=== PATIENT | male | born 1945 | race Caucasian/White ===

== ENCOUNTER → 2020-02-20 10:55 | Outpatient (CLI) | payer MEDICARE, BC, SELFPAY ==
--- NOTE | 2020-02-20 11:09 | CT_ITS ---
STUDY: CT LEFT KNEE WITHOUT CONTRAST REASON FOR EXAM: Male, 74 years old. DISP FX OF LT TIBIA, FELL 12 FT, C/O LT KNEE PAIN RADIATION DOSAGE (If Supplied By Facility): CTDIvol = ( 15.35 ) mGy, DLP = ( 461.22 ) mGycm TECHNIQUE: Transaxial CT imaging of the knee was performed. Coronal and sagittal images were reformatted. Individualized dose optimization techniques were used for this CT. COMPARISON: None. FINDINGS: Nondisplaced fracture through the lateral aspect of the medial tibial plateau. There is preservation of the articular joint space of the medial knee compartment. Comminuted fracture involving the lateral tibial plateau with the minimal depression of the fracture fragment at the level of the articular surface measuring approximately 1 mm. There is preservation of the articular joint space of the lateral knee compartment. Normal proximal tibiofibular articulation. Moderate joint effusion. The quadriceps tendon is grossly normal. The patellar tendon is grossly normal. Normal Hoffa''s fat pad. Soft tissue swelling. CT/Extremity Lower without Contra IMPRESSION: Minimally depressed, fracture through the lateral tibial plateau extending into the lateral aspect of the medial tibial plateau. Moderate degree of joint effusion. Electronically Signed: Nate Nails, at 12:43 EDT , Service support ,
== END ==
PROVIDERS: PCP Family Medicine; Referring Provider Physician Assistant; Visit Provider Physician Assistant
DX: S82.112A Displaced fracture of left tibial spine, initial encounter for closed fracture (principal)
CPT/HCPCS: 73700

== ENCOUNTER → 2021-02-21 12:53 | Outpatient (CLI) | payer MEDICARE, BC, SELFPAY ==
[2021-02-20 13:24] VITALS: BMI 30.8
--- NOTE | 2021-02-21 12:56 | ECHOD_ITS ---
Reason For Study: MURMUR Procedure This was a 2D Doppler, Color Flow transthoracic echocardiogram. The study was technically difficult. Exam performed in department. Left Ventricle Normal LV size. Left ventricular systolic function is normal. The estimated ejection fraction is 60 %. No evidence for diastolic dysfunction. No regional wall motion abnormalities noted. Right Ventricle Normal RV size. Normal systolic function. Atria The left atrium is mildly enlarged. Normal right atrium. No doppler evidence for ASD. Mitral Valve There is no mitral annular calcification. Normal mitral valve. Trivial mitral valve insufficiency. Tricuspid Valve Normal tricuspid valve. Trivial tricuspid valve insufficiency. Unable to estimate RV systolic pressure/pulmonary artery pressure due to technically difficult study. Aortic Valve The aortic valve is not well visualized, however, based upon the 2D echocardiographic images obtained there appears to be diffuse thickening, calcification, and partial restriction. Mild aortic stenosis. Pulmonic Valve The pulmonic valve is not well visualized. Great Vessels Normal sized aortic root. Calcified aortic root. Pericardium/Pleural No pericardial effusion. MMode/2D Measurements & Calculations LVIDd: 4.7 cm IVSd: 1.2 cm LVOT diam: 2.3 cm LVIDs: 3.3 cm LVPWd: 1.2 cm LVOT area: 4.1 cm2 RVDd: 3.6 cm FS: 29.2 % Ao root diam: 2.9 cm LAV(MOD-bp): 76.0 ml LA A4 area: 25.9 cm2 LAV(MOD-bp) Indexed: 35.1 ml/m2 LAV(MOD-sp2): 64.1 ml LAV(MOD-sp4): 86.0 ml LA dimension(2D): 4.1 cm RA A4 area: 20.1 cm2 Time Measurements MV dec time: 0.28 sec Doppler Measurements & Calculations MV E max devin: 76.7 cm/sec Lat Peak E' Devin: 10.7 cm/sec Med Peak E' Devin: 8.5 cm/sec MV A max devin: 89.8 cm/sec E/E' lat: 7.2 E/E' med: 9.0 MV E/A: 0.85 Ao V2 max: 280.6 cm/sec LV V1 max: 119.0 cm/sec SV(LVOT): 112.9 ml Ao max P.6 mmHg LV V1 max P.7 mmHg Ao V2 mean: 207.0 cm/sec LV V1 mean P.4 mmHg Ao mean P.8 mmHg LV V1 mean: 90.0 cm/sec Ao V2 VTI: 62.0 cm LV V1 VTI: 27.4 cm ANNE MARIE(I,D): 1.8 cm2 ANNE MARIE(V,D): 1.7 cm2 PA V2 max: 106.6 cm/sec ECHO/Echo Complete Interpretation Summary The study was technically difficult. Left ventricular systolic function is normal. The estimated ejection fraction is 60 %. The left atrium is mildly enlarged. Trivial mitral valve insufficiency. Trivial tricuspid valve insufficiency. Mild aortic stenosis. Calcified aortic root. Unable to estimate RV systolic pressure/pulmonary artery pressure due to techni grace difficult study. No evidence for diastolic dysfunction. Ordering Physician: Mejia Broderick Referring Physician: Radu Guaman Performed By: Cherie Givens RDCS, RVT
== END ==
PROVIDERS: PCP Family Medicine; Referring Provider Internal Medicine Cardiovascular Disease; Visit Provider Internal Medicine Cardiovascular Disease
DX: I35.0 Nonrheumatic aortic (valve) stenosis (principal); R01.1 Cardiac murmur, unspecified; I10 Essential (primary) hypertension
CPT/HCPCS: 93306

== ENCOUNTER → 2023-09-07 | Outpatient (CLI) | payer MEDICARE, BC, OTHER, SELFPAY ==
--- NOTE | 2023-09-07 | LES_PTH ---
PATIENT: EVELIN MONTES LOC: [facility] U#:[id number] AGE/SX: 78/M ROOM: RE09/07/[address]: Dr. Castro Lund MD : 1945 BED: DIS: 09/07/2023 SPEC #: [id number] RECD: 09/08/23 08:24 STATUS: TOMASA IWONA #: [id number] LEXI: 09/07/23 00:[address]: Castro Lund DEPT: SURGICAL PATHOLOGY RECD BY: Maru Goff Tissues: Nasal cartilage, NOS Procedures: Surgery Specimen Level IV HEADER OPERATION: Intradermal excision PRE-OP DIAGNOSIS: Enlarging lesion nasal dorsum TISSUE SUBMITTED: Nasal dorsum MICROSCOPIC DIAGNOSIS Lesion of nasal dorsum, biopsy: Fragments of skin with sebacious hyperplasia. Actinic change with mild atypia. Extensive solar elastosis. Mild chronic inflammation. AM:yousif 09/09/2023 MICROSCOPIC DESCRIPTION Slides are reviewed. GROSS DESCRIPTION Received in fixative is one container labeled with the patient's name and designated nasal dorsum. The specimen consists of two irregular fragments of light zavala soft tissue that in aggregate measure 0.9 x 0.7 x 0.1 cm. The specimen is totally submitted in one cassette. / AM:yousif 09/08/2023 TC:? CPT: 37265
== END | disposition home or self-care (01) ==
PROVIDERS: Visit Provider Surgery
DX: J34.89 Other specified disorders of nose and nasal sinuses (principal)
CPT/HCPCS: 88304; 88305

== ENCOUNTER 2024-02-12 10:05 | Day surgery (SDC) | payer MEDICARE, BC, SELFPAY ==
[2024-02-12 10:29] VITALS: BP 157/92; PULSE 70; RESP 16; TEMP 36.8; O2SAT 100; BMI 29.1
--- NOTE | 2024-02-12 11:19 | PCM.HP.BLA ---
History and Physical Date of Admission: 02/12/24 The patient is examined and there are no changes from the previous H&P dated 02/03/2024. 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 Informed consent was obtained. Assessment & Plan Assessment/Plan (1) SCC (squamous cell carcinoma), face: PLAN: Plan For excision SCC left face with FS
[2024-02-12 11:45] VITALS: BP 121/65; BP 130/73; BP 139/71; BP 140/73; BP 142/71; BP 143/81; BP 144/77; BP 145/73; BP 151/71; O2SAT 92; O2SAT 93; O2SAT 94; O2SAT 95; O2SAT 96; O2SAT 97; O2SAT 99
[2024-02-12] MEDS: Lidocaine 1% /Epi 1:100 9 ML, Sodium Bicarbonate 1 MEQ OPERA.SITE (12:00)
--- NOTE | 2024-02-12 12:29 | LES_PTH ---
PATIENT: EVELIN MONTES LOC: [facility] – [place] U#:[id number] AGE/SX: 78/M ROOM: RE02/12/[address]: Dr. Sayra Vincent MD : 1945 BED: DIS: 02/12/2024 SPEC #: [id number] RECD: 02/12/24 12:40 STATUS: TOMASA REAntonella #: [id number] LEXI: 02/12/24 12:[address]: Sayra Vincent DEPT: SURGICAL PATHOLOGY RECD BY: Sergio Tomas ENTERED: 02/12/24 12:41 SP TYPE: Lesion OTHR DR: Dr. Verenice Hernandez MD Tissues: Skin of face, NOS Procedures: Frozen Section (charge) Frozen Section Add'l ([facility]) Surgery Specimen Level IV HEADER OPERATION: Excision squamous cell carcinoma left cheek with frozen section PRE-OP DIAGNOSIS: Squamous cell carcinoma left cheek TISSUE SUBMITTED: Squamous cell carcinoma left cheek FROZEN SECTION DIAGNOSIS Left cheek lesion, excisional biopsy: Invasive squamous cell carcinoma, completely excised. MICROSCOPIC DIAGNOSIS Skin lesion of left cheek, excision: Invasive well to moderately differentiated squamous cell carcinoma. Solar elastosis. See comment. AM/ 02/16/2024 COMMENT The lesion is excised in the plains examined but is present in <1.0mm from the deep 9 o'clock margin of excision. MICROSCOPIC DESCRIPTION Slides are reviewed. GROSS DESCRIPTION Received fresh for frozen section consultation/diagnosis labeled with the patient's name is a specimen designated Squamous cell carcinoma left cheek. The specimen consists of a piece of zavala-white skin ellipse oriented on the gauz piece measuring 2.2 x 2.0 x 1.0cm. This specimen is inked as follows: 12 o'clock tip -yellow, 6 o'clock tip- green, 3 o'clock margin- black, 9 o'clock margin- blue. This specimen is serially sectioned and submitted entirely for frozen section diagnosis in three cassettes. Cassette 1- 6 and 12 o'clock tip. / 02/12/2024 TC:0 CPT: 21750,[id number]
--- NOTE | 2024-02-12 12:34 | DCINST_ITS ---
Discharge Instructions Dressing / Incision Additional Dressing/Incision Instructions:: Keep your head elevated (recliner position) for the next 3-4 nights to prevent swelling and bleeding. Take the oral antibiotic (Keflex) 2 times a day until finished. Keep the Steri-Strips dry??do not remove until seen in the office. Follow Up Care Please Follow Up With: Sayra Vincent MD When: In 2 weeks Test Results: Test results from this visit will be discussed in further detail at your follow- up appointment, if applicable. Discharge Plan Admission Attending Provider: Sayra Vincent Primary Care Provider: Verenice Hernandez Discharge Orders/Prescriptions Prescriptions: New cephalexin 500 mg capsule 500 mg PO BID 5 Days Qty: 10 0RF No Action vitamin E (dl, acetate) 1,000 unit capsule 2,000 unit PO DAILY multivitamin tablet 1 tab PO DAILY vit C 150 mg-vit E 30 unit-lutein 5 tx-lniexiio-yhbfv 3 150 mg capsule 201-25-1-150 lr-bhvd-ey-mg capsule 1 cap PO DAILY triamcinolone acetonide 0.1 % cream 1 applic TOPICAL TID PRN (Reason: rash) cholecalciferol (vitamin D3) 25 mcg (1,000 unit) tablet 1,000 unit PO DAILY zinc 50 mg tablet 50 mg PO DAILY biotin 2,500 mcg capsule 2,500 mcg PO DAILY Referrals / Follow Up: Verenice Hernandez MD [Primary Care Provider] - Disposition Disposition (needs filled in before D/C Order can be placed): Home, Self Care
--- NOTE | 2024-02-12 12:37 | OP.PCM_ITS ---
Problems Associated Problem List Diagnoses (1) SCC (squamous cell carcinoma), face: Report of Operation Date of Procedure: 02/12/24 Pre-Operative Diagnosis: Biopsy-proven SCC left cheek Post-Operative Diagnosis: Same Surgery/Procedure Performed:: Excision SCC left cheek with FS (3.0 cm) and intermediate closure Surgeon: Sayra Vincent Type of Anesthesia: Local Specimen's removed: SCC left cheek Estimated Blood Loss (mL): Minimal Description of Procedure: The patient presents with a biopsy-proven SCC of the left cheek. He presents for excision with frozen section to assure clear margins. An informed consent was obtained prior to the surgery. The patient was brought to the operating room and placed on the operating room table in the supine position. The left cheek is prepped and draped in the usual sterile fashion. 1% Xylocaine with epinephrine buffered with sodium bicarb is used for local anesthetic. Following this, the site is excised and orientation maintained for submission to pathology. The specimen is passed off the operative field to be sent for frozen section evaluation by pathology. Frozen section reveals clear margins. The incisions then closed in layers using a Monocryl suture in the subcutaneous tissue and dermis. Skin edges are approximated with a running subcuticular Monocryl suture. Dermabond and Steri- Strips were placed on the site. He tolerated the procedure well was taken recovery area in an awake and stable condition. Needle and sponge counts are correct. Complications None Admit VTE Documentation VTE Mechan Device Prophylaxis: None Reason prophylaxis not ordered:: Treatment Not Indicated
[2024-02-12 12:45] VITALS: BP 138/70; BP 157/92; PULSE 61; RESP 17; TEMP 36.4; O2SAT 95
== END 2024-02-12 13:15 | disposition home or self-care (01) ==
LOC: SDC 10:08 → AC 10:10
PROVIDERS: PCP Internal Medicine; Referring Provider Plastic Surgery; Visit Provider Plastic Surgery
PROC: (CPT 11643; principal; 2024-02-12 11:00)
DX: C44.320 Squamous cell carcinoma of skin of unspecified parts of face (principal)
CPT/HCPCS: 11643; 00300; J7120; 88305; 88331; 88332

== ENCOUNTER 2024-03-25 07:00 | Day surgery (SDC) | payer MEDICARE, BC, SELFPAY ==
[2024-03-25 07:21] VITALS: BP 128/72; PULSE 63; RESP 17; TEMP 36.8; O2SAT 98; BMI 29.0
--- NOTE | 2024-03-25 07:34 | PCM.HP.BLA ---
History and Physical Date of Admission: 03/25/24 The patient is examined and there are no changes to the H&P from 03/16/24. The patient presents with SCC left cheek with close positive margins. D/t the skin cancer type, we will re-excise to prevent further recurrence. Assessment & Plan Assessment/Plan (1) SCC (squamous cell carcinoma), face: PLAN: Plan For reexcision of SCC left cheek with FS.
[2024-03-25 08:14] VITALS: BP 120/65; BP 131/62; O2SAT 97; O2SAT 99
[2024-03-25 08:20] VITALS: BP 118/68; BP 120/65; BP 121/58; O2SAT 100; O2SAT 92; O2SAT 94; O2SAT 97; O2SAT 98
--- NOTE | 2024-03-25 08:55 | LES_PTH ---
PATIENT: EVELIN MONTES [place] [facility] [place][id number] AGE/SX: 78/M ROOM: RE03/25/[address]: Dr. Sayra Vincent MD : 1945 BED: DIS: 03/25/2024 SPEC #: [id number] RECD: 03/25/24 09:19 STATUS: TOMASA IWONA #: [id number] LEXI: 03/25/24 08:[address]: Sayra Vincent DEPT: SURGICAL PATHOLOGY RECD BY: Sergio Tomas ENTERED: 03/25/24 09:20 SP TYPE: Lesion OTHR DR: Dr. Verenice Hernandez MD Tissues: A - Skin of face, NOS B - Skin of external ear, NOS Procedures: Frozen Section (charge) Surgery Specimen Level IV HEADER OPERATION: Excision lesion of left cheek with frozen section PRE-OP DIAGNOSIS: SCC, face TISSUE SUBMITTED: A- Squamous cell carcinoma left cheek, B- Lesion left post auricular area FROZEN SECTION DIAGNOSIS Lesion of left cheek, excisional biopsy: Margins are free of carcinoma. MICROSCOPIC DIAGNOSIS A. Lesion left cheek, excisional biopsy: Solar elastosis. Dermal chronic inflammation. Changes consistent with previous biopsy site. Negative for residual carcinoma. See comment. B. Left post auricular area lesion, excisional biopsy: Benign vascular proliferation (capillary hemangioma), completely excised. ERICH/ 03/28/2024 COMMENT A. Please make reference to previous specimen ([id number]), skin lesion, left cheek, excision diagnosis of invasive well to moderate differentiated squamous cell carcinoma. MICROSCOPIC DESCRIPTION Slides are reviewed. GROSS DESCRIPTION A. Received fresh for frozen section diagnosis labeled with the patient's name is a specimen designated Lesion of left cheek. The specimen consists of an ovoid piece of zavala-white skin measuring 3.5 x 0.8 x 0.3cm. The specimen is oriented on the gauze piece. The specimen is inked as follows: 12o'clock- yellow, 6o'clock- green, 3o'clock- black, 9 o'clock- blue. The specimen is serially sectioned and submitted entirely in three cassettes for frozen section diagnosis. Cassette 1 contains 6 o'clock and 12o'clock margins. B. Received in fixative is one container labeled with the patient's name and designated Lesion left post auricular area. The specimen consists of zavala-white skin ellipse measuring 1.0 x 0.5 x 0.1cm in thickness. The specimen is inked, serially sectioned and submitted entirely in one cassette. ERICH/ 03/25/2024 TC:1CPT:[id number]
[2024-03-25] MEDS: Lidocaine 1% /Epi 1:100 9 ML, Sodium Bicarbonate 1 MEQ OPERA.SITE (09:00)
--- NOTE | 2024-03-25 09:16 | DCINST_ITS ---
Discharge Instructions Dressing / Incision Additional Dressing/Incision Instructions:: Keep your head elevated (recliner position) to decrease swelling and bleeding for the next 2 to 3 nights. Keep the Steri-Strips dry. Do not remove the tape. If they fall off, you may apply Neosporin or bacitracin to the site once a day. Take the oral antibiotic (Keflex) 2 times a day until finished. Follow Up Care Please Follow Up With: Sayra Vincent MD When: In 2 weeks Test Results: Test results from this visit will be discussed in further detail at your follow- up appointment, if applicable. Discharge Plan Admission Attending Provider: Sayra Vincent Primary Care Provider: Verenice Hernandez Instructions Print Language: Citizen Of [place] Discharge Orders/Prescriptions Prescriptions: New cephalexin 500 mg capsule 500 mg PO BID 5 Days Qty: 10 0RF No Action vitamin E (dl, acetate) 1,000 unit capsule 2,000 unit PO DAILY multivitamin tablet 1 tab PO DAILY Ocuvite 065-56-7-150 pj-qbfx-hq-mg capsule 1 cap PO DAILY triamcinolone acetonide 0.1 % cream 1 applic TOPICAL TID PRN (Reason: rash) cholecalciferol (vitamin D3) 25 mcg (1,000 unit) tablet 1,000 unit PO DAILY zinc 50 mg tablet 50 mg PO DAILY amoxicillin 500 mg capsule 500 mg PO BID biotin 2,500 mcg capsule 2,500 mcg PO DAILY Referrals / Follow Up: Verenice Hernandez MD [Primary Care Provider] - Disposition Disposition (needs filled in before D/C Order can be placed): Home, Self Care
--- NOTE | 2024-03-25 09:20 | PCM.OPRPT ---
Problems Associated Problem List Diagnoses (1) Neoplasm of uncertain behavior of skin: (2) SCC (squamous cell carcinoma), face: Report of Operation Date of Procedure: 03/25/24 Pre-Operative Diagnosis: Biopsy-proven SCC left cheek; neoplasm uncertain behavior left postauricular area Post-Operative Diagnosis: Same Surgery/Procedure Performed:: Excision SCC left cheek with FS (4.5 cm); intermediate closure left cheek; excision neoplasm left postauricular area (1.5 cm) Surgeon: Sayra Vincent Type of Anesthesia: Local Specimen's removed: Left cheek SCC; neoplasm left postauricular area Estimated Blood Loss (mL): Minimal Description of Procedure: The patient presents with a biopsy-proven SCC of the left cheek. This had previously been removed with frozen section however the permanent pathology demonstrated less than 1 mm of clear margin. He therefore presents for reexcision to assure against recurrence. 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 The patient was brought to the operating room and placed on the operating room table in supine position. The left cheek and postauricular area are prepped and draped in the usual sterile fashion. 1% Xylocaine buffered with sodium bicarb is injected in both sites. Following this, the left cheek SCC site is excised including the previous scar. Hemostasis is controlled with cautery. The orientation of the specimen is demarcated before sending to pathology for frozen section. Frozen section returned as clear margins and therefore the site is closed. 5-0 Monocryl sutures were used to approximate subcutaneous tissue and dermis in a fgvzoh-yl-msjxq fashion. Skin edges are further approximated with a running subcuticular Monocryl suture. Dermabond and Steri-Strips are placed on the site. We then directed our attention to the lesion of the postauricular area. After this has been injected with 1% Xylocaine with epinephrine buffered with sodium bicarb, it is elliptically excised and passed off the operative field for pathology. Hemostasis is controlled with cautery. The incision was then closed with a running chromic suture. Dermabond and Steri-Strips were placed on the site. He tolerated the procedure well was taken to the recovery area in an awake and stable condition. Needle and sponge counts are correct. Complications None Admit VTE Documentation VTE Mechan Device Prophylaxis: None Reason prophylaxis not ordered:: Treatment Not Indicated
[2024-03-25 09:53] VITALS: BP 127/68; BP 128/72; PULSE 63; RESP 18; TEMP 36.6; O2SAT 95
== END 2024-03-25 09:53 | disposition home or self-care (01) ==
LOC: SDC 07:01 → AC 07:02
PROVIDERS: PCP Internal Medicine; Referring Provider Plastic Surgery; Visit Provider Plastic Surgery
PROC: (CPT 11646; principal; 2024-03-25 07:50)
DX: C44.329 Squamous cell carcinoma of skin of other parts of face (principal); L57.8 Other skin changes due to chronic exposure to nonionizing radiation
CPT/HCPCS: 11646; 00300; 88305; 88331

== ENCOUNTER 2025-01-16 13:02 | Inpatient (IN) | payer MEDICARE, BC, OTHER, SELFPAY ==
[2025-01-16] VITALS (7 sets, daily range): BP systolic 114–174; BP diastolic 61–93; PULSE 54–83; RESP 12–20; TEMP 36.1–36.4; O2SAT 96–99; BMI 28.0; BMI 28.5
--- NOTE | 2025-01-16 13:24 | EKG12_ITS ---
Test Reason : Blood Pressure : */* mmHG Vent. Rate : 56 BPM Atrial Rate : 56 BPM P-R Int : 180 ms QRS Dur : 100 ms QT Int : 418 ms P-R-T Axes : -18 -25 -44 degrees QTcB Int : 403 ms Sinus bradycardia Minimal voltage criteria for LVH, may be normal variant ( R in aVL ) Nonspecific ST and T wave abnormality Abnormal ECG Confirmed by MILDRED GILLESPIE, ROGELIO ([id number]), film editor USMAN CORDOVA ([id number]) on 01/17/2025 8:36:50 AM Referred By: Blaine Chopra Confirmed By: ROGELIO LEVY MD
--- NOTE | 2025-01-16 13:36 | EX.ED.DYSGE1 ---
HPI <QAMAR Sy - Last Filed: 01/16/25 16:33> History of Present Illness Chief Complaint: Syncope Narrative Narrative: Patient presenting today due to multiple syncopal episodes he has had over the past 2 months or so. 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 He reports that he has had about 4 or 5 episodes of syncope. His last episode was about 2 weeks ago. Each episode occurred after developing left-sided chest pain while he was exerting himself. He was able to come back to [place] today to see his PCP, she would like him to be admitted to the hospital for cardiac workup. He did have labs obtained at the end of November, he had a negative D-dimer. He denies any history of blood clots or recent surgery. He does have a history of a cardiac murmur that was evaluated several years ago by cardiology. He has had no recent stress test. He is currently asymptomatic. He has a PMH of HLD and T2DM. PFS <QAMAR Sy - Last Filed: 01/16/25 16:33> [facility] Medical History Abnormal pituitary follicle stimulating hormone (FSH) Anemia Aortic stenosis Chest pain Syncope Dermatochalasis of right lower eyelid Dermatochalasis of left lower eyelid Non-rheumatic aortic stenosis Cardiac murmur Controlled type 2 diabetes mellitus Essential hypertension Testicular mass Hyperlipemia Home Medications ?Medication ?Instructions ?Recorded ?Last Taken ?Type multivitamin 1 tab PO DAILY 08/17/18 01/15/25 History vitamin E (dl, acetate) 450 mg 2,000 unit PO DAILY 08/19/18 01/15/25 History (1,000 unit) capsule triamcinolone acetonide 0.1 % 1 applic topical TID PRN rash 02/20/21 01/15/25 History topical cream biotin 2,500 mcg capsule 5 mg PO DAILY 12/07/24 01/15/25 History cholecalciferol (vitamin D3) 25 400 unit PO DAILY 12/07/24 01/15/25 History mcg (1,000 unit) tablet vitamin A-vitamin C-vit E-min 2 tab PO DAILY 01/16/25 01/15/25 History tablet (Ocutabs tablet) Allergy/AdvReac Type Severity Reaction Status Date / Time No Known Allergies Allergy Verified 05/10/24 10:44 Family History Father Myocardial infarction CAD (coronary artery disease) History of coronary artery bypass surgery Mother COPD (chronic obstructive pulmonary disease) Surgical History History of open reduction and internal fixation (ORIF) procedure History of arthroscopic knee surgery Social History Smoking Status: Never smoker alcohol intake: never substance use type: does not use additional social history: pt denies smoking, denies vaping, denies edibles, denies alcohol, denies aspirin use, denies ibuprofen use. ROS <QAMAR Sy - Last Filed: 01/16/25 16:33> ROS ED Constitutional Constitutional ED: Denies chills or fever(s) Cardiovascular Cardiovascular: Reports chest pain and syncope; Denies palpitations Respiratory/Chest Respiratory/Chest: Denies cough or dyspnea Gastrointestinal Gastrointestinal: Denies abdominal pain, nausea or vomiting Genitourinary Genitourinary ED: Denies dysuria, hematuria or urinary urgency Musculoskeletal Musculoskeletal: Denies arthralgias or myalgias Integumentary Denies rash Neurologic Neurologic: Denies weakness EXAM <QAMAR Sy - Last Filed: 01/16/25 16:33> Physical Exam Const Vital Signs: 01/16/25 13:03 01/16/25 13:45 01/16/25 13:45 Temperature 97.6 F L Temperature Source Temporal Pulse Rate 58 L 56 L Respiratory Rate 16 13 Respiratory Effort Normal Respiratory Pattern Normal Blood Pressure 130/72 H 124/63 H Blood Pressure Mean 91 83 Pulse Ox 99 99 Oxygen Delivery Method Room Air Room Air 01/16/25 15:06 Temperature 97 F L Temperature Source Pulse Rate 66 Respiratory Rate 20 H Respiratory Effort Respiratory Pattern Blood Pressure 142/82 H Blood Pressure Mean 102 Pulse Ox 97 Oxygen Delivery Method Positive well nourished, well developed and no apparent distress General Appearance ED: well developed HEENT Reports normocephalic and head/scalp atraumatic Mouth ED: Yes moist mucous membranes normal Eyes PERRL and EOMs intact bilaterally Neck full ROM and supple Chest Wall inspection of chest normal Resp normal respiratory effort and clear to auscultation bilaterally Cardio regular rate and regular rhythm Cardio Narrative: Systolic murmur GI soft to palpation, non-tender, non-distended and no masses Back/Spine normal ROM and normal to inspection Extremity normal to inspection and full ROM Neuro oriented x3, CN's II-XII intact bilaterally, moves all extremities, no focal motor deficits and no sensory deficits noted Sensorium / Orientation: awake and alert Psych mental status grossly normal and thought process normal Skin no rashes or lesions noted and no wounds <Dr. Blaine Chopra DO - Last Filed: 01/16/25 15:27> Physical Exam Const Vital Signs: 01/16/25 13:03 01/16/25 13:45 01/16/25 13:45 Temperature 97.6 F L Temperature Source Temporal Pulse Rate 58 L 56 L Respiratory Rate 16 13 Respiratory Effort Normal Respiratory Pattern Normal Blood Pressure 130/72 H 124/63 H Blood Pressure Mean 91 83 Pulse Ox 99 99 Oxygen Delivery Method Room Air Room Air 01/16/25 15:06 Temperature 97 F L Temperature Source Pulse Rate 66 Respiratory Rate 20 H Respiratory Effort Respiratory Pattern Blood Pressure 142/82 H Blood Pressure Mean 102 Pulse Ox 97 Oxygen Delivery Method MDM <QAMAR Sy - Last Filed: 01/16/25 16:33> [facility] Narrative Medical decision making narrative: Patient presenting today due to multiple syncopal episodes he has had over the past 2 months that have occurred with exertion. He also developed left-sided chest pain prior to each episode of syncope. He does have a history of aortic stenosis, he does have a murmur on exam. He did see his PCP this morning who referred him here to be admitted for cardiac workup. He has had no recent echo or stress test. He is currently asymptomatic. Labs were obtained, mild anemia noted on CBC, BMP unremarkable, initial troponin negative. BNP is pending. I do feel he would benefit from admission to the hospital for further cardiac workup, he is comfortable with this plan. We spoke with the hospitalist and patient admitted in stable condition Lab Data Attestation: I reviewed the patient's lab results. Lab results narrative: H&H 12.6 and 36.7, BUN 20 Labs: Laboratory Results - last 24 hr 01/16/25 13:40 WBC 5.6 RBC 4.23 L Hgb 12.6 L Hct 36.7 L MCV 86.8 MCH 29.8 MCHC 34.3 RDW Std Deviation 38.4 RDW Coeff of Sly 12.1 Plt Count 182 MPV 10.1 Immature Gran % (Auto) 0.400 Neut % (Auto) 71.5 H Lymph % (Auto) 17.8 L [place] % (Auto) 8.0 Eos % (Auto) 1.6 Baso % (Auto) 0.7 Absolute Neuts (auto) 4.0 Absolute Lymphs (auto) 1.00 Nucleated RBC % 0 Sodium 138 Potassium 4.0 Chloride 104 Carbon Dioxide 25.3 Anion Gap 9 BUN 20 H Creatinine 0.92 Estim Creat Clear Calc 73.75 Est GFR (MDRD) Non-Af 85 BUN/Creatinine Ratio 21.8 H Glucose 136 H Calcium 9.0 Troponin T High Sens 15 Radiography X-Ray: Read by ED Physician Diagnostic Testing: Clinical Impression(s) from Imaging Studies Chest X-Ray 01/16/25 13:40 IMPRESSION: Vascular congestion and mild CHF. Reading Location: [place] [id number] EKG Initial EKG: Comments: 56 bpm, sinus bradycardia, no ST elevation, interpreted by attending ED physician <Dr. Blaine Chopra, DO - Last Filed: 01/16/25 15:27> [facility] History & Record Review Discussion w/independent historian: Patient Lab Data Labs: Laboratory Results - last 24 hr 01/16/25 13:40 WBC 5.6 RBC 4.23 L Hgb 12.6 L Hct 36.7 L MCV 86.8 MCH 29.8 MCHC 34.3 RDW Std Deviation 38.4 RDW Coeff of Sly 12.1 Plt Count 182 MPV 10.1 Immature Gran % (Auto) 0.400 Neut % (Auto) 71.5 H Lymph % (Auto) 17.8 L [place] % (Auto) 8.0 Eos % (Auto) 1.6 Baso % (Auto) 0.7 Absolute Neuts (auto) 4.0 Absolute Lymphs (auto) 1.00 Nucleated RBC % 0 Sodium 138 Potassium 4.0 Chloride 104 Carbon Dioxide 25.3 Anion Gap 9 BUN 20 H Creatinine 0.92 Estim Creat Clear Calc 73.75 Est GFR (MDRD) Non-Af 85 BUN/Creatinine Ratio 21.8 H Glucose 136 H Calcium 9.0 Troponin T High Sens 15 Radiography Diagnostic Testing: Clinical Impression(s) from Imaging Studies Chest X-Ray 01/16/25 13:40 IMPRESSION: Vascular congestion and mild CHF. Reading Location: [place] [id number] Management Discussion w/another healthcare provider: Hospitalist (Dr Matos) Treatment and Re-Evaluation :: I have personally performed a face to face assessment of the patient and have reviewed the EDGAR Note. I performed a substantive portion of the visit including all aspects of the following. My joseph findings include: History is 79-year-old male presenting to the emergency room with the chief complaint of chest pressure and syncope. Patient has a history of aortic stenosis. He has had recurrent syncope over the past several months last episode was 2 weeks ago. He also notes chest pressure associated with exertion. He was seen by primary care as an outpatient had EKG and troponin. He has been trying to control his blood sugar and cholesterol through nonpharmaceutical means. Patient has not had a recent echocardiogram. Last one I can see was 2017. Exam is alert and oriented lung sounds are clear and equal. He does seem to have a conversational dyspnea. There is a holosystolic murmur heard best at the aortic listening post I do not appreciate any lower extremity edema. Medical Decison Making EKG shows a sinus rhythm with no ischemic changes. Troponin is negative. My independent interpretation of the chest x-ray is vascular congestion. I added on a BNP. Given his recurrent syncope and chest discomfort with the findings on the chest x-ray and the aortic stenosis with no recent echocardiogram I think it is reasonable that we bring him in obtain echocardiogram and explore the symptomatology further. Discharge Plan Dx/Rx/DC Orders Clinical Impression: Recurrent syncope, Chest pain, Aortic stenosis Disposition Disposition: Acute Care Hospital [facility] Discharge Date/Time: 01/16/25 16:11
--- NOTE | 2025-01-16 13:40 | RAD_ITS ---
PROCEDURE: CHEST 1 VIEW (PORTABLE) 01/16/2025 REASON FOR EXAM: Chest pain. Syncopal episodes. TECHNIQUE: Frontal view of the chest. COMPARISON: None FINDINGS: Hardware: EKG electrodes are seen. Heart: Heart size is mildly enlarged. Lungs: Vascular congestion mild CHF. Bones: Degenerative changes are identified within the thoracic spine. Other: Tortuosity of the descending thoracic aorta and calcification of the aortic arch. RAD/Chest 1 View (Portable) IMPRESSION: Vascular congestion and mild CHF. Reading Location: [place] [id number]
[2025-01-16 13:46] LABS: Basophil# 0.04 X10^3/uL; Basophil% 0.7 % (0-1); Eosinophil# 0.09 X10^3/uL; Eosinophils% 1.6 % (0-5); Hematocrit 36.7 % (40-54); Hemoglobin 12.6 g/dL (13.0-16.5); Lymphocyte % 17.8 % (19-41); Mean Corp Hgb Conc 34.3 g/dL (32-36); Mean Corpuscular Hgb 29.8 pg (27.0-32.0); Mean Corpuscular Volume 86.8 fL (80-94); Mean Platelet Vol. 10.1 fl (6.2-12.0); Monocyte# 0.45 X10^3/uL; NRBC Flagged by Analyzer 0 % (0-5); Neutrophil # 4.02 X10^3/uL (2.7-7.7); Neutrophil % 71.5 % (47-70); Platelet Count 182 K/mm3 (150-450); RBC Distribution Width CV 12.1 % (11.6-14.6); RBC Distribution Width SD 38.4 fl (35.1-43.9); Red Blood Count 4.23 M/mm3 (4.6-6.2); White Blood Count 5.6 K/mm3 (4.4-11.0)
--- NOTE | 2025-01-16 13:47 | ED.RN ---
PT C/O SEVERAL SYNCOPAL EPISODES RECENTLY. STATES THESE EPISODES ARE PRECEDED BY CHEST PAIN BUT DENIES CHEST PAIN AT THIS TIME.
[2025-01-16 14:07] LABS: Anion Gap 9 (5-15); BUN 20 mg/dL (4-19); BUN/Creat Ratio 21.8 RATIO (10-20); Carbon Dioxide 25.3 mmol/L (21.0-32.0); Chloride 104 mmol/L (98-108); Creatinine, Serum 0.92 mg/dL (0.70-1.20); EST Glomerular Filtration Rate 85 (>60); Estimated Creatinine Clearance 73.75 ml/min (50-250); Glucose 136 mg/dL (70-99); Sodium Level 138 mmol/L (133-145)
[2025-01-16 14:45] LABS: Troponin T High Sensitivity 15 ng/L (<=22)
--- NOTE | 2025-01-16 15:41 | PCM.HP.STD ---
HPI - General General Date of Admission: 01/16/25 Date of Service: 01/16/25 Chief Complaint: multiple syncopal episodes HPI Narrative EVELIN MONTES, is a 79-year-old male with a history of diet-controlled type 2 diabetes and mild aortic stenosis presented [facility] ED 01/16/2025 due to multiple syncopal episodes over the past couple of months. 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 Each episode occurred after developing left-sided chest pain while exerting himself. He came back to [place] today and saw his PCP and was very concerned and asked him to come to the ER to be admitted for cardiac workup. No history of blood clots or recent surgery. Has a history of a cardiac murmur that was evaluated several years ago by cardiology and an echo from 2018 showed mild aortic stenosis. Presently symptomatic, has no history of recent stress test or echocardiogram. In the ED vitals stable, troponin 15, hemoglobin 12.6 and glucose 136 but CBC and BMP otherwise unremarkable. Chest x-ray did show some vascular congestion suggestive of mild CHF and patient had a little bit of exertional dyspnea so BNP was added on. Given patient's multiple syncopal episodes hospitalist contacted for admission. Patient evaluated at bedside he does report for 5 minutes episodes which usually happen after a significant amount of exertion and would start with chest pressure when he did not sit to rest and subsequently go on to have syncopal episodes and then recover. Currently not having chest pain or lightheadedness, last syncopal episode about 2 weeks ago however patient's family physician very nervous about these multiple episodes and their frequency and associated symptoms, patient agreeable to admission and workup [facility] Medical History Abnormal pituitary follicle stimulating hormone (FSH) Anemia Aortic stenosis Chest pain Syncope Dermatochalasis of right lower eyelid Dermatochalasis of left lower eyelid Non-rheumatic aortic stenosis Cardiac murmur Controlled type 2 diabetes mellitus Essential hypertension Testicular mass Hyperlipemia Home Medications ?Medication ?Instructions ?Recorded ?Last Taken ?Type multivitamin 1 tab PO DAILY 08/17/18 01/15/25 History vitamin E (dl, acetate) 450 mg 2,000 unit PO DAILY 08/19/18 01/15/25 History (1,000 unit) capsule triamcinolone acetonide 0.1 % 1 applic topical TID PRN rash 02/20/21 01/15/25 History topical cream biotin 2,500 mcg capsule 5 mg PO DAILY 12/07/24 01/15/25 History cholecalciferol (vitamin D3) 25 400 unit PO DAILY 12/07/24 01/15/25 History mcg (1,000 unit) tablet vitamin A-vitamin C-vit E-min 2 tab PO DAILY 01/16/25 01/15/25 History tablet (Ocutabs tablet) Allergy/AdvReac Type Severity Reaction Status Date / Time No Known Allergies Allergy Verified 05/10/24 10:44 Family History Father Myocardial infarction CAD (coronary artery disease) History of coronary artery bypass surgery Mother COPD (chronic obstructive pulmonary disease) Surgical History History of open reduction and internal fixation (ORIF) procedure History of arthroscopic knee surgery Social History Smoking Status: Never smoker alcohol intake: never substance use type: does not use additional social history: pt denies smoking, denies vaping, denies edibles, denies alcohol, denies aspirin use, denies ibuprofen use. ROS ROS Narrative ROS positive for episodes of chest pain on exertion with syncope, no shortness of breath, no cough, denies any current chest pain, patient reports he has lost weight due to trying to eat healthy and no weight gain, swelling in his lower extremities Vital Signs Vital Signs Vital Signs: 01/16/25 13:03 01/16/25 13:45 01/16/25 13:45 Temperature 97.6 F L Temperature Source Temporal Pulse Rate 58 L 56 L Respiratory Rate 16 13 Respiratory Effort Normal Respiratory Pattern Normal Blood Pressure 130/72 H 124/63 H Blood Pressure Mean 91 83 Pulse Ox 99 99 Oxygen Delivery Method Room Air Room Air 01/16/25 15:06 Temperature 97 F L Temperature Source Pulse Rate 66 Respiratory Rate 20 H Respiratory Effort Respiratory Pattern Blood Pressure 142/82 H Blood Pressure Mean 102 Pulse Ox 97 Oxygen Delivery Method Weight Weight: 90.718 kg Body Mass Index (BMI) 28.0 Physical Exam Narrative General: Alert, oriented, no apparent distress HEENT: Atraumatic, normocephalic Eyes: Anicteric, normal conjunctiva, extraocular movements grossly intact Neck: Supple Respiratory: Fairly normal respiratory effort, no overt crackles, wheezes, rhonchi Cardiovascular: Regular rate and rhythm but does have harsh systolic murmur throughout precordium GI: Soft, nontender, nondistended Extremities: Trace lower extremity edema Musculoskeletal: Moving all extremities Neuro: No overt focal neurological deficits Skin: No rashes appreciated Psych: Cooperative Results Lab / Micro Data 01/16/25 13:40 01/16/25 13:40 Labs: Laboratory Results - last 24 hr 01/16/25 13:40: WBC 5.6, RBC 4.23 L, Hgb 12.6 L, Hct 36.7 L, MCV 86.8, MCH 29.8, MCHC 34.3, RDW Std Deviation 38.4, RDW Coeff of Sly 12.1, Plt Count 182, MPV 10.1, Immature Gran % (Auto) 0.400, Neut % (Auto) 71.5 H, Lymph % (Auto) 17.8 L, George % (Auto) 8.0, Eos % (Auto) 1.6, Baso % (Auto) 0.7, Absolute Neuts (auto) 4.0, Absolute Lymphs (auto) 1.00, Nucleated RBC % 0, Sodium 138, Potassium 4.0, Chloride 104, Carbon Dioxide 25.3, Anion Gap 9, BUN 20 H, Creatinine 0.92, Estim Creat Clear Calc 73.75, Est GFR (MDRD) Non-Af 85, BUN/Creatinine Ratio 21.8 H, Glucose 136 H, Calcium 9.0, Troponin T High Sens 15 Imaging Radiology Impression Chest X-Ray 01/16/25 13:40 IMPRESSION: Vascular congestion and mild CHF. Reading Location: [facility] Assessment & Plan Assessment/Plan (1) Recurrent syncope: PLAN: Plan # Multiple syncopal episodes and associated chest pain -Patient reports with moderate to significant exertion he will develop chest discomfort and subsequent syncope if he does not sit down to rest, cannot rule out that this is valvular in nature so would want to obtain echo prior to considering a stress test -admit to telemetry -Depending on echo results may need to consider stress test or further cardiac workup/cardiology consult -EGK sinus rhythm 56 bpm, no overt ST elevation or depression -Troponin 15, patient not currently having any symptoms, last episode 2 weeks ago -orthostatic vital signs -will obtain echo -Check lipid panel # Mild vascular congestion -Patient noted to have a little bit of increased work of breathing during conversation and chest x-ray revealed mild congestion concerning for mild CHF -Daily weights, I's and O's -Echocardiogram ordered -proBNP ordered #Type 2 diabetes mellitus -Glucose checks and sliding scale insulin -Presently diet controlled on outpatient basis -Will check A1c #DVT ppx: Lovenox subcu Lucia Matos MD Time spent in the patient's overall evaluation, decision-making process, review of diagnostic data, adjustment of management, discussion with other providers, nursing and ancillary staff involved in patient's care documentation, 57 Minutes Charges/Coding Visit Charges Inpatient E&M: 89937 Init Hosp L2
--- NOTE | 2025-01-16 16:13 | ECHOD_ITS ---
Reason For Study Reason For Study: SYNCOPE/NEAR SYNCOPE Procedure This was a 2D Doppler, Color Flow transthoracic echocardiogram. Exam performed portable in patient room. Left Ventricle Normal LV size. Left ventricular systolic function is normal. The left ventricular ejection fraction is 60 %. No regional wall motion abnormalities noted. Right Ventricle Normal RV size. Normal systolic function. Atria Normal left atrium. Normal right atrium. Mitral Valve Normal mitral valve. Tricuspid Valve Normal tricuspid valve. Mild (1+) tricuspid valve insufficiency. Pulmonary artery systolic pressure is 28 mmHg. Aortic Valve Trisinus/trileaflet aortic valve. Moderate focal aortic valve calcification. Peak aortic valve gradient 102 mmHg. Mean aortic valve gradient 57 mmHg. Severe aortic stenosis. Mild (1+) aortic valve insufficiency. Great Vessels Normal aortic root. The pulmonary artery is normal size. Normal inferior vena cava. Pericardium/Pleural No pericardial effusion. MMode/2D Measurements & Calculations LVIDd: 4.6 cm IVSd: 1.1 cm LVOT diam: 2.1 cm LVIDs: 3.1 cm LVPWd: 1.3 cm LVOT area: 3.5 cm2 RVDd: 3.6 cm FS: 32.7 % Ao root diam: 2.9 cm LAV(MOD-bp): 61.6 ml LVAd ap4: 30.2 cm2 LAV(MOD-bp) Indexed: 29.3 ml/m2 LVLd ap4: 8.9 cm LAV(MOD-sp2): 64.1 ml EDV(MOD-sp4): 86.4 ml LAV(MOD-sp4): 59.2 ml EDV(sp4-el): 86.7 ml LVAs ap4: 17.5 cm2 LVLs ap4: 7.7 cm ESV(MOD-sp4): 34.9 ml ESV(sp4-el): 33.4 ml EF(MOD-sp4): 59.6 % EF(sp4-el): 61.5 % SV(MOD-sp4): 51.4 ml SV(sp4-el): 53.3 ml LA A4 area: 20.5 cm2 SI(MOD-sp4): 24.4 ml/m2 LA dimension(2D): 3.8 cm RA A4 area: 17.3 cm2 TAPSE: 2.5 cm Time Measurements MV dec time: 0.30 sec Doppler Measurements & Calculations MV E max devin: 78.9 cm/sec Lat Peak E' Devin: 8.0 cm/sec Med Peak E' Devin: 9.0 cm/sec MV A max devin: 91.0 cm/sec E/E' lat: 9.8 E/E' med: 8.8 MV E/A: 0.87 Ao V2 max: 506.2 cm/sec AI max devin: 379.9 cm/sec LV V1 max: 103.9 cm/sec Ao max P.5 mmHg AI max P.8 mmHg LV V1 max P.4 mmHg Ao V2 mean: 356.1 cm/sec LV V1 mean P.3 mmHg Ao mean P.7 mmHg AI dec slope: 235.5 cm/sec2 LV V1 mean: 70.8 cm/sec Ao V2 VTI: 124.0 cm AI P1/2t: 472.6 msec LV V1 VTI: 26.6 cm AV (velocity ratio): 0.21 ANNE MARIE(I,D): 0.75 cm2 ANNE MARIE(V,D): 0.72 cm2 SV(LVOT): 93.6 ml PA V2 max: 83.7 cm/sec TR max devin: 246.0 cm/sec TR max P.2 mmHg ECHO/Echo Complete Interpretation Summary Normal LV size. Left ventricular systolic function is normal. The left ventricular ejection fraction is 60 %. Moderate focal aortic valve calcification. Mean aortic valve gradient 57 mmHg. Severe aortic stenosis. Ordering Physician: Lucia Matos Referring Physician: DAYRON MACIAS Performed By: Jenise Soria RDCS
[2025-01-16 16:45] LABS: Pro- Brain NATRIURETIC PEPTIDE 393 pg/mL (<=1800)
[2025-01-16 17:15] LABS: Troponin T High Sens 2 HR 15 ng/L (<=22)
[2025-01-16 17:35] LABS: Bedside Glucose 102 mg/dL (74-106)
[2025-01-17 00:04] LABS: Troponin T High Sens 4 HR 15 ng/L (<=22)
[2025-01-17 04:30] VITALS: BP 125/73; PULSE 82; RESP 14; TEMP 36.1; O2SAT 96
[2025-01-17 06:22] LABS: Absolute Lymphocyte Count 0.94 X10^3/uL (0.83-4.51); Absolute Neutrophil Count 3.9 X10^3/uL (2.0-7.7); Basophil# 0.03 X10^3/uL; Basophil% 0.5 % (0-1); Eosinophil# 0.16 X10^3/uL; Eosinophils% 2.9 % (0-5); Hematocrit 35.4 % (40-54); Lymphocyte # 0.94 X10^3/ul (0.83-4.51); Lymphocyte % 17.1 % (19-41); Mean Corp Hgb Conc 33.9 g/dL (32-36); Mean Corpuscular Hgb 29.3 pg (27.0-32.0); Mean Corpuscular Volume 86.3 fL (80-94); Mean Platelet Vol. 10.3 fl (6.2-12.0); Monocyte% 9.1 % (0-10); NRBC Flagged by Analyzer 0 % (0-5); Neutrophil # 3.86 X10^3/uL (2.7-7.7); Neutrophil % 70.2 % (47-70); Platelet Count 188 K/mm3 (150-450); Prothrombin Time (Protime)PT. 13.7 SECONDS (11.7-14.9); RBC Distribution Width CV 12.2 % (11.6-14.6); RBC Distribution Width SD 38.6 fl (35.1-43.9); White Blood Count 5.5 K/mm3 (4.4-11.0)
[2025-01-17 06:47] LABS: Cholesterol 164 mg/dL (<=200); High Density Lipoprotein 37 mg/dL; Low Density Lipoprotein Calc. 107 mg/dL; Magnesium 1.9 mg/dL (1.5-2.2); Triglycerides 99 mg/dL; Very Low Density Lipoprotein 20 mg/dL (5-40); cholesterol:hdl ratio screen 4.43
[2025-01-17 06:49] LABS: Anion Gap 12 (5-15); BUN 22 mg/dL (4-19); BUN/Creat Ratio 27.7 RATIO (10-20); Carbon Dioxide 22.4 mmol/L (21.0-32.0); Chloride 105 mmol/L (98-108); EST Glomerular Filtration Rate 90 (>60); Estimated Creatinine Clearance 85.65 ml/min (50-250); Glucose 152 mg/dL (70-99); Sodium Level 139 mmol/L (133-145)
[2025-01-17 06:57] LABS: Hemoglobin A1c 7.6 % (<=5.6)
[2025-01-17 06:58] LABS: Bedside Glucose 157 mg/dL (74-106)
[2025-01-17 07:52] VITALS: BP 133/62; PULSE 60; RESP 13; TEMP 36.3; O2SAT 98
--- NOTE | 2025-01-17 07:56 | PCM.PN.HOSP ---
Reason for Visit Reason for Visit: Diagnoses Syncope and collapse (01/16/25) Subjective Subjective Patient is a 79-year-old gentleman admitted with multiple syncopal episode with chest pain Objective Data Objective Data Vital Signs: Vital Signs Temp Pulse Resp BP Pulse Ox O2 Del Method 97.4 F L 60 13 133/62 H 98 Room Air 01/17/25 07:52 01/17/25 07:52 01/17/25 07:52 01/17/25 07:52 01/17/25 07:52 01/17/25 07:52 Oxygen Delivery Method Room Air Weight: 92.7 kg Body Mass Index (BMI) 28.5 Lab / Micro Data 01/17/25 05:34 01/17/25 05:34 Labs: Laboratory Results - last 24 hr 01/16/25 13:25: NT pro BNP II 393 01/16/25 13:40: WBC 5.6, RBC 4.23 L, Hgb 12.6 L, Hct 36.7 L, MCV 86.8, MCH 29.8, MCHC 34.3, RDW Std Deviation 38.4, RDW Coeff of Sly 12.1, Plt Count 182, MPV 10.1, Immature Gran % (Auto) 0.400, Neut % (Auto) 71.5 H, Lymph % (Auto) 17.8 L, Garfield % (Auto) 8.0, Eos % (Auto) 1.6, Baso % (Auto) 0.7, Absolute Neuts (auto) 4.0, Absolute Lymphs (auto) 1.00, Nucleated RBC % 0, Sodium 138, Potassium 4.0, Chloride 104, Carbon Dioxide 25.3, Anion Gap 9, BUN 20 H, Creatinine 0.92, Estim Creat Clear Calc 73.75, Est GFR (MDRD) Non-Af 85, BUN/Creatinine Ratio 21.8 H, Glucose 136 H, Calcium 9.0, Troponin T High Sens 15 01/16/25 16:01: Troponin T Hi Sens 2 Hr 15 01/16/25 16:58: POC Glucose 102 01/16/25 22:55: Troponin T Hi Sens 4Hr 15 01/17/25 05:34: WBC 5.5, RBC 4.10 L, Hgb 12.0 L, Hct 35.4 L, MCV 86.3, MCH 29.3, MCHC 33.9, RDW Std Deviation 38.6, RDW Coeff of Sly 12.2, Plt Count 188, MPV 10.3, Immature Gran % (Auto) 0.200, Neut % (Auto) 70.2 H, Lymph % (Auto) 17.1 L, Garfield % (Auto) 9.1, Eos % (Auto) 2.9, Baso % (Auto) 0.5, Absolute Neuts (auto) 3.9, Absolute Lymphs (auto) 0.94, Nucleated RBC % 0, PT 13.7, INR 1.0, Sodium 139, Potassium 4.0, Chloride 105, Carbon Dioxide 22.4, Anion Gap 12, BUN 22 H, Creatinine 0.80, Estim Creat Clear Calc 85.65, Est GFR (MDRD) Non-Af 90, BUN/Creatinine Ratio 27.7 H, Glucose 152 H, Hemoglobin A1c 7.6, Calcium 9.0, Magnesium 1.9, Triglycerides 99, Cholesterol 164, LDL Cholesterol, Calc 107, VLDL Cholesterol 20, HDL Cholesterol 37 L, Cholesterol/HDL Ratio 4.43, TSH 2.020 01/17/25 06:33: POC Glucose 157 H Radiography Diagnostic Testing: Radiology Impression Chest X-Ray 01/16/25 13:40 IMPRESSION: Vascular congestion and mild CHF. Reading Location: [place] [id number] Physical Exam Narrative GENERAL: cooperative HEENT: Atraumatic; normocephalic EYES; Anicteric, Normal Conjunctiva NECK; supple, normal thyroid, RESPIRATORY: Diminished to auscultation CARDIOVASCULAR: Regular S1 S2, GI: soft, normoactive bowel sounds, : No Renal angle tenderness; EXTREMITIES: No edema, no clubbing, MUSCULOSKELETAL: no muscle wasting NEURO: Awake; no lateralizing signs. SKIN: No Rash PSYCH; Flat affect Assessment & Plan Assessment/Plan (1) Recurrent syncope: PLAN: Plan Patient is a 79-year-old gentleman admitted with multiple syncopal episode with chest pain 1. Syncopal episode ? Patient has been admitted to a monitored bed for continuous telemetry. As part of his management 2D echo was ordered and every shift orthostatic vitals obtained 2. Chest pain ? Initial cardiac enzymes came back unremarkable. Ordered nuclear stress test as part of patient's evaluation 3. Mild vascular congestion ? Found on checks x-ray echo has been ordered patient being monitored with strict input and output Daily weight 4. Diabetes mellitus type II -patient's oral hypoglycemics held. Placed on long acting insulin, Accu-Cheks a.c. and at bedtime and covered with sliding scale insulin 5. DVT prophylaxis ? On enoxaparin Time spent in the patient's overall evaluation,decision-making process, review of diagnostic data, adjustment of management, discussion with other providers, nursing nursing and ancillary staff involved in patient's care documentation, 38 Minutes Charges/Coding Visit Charges Inpatient E&M: 60723 Subs Hosp L2
[2025-01-17 08:01] VITALS: O2SAT 98
[2025-01-17 12:44] LABS: Bedside Glucose 171 mg/dL (74-106)
--- NOTE | 2025-01-17 12:45 | CASEMGMT ---
RN CM Face to Face with patient for initial transition planning/care coordination assessment. RN CM introduced self and role at [facility]. Patient lying in bed, alert and oriented. Patient willing to participate in assessment and is able to answer all questions appropriately. Care providers, pharmacy, and demographics verified. 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 They have several homes that they stay in. Patient is independent and able to ambulate stairs. Transportation: self, son DME/HHC: Patient has cane, denies further DME. No previous HHC or SNF. Patient wishes to discharge home, denies need for home health at this time. Patient states he has no further needs or concerns at this time. CM to follow for discharge planning needs that may arise. Disposition Plan: Patient to discharge home with family support and follow-up plans in place. Apurva MEJIA, RN, CM
[2025-01-17 13:48] VITALS: BP 132/59; PULSE 62; RESP 16; TEMP 36.5; O2SAT 98
--- NOTE | 2025-01-17 14:35 | STRESSREP_ITS ---
Stress Test Report Exercise myocardial perfusion stress test. 79-year-old man with a history of chest pain and presyncope Stress protocol: Resting EKG demonstrates normal sinus rhythm with a rate of 64 bpm resting blood pressure is 146/78 mmHg. The patient exercised according to the regular Agusto protocol for a total duration of 4 minutes attaining a maximum heart rate of 136 bpm which was 96% of maximum predicted heart rate; the maximum workload was 7 metabolic equivalents. At rest there were no ST or T wave changes noted to suggest ischemia and at peak exercise approximately 1.[address] depression were noted in lead II and aVF and 1.[address] depression in lead V6 suggestive of ischemia. During recovery the EKG changes returned to baseline with T wave inversions and premature ventricular complexes present. No clinical angina was noted the test was terminated due to the target heart rate being achieved/fatigue. The peak blood pressure was 160/72 mmHg. Rate- pressure product was 20,000. Myocardial perfusion protocol. 15 mCi of technetium 99m sestamibi was injected at rest. The patient exercised according to regular Agusto protocol for total duration of 4 minutes and at peak exercise 44.8 mCi of technetium 99m sestamibi was injected stress images were obtained stress and rest images were reconstructed in comparing the short axis vertical long and horizontal long axis. Gated images were also obtained. Perfusion SPECT analysis: Review of the stress images demonstrate normal uptake of tracer noted in all ar eas of the myocardium. The resting images similarly demonstrate normal uptake of tracer noted in all areas of the myocardium. No areas of reversibility are noted to suggest ischemia no previous infarct was noted. Gated SPECT analysis: The gated ejection fraction is 60%. Conclusion: Normal exercise myocardial perfusion stress test at a moderate workload EKG changes noted suggestive of ischemia Preserved ejection fraction.
--- NOTE | 2025-01-17 14:49 | CHAPLAIN ---
Type of Pastoral Visit _x__ Initial Visit ___ Follow-up Visit ___ On-call Visit ___ General Patient Visit ___ Spiritual Assessment ___ Family Conference ___ Bereavement ___ Rapid Response ___ Code Blue ___ Other (describe below) Pastoral Care Referral From _x__ Patient ___ Family ___ Nurse ___ Physician ___ Housekeeping Supervisor ___ Stitcher Feeder ___ Other (describe below) Sacrament/Intervention _x__ Active listening ___ Anointing ___ Pentecostal ___ Bereavement ___ Communion ___ Toshia exploration ___ _x__ Life review ___ Prayer ___ Reconciliation ___ Sacrament of Sick ___ Supportive presence ___ Wedding ___ Other (describe below) Pastoral Comments patient and son are in the room; pt thought this driver license agent was a doctor and was eager to speak to his doctor; pt is disappointed that this visit was not from the doctor; 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
--- NOTE | 2025-01-17 15:11 | PCM.DC.SUM ---
Providers Date of Admission: 01/16/25 Date of Discharge: 01/17/25 Primary Care Physician: Dr. Verenice Macias MD Reason For Visit: AORTIC STENOSIS Diagnosis Discharge Diagnosis (1) Recurrent syncope: Status: Acute Code(s): R55 - Syncope and collapse Plan Patient is a 79-year-old gentleman admitted with multiple syncopal episode with chest pain 1. Syncopal episode secondary to severe aortic stenosis ? Patient has been admitted to a monitored bed for continuous telemetry. As part of his management 2D echo was ordered and every shift orthostatic vitals obtained ? 2D echo obtained did show Normal LV size. Left ventricular systolic function is normal. The left ventricular ejection fraction is 60 %. Moderate focal aortic valve calcification. Mean aortic valve gradient 57 mmHg. Severe aortic stenosis. ?Plan is for patient to follow-up with cardiology on 01/18/2025 2. Chest pain ? Initial cardiac enzymes came back unremarkable. Ordered nuclear stress test as part of patient's evaluation ? Nuclear stress test did demonstrate Normal exercise myocardial perfusion stress test at a moderate workload EKG changes noted suggestive of ischemia Preserved ejection fraction. 3. Mild vascular congestion ? Found on checks x-ray echo has been ordered patient being monitored with strict input and output Daily weight 4. Diabetes mellitus type II -patient's oral hypoglycemics held. Placed on long acting insulin, Accu-Cheks a.c. and at bedtime and covered with sliding scale insulin 5. DVT prophylaxis ? On enoxaparin Time spent in the patient's overall evaluation,decision-making process, review of diagnostic data, adjustment of management, discussion with other providers, nursing nursing and ancillary staff involved in patient's care documentation, 38 Minutes Medications at Discharge Home Medications multivitamin 1 tab PO DAILY 08/17/18 vitamin E (dl, acetate) 450 mg (1,000 unit) capsule 2,000 unit PO DAILY 08/19/18 triamcinolone acetonide 0.1 % topical cream 1 applic topical TID PRN rash 02/20/21 biotin 2,500 mcg capsule 5 mg PO DAILY 12/07/24 cholecalciferol (vitamin D3) 25 mcg (1,000 unit) tablet 400 unit PO DAILY 12/07/24 vitamin A-vitamin C-vit E-min tablet (Ocutabs tablet) 2 tab PO DAILY 01/16/25 Physical Exam Narrative GENERAL: cooperative HEENT: Atraumatic; normocephalic EYES; Anicteric, Normal Conjunctiva NECK; supple, normal thyroid, RESPIRATORY: Diminished to auscultation CARDIOVASCULAR: Regular S1 S2, systolic murmur GI: soft, normoactive bowel sounds, : No Renal angle tenderness; EXTREMITIES: No edema, no clubbing, MUSCULOSKELETAL: no muscle wasting NEURO: Awake; no lateralizing signs. SKIN: No Rash PSYCH; Flat affect Weight / BMI Weight Weight: 92.7 kg Body Mass Index (BMI) 28.5 ABG / Lab / Microbiology Data 01/17/25 05:34 01/17/25 05:34 Laboratory: Laboratory Results - last 24 hr 01/16/25 13:25: NT pro BNP II 393 01/16/25 16:01: Troponin T Hi Sens 2 Hr 15 01/16/25 16:58: POC Glucose 102 01/16/25 22:55: Troponin T Hi Sens 4Hr 15 01/17/25 05:34: WBC 5.5, RBC 4.10 L, Hgb 12.0 L, Hct 35.4 L, MCV 86.3, MCH 29.3, MCHC 33.9, RDW Std Deviation 38.6, RDW Coeff of Sly 12.2, Plt Count 188, MPV 10.3, Immature Gran % (Auto) 0.200, Neut % (Auto) 70.2 H, Lymph % (Auto) 17.1 L, Charles % (Auto) 9.1, Eos % (Auto) 2.9, Baso % (Auto) 0.5, Absolute Neuts (auto) 3.9, Absolute Lymphs (auto) 0.94, Nucleated RBC % 0, PT 13.7, INR 1.0, Sodium 139, Potassium 4.0, Chloride 105, Carbon Dioxide 22.4, Anion Gap 12, BUN 22 H, Creatinine 0.80, Estim Creat Clear Calc 85.65, Est GFR (MDRD) Non-Af 90, BUN/Creatinine Ratio 27.7 H, Glucose 152 H, Hemoglobin A1c 7.6, Calcium 9.0, Magnesium 1.9, Triglycerides 99, Cholesterol 164, LDL Cholesterol, Calc 107, VLDL Cholesterol 20, HDL Cholesterol 37 L, Cholesterol/HDL Ratio 4.43, TSH 2.020 01/17/25 06:33: POC Glucose 157 H 01/17/25 12:23: POC Glucose 171 H Radiography Diagnostic Testing: Radiology Impression Echocardiogram 01/16/25 16:13 Interpretation Summary Normal LV size. Left ventricular systolic function is normal. The left ventricular ejection fraction is 60 %. Moderate focal aortic valve calcification. Mean aortic valve gradient 57 mmHg. Severe aortic stenosis. Ordering Physician: Lucia Matos Referring Physician: VERENICE MACIAS Performed By: Jenise Soria RDCS D/C Instructions Discharge Diet: Low fat / Low cholesterol and 1800 Calorie Control Diet Discharge Activity: Return to Normal Activity Call your doctor if you observe: Fever of 101 or Higher, Shortness of breath, Fainting spells and Chest pain DC O2, CPAP, BIPAP Needs Home O2 Discharge instructions: No Meaningful Use Info Meaningful Use Meaningful Use Diagnoses (Choose all that apply): None applicable Ischemic Stroke Statin Dosing Therapy Reference: STATIN DOSE THERAPY REFERENCE: * Patients > 75 years receive moderate or high dose statin therapy. * Patients 75 years or YOUNGER should receive HIGH intensity statin dose unless contraindicated. You will be required to document reason for non-treatment if statin daily dose does not meet guidelines. HIGH DOSE STATIN THERAPY DAILY Atorvastatin > than or = to 40 mg Rosuvastatin > than or = to 20 mg Amlodipine + Atorvastatin > than or = to 2.5/40 mg Ezetimibe + Simvastatin 10/80 mg Simvastatin 80mg Discharge Plan Admission Admit Date/Time: 01/16/25 15:41 Attending Provider: Lele Anderson Primary Care Provider: Verenice Macias Consulting Providers: Lucia Matos Discharge Orders/Prescriptions Prescriptions: Continued vitamin E (dl, acetate) 1,000 unit capsule 2,000 unit PO DAILY multivitamin tablet 1 tab PO DAILY triamcinolone acetonide 0.1 % cream 1 applic TOPICAL TID PRN (Reason: rash) cholecalciferol (vitamin D3) 25 mcg (1,000 unit) tablet 400 unit PO DAILY biotin 2,500 mcg capsule 5 mg PO DAILY Ocutabs Tablet 2 tab PO DAILY Referrals / Follow Up: Melo Jackson MD [Med Staff - Active Staff] - 01/18/25 9:00 am Verenice Macias MD [Primary Care Provider] - Within 2 Weeks Disposition Disposition (needs filled in before D/C Order can be placed): Home, Self Care Charges/Coding Visit Charges Inpatient E&M: 41471 Disch Hosp >30min
--- NOTE | 2025-01-17 15:50 | PHA.DC.MR.R ---
Pharmacy MD Med Reconciliation Pharmacy Service has performed discharge medication reconciliation for this patient. The patient's discharge medication list was reviewed for discrepancies and discrepancies were resolved. Medications at Discharge Home Medications multivitamin 1 tab PO DAILY vitamin 08/17/18 vitamin E (dl, acetate) 450 mg (1,000 unit) capsule 2,000 unit PO DAILY vitamin 08/19/18 triamcinolone acetonide 0.1 % topical cream 1 applic topical TID PRN rash 02/20/21 biotin 2,500 mcg capsule 5 mg PO DAILY supplement 12/07/24 cholecalciferol (vitamin D3) 25 mcg (1,000 unit) tablet 400 unit PO DAILY vitamin 12/07/24 vitamin A-vitamin C-vit E-min tablet (Ocutabs tablet) 2 tab PO DAILY vitamin 01/16/25
== END 2025-01-17 15:39 | disposition home or self-care (01) | DRG 307 ==
LOC: ED 15:23 → PCU 01-17 07:13
PROVIDERS: Admitting Provider Internal Medicine; Emergency Provider Emergency Medicine; PCP Internal Medicine; Referring Provider Emergency Medicine; Visit Provider Internal Medicine
DX: I35.0 Nonrheumatic aortic (valve) stenosis (principal); E11.9 Type 2 diabetes mellitus without complications; I11.0 Hypertensive heart disease with heart failure; E78.5 Hyperlipidemia, unspecified; R01.1 Cardiac murmur, unspecified; Z79.899 Other long term (current) drug therapy; Z87.81 Personal history of (healed) traumatic fracture
CPT/HCPCS: 36415; 71045; 78452; 80048; 80061; 82962; 83036; 83735; 83880; 84443; 84484; 85025; 85610; 93005; 93017; 93306; 99285; A9500; A4216

== ENCOUNTER → 2025-01-20 | Day surgery (SDC) | payer MEDICARE, BC, OTHER, SELFPAY ==
[2025-01-19 07:35] VITALS: BMI 41.2
--- NOTE | 2025-01-20 09:17 | CL.D_ITS ---
Patient Name: EVELIN MONTES Study Date: 01/20/2025 Performing: Melo Jackson MD Ht: 60 inches 152.4 cm : 1945 Wt: 211 lbs 95.71 kg Age: 79 Gender: male BSA: 1.91 PROCEDURE(S) PERFORMED [id number]-([id number])[facility] CLINICAL PROFILE AND INDICATIONS Indications: Suspected CAD, Valvular Disease Heart Failure: None Stress/Imaging Date: 01/18/25Stress Test with SPECT MPI: Negative CAD Presentations: Stable angina. CONCLUSIONS Severe aortic stenosis Single-vessel coronary disease involving the circumflex artery RECOMMENDATIONS TAVR and consider PCI to the circumflex artery. DESCRIPTION OF PROCEDURE The patient arrived to the procedure lab. The risks and benefits of the procedure as well as a full description of our services here and current unavailability of surgical backup were fully explained to the patient and/or their significant other prior to the catheterization. The Timeout was completed, verifying the correct patient and procedure. The patient's procedural site was prepped and draped in the usual fashion. Local anesthetic was given subcutaneously to right radial region with Lidocaine 2%. Using a modified Seldinger technique, arterial access was obtained via the right radial artery, a 6Fr sheath was inserted. Left Coronary Artery selective angiography was performed in multiple views using a 5 Fr. 4.0 Chester catheter. Right Coronary Artery selective angiography was then performed in multiple views using a 5 Fr. 4.0 Chester catheter. Right Coronary Artery selective angiography was then performed in multiple views using a 5 Fr. JR 5 catheter. Left Ventriculography was performed in RABAGO projection using a 5 Fr. Pigtail catheter. LV to AO pullback pressures were then recorded. CORONARY ANGIOGRAPHY DOMINANCE: Right Dominant LEFT HEART ASSESSMENT Left Ventricular Ejection Fraction: by LV Gram 60 % Normal LV wall motion Normal Left Ventricular systolic function LEFT MAIN: Mild calcification, Mild luminal irregularities LEFT ANTERIOR DESCENDING ARTERY: Mild luminal irregularities less than 30% CIRCUMFLEX ARTERY: Medium size vessel with first obtuse marginal branch with luminal irregularities and second obtuse marginal branch with 90% mid segment stenosis. RIGHT CORONARY ARTERY: MID RCA: 40 % Stenosis VALVE FINDINGS: Aortic Valve Calcification - severe COMPLICATIONS PROCEDURE MEDICATIONS Fentanyl 50 mcg IV Versed 1 mg IV Versed 1 mg IV Oxygen: 2 L/min via nasal cannula Aspirin (325mg) 1 Tabs PO 01/20/2025 08:20:56 Brilinta 180 mg PO @ 01/20/2025 09:01:24 Heparin given IA 01/20/2025 08:35:55 Verapamil 2.5mg,3000 units of Heparin given IA 01/20/2025 08:35:55 SUMMARY OF HEMODYNAMIC DATA Time AIR REST ECG 07:35:36 ECG 08:24:17 AO 130/61 (88) SA 08:43:01 LV 188/7, 19 08:58:21 LV 188/8, 20 08:58:35 LV 187/8, 21 08:58:38 LV 188/8, 21 08:59:23 LVp 184/9, 29 08:59:29 AOp 136/60 (91) 08:59:36 AO 143/57 (91) 09:02:02 Signed By Melo Jackson MD On 01/20/2025 09:16:38 Melo Jackson MD
== END | disposition home or self-care (01) ==
PROVIDERS: PCP Internal Medicine; Referring Provider Internal Medicine Cardiovascular Disease; Visit Provider Internal Medicine Cardiovascular Disease
DX: I35.0 Nonrheumatic aortic (valve) stenosis (principal); E11.9 Type 2 diabetes mellitus without complications; R55 Syncope and collapse; I25.10 Atherosclerotic heart disease of native coronary artery without angina pectoris
CPT/HCPCS: 93458; 99152; 99153; Q9967; C1769; C1894

== ENCOUNTER 2025-10-11 11:38 | Emergency (ER) | payer MEDICARE, BC, OTHER, SELFPAY ==
[2025-10-11 11:39] VITALS: BP 144/74; PULSE 67; RESP 16; TEMP 36.8; O2SAT 99; BMI 29.6
--- NOTE | 2025-10-11 12:10 | CT_ITS ---
PROCEDURE: BRAIN/HEAD WITHOUT CONTRAST 10/11/2025 REASON FOR EXAM: MEMORY DIFFICULTY TECHNIQUE: Procedure Code: CTBR Modality: CT Procedure: BRAIN/HEAD WITHOUT CONTRAST Coronal and Sagittal reconstruction series were provided. One or more dose reduction techniques were used (e.g., Automated exposure control, adjustment of the mA and/or kV according to patient size, use of iterative reconstruction technique. COMPARISON: None available. FINDINGS: There is no extra-axial or intra-axial intracranial hemorrhage. No mass effect or midline shift is seen. Generalized intracranial volume loss and findings compatible with chronic microvascular white matter ischemia. There is normal solis-white matter differentiation. The posterior fossa is grossly unremarkable. The skull is unremarkable. Visualized paranasal sinuses are clear. The mastoid air cells show normal translucency. CT/Brain/Head without Contrast IMPRESSION: 1. No intracranial hemorrhage. No mass effect or midline shift. 2. Chronic involutional and ischemic gliotic white matter changes. Mild degene rate changes right the visualized clear acromioclavicular joints characterized by joint mild degenerate changes of the right shoulder. No acute fractures or dislocations. CT is insensitive for early evaluation of acute stroke. If there is clinical co ncern for acute ischemia, an MRI may be considered. Reading Location: [facility]
--- NOTE | 2025-10-11 12:11 | EKG12_ITS ---
Test Reason : Blood Pressure : */* mmHG Vent. Rate : 54 BPM Atrial Rate : 54 BPM P-R Int : 222 ms QRS Dur : 102 ms QT Int : 444 ms P-R-T Axes : 38 -24 -2 degrees QTcB Int : 421 ms Sinus bradycardia with 1st degree A-V block Otherwise normal ECG Confirmed by Wilfred Blackburn ([id number]), web editor EMERY CAMPBELL ([id number]) on 10/13/2025 8:04:44 AM Referred By: Confirmed By: Wilfred Blackburn
--- OUTSIDE RECORDS SUMMARY | 2025-10-11 12:17 | XMS RPT_ITS | CCD ---
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 Castro Lund Attending Provider Dr. Sayra Vincent Attending Provider Dr. Dayron Macias Primary Care Provider Dr. Dayron Macias Referring Provider Dr. Sayra Vincent Referring Provider Dr. Sayra Vincent Other Provider Dr. Dayron Macias MD Primary Care Provider Dr. Blaine Chopra DO Referring Provider Dr. Blaine Chopra DO Emergency Provider Carlo GILLESPIE, Dr. Myers Admit Provider Dr. Lucia Matos MD Attending Provider Dr. Lucia Matos MD Other Provider Dr. Dayron Macias MD Primary Care Provider Dr. Blaine Chopra DO Referring Provider Dr. Blaine Chopra DO Emergency Provider Carlo GILLESPIE, Dr. Myers Admit Provider Justin GILLESPIE, Dr. Royal Attending Provider Unavaila river Anderson MD, Dr. Royal Other Provider Unavailable Manuel GILLESPIE, Dr. Alejo Attending Provider Mary GILLESPIE, Dr. Caldera Referring Provider Manuel GILLESPIE, Dr. Alejo Referring Provider Mary GILLESPIE, Dayron Blevins Primary Care Provider Lottie RN, Maggie Unavailable Unavailable Lottie RN, Maggie Unavailable Unavailable BONEZZI, DAYRON Primary Care Unavailable TANVI, JAKOB Attending Unavailable JAKOB TINAJERO Referring Unavailable BITTENBENDERMICHAELA Admitting Unavailable BITTENBENDERMICHAELA Attending Unavailable BONEZZI, DAYRON Primary Care Unavailable BONEZZI, DAYRON Primary Care Unavailable BITTENBENDERMICHAELA Attending Unavailable [place] Attending Unavailable BONEZZI, DAYRON Primary Care Unavailable TRISH MEYER Attending Unavailable BONEZZI, DAYRON Primary Care Unavailable TRISH MEYER Attending Unavailable MEYER, TRISH Referring Unavailable BONEZZI, DAYRON Primary Care Unavailable Manuel, [place] Referring Unavailable Manuel, Melo Attending Unavailable Bonezzi, Dayron Primary Care Unavailable Blaine Chopra Referring Unavailable Lele Anderson Attending Unavailable Lucia Matos Consulting Unavailable Carlo, Lucia Admitting Unavailable Bonezzi, Dayron Primary Care Unavailable Lele Anderson Consulting Unavailable Manuel, [place] Attending Unavailable Matos, Lucia Consulting Unavailable Matos, Lucia Admitting Unavailable Bonezzi, Dayron Primary Care Unavailable Blaine Chopra Referring Unavailable Lele Anderson Consulting Unavailable Manuel, Melo Attending Unavailable Manuel, Melo Referring Unavailable Bonezzi, Dayron Primary Care Unavailable Blaine Chopra Referring Unavailable Lele Anderson Attending Unavailable Matos, Lucia Admitting Unavailable Matos, Lucia Consulting Unavailable Bonezzi, Dayron Primary Care Unavailable Manuel, [place] Attending Unavailable Bonezzi, Dayron Primary Care Unavailable Bonezzi, Dayron Referring Unavailable Lucia Matos Attending Unavailable Medications Current Medications Medication Drug Class(es) Dates Sig (Normalized) Sig (Original) amoxicillin 500 mg oral capsule (19 sources) Penicillin-class Antibacterial Start: 03-23-2025 End: 04-02-2025 amoxicillin (Amoxil) 500 MG capsule Take 4 caps (2000 mg) 1 hour prior to dental work 12 capsule 11 03/23/2025 04/02/2025 Active Start: 03-16-2024 End: 05-10-2024 take 1 capsule by mouth twice daily Amoxicillin 500 mg capsule Discontinued 500 mg PO TWICE A DAY March 16, 2024 12:00am May 10, 2024 10:45am Start: 10-03-2022 End: 05-18-2023 amoxicillin 500 mg oral caps ule 1 (one) capsule q 8 hrs for 10 days for 0 days Quantity: 30 {Capsule} Refills: 0 Ordered: 18-May-2023 Milka Izquierdo CMA Start : 03-Oct-2022 End : 18-May-2023 Inactive Start: 10-02-2022 take 1 capsule by mouth once a moxicillin 500 mg oral capsule 1 (one) capsule po once for 0 days Quantity: 1 {Capsule} Refills: 0 Ordered: 02-Oct-2022 Mary GILLESPIE, Dayron Macias MD, Dayron Blevins Start : 02-Oct-2022 Active aspirin 81 mg delayed release oral tablet (7 sources) Platelet Aggregation Inhibitor, Nonsteroidal Anti-inflammatory Drug Start: 02-06-2025 End: 02-08-2026 take 1 tablet by mouth once daily aspirin 81 MG EC tablet Take 1 tablet (81 mg) by mouth daily. 02/08/2025 02/08/2026 Active atorvastatin 40 mg oral tablet (10 sources) HMG-CoA Reductase Inhibitor Start: 02-07-2025 End: 02-07-2026 take 1 tablet by mouth once daily atorvastatin (Lipitor) 40 MG tablet Take 1 tablet (40 mg) by mouth daily. 30 tablet 11 02/07/2025 02/07/2026 Active Start: 08-17-2018 End: 08-19-2018 take 1 tablet by mouth once daily Atorvastatin 20 mg tablet Discontinued 20 mg PO DAILY August 17, 2018 12:00am August 19, 2018 10:35am cholecalciferol 0.025 mg oral tablet (20 sources) Vitamin D Start: 02-19-2025 take 1 tablet by mouth once daily Cholecalciferol (Vitamin D3) 25 mcg (1,000 unit) tablet Active 400 U PO DAILY December 07, 2024 5:03pm Start: 02-20-2021 End: 12-07-2024 take 1 tablet by mouth once daily Cholecalciferol (Vitamin D3) 25 mcg (1,000 unit) tablet Discontinued 1000 U PO DAILY February 20, 2021 12:00am December 07, 2024 5:03pm take 1 capsule by [facility] once daily cholecalciferol (Vitamin D-3) 25 MCG (1000 UT) capsule Take 1,000 Units by mouth daily. Active Multiple Vitamin (multivitamin) tablet (20 sources) take 1 tablet by mouth once daily Multiple Vitamin (multivitamin) tablet Take 1 tablet by mouth daily. Active Multiple Vitamins-Minerals (OCUTABS PO) (20 sources) Multiple Vitamin s-Minerals (OCUTABS PO) Take by mouth. Active Multivitamin preparation (2 sources) Start: 08-17-2018 take 1 tablet by mouth once daily Multivitamin Active 1 TABLET PO DAILY August 17, 2018 12:00am Start: 08-17-2018 take 1 tablet by [facility] once daily Multivitamin Active 1 TABLET PO DAILY August 16, 2018 11:00pm Multivitamin tablet (3 sources) Start: 08-17-2018 Multivitamin t ablet Active 1 {tbl} PO DAILY August 17, 2018 12:00am triamcinolone acetonide 1 mg/ml topical cream (10 sources) Corticosteroid Start: 08-17-2018 End: 02-20-2021 Triamcinolone Acetonide 0.1 % cream Active 1 NMA TOPICAL THREE TIMES A DAY as needed for rash February 20, 2021 1:40pm Start: 08-17-2018 End: 02-20-2021 Triamcinolone Acetonide 0.1 % cream Discontinued 1 NMA TOPICAL THREE TIMES A DAY August 17, 2018 12:00am February 20, 2021 1:40pm vit C 150 mg-vit E 30 unit-lutein 5 av-zpnxdmrj-kbhnv 3 150 mg capsule (2 sources) Start: 08-17-2018 take 1 capsule by mouth once daily vit C 150 mg-vit E 30 unit-lutein 5 jz-hsrwxjow-dmnnp 3 150 mg capsule Active 1 CAP PO DAILY August 17, 2018 12:00am Start: 08-17-2018 take 1 capsule by mo [facility] once daily vit C 150 mg-vit E 30 unit-lutein 5 fz-rbtievan-dqzlq 3 150 mg capsule Active 1 CAP PO DAILY August 16, 2018 11:00pm Vitamin A-Vitamin C-Vit E-Mi n (Ocutabs) tablet (3 sources) Start: 01-16-2025 Vitamin A-Ling min C-Vit E-Min (Ocutabs) tablet Active 2 {tbl} PO DAILY January 16, 2025 12:00am vitamin e 450 mg oral capsul e (20 sources) Start: 08-19-2018 Vitamin E (Dl, Acetate) 1,000 unit capsule Active 2000 U PO DAILY August 19, 2018 12:00am Start: 08-19-2018 take 2000 [IU] by [facility] once daily Vitamin E (Dl, Acetate) Active 2000 UNIT PO DAILY August 19, 2018 12:00am take 1 capsule by [facility] once daily alpha tocopherol (Vitamin E) 1000 units capsule Take 1,000 Units by mouth daily. Active Completed/Discontinued Medications Medication Drug Class(es) Dates Sig (Normalized) Sig (Original) acetaminophen 325 mg oral tablet (2 sources) Start: 02-06-2025 End: 02-07-2025 take 1 tablet by mouth every four hours as needed for pain biotin 2.5 mg oral capsule (20 sources) Start: 12-07-2024 End: 01-18-2025 take 5 mg by mouth once daily Biotin 2,500 mcg capsule Discontinued 5 mg PO DAILY December 07, 2024 5:02pm January 18, 2025 8:55am Start: 09-08-2023 End: 12-07-2024 take 1 capsule by mouth once daily Biotin 2,500 mcg capsule Discontinued 2500 ug PO DAILY September 08, 2023 1:00am December 07, 2024 5:03pm take 1 ug by mouth once daily bi otin 5,000 mcg oral Tablet,disintegrating daily (5,000 mcg) Active cephalexin 500 mg oral capsule (7 sources) Cephalosporin Antibacterial Start: 03-25-2024 End: 05-10-2024 take 1 capsule by mouth twice daily Cephalexin 500 mg capsule Discontinued 500 mg PO TWICE A DAY 07 23March 25, 2024 12:00am May 10, 2024 10:45am Start: 02-12-2024 End: 03-16-2024 take 1 capsule by mouth twice daily Cephalexin 500 mg capsule Discontinued 500 mg PO TWICE A DAY 10 5 February 12, 2024 12:00am March 16, 2024 9:30am dapagliflozin 10 mg oral tablet (3 sources) Sodium-Glucose Cotransporter 2 Inhibitor Start: 12-07-2024 End: 01-16-2025 take 1 tablet by mouth once daily Dapagliflozin Propanediol (Farxiga) 10 mg tablet Discontinued 10 mg PO daily December 07, 2024 1:00am January 16, 2025 2:59pm Fish Oils (16 sources) Fish OiL 1,000 m g (120 mg-180 mg) oral capsule (1,000 mg (120 mg-180 mg)) Active Comments: 5000 Comment on above: 5000 fluorouracil 50 mg/ml topical cream (19 sources) Nucleoside Metabolic Inhibitor Start: 02-27-2023 Efudex 5 % topical cream 1 (one) Application apply daily for 2 weeks on sun exposed skin for 0 days Quantity: 40 {Gram} Refills: 0 Ordered: 27-Feb-2023 Mary GILLESPIE, Dayron Jara MD Start : 27-Feb-2023 Active Start: 09-09-2022 Efudex 5 % top ical cream 1 (one) Application apply daily for 2 weeks on sun exposed skin for 0 days Quantity: 40 {Gram} Refills: 0 Ordered: 02-Oct-2022 Dayron Macias MD, MD, Dana M Start : 02-Oct-2022 Active FreeStyle Lakesha 14 Day Sensor Miscellaneous (17 sources) Start: 06-05-2022 FreeStyle Lakesha 14 Day Sensor Miscellaneous as directed for 0 days Quantity: 1 {Each} Refills: 0 Ordered: 05-Jun-2022 Keith Garcia CMA Start : 05-Jun-2022 Active GLUCOSAMINE CHONDR 500 COMPLEX (PO Cap) (4 sources) GLUCOSAMINE CHONDR 500 COMPLEX (PO Cap) 2 qd for 0 days Refills: 0 Ordered: 05-Jun-2022 Keith Garcia CMA Active Glucosamine-Chond roitin Complx oral capsule (16 sources) End: 10-01-2022 take 2 capsules by mouth once daily Glucosamine-Chond roitin Complx oral capsule 2 qd for 0 days Refills: 0 Ordered: 01-Oct-2022 Kelly Mina LPN End : 01-Oct-2022 Inactive iopamidol (Isovue-370) 76 % injection 100 mL (2 sources) Start: 01-31-2025 End: 01-31-2025 take 100 mL intravenously once as needed 100 mL, IntraVENous, IMG once PRN, contrast, Starting on Thu01/31/25 at 1221, For 1 dose Multivitamin Oral Liquid (20 sources) End: 06-05-2022 Multivitamin Oral Liquid for 0 days Refills: 0 Ordered: 05-Jun-2022 Keith Garcia CMA End : 05-Jun-2022 Inactive mupirocin 0.02 mg/mg topical ointment (2 sources) RNA Synthetase Inhibitor Antibacterial Start: 02-06-2025 End: 02-07-2025 1 Application, Nasal, 2 times daily, First dose on Thu02/06/25 at 2100, For 5 days, Recovery & On Unit, Indications: MRSA Nasal Decolonization 1000 ml sodium chloride 9 mg/ml injection (2 sources) Start: 02-06-2025 End: 02-06-2025 take 50 mL intravenously every hour 50 mL/hr, IntraVENous, Continuous, Starting on Thu02/06/25 at 1315, Preprocedure, Upon admission to sameday - please start iv if patient does not have iv access. tadalafil 10 mg oral tablet (12 sources) Phosphodiesterase 5 Inhibitor Start: 12-07-2024 End: 01-16-2025 Tadalafil 10 mg tablet Discontinued 10 mg PO As Directed December 07, 2024 1:00am January 16, 2025 2:59pm Start: 02-27-2023 take 1 tablet by angel th every twenty-four hours tadalafiL 10 mg oral tablet 1 Tablet daily;sexual activity;administer approximately 30min before sexual activity; do not use more than 1 dose per 24hrs for 0 days Quantity: 20 {Tablet} Refills: 2 Ordered: 27-Feb-2023 Mary GILLESPIE, Dayron Macias MD, Dayron Blevins Start : 27-Feb-2023 Active Start: 02-06-2023 take 1 tablet by angel th every twenty-four hours tadalafiL 10 mg oral tablet 1 Tablet daily;sexual activity;administer approximately 30min before sexual activity; do not use more than 1 dose per 24hrs for 0 days Quantity: 20 {Tablet} Refills: 2 Ordered: 06-Feb-2023 Mary GILLESPIE, Dayron Macias MD, Dayron Blevins Start : 06-Feb-2023 Active Vit C-Vit P-Slidle-Mzj-Om-3 (Ocuvite) 764-38-9-150 ht-gzvj-yy-mg capsule (3 sources) Start: 08-17-2018 End: 01-16-2025 take 1 capsule by mouth once daily Vit C-Vit W-Exruan-Zas-Om-3 (Ocuvite) 574-90-9-150 dl-fdbb-lk-mg capsule Discontinued 1 NMA PO DAILY August 17, 2018 12:00am January 16, 2025 2:53pm Zinc (5 sources) Start: 02-20-2021 End: 12-07-2024 take 1 tablet by mouth once daily Zinc 50 mg tablet Discontinued 50 mg PO DAILY February 20, 2021 12:00am December 07, 2024 5:03pm Start: 02-20-2021 take 50 mg by mouth once daily Zinc Active 50 MG PO DAILY February 20, 2021 12:00am Start: 02-20-2021 take 50 mg by mouth once daily Zinc Active 50 MG PO DAILY February 19, 2021 11:00pm Problems Active Problems Problem Classification Problem Date Documented Date Episodic/Chronic Blindness and vision defects (20 sources) Eye / vision finding; Translations: [Visual changes] 06-05-2022 Episodic Comment on above: See eye doctor if pe rsists. Blurred vision with fatigue. Twitching eye lid with faigue and stress. Coronary atherosclerosis and other heart disease (6 sources) Coronary arteriosclerosis; Translations: [Atherosclerotic heart disease of [place] coronary artery without angina pectoris] Onset: 03-22-2025 03-22-2025 Chronic Deficiency and other anemia (20 sources) Anemia; Translations: [Anemia, unspecified] 06-05-2022 Episodic Comment on above: Talked with KF. If a nemia worsens may send back to [facility] for more evaluation. Diabetes mellitus without complication (20 sources) Type 2 diabetes mellitus without complication; Translations: [Type 2 diabetes mellitus without complication, without long-term current use of insulin] Onset: 01-25-2025 06-05-2022 Chronic Comment on above: he has been high hga 1c refuse meds aware risk of complications. DENIES Disorders of lipid metabolism (20 sources) Hypercholesterolemia; Translations: [Hypercholesteremia] 06-05-2022 Chronic Comment on above: Pt refuses meds at t his time. Is losing weight and wants to try to adjust lifestyle before starting meds. Essential hypertension (5 sources) Essential hypertension; Translations: [Essential (primary) hypertension] 08-17-2018 Chronic Genitourinary symptoms and ill-defined conditions (20 sources) Urinary incontinence; Translations: [Urinary incontinence in female] 09-09-2022 Chronic Comment on above: seems like BPH some from caffiene and drink alot after dinner. talk about flomax and consider daily cialis with other issues. will go over in executive check urine and PSA better with off caff iene Heart valve disorders (20 sources) Nonrheumatic aortic (valve) stenosis; Translations: [Aortic stenosis, mild] Onset: 01-25-2025 06-05-2022 Chronic Comment on above: 03/08 echo moddispaw 03-08 Heart valve disorders (5 sources) Heart murmur; Translations: [Cardiac murmur, unspecified] 09-02-2019 Episodic Hyperplasia of prostate (20 sources) Hypertrophy (benign) of prostate without urinary obstruction and other lower urinary tract symptom (LUTS); Translations: [BPH without Urin. Obst] 10-01-2022 Chronic Immunizations and screening for infectious disease (20 sources) Needs influenza immunization; Translations: [Needs flu shot] Resolved: 10-01-2022 08-04-2022 Episodic Neoplasms of unspecified nature or uncertain behavior (9 sources) Neoplasm of skin of nose; Translations: [Neoplasm of unspecified behavior of bone, soft tissue, and skin] 09-07-2023 Episodic Nonspecific chest pain (20 sources) Chest pain; Translations: [Chest pain] Onset: 07-31-2025 06-05-2022 Episodic Comment on above: Atypical- pain rt ax illary area x1. No other associated symptoms. Pt to return or go to ER if pain returns for further work up.Dr Broderick Other and unspecified benign neoplasm (4 sources) Benign neoplasm of skin of nose; Translations: [Other benign neoplasm of skin of other parts of face] 12-02-2023 Episodic Other and unspecified benign neoplasm (1 source) Other benign neoplasm of skin of other parts of face; Translations: [Benign neoplasm of skin of other and unspecified parts of face] 12-02-2023 Episodic Other endocrine disorders (20 sources) Hypotestosteronism; Translations: [Hypotestosteronemia in male] 10-21-2022 Chronic Other eye disorders (5 sources) Other disorders of orbit; Translations: [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 he does not want to try yet viagra. will consider it Other male genital disorders (3 sources) Testicular mass; Translations: [Other specified disorders of the male genital organs] 12-07-2024 Episodic Other non-epithelial cancer of skin (6 sources) Squamous cell carcinoma of skin of face; Translations: [Squamous cell carcinoma of skin of unspecified parts of face] 02-03-2024 Episodic Other nutritional; endocrine; and metabolic disorders (20 sources) Overweight in adulthood with body mass index of 25 or more but less than 30; Translations: [BMI 28.0-28.9,adult] 06-05-2022 Episodic Other screening for suspected conditions (not mental disorders or infectious disease) (20 sources) Screening status; Translations: [Screening for hyperlipidemia] Resolved: 10-01-2022 06-03-2022 Episodic Other skin disorders (20 sources) Actinic keratosis; Translations: [Actinic keratosis] 09-09-2022 Episodic Other skin disorders (20 sources) Eruption; Translations: [Rash] 09-09-2022 Episodic Other skin disorders (4 sources) Skin finding; Translations: [Cutis laxa senilis] 10-20-2023 Episodic Comment on above: Some lax skin is not ed over the lateral orbital rims in the malar pad areas Other upper respiratory infections (20 sources) Sore throat symptom; Translations: [Sore throat] 10-02-2022 Episodic Residual codes; unclassified (20 sources) Nonspecific abnormal findings on radiological and other examination of other sites of body; Translations: [Abnormal Chest X-Ray] 06-05-2022 Episodic Comment on above: CT showed 5mm granul mykel. Pt refuses PPD today. Unable to return in 48 hours to have it read. Residual codes; unclassified (20 sources) Non-smoker; Translations: [Nonsmoker] 06-05-2022 Episodic Residual codes; unclassified (20 sources) Personal history of contact with and (suspected) exposure to asbestos; Translations: [Personal history of exposure to asbestos] Resolved: 03-13-2009 06-03-2022 Episodic Residual codes; unclassified (4 sources) Procedure related finding; Translations: [Encounter for cosmetic surgery] 10-20-2023 Episodic Spondylosis; intervertebral disc disorders; other back problems (12 sources) Neck pain; Translations: [Neck pain] 05-18-2023 Episodic Comment on above: calming down rested and now talk about restrengthening after stretching. Past or Other Problems Problem Classification Problem Date Documented Da te Episodic/Chronic Syncope (12 sources) Syncope symptom; Translations: [Syncope and collapse] Onset: 01-25-2025 01-16-2025 Episodic Unclassified (20 sources) Unclassified (7 sources) Severe aortic stenosis 03-08-2025 Results Test Name Value Interpretation Reference Range Facility Progress Noteon 05-03-2025 Progress Note 05/03/2025 Community Health Worker Patient active with: [facility] Reason for Call: [facility] outreach Chart review completed. Follow up Appointments 12/21/2025 Cardiology 12/21/2025 Echo Placed a phone call, went to voice mail/ Voice mail is full, unable to leave a voice message. Outreach scheduled for [facility] follow up. [facility] Progress Noteon 04-04-2025 Progress Note 04/04/2025 Community Health Worker Patient active with: [facility] Reason for Call: [facility] outreach Chart review completed. Follow up Appointments 12/21/2025 Cardiology 12/21/2025 Echo Called patient identify self, role and reason for call. Patient stated that he had already run two more tests at [facility], and those indicated that he is doing ok. Denies any chest pain, shortness of breath, discomfort or dizziness. He noted he takes his medication as prescribed and is no need for refills at this time. Outreach scheduled for [facility] follow up. Normal [facility] 36on 03-23-2025 36 Scheduled [facility] Office Visiton 03-23-2025 Follow-up visit [id number] DavidEvelin 1945 M Date Provider Department Center 03/23/2025 [id number], TRISH [facility] [address] No family history on file Level of Service:74108 MD OFFICE/OUTPATIENT ESTABLISHED MOD MDM 30 MIN Reason for Visit and Comments: 1 Month Follow Up [[id number]] [facility] Progress Noteon 03-23-2025 Progress Note Heart cath showed 80 % OM2 and 40% mRCA stenosis -denies angina -has not started ASA or atorvastatin. Discussed importance of ASA and statin in setting of known CAD. He is agreeable to start Normal [facility] Progress Note S/p TF TAVR with 26 mm Nissa S3 valve on 02/06/25. -stable, NYHA Class I -repeat echo in one month -reviewed lifelong SBE prophylaxis-amoxicill in prescription sent in to pharmacy -declines Cardiac Rehab-remains active at home -continue ASA Normal [facility] Progress Note [facility] - [address] [address] Dept: [phone] Dept Loc: [phone] Reason for Visit: 1 Month Follow Up Assessment and Plan 1. Severe aortic stenosis Assessment & Plan: S/p TF TAVR with 26 mm Nissa S3 valve on 02/06/25. -stable, NYHA Class I -repeat echo in one month -reviewed lifelong SBE prophylaxis-amoxicill in prescription sent in to pharmacy -declines Cardiac Rehab-remains active at home -continue ASA Orders: - ECG 12 lead - CLINIC PERFORMED 2. Coronary artery disease involving [place] coronary artery of [place] heart without angina pectoris Assessment & Plan: Heart cath showed 80% OM2 and 40% mRCA stenosis -denies angina -has not started ASA or atorvastatin. Discussed importance of ASA and statin in setting of known CAD. He is agreeable to start Follow up for Dr. Jackson as scheduled. Subjective HPI Evelin Hernandez is a [address] Jackson with a history of severe aortic stenosis, HTN, HLD and T2DM that is diet controlled. He was referred to our [facility] where he reported DE LEON and 4 episodes of syncope. Echo showed EF 60%, mean Ao gradient 57, ANNE MARIE 0.7, peak velocity 5.0. He underwent a heart cath which showed 80% OM2 stenosis. He underwent a femoral TAVR on 02/06/25 with a 26 mm Nissa S3 valve. He did well post procedure. Echo at discharge showed EF 65% with mean Ao gradient 15 mmHg. He presents today for a one month s/p TAVR follow up feeling well. Denies near syncope/syncope, SOB, orthopnea, angina, edema or bleeding. He has slight dizziness at times with changing position. He stays well hydrated. Review of Systems Constitutional: Negative for chills and fever. Respiratory: Negative for cough and shortness of breath. Cardiovascular: Negative for chest pain, palpitations and leg swelling. Gastrointestinal: Negative for abdominal pain, blood in stool and vomiting. Genitourinary: Negative for hematuria. Neurological: Positive for dizziness. Negative for syncope. Allergies[1] Current Medications[2] Medical History[3] Social History Tobacco Use Smoking status: Never Smokeless tobacco: Never Substance Use Topics Alcohol use: Not on file Surgical History[4] Family History[5] Objective Vitals: 03/23/25 1449 03/23/25 1503 BP: (!) 148/70 136/60 BP Location: Left arm Left arm Patient Position: Sitting Sitting BP Cuff Size: Large adult Adult Pulse: 58 SpO2: 98% Weight: 209 lb 12.8 oz (95.2 kg) Height: 5' 10 (1.778 m) Body mass index is 30.1 kg/m?. Physical Exam Constitutional: Appearance: Normal appearance. HENT: Head: Normocephalic. Eyes: General: No scleral icterus. Right eye: No discharge. Left eye: No discharge. Cardiovascular: Rate and Rhythm: Normal rate and regular rhythm. Pulses: Normal pulses. Dorsalis pedis pulses are 2+ on the right side and 2+ on the left side. Posterior tibial pulses are 2+ on the right side and 2+ on the left side. Heart sounds: Normal heart sounds. No murmur heard. Pulmonary: Effort: Pulmonary effort is normal. Breath sounds: Normal breath sounds. Abdominal: General: Abdomen is flat. Palpations: Abdomen is soft. Musculoskeletal: General: Normal range of motion. Cervical back: Normal range of motion. Right lower leg: No edema. Left lower leg: No edema. Skin: General: Skin is warm and dry. Capillary Refill: Capillary refill takes less than 2 seconds. Neurological: Mental Status: He is alert and oriented to person, place, and time. Psychiatric: Mood and Affect: Mood normal. Data Reviewed and Summarized Lab Results Component Value Date WBC 8.1 02/07/2025 HGB 12.1 (L) 02/07/2025 HCT 35.6 (L) 02/07/2025 MCV 85.2 02/07/2025 PLT 155 02/07/2025 Lab Results Component Value Date GLUCOSE 156 (H) 02/07/2025 CALCIUM 8.3 (L) 02/07/2025 NA 138 02/07/2025 K 4.4 02/07/2025 CO2 23 02/07/2025 CL 106 02/07/2025 BUN 19 02/07/2025 CREATININE 0.93 02/07/2025 EF BP Date Value Ref Range Status 03/23/2025 60 55 - 100 % Final Echocardiogram 03/23/25: reviewed with patient in the office Left Ventricle: Left ventricle size is normal. Normal wall thickness. Normal left ventricular systolic function. EF by 2D Simpsons Biplane is 60%. Global longitudinal strain is -13.5%. Normal wall motion. Normal diastolic function. Right Ventricle: Right ventricle size is normal. Normal systolic function. Aortic Valve: Aleman Nissa 3 Ultra bioprosthetic aortic valve with a size of 26 mm. AV mean gradient is 14 mmHg. No regurgitation. No paravalvular regurgitation. Normal prosthetic gradient. AV mean gradient is 14 mmHg. AV peak gradient is 25 mmHg. AV peak velocity is 2.5 m/s. LVOT:AV VTI Index is 0.43. AV area by continuity VTI is 1.2 cm2. Tricuspid Valve: Valve structure is normal. Unable to assess RVSP due to insignificant tricuspid regurgitation. Left Atrium: Left atrium size (more content not included)... Normal [facility] Progress Note EMR reviewed patient is a late drop on IP Post-Discharge Patients with Final Qualifying DRG for Program Cardiac Care and Cardiac Procedures BP report. Enrolled as bundle late drop in [facility] 90-day [facility]PCI Cardiac Program. Patient discharged 02/07/25. Dx: Elective TAVR 02/06/[address] Siegel. CM will follow for 90 days post discharge date. PRN [facility] outreach made LVM to return call. 60-day [facility]PCI outreach scheduled. Echocardiogram scheduled 03/31/25 at 1 PM. Normal [facility] US Heart TransthoracicOrdere d By: Chris Starr on 03-23-2025 Aortic Arch 3.4 cm [facility] [employer] Work Phone: Aortic Sinus Valsalva 3.2 cm [facility] [employer] Work Phone: Aortic Sinus Valsalva Index 1.52 cm/m2 [facility] [employer] Work Phone: Aortic valve Mean systole pressure gradient by US.doppler derived full Bernoulli 14 mmHg [facility] Work Phone: Aortic valve Orifice area by US 2.8 cm2 [facility] [employer] Work Phone: Aortic valve Peak systolic flow by US.doppler 1.8 m/s [facility] [employer] Work Phone: Ascending Aorta 3.4 cm [facility] Work Phone: Ascending Aorta Index 1.61 cm/m2 [facility] [employer] Work Phone: AV Area by Peak Velocity 1.2 cm2 [facility] Work Phone: AV Area by VTI 1.2 cm2 [facility] Work Phone: AV AT 57.09 ms [facility] [employer] Work Phone: AV Peak Gradient 25 mmHg [facility] Work Phone: AV Peak Velocity 2.5 m/s [facility] Work Phone: AV Velocity Ratio 0.44 [facility] Work Phone: AV VTI 58.5 cm [facility] [employer] Work Phone: ANNE MARIE/BSA Peak Velocity 0.6 cm2/m2 [facility] [employer] Work Phone: ANNE MARIE/BSA VTI 0.6 cm2/m2 [facility] [employer] Work Phone: E/E' Lateral 8.63 [facility] [employer] Work Phone: E/E' Ratio (Averaged) 8.63 [facility] [employer] Work Phone: E/E' Septal 8.63 [facility] [employer] Work Phone: Est. RA Pressure [address] [facility] Work Phone: Fractional Shortening 2D 31 % 28 - 44 % [facility] [employer] Work Phone: Global Longitudinal Strain -13.5 % [facility] [employer] Work Phone: Interpretation and review of laboratory results Abnormal [facility] [employer] Work Phone: IVC Diameter 2.2 cm [facility] [employer] Work Phone: IVSd 0.9 cm 0.6 - 1.0 cm [facility] [employer] Phone: LA Diameter 4 cm [facility] [employer] Phone: LA Size Index 1.9 cm/m2 [facility] [employer] Work Phone: LA Volume 2C 86 mL Abnormal 18 - 58 mL [facility] [employer] Work Phone: LA Volume 4C 70 mL Abnormal 18 - 58 mL [facility] [employer] Work Phone: LA Volume A/L 83 mL [facility] [employer] Work Phone: LA Volume BP 77 mL Abnormal 18 - 58 mL [facility] [employer] Work Phone: LA Volume Index 2C 41 mL/m2 Abnormal 16 - 34 mL/m2 [facility] [employer] Work Phone: LA Volume Index 4C 33 mL/m2 16 - 34 mL/m2 [facility] [employer] Phone: LA Volume Index A/L 39 mL/m2 16 - 34 mL/m2 [facility] [employer] Phone: LA Volume Index BP 36 ml/m2 Abnormal 16 - 34 ml/m2 [facility] Work Phone: Left ventricular Ejection fraction by US.2D+Calculated by biplane method of disks 60 % 55 - 100 % [facility] Work Phone: LV E' Lateral Velocity 8 cm/s [facility] Work Phone: LV E' Septal Velocity 8 cm/s [facility] Work Phone: LV EDV A2C 57 mL [facility] Work Phone: LV EDV A4C 110 mL [facility] Work Phone: LV EDV BP 84 mL 67 - 155 mL [facility] Work Phone: LV EDV Index A2C 27 mL/m2 [facility] Work Phone: LV EDV Index A4C 52 mL/m2 [facility] Work Phone: LV EDV Index BP 40 mL/m2 [facility] Work Phone: LV Ejection Fraction A2C 39 % [facility] Work Phone: LV Ejection Fraction A4C 72 % [facility] Work Phone: LV ESV A2C 34 mL [facility] Work Phone: LV ESV A4C 31 mL [facility] Work Phone: LV ESV BP 34 mL 22 - 58 mL [facility] Work Phone: LV ESV Index A2C 16 mL/m2 [facility] Work Phone: LV ESV Index A4C 15 mL/m2 [facility] Work Phone: LV ESV Index BP 16 mL/m2 [facility] Work Phone: LV Mass 2D 164.3 g 88 - 224 g [facility] Work Phone: LV Mass 2D Index 77.9 g/m2 49 - 115 g/m2 [facility] Work Phone: LV RWT Ratio 0.41 [facility] [employer] Work Phone: LVIDd 4.9 cm 4.2 - 5.9 cm [facility] Work Phone: LVIDd Index 2.32 cm/m2 [facility] Work Phone: LVIDs 3.4 cm [facility] [employer] Work Phone: LVIDs Index 1.61 cm/m2 [facility] Work Phone: LVOT Cardiac Output 4.3 liter/mi nut e [facility] [employer] Work Phone: LVOT Diameter 1.9 cm [facility] Work Phone: LVOT Mean Gradient 2 mmHg [facility] [employer] Work Phone: LVOT Peak Gradient 5 mmHg [facility] [employer] Work Phone: LVOT Peak Velocity 1.1 m/s [employer] Work Phone: LVOT Stroke Volume Index 33.8 mL/m2 [facility] [employer] Work Phone: LVOT SV 71.4 ml [facility] [employer] Work Phone: LVOT VTI 25.2 cm [facility] [employer] Work Phone: LVOT:AV VTI Index 0.43 [facility] Work Phone: LVPWd 1 cm 0.6 - 1.0 cm [facility] [employer] Work Phone: MV A Velocity 0.85 m/s [facility] Work Phone: MV E Velocity 0.69 m/s [facility] Work Phone: MV E Wave Deceleration Time 225.2 ms [facility] [employer] Work Phone: MV E/A 0.81 [facility] [employer] Work Phone: RA Area 4C 38.8 mL [facility] [employer] Work Phone: RA Area 4C 38 mL [facility] [employer] Work Phone: RV Basal Dimension 3.6 cm [facility] [employer] Work Phone: RV Free Wall Peak S' 16 cm/s [facility] Work Phone: RV Longitudinal Dimension 9.6 cm [facility] Work Phone: RV Mid Dimension 2.2 cm [facility] Work Phone: Sinotubular Junction 2.4 cm [facility] Work Phone: TAPSE 3 cm 1.7 cm [facility] Work Phone: [facility] Work Phone: Heart Transthoracicon Left Ventricle: Left ventricle size is normal. Normal wall thickness. Normal left ventricular systolic function. EF by 2D Simpsons Biplane is 60%. Global longitudinal strain is -13.5%. Normal wall motion. Normal diastolic function. Right Ventricle: Right ventricle size is normal. Normal systolic function. Aortic Valve: Aleman Nissa 3 Ultra bioprosthetic aortic valve with a size of 26 mm. AV mean gradient is 14 mmHg. No regurgitation. No paravalvular regurgitation. Normal prosthetic gradient. AV mean gradient is 14 mmHg. AV peak gradient is 25 mmHg. AV peak velocity is 2.5 m/s. LVOT:AV VTI Index is 0.43. AV area by continuity VTI is 1.2 cm2. Tricuspid Valve: Valve structure is normal. Unable to assess RVSP due to insignificant tricuspid regurgitation. Left Atrium: Left atrium size is mildly increased (LA volume index 35-41 mL/m2). Aorta: Normal sized sinuses of Valsalva and ascending aorta. Pericardium: Evidence of prominent epicardial fat. No pericardial effusion. IVC/SVC: IVC appears small and collapsed, suggesting hypovolemia. Left Ventricle Left ventricle size is normal. Normal wall thickness. Normal left ventricular systolic function. EF by 2D Simpsons Biplane is 60%. Global longitudinal strain is -13.5%. Normal wall motion. Normal diastolic function. Right Ventricle Right ventricle size is normal. Normal systolic function. Left Atrium Left atrium size is mildly increased (LA volume index 35-41 mL/m2). Right Atrium Right atrium size is normal. IVC/SVC IVC appears small and collapsed, suggesting hypovolemia. Mitral Valve Valve structure is normal. No regurgitation. No stenosis noted. Tricuspid Valve Valve structure is normal. Trace regurgitation. Unable to assess RVSP due to insignificant tricuspid regurgitation. Aortic Valve Aleman Nissa 3 Ultra bioprosthetic aortic valve with a size of 26 mm. AV mean gradient is 14 mmHg. No regurgitation. No paravalvular regurgitation. Normal prosthetic gradient. AV mean gradient is 14 mmHg. AV peak gradient is 25 mmHg. AV peak velocity is 2.5 m/s. LVOT:AV VTI Index is 0.43. AV area by continuity VTI is 1.2 cm2. Pulmonic Valve The pulmonic valve visualization is suboptimal but appears to be functioning normally. Trace regurgitation. Ascending Aorta Normal sized sinuses of Valsalva and ascending aorta. Pericardium Evidence of prominent epicardial fat. No pericardial effusion. Septum No interatrial shunt visualized on color Doppler. Study Details Image quality: adequate. Additional technique includes myocardial strain. Heart rate: 74 bpm. Blood pressure: 147/73 mmHg. No contrast was given. Comparison Study There is a prior study available for comparison. Prior study date: 02/07/2025. As compared to the previous study, there are no significant changes. CV [facility]ACS 36on 03-22-2025 36 Can I get an echo order for this patients 1 year follow up TAVR please? [facility] 29on 03-08-2025 29 Addended by: TRISH MEYER on: 03/08/2025 12:25 PM Modules accepted: Orders [facility] 29 Addended by: DANNA ENAMORADO on: 03/08/2025 10:15 AM Modules accepted: Orders [facility] 36on 03-08-2025 36 Added on echo for 03/23/25 I called patient and left detailed message w/ appt dates/times [facility] 36 I emailed María Elena to see if we can add on echo to 03/23/25 [facility] Progress Noteon 03-03-2025 Progress Note 03/03/25 Community Health Worker Patient active with: [facility] RN RAMIREZ Tafoya Reason for Call: [facility] outreach Chart review completed. Follow up Appointments NONE Placed a phone call no answer, left voice message stating reason for call. Left contact information for call back. Outreach scheduled for BPCI follow up. [facility] Progress Noteon 02-21-2025 Progress Note EMRreviewed patient is a late drop on IP Post-Discharge Patients with Final Qualifying DRG for Program Cardiac Care and Cardiac Procedures [facility] report. Enrolled as bundle late drop in [facility] 90-day BPCI Cardiac Program. Patient discharged 02/07/25. Dx: Elective TAVR 02/06/[address] Siegel. CM will follow for 90 days post discharge date. 14-day [facility] outreach made LVM to return call. 21-day [facility] outreach scheduled. Patient needs follow up TAVR appt. Cardiology also LVM for patient to return call to schedule TAVR follow up visit. [facility] 36on 02-20-2025 36 Left message for patient to follow-up since TAVR Normal [facility] [id number] 36 Tried to contact patient via primary number, no answer and voicemail full. Tried alternate phone number and it's an invalid number. Will try again at a later time to check in on patient since TAVR and establish follow-up plan. Normal [facility] Progress Noteon 02-14-2025 Progress Note EMRreviewed patient is a late drop on IP Post-Discharge Patients with Final Qualifying DRG for Program Cardiac Care and Cardiac Procedures [facility] report. Enrolled as bundle late drop in [facility] 90-day BPCI Cardiac Program. Patient discharged 02/07/25. Dx: Elective TAVR 02/06/[address] Siegel. CM will follow for 90 days post discharge date. 7- day [facility] outreach made mailbox is full unable to LVM. 14-day [facility] outreach scheduled. [facility] [id number] 36 Spoke with patient and he states he currently has arrived at the airport to leave for 2 weeks to [place]. Explained the risks to patient of flying less than 1 week after TAVR procedure, COMPENSATION ADVISOR advised not to fly until a follow-up appointment occurred. Patient states he has felt great this week, talking walks and doing his normal ADLs. Explained risks of EKG changes and the need for follow-up appt prior to flying for clearance. Patient stated he understands the risks, but needs to fly out today due to a family emergency. Patient stated he plans to return in 2 weeks. Explained options of having follow up appt in [place] or here at [address] [place] [address] upon return. Patient states he can obtain EKG and cardiology appt in [facility] during his trip. Patient stated he will call our office back on Wednesday 02/14 on plan for follow-ups. Normal [facility] Progress Noteon 02-10-2025 Progress Note EMR reviewed patient is a late drop on IP Post-Discharge Patients with Final Qualifying DRG for Program Cardiac Care and Cardiac Procedures [facility] report. Enrolled as bundle late drop in [facility] 90-day BPCI Cardiac Program. Patient discharged 02/07/25. Dx: Elective TAVR 02/06/[address] Siegel. CM will follow for 90 days post discharge date. 72-HR BPCI outreach made mailbox is full unable to LVM. 7-day [facility] outreach scheduled. Discharge summary copied below: Jakob Tinajero APRN - [facility] Nurse Practitioner Cardiology Discharge Summary Attested Date of Service: 02/07/2025 12:40 PM Attested Attestation signed by Michaela Siegel MD at 02/07/2025 7:45 PM I, Dr. Siegel, saw and evaluated the patient. I personally obtained the joseph and critical portions of the history and physical exam. I reviewed the chart and discussed the patient with the Nurse Practitioner. I agree with the Nurse Practitioner's medical decision making. Hospital Summary: Patient was admitted for elective transcatheter aortic valve replacement. he did well with this procedure. he is now POD1 s/p TF TAVR. he is back to his baseline activity with no symptoms. he will be discharged today on his current medication list. he will follow up in valve clinic in 1-2 weeks. Expand All Collapse All Name: Evelin Hernandez Date of : 1945 Date of Admission: 02/06/2025 Date of Discharge: 02/07/2025 Admitting physician: Michaela Siegel MD Discharge Attending: Jakob Tinajero APRN - MD MICHELLE Primary Care Physician: DAYRON MACIAS MD Reason for Admission: Severe Symptomatic Aortic Stenosis Consultants: cardiac rehab HOSPITAL ADMISSION PROBLEM LIST: Problem List Patient Active Problem List Diagnosis Type 2 diabetes mellitus without complication, without long-term current use of insulin (HCC) Severe aortic stenosis Physical Exam Physical Exam Constitutional: Appearance: Normal appearance. HENT: Head: Normocephalic and atraumatic. Nose: Nose normal. Eyes: Conjunctiva/sclera: Conjunctivae normal. Pupils: Pupils are equal, round, and reactive to light. Cardiovascular: Rate and Rhythm: Normal rate and regular rhythm. Pulmonary: Effort: Pulmonary effort is normal. Breath sounds: Normal breath sounds. Abdominal: General: Bowel sounds are normal. Palpations: Abdomen is soft. Musculoskeletal: General: Normal range of motion. Cervical back: Normal range of motion and neck supple. Skin: General: Skin is warm and dry. Comments: Right wrist and groin soft without bleeding or hematoma Neurological: General: No focal deficit present. Mental Status: He is alert and oriented to person, place, and time. Psychiatric: Mood and Affect: Mood normal. Thought Content: Thought content normal. Procedures: Transfemoral transcatheter AVR with 26 mm Nissa S3 valve under moderate sedation Transthoracic echocardiogram HOSPITAL COURSE : The patient was admitted to the hospital for elective TAVR on 02/06/2025 . A 26 mm Nissa S3 valve was implanted. The patient returned [facility] for recovery. Vital signs and labs were stable. There were no groin complications. The patient was ambulatory the evening of the procedure. Post procedure echocardiogram demonstrated : Left Ventricle: Left ventricle size is normal. Normal wall thickness. Normal left ventricular systolic function. EF by 2D Simpsons Biplane is 65%. Normal wall motion. Normal diastolic function. Right Ventricle: Right ventricle is mildly dilated. Normal systolic function. Aortic Valve: Aleman Nissa 3 Ultra bioprosthetic aortic valve that is well-seated with a size of 26 mm. AV mean gradient is 15 mmHg. No regurgitation. No stenosis. Normal prosthetic gradient. Patient education including SBE prophylaxis, activity, access site care, follow up appointments, and medications was provided. The patient verbalized understanding, questions were answered. The patient was discharged home in good condition. Referral to cardiac rehabilitation has been recommended and discussed with the patient prior to discharge. Referral has been made to the [facility] Program. Last Labs: Lab Results Component Value Date WBC 8.1 02/07/2025 HGB 12.1 (L) 02/07/2025 HCT 35.6 (L) 02/07/2025 MCV 85.2 02/07/2025 PLT 155 02/07/2025 Lab Results Component Value Date NA 138 02/07/2025 K 4.4 02/07/2025 CL 106 02/07/2025 CO2 23 02/07/2025 BUN 19 02/07/2025 CREATININE 0.93 02/07/2025 GLUCOSE 156 (H) 02/07/2025 CALCIUM 8.3 (L) 02/07/2025 No results found for: CHLPL, CHOL No results found for: TRIG No results found for: HDL No results found for: LDLCALC Discharge Medications: Medication List START taking (more content not included)... Normal [facility] 36on 02-09-2025 36 Patient was advised that he should not fly until after his one week follow up visit. Normal [facility] 36 I called patient to confirm Tuesdays appt and he asked to cx the appt stating he feels great and he has to fly out tomorrow am due to a family emergency.I asked if I can r/s him and he declined stating again that he feels great. Normal [facility] Progress Noteon 02-09-2025 Progress Note EMR reviewed patient is a late drop on IP Post-Discharge Patients with Final Qualifying DRG for Program Cardiac Care and Cardiac Procedures [facility] report. Enrolled as bundle late drop in [facility] 90-day [facility] Cardiac Program. Patient discharged 02/07/25. Dx: Elective TAVR 02/06/[address] Siegel. [facility] 72-hr outreach scheduled will follow for 90 days post discharge date. Discharge summary copied below. ____ DONNY Dawson CNP Nurse Practitioner Cardiology Discharge Summary Attested Date of Service: 02/07/2025 12:40 PM Attested Attestation signed by Michaela Siegel MD at 02/07/2025 7:45 PM I, Dr. Siegel, saw and evaluated the patient. I personally obtained the joseph and critical portions of the history and physical exam. I reviewed the chart and discussed the patient with the Nurse Practitioner. I agree with the Nurse Practitioner's medical decision making. Hospital Summary: Patient was admitted for elective transcatheter aortic valve replacement. he did well with this procedure. he is now POD1 s/p TF TAVR. he is back to his baseline activity with no symptoms. he will be discharged today on his current medication list. he will follow up in valve clinic in 1-2 weeks. Expand All Collapse All Name: Evelin Hernandez Date of : 1945 Date of Admission: 02/06/2025 Date of Discharge: 02/07/2025 Admitting physician: Michaela Siegel MD Discharge Attending: DONNY Dawson CNP, MD Primary Care Physician: DAYRON MACIAS MD Reason for Admission: Severe Symptomatic Aortic Stenosis Consultants: cardiac rehab HOSPITAL ADMISSION PROBLEM LIST: Problem List Patient Active Problem List Diagnosis Type 2 diabetes mellitus without complication, without long-term current use of insulin (HCC) Severe aortic stenosis Physical Exam Physical Exam Constitutional: Appearance: Normal appearance. HENT: Head: Normocephalic and atraumatic. Nose: Nose normal. Eyes: Conjunctiva/sclera: Conjunctivae normal. Pupils: Pupils are equal, round, and reactive to light. Cardiovascular: Rate and Rhythm: Normal rate and regular rhythm. Pulmonary: Effort: Pulmonary effort is normal. Breath sounds: Normal breath sounds. Abdominal: General: Bowel sounds are normal. Palpations: Abdomen is soft. Musculoskeletal: General: Normal range of motion. Cervical back: Normal range of motion and neck supple. Skin: General: Skin is warm and dry. Comments: Right wrist and groin soft without bleeding or hematoma Neurological: General: No focal deficit present. Mental Status: He is alert and oriented to person, place, and time. Psychiatric: Mood and Affect: Mood normal. Thought Content: Thought content normal. Procedures: Transfemoral transcatheter AVR with 26 mm Nissa S3 valve under moderate sedation Transthoracic echocardiogram HOSPITAL COURSE : The patient was admitted to the hospital for elective TAVR on 02/06/2025 . A 26 mm Nissa S3 valve was implanted. The patient returned to [facility] for recovery. Vital signs and labs were stable. There were no groin complications. The patient was ambulatory the evening of the procedure. Post procedure echocardiogram demonstrated : Left Ventricle: Left ventricle size is normal. Normal wall thickness. Normal left ventricular systolic function. EF by 2D Simpsons Biplane is 65%. Normal wall motion. Normal diastolic function. Right Ventricle: Right ventricle is mildly dilated. Normal systolic function. Aortic Valve: Aleman Nissa 3 Ultra bioprosthetic aortic valve that is well-seated with a size of 26 mm. AV mean gradient is 15 mmHg. No regurgitation. No stenosis. Normal prosthetic gradient. Patient education including SBE prophylaxis, activity, access site care, follow up appointments, and medications was provided. The patient verbalized understanding, questions were answered. The patient was discharged home in good condition. Referral to cardiac rehabilitation has been recommended and discussed with the patient prior to discharge. Referral has been made to the [facility] Outpatient [facility]iac Rehabilitation Program. Last Labs: Lab Results Component Value Date WBC 8.1 02/07/2025 HGB 12.1 (L) 02/07/2025 HCT 35.6 (L) 02/07/2025 MCV 85.2 02/07/2025 PLT 155 02/07/2025 Lab Results Component Value Date NA 138 02/07/2025 K 4.4 02/07/2025 CL 106 02/07/2025 CO2 23 02/07/2025 BUN 19 02/07/2025 CREATININE 0.93 02/07/2025 GLUCOSE 156 (H) 02/07/2025 CALCIUM 8.3 (L) 02/07/2025 No results found for: CHLPL, CHOL No results found for: TRIG No results found for: HDL No results found for: LDLCALC Discharge Medications: Medication List START taking these medications aspirin 81 MG EC tablet Aubrey (more content not included)... Normal [facility] BASIC METABOLIC PANELon 01-18 Anion gap [Moles/Vol] 9 mmol/L Normal 3-13 [facility] Comment on above: Performed By: #### L [id number] ####Vocational Training Teacher: ANDRIA JOYA ([id number])[facility])[address] [place] [address] Calcium [Mass/Vol] 8.3 mg/dL Low 8.8-10.0 [facility] Comment on above: Performed By: #### L [id number] ####Vocational Training Teacher: ANDRIA JOYA ([id number])[facility])[address] [place] [address] Chloride [Moles/Vol] 106 mmol/L Normal 98-107 [facility] Comment on above: Performed By: #### L [id number] ####Vocational Training Teacher: ANDRIA JOYA ([id number])[facility])[address] [place] [address] CO2 [Moles/Vol] 23 mmol/L Normal 23-31 [facility] Comment on above: Performed By: #### L [id number] ####Vocational Training Teacher: ANDRIA JOYA ([id number])[facility])[address] [place] [address] Creatinine [Mass/Vol] 0.93 mg/dL Normal 0.72-1.25 [facility] Comment on above: Performed By: #### L [id number] ####Vocational Training Teacher: ANDRIA JOYA ([id number])[facility])[address] [place] [address] GLOMERULAR FILTRATION RATE ML/MIN/1.73 SQ M.PREDICTED 83.5 mL/min/1.73m*2 Normal >60.0 [facility] Comment on above: Result Comment: Calc ulation based on the Chronic Kidney Disease Epidemiology Collaboration (CKD-EPI) equation refit without adjustment for race Performed By: #### L [id number] ####Vocational Training Teacher: ANDRIA JOYA ([id number])[facility])[address] [place] [address] Glucose [Mass/Vol] 156 mg/dL High 82-115 [facility] Comment on above: Performed By: #### L [id number] ####Vocational Training Teacher: ANDRIA JOYA ([id number])[facility])[address] [place] [address] Potassium [Moles/Vol] 4.4 mmol/L Normal 3.5-5.1 [facility] Comment on above: Result Comment: TC Potential interference from hemolysis Performed By: #### L [id number] ####Vocational Training Teacher: ANDRIA JOYA ([id number])[facility] ([facility])[address] [place] [address] Sodium [Moles/Vol] 138 mmol/L Normal 136-145 [facility] Comment on above: Performed By: #### L AB15 ####Vocational Training Teacher: ANDRIA JOYA ([id number])[facility])[address] [place] [address] Urea nitrogen [Mass/Vol] 19 mg/dL Normal 9-23 [facility] Comment on above: Performed By: #### L AB15 ####Vocational Training Teacher: ANDRIA JOYA ([id number])[address] Basic metabolic 1998 panelon 02-07-2025 Anion gap [Moles/Vol] 9 mmol/L 3 - 13 mmol/L [facility] Calcium [Mass/Vol] 8.3 mg/dL Low 8.8 - 10. 0 mg/dL [facility] Chloride [Moles/Vol] 106 mmol/L 98 - 10 7 mmol/L [facility] CO2 [Moles/Vol] 23 mmol/L 23 - 31 mmol/L [facility] Creatinine [Mass/Vol] 0.93 mg/dL 0.72 - 1.25 mg/dL [facility] GFR/1.73 sq M.predicted (S/P/Bld) [Vol rate/Area] 83.5 mL/min - PINF [facility] Comment on above: Calculation based on the Chronic Kidney Disease Epidemiology Collaboration (CKD-EPI) equation refit without adjustment for race Glucose [Mass/Vol] 156 mg/dL High 82 - 115 mg/dL [facility] Interpretation and review of laboratory results Abnormal [facility] Potassium [Moles/Vol] 4.4 mmol/L 3.5 - 5.1 mmol/L [facility] Comment on above: TC Potential interference from hemolysis Sodium [Moles/Vol] 138 mmol/L 136 - 145 mmol/L [facility] Urea nitrogen [Mass/Vol] 19 mg/dL 9 - 23 mg/dL [facility] CBC (HEMOGRAM)on 02-07-2025 Erythrocyte distribution width (RBC) [Ratio] 12.8 % Normal 11.5-15.0 [facility] Comment on above: Performed By: #### L [id number] ####Vocational Training Teacher: ANDRIA JOYA ([id number])[address] Hematocrit (Bld) [Volume fraction] 35.6 % Low 40.0-52.0 [facility] Comment on above: Performed By: #### L [id number] ####Vocational Training Teacher: ANDRIA JOYA ([id number])[address] Hemoglobin (Bld) [Mass/Vol] 12.1 g/dL Low 13.0-18.0 [facility] Comment on above: Performed By: #### L [id number] ####Vocational Training Teacher: ANDRIA JOYA ([id number])[facility])[address] [place] [address] MCH (RBC) [Entitic mass] 28.9 pg Normal 26.0-34.0 [facility] Comment on above: Performed By: #### L [id number] ####Vocational Training Teacher: ANDRIA JOYA ([id number])[facility])[address] [place] [address] MCHC 34.0 % Normal 30.5-36.0 [facility] Comment on above: Performed By: #### L [id number] ####Vocational Training Teacher: ANDRIA JOYA ([id number])[facility])[address] [place] [address] MCV (RBC) [Entitic vol] 85.2 fL Normal 77.0-99.0 [facility] Comment on above: Performed By: #### L [id number] ####Vocational Training Teacher: ANDRIA JOYA ([id number])[facility] ([facility])[address] [place] [address] Platelet mean volume (Bld) [Entitic vol] 10.2 fL Normal 9.0-12.7 [facility] Comment on above: Performed By: #### L [id number] ####Vocational Training Teacher: ANDRIA JOYA ([id number])[facility])[address] [place] [address] Platelets (Bld) [#/Vol] 155 10*3/uL Normal 140-440 [facility] Comment on above: Performed By: #### L [id number] ####Vocational Training Teacher: ANDRIA JOYA ([id number])[facility] ([facility])[address] [place] [address] RBC (Bld) [#/Vol] 4.18 10*6/uL Low 4.40-5.90 [facility] Comment on above: Performed By: #### L [id number] ####Vocational Training Teacher: ANDRIA JOYA ([id number])[facility] ([facility])[address] [place] [address] WBC (Bld) [#/Vol] 8.1 10*3/uL Normal 3.6-10.7 [facility] Comment on above: Performed By: #### L [id number] ####Vocational Training Teacher: ANDRIA JOYA ([id number])[facility])[address] [place] [address] CBC panel Auto (Bld)on 02-07 Erythrocyte distribution width (RBC) [Ratio] 12.8 % 11.5 - 15.0 % [facility] Hematocrit (Bld) [Volume fraction] 35.6 % Low 40.0 - 52.0 % [facility] Hemoglobin (Bld) [Mass/Vol] 12.1 g/dL Low 13.0 - 18.0 g/dL [facility] Interpretation and review of laboratory results Abnormal [facility] MCH (RBC) [Entitic mass] 28.9 pg 26.0 - 34.0 pg [facility] MCHC (RBC) [Mass/Vol] 34 % 30.5 - 36.0 % [facility] MCV (RBC) [Entitic vol] 85.2 fL 77.0 - 99.0 fL [facility] Platelet mean volume (Bld) [Entitic vol] 10.2 fL 9.0 - 12.7 fL [facility] Platelets (Bld) [#/Vol] 155 10*3/uL 140 - 440 10*3/uL [facility] RBC (Bld) [#/Vol] 4.18 10*6/uL Low 4.40 - 5.9 0 10*6/uL [facility] WBC (Bld) [#/Vol] 8.1 10*3/uL 3.6 - 10.7 10*3/uL [facility] ECG 12-LEADon 02-07-2025 ECG 12-LEAD IMPRESSION: Sinus or ectopic atrial rhythm Probable left ventricular hypertrophy Borderline T abnormalities, inferior leads Otherwise Normal ECG Electronically Signed On 02-07-2025 10:00:09 EDT by Sidbryon Hill [facility] ECG 12-LEAD IMPRESSION: Sinus rhythm Prolonged MD interval Borderline left axis deviation Nonspecific repol abnormality, lateral leads ST elevation, consider anterior injury Electronically Signed On 02-07-2025 10:00:19 EDT by Sid Hill [facility] ECG 12-LEAD IMPRESSION: Sinus rhythm Prolonged MD interval Probable LVH with secondary repol abnrm vs inferolateral ischemia Electronically Signed On 02-07-2025 10:00:01 EDT by Sid Hill [facility] Laboratory - Coagulationon 0 02-07-2025 PT Coag (Bld) [Time] 10.3 s 9.0 - 1 2.0 s [facility] No Panel Informationon 02-07 P Victor 68 degrees [facility] MD Interval 220 ms [facility] QRS Victor -15 degrees [facility] QRSD Interval 102 ms [facility] QT Interval 373 ms [facility] QTC Interval 468 ms [facility] T Wave Victor 119 degrees [facility] Sinus rhythm Prolonged MD interval Borderline left axis deviation Nonspecific repol abnormality, lateral leads ST elevation, consider anterior injury Electronically Signed On 02-07-2025 10:00:19 EDT by Sid Moscoso MD - 02/07/2025 IMPRESSION: Sinus rhythm Prolonged MD interval Borderline left axis deviation Nonspecific repol abnormality, lateral leads ST elevation, consider anterior injury Electronically Signed On 02-07-2025 10:00:19 EDT by [facility] Sinus or ectopic atrial rhythm Probable left ventricular hypertrophy Borderline T abnormalities, inferior leads Otherwise Normal ECG Electronically Signed On 02-07-2025 10:00:09 EDT by Sid Moscoso MD - 02/07/2025 IMPRESSION: Sinus or ectopic atrial rhythm Probable left ventricular hypertrophy Borderline T abnormalities, inferior leads Otherwise Normal ECG Electronically Signed On 02-07-2025 10:00:09 EDT by Sid Hill [facility] P Victor 58 degrees [facility] MD Interval 226 ms [facility] QRS Victor -16 degrees [facility] QRSD Interval 102 ms [facility] h QT Interval 444 ms [facility] QTC Interval 460 ms [facility] T Wave Victor -46 degrees [facility] Sinus rhythm Prolonged MD interval Probable LVH with secondary repol abnrm vs inferolateral ischemia Electronically Signed On 02-07-2025 10:00:01 EDT by Sid Moscoso MD - 02/07/2025 IMPRESSION: Sinus rhythm Prolonged MD interval Probable LVH with secondary repol abnrm vs inferolateral ischemia Electronically Signed On 02-07-2025 10:00:01 EDT by Sid Hill [facility] No Panel InformationOrdered By: Sid Hill on 02-07-2025 P Victor -53 degrees [facility] Work Phone: MD Interval 193 ms [facility] Work Phone: QRS Victor -25 degrees [facility] [employer] Work Phone: QRSD Interval 105 ms [facility] [employer] Work Phone: QT Interval 422 ms [facility] [employer] Work Phone: QTC Interval 435 ms [facility] [employer] Work Phone: T Wave Victor -6 degrees [facility] [employer] Work Phone: [facility] [employer] Work Phone: PROTHROMBIN TIMEon INR Coag (PPP) [Relative time] 1.0 {INR} Normal 0.9-1.1 [facility] [employer] [facility] Comment on above: Order Comment: If pa tient on coumadin within 4 days prior. Result Comment: Ramana mmended Anticoagulant Therapy: SEE BELOW ----- INR of 2.0 - 3.0 : - Prophylaxis of Venous Thrombosis (high-risk surgery) - Treatment of Venous Thrombosis - Treatment of Pulmonary Embolism (Includes tissue heart valves, Acute Myocardial Infarction to prevent systemic embolism, Valvular Heart Disease, and Atrial Fibrillation) ----- INR of 2.5 - 3.5 : - Mechanical Prosthetic Valves (high risk) - If oral anticoagulant therapy is used to prevent Myocardial Infarction Performed By: #### L [id number] ####Vocational Training Teacher: ANDRIA JOYA ([id number])[address] PT Coag (PPP) [Time] 10.3 s Normal 9.0-12.0 [facility] [employer] [facility] Comment on above: Order Comment: If pa tient on coumadin within 4 days prior. Performed By: #### L [id number] ####Vocational Training Teacher: ANDRIA JOYA ([id number])[address] PT Coag (Bld) [Time]on 02-07 INR Coag (PPP) [Relative time] 1 {INR} 0.9 - 1.1 [facility] Comment on above: Recommended Anticoag ulant Therapy: SEE BELOW ----- INR of 2.0 - 3.0 : - Prophylaxis of Venous Thrombosis (high-risk surgery) - Treatment of Venous Thrombosis - Treatment of Pulmonary Embolism (Includes tissue heart valves, Acute Myocardial Infarction to prevent systemic embolism, Valvular Heart Disease, and Atrial Fibrillation) ----- INR of 2.5 - 3.5 : - Mechanical Prosthetic Valves (high risk) - If oral anticoagulant therapy is used to prevent Myocardial Infarction Interpretation and review of laboratory results Normal [facility] Heart TransthoracicOrdere d By: Tami Bianchi on 02-07-2025 Aortic Sinus Valsalva 2.6 cm [facility] Work Phone: Aortic Sinus Valsalva Index 1.23 cm/m2 [facility] [employer] Phone: Aortic valve Mean systole pressure gradient by US.doppler derived full Bernoulli 15 mmHg [facility] Work Phone: Aortic valve Orifice area by US 2.8 cm2 [facility] [employer] Phone: Aortic valve Peak systolic flow by US.doppler 1.8 m/s [facility] [employer] Phone: Ascending Aorta 3.4 cm [facility] Work Phone: Ascending Aorta Index 1.61 cm/m2 [facility] Work Phone: AV Area by Peak Velocity 0.9 cm2 [facility] Work Phone: AV Area by VTI 1 cm2 [facility] Work Phone: AV Peak Gradient [address] [facility] Work Phone: AV Peak Velocity 2.8 m/s [facility] Work Phone: AV Velocity Ratio 0.32 [facility] [employer] Work Phone: AV VTI 51.4 cm [facility] Work Phone: ANNE MARIE/BSA Peak Velocity 0.4 cm2/m2 [facility] Work Phone: ANNE MARIE/BSA VTI 0.5 cm2/m2 [facility] [employer] Phone: E/E' Lateral 6.78 [facility] Work Phone: E/E' Ratio (Averaged) 7.75 [facility] Work Phone: E/E' Septal 8.71 [facility] [employer] Work Phone: Est. RA Pressure [address] [facility] Work Phone: Fractional Shortening 2D 29 % 28 - 44 % [facility] [employer] Work Phone: Interpretation and review of laboratory results Abnormal [facility] [employer] Work Phone: IVC Diameter 2.1 cm [facility] [employer] Work Phone: IVSd 1 cm 0.6 - 1.0 cm [facility] [employer] Work Phone: LA Diameter 4.8 cm [facility] [employer] Work Phone: LA Size Index 2.27 cm/m2 [facility] [employer] Work Phone: LA Volume 2C 48 mL 18 - 58 mL [facility] [employer] Phone: LA Volume 4C 65 mL Abnormal 18 - 58 mL [facility] [employer] Phone: LA Volume A/L 60 mL [facility] [employer] Work Phone: LA Volume BP 56 mL 18 - 58 mL [facility] [employer] Work Phone: LA Volume Index 2C 23 mL/m2 16 - 34 mL/m2 [facility] [employer] Phone: LA Volume Index 4C 31 mL/m2 16 - 34 mL/m2 [facility] [employer] Phone: LA Volume Index A/L 28 mL/m2 16 - 34 mL/m2 [facility] [employer] Work Phone: LA Volume Index BP 27 ml/m2 16 - 34 ml/m2 [facility] [employer] Phone: Left ventricular Ejection fraction by US.2D+Calculated by biplane method of disks 65 % 55 - 100 % [facility] Work Phone: LV E' Lateral Velocity 9 cm/s [facility] [employer] Work Phone: LV E' Septal Velocity 7 cm/s [facility] [employer] Work Phone: LV EDV A2C 72 mL [facility] [employer] Work Phone: LV EDV A4C 116 mL [facility] Work Phone: LV EDV BP 96 mL 67 - 155 mL [facility] Work Phone: LV EDV Index A2C 34 mL/m2 [facility] Work Phone: LV EDV Index A4C 55 mL/m2 [facility] Work Phone: LV EDV Index BP 45 mL/m2 [facility] Work Phone: LV Ejection Fraction A2C 55 % [facility] Work Phone: LV Ejection Fraction A4C 70 % [facility] Work Phone: LV ESV A2C 32 mL [facility] Work Phone: LV ESV A4C 34 mL [facility] Work Phone: LV ESV BP 34 mL 22 - 58 mL [facility] Work Phone: LV ESV Index A2C 15 mL/m2 [facility] Work Phone: LV ESV Index A4C 16 mL/m2 [facility] Work Phone: LV ESV Index BP 16 mL/m2 [facility] Work Phone: LV Mass 2D 194.2 g 88 - 224 g [facility] Work Phone: LV Mass 2D Index 92 g/m2 49 - 115 g/m2 [facility] Work Phone: LV RWT Ratio 0.38 [facility] Work Phone: LVIDd 5.2 cm 4.2 - 5.9 cm [facility] Work Phone: LVIDd Index 2.46 cm/m2 [facility] Work Phone: LVIDs 3.7 cm [facility] Work Phone: LVIDs Index 1.75 cm/m2 [facility] Work Phone: LVOT Cardiac Output 4.4 liter/mi nut e [facility] Work Phone: LVOT Diameter 1.9 cm [facility] Work Phone: LVOT Mean Gradient 2 mmHg [facility] Work Phone: LVOT Peak Gradient 3 mmHg [facility] Work Phone: LVOT Peak Velocity 0.9 m/s [facility] Work Phone: LVOT Stroke Volume Index 23 mL/m2 [facility] Work Phone: LVOT SV 48.5 ml [facility] Work Phone: LVOT VTI 17.1 cm [facility] Work Phone: LVOT:AV VTI Index 0.33 [facility] Work Phone: LVPWd 1 cm 0.6 - 1.0 cm [facility] Work Phone: MV A Velocity 0.96 m/s [facility] Work Phone: MV Area by VTI 1.6 cm2 [facility] Work Phone: MV E Velocity 0.61 m/s [facility] Work Phone: MV E Wave Deceleration Time 197.8 ms [facility] Work Phone: MV E/A 0.64 [facility] Work Phone: MV Max Velocity 1.2 m/s [facility] Work Phone: MV Mean Gradient 3 mmHg [facility] Work Phone: MV Mean Velocity 0.8 m/s [facility] Work Phone: MV Peak Gradient 5 mmHg [facility] Work Phone: MV VTI 30.3 cm [facility] Work Phone: MV:LVOT VTI Index 1.77 [facility] Work Phone: PV Max Velocity 1.1 m/s [facility] Work Phone: PV Mean Gradient 3 mmHg [facility] Work Phone: PV Mean Velocity 0.8 m/s [facility] Work Phone: PV Peak Gradient 4 mmHg [facility] Work Phone: RA Area 4C 37.2 mL [facility] Work Phone: RV Basal Dimension 4.2 cm [facility] Work Phone: RV Free Wall Peak S' 16 cm/s [facility] Work Phone: RV Longitudinal Dimension 7.9 cm [facility] Work Phone: RV Mid Dimension 3.8 cm [facility] Work Phone: RVOT Mean Gradient 3 mmHg [facility] Work Phone: RVOT Peak Gradient 5 mmHg [facility] Work Phone: RVOT Peak Velocity 1.1 m/s [facility] Work Phone: RVOT VTI 21.8 cm [facility] Work Phone: Sinotubular Junction 2 cm [facility] Work Phone: TAPSE 2.5 cm 1.7 cm [facility] Work Phone: [facility] Work Phone: Heart Transthoracicon Left Ventricle: Left ventricle size is normal. Normal wall thickness. Normal left ventricular systolic function. EF by 2D Simpsons Biplane is 65%. Normal wall motion. Normal diastolic function. Right Ventricle: Right ventricle is mildly dilated. Normal systolic function. Aortic Valve: Aleman Nissa 3 Ultra bioprosthetic aortic valve that is well-seated with a size of 26 mm. AV mean gradient is 15 mmHg. No regurgitation. No stenosis. Normal prosthetic gradient. Left Ventricle Left ventricle size is normal. Normal wall thickness. Normal left ventricular systolic function. EF by 2D Simpsons Biplane is 65%. Normal wall motion. Normal diastolic function. Right Ventricle Right ventricle is mildly dilated. Normal systolic function. Left Atrium Left atrium size is normal (LA volume index 16-34 mL/m2). Right Atrium Right atrium size is normal. IVC/SVC IVC diameter is dilated and decreases greater than 50% during inspiration; therefore the estimated right atrial pressure is intermediate (~8 mmHg). Mitral Valve Mildly thickened leaflets. Mildly calcified leaflets. Trace regurgitation. No stenosis noted. Tricuspid Valve Valve structure is normal. Trace regurgitation. Unable to assess RVSP due to insignificant tricuspid regurgitation. Aortic Valve Aleman Nissa 3 Ultra bioprosthetic aortic valve that is well-seated with a size of 26 mm. AV mean gradient is 15 mmHg. No regurgitation. No stenosis. Normal prosthetic gradient. Pulmonic Valve The pulmonic valve visualization is suboptimal but appears to be functioning normally. Trace regurgitation. Ascending Aorta Normal sized sinuses of Valsalva and ascending aorta. Pericardium No pericardial effusion. Septum No interatrial shunt visualized on color Doppler. Pulmonary Artery Pulmonary artery was not well visualized. Study Details Image quality: adequate. Heart rate: 84 bpm. Blood pressure: 131/89 mmHg. Cardiac history: prosthetic valve. No contrast was given. Comparison Study There is a prior study available for comparison. Prior study date: 02/06/2025. CV CPACS Vital signson 02-07-2025 Heart rate 95 /min bpm [facility] Heart rate 64 /min bpm [facility] Vital signsOrdered By: Sid Hill on 02-07-2025 Heart rate 64 /min bpm [facility] [employer] Work Phone: ABO and Rh group Confirm Nom (Bld)on 02-06-2025 ABO group Nom (Bld) B [facility] [employer] D Ag Ql (RBC) Positive [facility] BASIC METABOLIC PANELon -2 Anion gap [Moles/Vol] 7 mmol/L Normal 3-13 [facility] Comment on above: Performed By: #### L [id number] ####Vocational Training Teacher: ANDRIA JOYA ([id number])[facility] ([facility])[address] [place] [address] Calcium [Mass/Vol] 8.6 mg/dL Low 8.8-10.0 [facility] Comment on above: Performed By: #### L AB15 ####Vocational Training Teacher: ANDRIA JOYA ([id number])[facility] [place] [address] Chloride [Moles/Vol] 106 mmol/L Normal 98-107 [facility] Comment on above: Performed By: #### L AB15 ####Vocational Training Teacher: ANDRIA JOYA ([id number])[facility])[address] [place] [address] CO2 [Moles/Vol] 26 mmol/L Normal 23-31 [facility] Comment on above: Performed By: #### L AB15 ####Vocational Training Teacher: ANDRIA JOYA ([id number])[facility])[address] [place] [address] Creatinine [Mass/Vol] 0.87 mg/dL Normal 0.72-1.25 [facility] Comment on above: Performed By: #### L AB15 ####Vocational Training Teacher: ANDRIA JOYA ([id number])[facility])[address] [place] [address] GLOMERULAR FILTRATION RATE ML/MIN/1.73 SQ M.PREDICTED 87.8 mL/min/1.73m*2 Normal >60.0 [facility] Comment on above: Result Comment: Calc ulation based on the Chronic Kidney Disease Epidemiology Collaboration (CKD-EPI) equation refit without adjustment for race Performed By: #### L AB15 ####Vocational Training Teacher: ANDRIA JOYA ([id number])[facility])[address] [place] [address] Glucose [Mass/Vol] 141 mg/dL High 82-115 [facility] Comment on above: Performed By: #### L AB15 ####Vocational Training Teacher: ANDRIA JOYA ([id number])[facility])[address] [place] [address] Potassium [Moles/Vol] 3.9 mmol/L Normal 3.5-5.1 [facility] Comment on above: Performed By: #### L AB15 ####Vocational Training Teacher: ANDRIA JOYA ([id number])[facility])[address] [place] [address] Sodium [Moles/Vol] 139 mmol/L Normal 136-145 [facility] Comment on above: Performed By: #### L AB15 ####Vocational Training Teacher: ANDRIA JOYA ([id number])[facility] [place] [address] [place] Urea nitrogen [Mass/Vol] 15 mg/dL Normal 9-23 [facility] Comment on above: Performed By: #### L AB15 ####Vocational Training Teacher: ANDRIA JOYA ([id number])[facility])[address] Anion gap [Moles/Vol] 8 mmol/L Normal 3-13 [facility] Comment on above: Performed By: #### L AB15 ####Vocational Training Teacher: ANDRIA JOYA ([id number])[facility])[address] [place] [address] Calcium [Mass/Vol] 9.0 mg/dL Normal 8.8-10.0 [facility] Comment on above: Performed By: #### L AB15 ####Vocational Training Teacher: ANDRIA JOYA ([id number])[facility])[address] [place] [address] [place] Chloride [Moles/Vol] 105 mmol/L Normal 98-107 [facility] Comment on above: Performed By: #### L AB15 ####Vocational Training Teacher: ANDRIA JOYA ([id number])[facility])[address] [place] [address] [place] CO2 [Moles/Vol] 25 mmol/L Normal 23-31 [facility] Comment on above: Performed By: #### L AB15 ####Vocational Training Teacher: ANDRIA JOYA ([id number])[facility])[address] [place] [address] [place] Creatinine [Mass/Vol] 0.96 mg/dL Normal 0.72-1.25 [facility] Comment on above: Performed By: #### L AB15 ####Vocational Training Teacher: ANDRIA JOYA ([id number])[facility])[address] [place] [address] [place] GLOMERULAR FILTRATION RATE ML/MIN/1.73 SQ M.PREDICTED 80.4 mL/min/1.73m*2 Normal >60.0 [facility] Comment on above: Result Comment: Calc ulation based on the Chronic Kidney Disease Epidemiology Collaboration (CKD-EPI) equation refit without adjustment for race Performed By: #### L AB15 ####Vocational Training Teacher: ANDRIA JOYA ([id number])[facility])[address] [place] [address] Glucose [Mass/Vol] 149 mg/dL High 82-115 [facility] Comment on above: Performed By: #### L AB15 ####Vocational Training Teacher: ANDRIA JOYA ([id number])[facility])[address] [place] [address] Potassium [Moles/Vol] 4.3 mmol/L Normal 3.5-5.1 [facility] Comment on above: Result Comment: [facility] potassium values may be up to 0.5 mmol/L lower than serum values. Performed By: #### L AB15 ####Vocational Training Teacher: ANDRIA JOYA ([id number])[facility] ([facility])[address] [place] [address] Sodium [Moles/Vol] 138 mmol/L Normal 136-145 [facility] Comment on above: Performed By: #### L AB15 ####Vocational Training Teacher: ANDRIA JOYA ([id number])[facility])[address] [place] [address] Urea nitrogen [Mass/Vol] 16 mg/dL Normal 9-23 [facility] Comment on above: Performed By: #### L AB15 ####Vocational Training Teacher: ANDRIA JOYA ([id number])[facility])[address] [place] [address] BLOOD TYPE AND SCREEN GELon 02-06-2025 ABO GROUPING B Normal [facility] Comment on above: Performed By: #### L [id number] ####Vocational Training Teacher: ANDRIA JOYA ([id number])[facility] ([facility])[address] [place] [address] RH TYPE IN BLOOD Positive Normal [facility] Comment on above: Performed By: #### L [id number] ####Vocational Training Teacher: ANDRIA JOYA ([id number])[facility] ([facility])[address] [place] [address] Basic metabolic 1998 panelon 02-06-2025 Anion gap [Moles/Vol] 7 mmol/L 3 - 13 mmol/L [facility] Calcium [Mass/Vol] 8.6 mg/dL Low 8.8 - 10. 0 mg/dL [facility] Chloride [Moles/Vol] 106 mmol/L 98 - 10 7 mmol/L [facility] CO2 [Moles/Vol] 26 mmol/L 23 - 31 mmol/L [facility] Creatinine [Mass/Vol] 0.87 mg/dL 0.72 - 1.25 mg/dL [facility] GFR/1.73 sq M.predicted (S/P/Bld) [Vol rate/Area] 87.8 mL/min - PINF [facility] Comment on above: Calculation based on the Chronic Kidney Disease Epidemiology Collaboration (CKD-EPI) equation refit without adjustment for race Glucose [Mass/Vol] 141 mg/dL High 82 - 115 mg/dL [facility] Interpretation and review of laboratory results Abnormal [facility] Potassium [Moles/Vol] 3.9 mmol/L 3.5 - 5.1 mmol/L [facility] Sodium [Moles/Vol] 139 mmol/L 136 - 145 mmol/L [facility] Urea nitrogen [Mass/Vol] 15 mg/dL 9 - 23 mg/dL [facility] Anion gap [Moles/Vol] 8 mmol/L 3 - 13 mmol/L [facility] Calcium [Mass/Vol] 9 mg/dL 8.8 - 10. 0 mg/dL [facility] Chloride [Moles/Vol] 105 mmol/L 98 - 10 7 mmol/L [facility] CO2 [Moles/Vol] 25 mmol/L 23 - 31 mmol/L [facility] Creatinine [Mass/Vol] 0.96 mg/dL 0.72 - 1.25 mg/dL [facility] GFR/1.73 sq M.predicted (S/P/Bld) [Vol rate/Area] 80.4 mL/min - PINF [facility] [employer] Comment on above: Calculation based on the Chronic Kidney Disease Epidemiology Collaboration (CKD-EPI) equation refit without adjustment for race Glucose [Mass/Vol] 149 mg/dL High 82 - 115 mg/dL [facility] Interpretation and review of laboratory results Abnormal [facility] Potassium [Moles/Vol] 4.3 mmol/L 3.5 - 5.1 mmol/L [facility] Comment on above: Plasma potassium hasmukh ues may be up to 0.5 mmol/L lower than serum values. Sodium [Moles/Vol] 138 mmol/L 136 - 145 mmol/L [facility] Urea nitrogen [Mass/Vol] 16 mg/dL 9 - 23 mg/dL [facility] Blood type and Crossmatch pa hussein (Bld)on 02-06-2025 ABO group Nom (Bld) B [facility] Blood group antibody screen GEL Ql Negative [facility] D Ag Ql (RBC) Positive [facility] h [facility] CBC (HEMOGRAM)on 02-06-2025 Erythrocyte distribution width (RBC) [Ratio] 12.9 % Normal 11.5-15.0 [facility] Comment on above: Performed By: #### L [id number] #### Vocational Training Teacher: ANDRIA JOYA ([id number]) [facility]) [address] [place] [address] Hematocrit (Bld) [Volume fraction] 35.3 % Low 40.0-52.0 [facility] Comment on above: Performed By: #### L AB294 #### Vocational Training Teacher: ANDRIA JOYA ([id number]) [facility]) [address] [place] [address] Hemoglobin (Bld) [Mass/Vol] 12.1 g/dL Low 13.0-18.0 [facility] Comment on above: Performed By: #### L AB294 #### Vocational Training Teacher: ANDRIA [id number]) [facility]) [address] [place] [address] MCH (RBC) [Entitic mass] 29.2 pg Normal 26.0-34.0 [facility] Comment on above: Performed By: #### L AB294 #### Vocational Training Teacher: ANDRIA [id number]) [facility] ([facility]) [address] [place] [address] MCHC 34.3 % Normal 30.5-36.0 [facility] Comment on above: Performed By: #### L AB294 #### Vocational Training Teacher: ANDRIA JOYA ([id number]) [facility] ([facility]) [address] [place] [address] MCV (RBC) [Entitic vol] 85.3 fL Normal 77.0-99.0 [facility] Comment on above: Performed By: #### L [id number] #### Vocational Training Teacher: ANDRIA JOYA ([id number]) [facility] ([facility]) [address] [place] [address] Platelet mean volume (Bld) [Entitic vol] 9.9 fL Normal 9.0-12.7 [facility] Comment on above: Performed By: #### L [id number] #### Vocational Training Teacher: ANDRIA JOYA ([id number]) [facility] ([facility]) [address] [place] [address] Platelets (Bld) [#/Vol] 159 10*3/uL Normal 140-440 [facility] Comment on above: Performed By: #### L [id number] #### Vocational Training Teacher: ANDRIA JOYA ([id number]) [facility] ([facility]) [address] [place] [address] RBC (Bld) [#/Vol] 4.14 10*6/uL Low 4.40-5.90 [facility] Comment on above: Performed By: #### L AB294 #### Vocational Training Teacher: ANDRIA JOYA ([id number]) [facility] ([facility]) [address] [place] [address] WBC (Bld) [#/Vol] 5.6 10*3/uL Normal 3.6-10.7 [facility] Comment on above: Performed By: #### L [id number] #### Vocational Training Teacher: ANDRIA JOYA ([id number]) [facility] ([facility]) [address] [place] [address] Erythrocyte distribution width (RBC) [Ratio] 12.6 % Normal 11.5-15.0 [facility] Comment on above: Performed By: #### L [id number] ####Vocational Training Teacher: ANDRIA JOYA ([id number])[facility])[address] [place] [address] Hematocrit (Bld) [Volume fraction] 38.3 % Low 40.0-52.0 [facility] Comment on above: Performed By: #### L AB294 ####Vocational Training Teacher: ANDRIA JOYA ([id number])[facility])[address] [place] [address] Hemoglobin (Bld) [Mass/Vol] 12.9 g/dL Low 13.0-18.0 [facility] Comment on above: Performed By: #### L AB294 ####Vocational Training Teacher: ANDRIA JOYA ([id number])[facility])[address] [place] [address] MCH (RBC) [Entitic mass] 29.1 pg Normal 26.0-34.0 [facility] Comment on above: Performed By: #### L AB294 ####Vocational Training Teacher: ANDRIA JOYA ([id number])[facility])[address] [place] [address] MCHC 33.7 % Normal 30.5-36.0 [facility] Comment on above: Performed By: #### L AB294 ####Vocational Training Teacher: ANDRIA JOYA ([id number])[facility])[address] [place] [address] MCV (RBC) [Entitic vol] 86.5 fL Normal 77.0-99.0 [facility] Comment on above: Performed By: #### L [id number] ####Vocational Training Teacher: ANDRIA JOYA ([id number])[facility])[address] [place] [address] Platelet mean volume (Bld) [Entitic vol] 10.2 fL Normal 9.0-12.7 [facility] Comment on above: Performed By: #### L [id number] ####Vocational Training Teacher: ANDRIA JOYA ([id number])[facility])[address] [place] [address] Platelets (Bld) [#/Vol] 199 10*3/uL Normal 140-440 [facility] Comment on above: Performed By: #### L AB294 ####Vocational Training Teacher: ANDRIA JOYA ([id number])[facility] ([facility])[address] [place] [address] RBC (Bld) [#/Vol] 4.43 10*6/uL Normal 4.40-5.90 [facility] Comment on above: Performed By: #### L [id number] ####Vocational Training Teacher: ANDRIA JOYA ([id number])[facility])[address] [place] [address] WBC (Bld) [#/Vol] 5.3 10*3/uL Normal 3.6-10.7 [facility] Comment on above: Performed By: #### L [id number] ####Vocational Training Teacher: ANDRIA JOYA ([id number])[facility])[address] [place] [address] CBC panel Auto (Bld)on 02-06 Erythrocyte distribution width (RBC) [Ratio] 12.9 % 11.5 - 15.0 % [facility] Hematocrit (Bld) [Volume fraction] 35.3 % Low 40.0 - 52.0 % [facility] Hemoglobin (Bld) [Mass/Vol] 12.1 g/dL Low 13.0 - 18.0 g/dL [facility] Interpretation and review of laboratory results Abnormal [facility] MCH (RBC) [Entitic mass] 29.2 pg 26.0 - 34.0 pg [facility] MCHC (RBC) [Mass/Vol] 34.3 % 30.5 - 36.0 % [facility] MCV (RBC) [Entitic vol] 85.3 fL 77.0 - 99.0 fL [facility] Platelet mean volume (Bld) [Entitic vol] 9.9 fL 9.0 - 12.7 fL [facility] Platelets (Bld) [#/Vol] 159 10*3/uL 140 - 440 10*3/uL [facility] RBC (Bld) [#/Vol] 4.14 10*6/uL Low 4.40 - 5.9 0 10*6/uL [facility] WBC (Bld) [#/Vol] 5.6 10*3/uL 3.6 - 10.7 10*3/uL [facility] Erythrocyte distribution width (RBC) [Ratio] 12.6 % 11.5 - 15.0 % [facility] Hematocrit (Bld) [Volume fraction] 38.3 % Low 40.0 - 52.0 % [facility] Hemoglobin (Bld) [Mass/Vol] 12.9 g/dL Low 13.0 - 18.0 g/dL [facility] Interpretation and review of laboratory results Abnormal [facility] MCH (RBC) [Entitic mass] 29.1 pg 26.0 - 34.0 pg [facility] MCHC (RBC) [Mass/Vol] 33.7 % 30.5 - 36.0 % [facility] MCV (RBC) [Entitic vol] 86.5 fL 77.0 - 99.0 fL [facility] Platelet mean volume (Bld) [Entitic vol] 10.2 fL 9.0 - 12.7 fL [facility] Platelets (Bld) [#/Vol] 199 10*3/uL 140 - 440 10*3/uL [facility] RBC (Bld) [#/Vol] 4.43 10*6/uL 4.40 - 5.9 0 10*6/uL [facility] WBC (Bld) [#/Vol] 5.3 10*3/uL 3.6 - 10.7 10*3/uL [facility] Cardiac catheterization stud yon 02-06-2025 Addendum by Michaela Siegel MD on 02/06/2025 7:09 PM EDT Successful TAVR with a 26mm Nissa S3u valve, via right femoral approach TAVR Procedural Report Interventional Cardiologists: -Michaela Siegel MD -Criselda Veloz MD (Fellow) Cardiothoracic Surgeon: Bienvenido Catalan MD Procedure: 1. A 26 NISSA S3 VALVE IMPLANTATION (26 nominal) 2. TRANSFEMORAL TRANSCATHETER AORTIC VALVE REPLACEMENT. Preoperative Diagnosis: Severe and symptomatic aortic stenosis. Postoperative Diagnosis: Severe aortic stenosis. Anesthesia: Moderate Conscious Sedation History of Present Illness: This is a very pleasant 79 y.o. male with a history of severe and symptomatic aortic stenosis. his case was discussed in our multidisciplinary valve conference and was felt to be of appropriate candidacy for TAVR. The pros, cons, risks, benefits, and alternatives of transcatheter aortic valve replacement were reviewed with the patient, and questions were answered, he provided informed consent and wished to proceed with the procedure. Description of Procedure: The patient was brought to the operating suite by anesthesia. The patient was placed under moderate sedation. The patient was then cleaned, prepped and draped in the normal sterile manner. Access was then gained in the right femoral artery, right radial artery, and right femoral vein. Via the right femoral vein, a 6 Senegalese sheath was placed and temporary pacing wire was placed into the RV apex with appropriate capture, in addition sterile tubing was attached and given the anesthesia for central access. Via right radial artery, a 6-Senegalese sheath was placed and the pigtail catheter was placed into the aortic annulus with confirmation the implant angle. Via the right femoral artery, a 6-Senegalese sheath was placed. The patient was then heparinized. Next, two Perclose devices were used using the pre-close strategy. An Amplatz Super Stiff wire was then placed through the second Perclose into the descending aorta. Then, a 14-Senegalese Nissa E-sheath was introduced over the wire into the descending aorta. The sheath was then flushed. Next, an AL1 catheter and a straight wire were used to cross the aortic valve through the e- sheath. The straight wire was then removed and an Amplatz extra stiff wire (formed into a curve) was placed into the LV apex. Next, the AL1 catheter was removed. Next a 26 mm Nissa S3 valve was then advanced through the sheath into the descending aorta.The valve was then mounted on the balloon, the delivery catheter was flexed and advanced around the aortic arch and across the aortic annulus. The valve was then deployed under rapid pacing. Confirmation of an appropriate implant position and appropriately functioning valve was done using TTE. Next, the delivery catheter, extra stiff wire, and large sheath were removed and the Perclose devices were used for hemostasis. A Vascband was used for hemostasis of the additional arterial site. Manual pressure was used for hemostasis of the femoral venous access site. Overall, the patient tolerated the procedure well with minimal blood loss. No immediate complications. The patient will return to the Cardiac Care unit for continued monitoring. It was a pleasure taking care of your patient while hospitalized at [facility]. I will continue to follow along while hospitalized. Please do not hesitate to call with any questions. [facility] No Panel Informationon 02-06 Interpretation and review of laboratory results Abnormal [facility] POCT ACT 270 [facility] Performed by: [facility], [address] [place] [address] CLIA ID: [id number] [facility] Op Noteon 02-06-2025 Op Note TAVR Procedural Report Interventional Cardiologists: -Michaela Siegel MD -Criselda Veloz MD (Fellow) Cardiothoracic Surgeon: Bienvenido Catalan MD - I served as the collaborating cardiothoracic surgeon and was present throughout the procedure to assist/provide emergency surgical intervention if required. Procedure: 1. A 26 NISSA S3 VALVE IMPLANTATION (26 nominal) 2. TRANSFEMORAL TRANSCATHETER AORTIC VALVE REPLACEMENT. Preoperative Diagnosis: Severe and symptomatic aortic stenosis. Postoperative Diagnosis: Severe aortic stenosis. Anesthesia: Moderate Conscious Sedation History of Present Illness: This is a very pleasant 79 y.o. male with a history of severe and symptomatic aortic stenosis. his case was discussed in our multidisciplinary valve conference and was felt to be of appropriate candidacy for TAVR. The pros, cons, risks, benefits, and alternatives of transcatheter aortic valve replacement were reviewed with the patient, and questions were answered, he provided informed consent and wished to proceed with the procedure. Description of Procedure: The patient was brought to the operating suite by anesthesia. The patient was placed under moderate sedation. The patient was then cleaned, prepped and draped in the normal sterile manner. Access was then gained in the right femoral artery, right radial artery, and right femoral vein. Via the right femoral vein, a 6 Senegalese sheath was placed and temporary pacing wire was placed into the RV apex with appropriate capture, in addition sterile tubing was attached and given the anesthesia for central access. Via right radial artery, a 6-Senegalese sheath was placed and the pigtail catheter was placed into the aortic annulus with confirmation the implant angle. Via the right femoral artery, a 6-Senegalese sheath was placed. The patient was then heparinized. Next, two Perclose devices were used using the pre-close strategy. An Amplatz Super Stiff wire was then placed through the second Perclose into the descendingaorta. Then, a 14-Senegalese Nissa E-sheath was introduced over the wireinto the descending aorta. The sheath was then flushed. Next, an AL1 catheter and a straight wire were used to cross the aortic valve through the e- sheath. The straight wire was then removed and an Amplatz extra stiff wire (formed into a curve) was placed into the LV apex. Next, the AL1 catheter was removed. Next a 26 mm Nissa S3 valve was then advanced through the sheath into the descending aorta.The valve was then mounted on the balloon, the delivery catheter was flexed and advanced around the aortic arch and across the aortic annulus. The valve was then deployed under rapid pacing. Confirmation of an appropriate implant position and appropriately functioning valve was done using TTE. Next, the delivery catheter, extra stiff wire, and large sheath were removed and the Perclose devices were used for hemostasis. A Vascband was used for hemostasis of the additional arterial site. Manual pressure was used for hemostasis of the femoral venous access site. Overall, the patient tolerated the procedure well with minimal blood loss. No immediate complications. The patient will return to the Cardiac Care unit for continued monitoring. Normal [employer] [facility] US Heart TransthoracicOrdere d By: Laurita Callaway on 02-06-2025 Aortic valve Mean systole pressure gradient by US.doppler derived full Bernoulli 5 mmHg [facility] Work Phone: Aortic valve Orifice area by US 3.8 cm2 [facility] [employer] Phone: Aortic valve Peak systolic flow by US.doppler 1.1 m/s [employer] Phone: AV Area by Peak Velocity 2.4 cm2 [employer] Phone: AV Area by VTI 2.5 cm2 [facility] Work Phone: AV AT 125.59 ms [employer] Phone: AV Mean Gradient (Pre-TAVR) 66 mmHg [employer] Phone: AV Peak Gradient 8 mmHg [facility] Work Phone: AV Peak Gradient (Pre-TAVR) 92 mmHg [facility] Work Phone: AV Peak Velocity 1.5 m/s [facility] Work Phone: AV Peak Velocity (Pre-TAVR) 4.8 m/s [facility] Work Phone: AV Velocity Ratio 0.6 [facility] Work Phone: AV VTI 32.1 cm [facility] Work Phone: ANNE MARIE/BSA Peak Velocity 1.1 cm2/m2 [facility] Health Work Phone: ANNE MARIE/BSA VTI 1.2 cm2/m2 [facility] Work Phone: Left ventricular Ejection fraction by US.2D+Calculated by biplane method of disks 67 % 55 - 100 % [facility] Work Phone: LV EDV A2C 131 mL [facility] Work Phone: LV EDV A4C 101 mL [facility] Work Phone: LV EDV BP 117 mL 67 - 155 mL [facility] Work Phone: LV EDV Index A2C 62 mL/m2 [facility] Work Phone: LV EDV Index A4C 48 mL/m2 [facility] Work Phone: LV EDV Index BP 55 mL/m2 [facility] Work Phone: LV Ejection Fraction A2C 73 % [facility] Work Phone: LV Ejection Fraction A4C 60 % [facility] Work Phone: LV ESV A2C 35 mL [facility] Work Phone: LV ESV A4C 40 mL [facility] Work Phone: LV ESV BP 38 mL 22 - 58 mL [facility] Work Phone: LV ESV Index A2C 17 mL/m2 [facility] Work Phone: LV ESV Index A4C 19 mL/m2 [facility] Work Phone: LV ESV Index BP 18 mL/m2 [facility] Work Phone: LVOT Cardiac Output 6.1 liter/mi nut e [facility] Work Phone: LVOT Diameter 2.2 cm [facility] Work Phone: LVOT Mean Gradient 2 mmHg [facility] Work Phone: LVOT Peak Gradient 3 mmHg [facility] Work Phone: LVOT Peak Velocity 0.9 m/s [facility] Work Phone: LVOT Stroke Volume Index 37.5 mL/m2 [facility] Work Phone: LVOT SV 79.4 ml [facility] [employer] Work Phone: LVOT VTI 20.9 cm [facility] [employer] Work Phone: LVOT:AV VTI Index 0.65 [facility] Work Phone: [facility] [employer] Work Phone: US Heart Transthoracicon Left Ventricle: Left ventricle size is normal. Moderately increased wall thickness. EF by 2D Simpsons Biplane is 67%. Normal wall motion. Aortic Valve: Aleman Nissa 3 Ultra bioprosthetic aortic valve with a size of 26 mm. AV mean gradient is 5 mmHg. TAVR date 02/06/2025 Pre procedure critical with pk/mn = 92/ 66 mm Hg. Left Ventricle Left ventricle size is normal. Moderately increased wall thickness. EF by 2D Simpsons Biplane is 67%. Normal wall motion. Diastolic function not assessed. Right Ventricle Not assessed. Left Atrium Not assessed. Mitral Valve Mildly thickened leaflets. Calcified leaflets. Trace regurgitation. Tricuspid Valve Valve structure is normal. Trace regurgitation. Aortic Valve Aleman Nissa 3 Ultra bioprosthetic aortic valve with a size of 26 mm. AV mean gradient is 5 mmHg. TAVR date 02/06/2025 Pre procedure critical with pk/mn = 92/ 66 mm Hg. No regurgitation. AV Velocity Ratio is 0.60. Pulmonic Valve The pulmonic valve visualization is suboptimal but appears to be functioning normally. Trace regurgitation. Pericardium Evidence of prominent epicardial fat. No pericardial effusion. Study Details Image quality: technically difficult. Heart rate: 76 bpm. Blood pressure: 127/76 mmHg. The underlying ECG rhythm was sinus rhythm. Echo performed in conjunction with TAVR procedure. Technical qualifiers: Technically difficult study, technically difficult study due to low parasternal window and procedure performed with the patient in a supine position. No contrast was given. Structural Heart Pre Procedure Findings Peak 92 mm Hg and mean 66 mm Hg gradients aortic valve stenosis. CV CPACS CT ANGIOGRAM TAVRon 02-04-20 CT ANGIOGRAM TAVR [facility] Name[facility] 1945 [id number] Exam Date/Time: 01/31/2025 12:20 Procedure: CT ANGIOGRAM TAVR Ordering Provider: TINAJERO MICHELLE Reason For Exam: AORTIC VALVE STENOSIS --------ADDENDUM #1 -------- This is a radiology addendum for the noncardiovascular findings on the CT images of the chest, abdomen, and pelvis obtained for this examination: No focal consolidation is seen within the lungs. There is no pleural effusion or pneumothorax. No suspicious pulmonary nodules are identified. No lymphadenopathy is seen within the chest. The liver, gallbladder, spleen, pancreas, adrenal glands, and left kidney appear within normal limits. There is a small right renal cyst. There is no lymphadenopathy within the abdomen or pelvis. The urinary bladder appears grossly normal. The prostate is enlarged. Diverticulosis of the distal colon is noted. Large and small bowel loops do not appear abnormally dilated or thickened. There is coarse central mesenteric calcification, likely chronic. There is no free fluid or free air within the abdomen or pelvis. No lytic or blastic lesions are seen on the bone windows. IMPRESSION: No actionable findings are seen on the CT images of the chest, abdomen, or pelvis obtained for this examination. Please see Dr. Dempsey's original report for cardiovascular findings and measurements. Report Dictated on Electronically Signed By: Jerson Finch MD Electronically Signed Date/Time: 02/03/2025 1:50 PM EDT --------ORIGINAL REPORT -------- [facility] Cardiovascular CTA Indication: 79 year-old man with severe aortic stenosis, being evaluated for transcatheter aortic valve implantation. Technique: Computed tomography of the heart, thoracoabdominal aorta, and iliofemoral system was performed using a [employer] Aquilion One 320 detector scanner. Images were reconstructed and analyzed on an advanced post-processing 3D workstation. Contrast: 100 mL Total DLP: 1111.7 mGy-cm Study Quality: Excellent Extracardiac Findings: For a complete description of extracardiac structures, please refer to the accompanying radiology addendum. Cardiac Chambers: The pericardium is unremarkable. The left and right ventricles are normal in size. The left atrium is moderately dilated. The left atrial appendage is normal in appearance. The right atrium is mildly dilated. Coronary Arteries: The coronaries have normal origins. There is a pattern of right coronary dominance. There is evidence of coronary atherosclerosis. The present study was not optimized for evaluation of the coronary arteries. Mitral Valve: The mitral annulus has minimal calcification, without significant extension into the LVOT. The anterior mitral leaflet is free of the LVOT during systole. Aortic Valve: The aortic valve is tricuspid. Predicted deployment angle (3-cusp view): RABAGO 3, SERICULTURE TEACHER 4 Aortic Annulus: Dimensions: 2.7 x 2.1 cm Area: 4.54 cm2 Perimeter: 77.3 mm Left coronary height: 17.6 mm Right Coronary height: 13.3 mm Aorta and Iliofemoral System: All vascular measurements are minimal luminal diameters using a centerline technique. Aortic Root and Thoracic Aorta: Mild calcific atherosclerosis is present at the arch and descending thoracic aorta. Note is made of 2-vessel arch. Sinuses of Valsalva: 33 mm Sinotubular junction: 30 mm Mid ascending Aorta: 36 mm Abdominal Aorta: Mixed calcific/non-calcific atherosclerosis is present. Infrarenal: 18 mm Bifurcation: 19 mm Right Iliac System: Calcification: no. Tortuosity: moderate. RCIA: 13 mm REIA: 9 mm RCFA: 10 mm Left Iliac System: Calcification: mild. Tortuosity: moderate. LCIA: 13 mm JORGE L: 9 mm LCFA: 9 mm CONCLUSIONS: 1. Calcific aortic stenosis, with descriptive anatomy and annular / aortic root measurements as detailed above. 2. Patent bilateral iliofemoral system as detailed above. Report Dictated on Electronically Signed By: Bennett [place] Electronically Signed Date/Time: 02/02/2025 2:49 PM EDT Patient Name: EVELIN HERNANDEZ : 1945 [facility]#: [id number] Exam Date/Time: 01/31/2025 12:20 Procedure: CT ANGIOGRAM TAVR Ordering Provider: TINAJERO MICHELLE Reason For Exam: AORTIC VALVE STENOSIS [facility] Cardiovascular CTA Indication: 79 year-old man with severe aortic stenosis, being evaluated for transcatheter aortic valve implantation. Technique: Computed tomography of the heart, thoracoabdominal aorta, and iliofemoral system was performed using a [employer] Aquilion One 320 detector scanner. Images were reconstructed and analyzed on an advanced post-processing 3D workstation. Contrast: 100 mL Total DLP: 1111.7 mGy-cm Study Quality: Excellent Extracardiac Findings: For a complete description of extracardiac structures, please refer to the accompanying radiology addendum. C (more content not included)... Normal [facility] Office Visiton 01-31-2025 Follow-up visit [id number] Evelin Hernandez 1945 M Date Provider Department Center 01/31/2025 [id number] BUTLER [facility] HERMILA SHMGCV [address] No family history on file Level of Service:02231 MD OFFICE/OP CONSLTJ NEW/EST PT MOD MDM 40 MINUTES (25) Reason for Visit and Comments: Cardiac Valve Problem [1334] New Patient [542] - Heart Valve Clinic [facility] Follow-up visit [id number] Evelin Hernandez 1945 M Date Provider Department Center 01/31/2025 [id number]-XOMRMPGMYPRLMICHAELA SIEGEL SHMG ACH HERMILA SHMGCV [address] No family history on file Level of Service:31527 MD OFFICE/OUTPATIENT NEW HIGH MDM 60 MINUTES Reason for Visit and Comments: Cardiac Valve Problem [1334] New Patient [542] - Heart Valve Clinic [facility] Progress Noteon 01-31-2025 Progress Note [facility]: Cardiothoracic Surgery Multidisciplinary Heart Valve Clinic Date: 01/31/25 Patient:Evelin Hernandez 1945 79 y.o. male [id number] Subjective: HPI: Evelin Hernandez [address] Jackson is being evaluated for aortic valve stenosis. Echocardiogram completed on 01/17/25 showed critical aortic valve stenosis with peak/mean gradients 102/57 mm Hg, ANNE MARIE 0.7 cm^2. Per note, patient began experiencing chest discomfort and syncopal episodes post exertion approximately 5 months ago. Patient presented to hospital after symptoms worsened, cardiac enzymes were negative, a stress test was performed which demonstrated no evidence of ischemia. An echocardiogram was performed on 01/17/25 which demonstrated normal LV size and function, LVEF 60%, severe aortic valve stenosis with mean gradient 57 mmHg. Patient followed up with cardiology who recommended heart cath, and on exam pt had harsh systolic murmur at left sternal border radiating to the carotids. Heart cath was performed on 01/20/25 and demonstrated severe aortic valve stenosis and single-vessel coronary disease involving the circumflex artery. He has had at least 4 syncopal episodes over the past several months, all associated with exertion. He denies chest pain with it. He also denies leg edema, orthopnea, or PND. He was recently told he is diabetic and checks his sugar regularly. It is often above 200-300, especially when he passes out. 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 Medical History No past medical history on file. Blood thinner - none Heart Catheterization 01/20/25 Transthoracic Echocardiogram 01/17/25 Review of Systems Constitutional: Negative for activity change, chills, diaphoresis, fatigue and fever. HENT: Negative for nosebleeds and trouble swallowing. Eyes: Negative for discharge and visual disturbance. Respiratory: Negative for apnea, cough, chest tightness, shortness of breath and wheezing. Cardiovascular: Negative for chest pain, palpitations and leg swelling. Gastrointestinal: Negative for abdominal distention, abdominal pain, blood in stool, diarrhea, nausea and vomiting. Endocrine: Negative for cold intolerance and heat intolerance. Genitourinary: Negative for hematuria. Musculoskeletal: Negative for gait problem and myalgias. Skin: Negative for color change and rash. Neurological: Positive for syncope (on exertion). Negative for dizziness, seizures, facial asymmetry, speech difficulty, weakness, light-headedness, numbness and headaches. Hematological: Does not bruise/bleed easily. Psychiatric/Behaviora l: Negative for dysphoric mood. Allergies: Patient has no known allergies. Past Medical History: has a past medical history of Diabetes mellitus (HCC) and Severe aortic stenosis. Past Surgical History: has no past surgical history on file. Social History: reports that he has never smoked. He has never used smokeless tobacco. He reports that he does not use drugs. Family History: family history is not on file. Medications: Prior to Admission medications Medication Sig Start Date End Date Taking? Authorizing Provider alpha tocopherol (Vitamin E) 1000 units capsule Take 1,000 Units by mouth daily. Historical Provider, cholecalciferol (Vitamin D-3) 25 MCG (1000 UT) capsule Take 1,000 Units by mouth daily. Historical Provider, Multiple Vitamin (multivitamin) tablet Take 1 tablet by mouth daily. Historical Provider, Multiple Vitamins-Minerals (OCUTABS PO) Take by mouth. Historical Provider, Objective: BP 130/66 (BP Location: Right arm, Patient Position: Sitting, BP Cuff Size: Adult) Pulse 78 Ht 5' 10 (1.778 m) Wt 208 lb (94.3 kg) BMI 29.84 kg/m? @[id number]@ Physical Exam General--AAO x 3 CV--regular rhythm with 4/6 systolic murmur Resp--CTAB Abd--soft, ND Ext--no edema Neuro--no gross deficits. Labs: Reviewed in EMR No results found for: WBC, HGB, HCT, MCV, PLT No results found for: NA, K, CL, CO2, BUN, CREATININE, GLUCOSE, CALCIUM Diagnostics: Reviewed in EMR Assessment/Plan: Severe aortic stenosis--warrants intervention Single vessel CAD--intervention is debatable Chronic diastolic congestive heart failure Recommendations: He will require aortic valve replacement, and we have settled on TAVR as the preferred method for him, mainly due to his age. We have offered to enroll him in the Complete TAVR trial for his coronary disease, though he may not opt for this. His procedure will be scheduled in the coming weeks. We will still discuss him at our valve conference. Patient consents to surgical bailout: [x] Yes [] No If No why: Juan F Nichole DO FACS Cardiothoracic Surgery Normal [facility] Progress Note [facility] CARD[facility]OLOG[facility] - [address] [address] Dept: [phone] Dept Visit type: New : 1945 Reason for Visit: Cardiac Valve Problem and New Patient (Heart Valve Clinic) Assessment and Plan 1. Severe aortic stenosis - Case Request Human Resources Professional: Transcatheter aortic valve replacement (TAVR) This is a very pleasant 79 y.o. male with severe and symptomatic aortic stenosis. he is in need of aortic valve replacement. Anatomy favorable for TAVR, will proceed with TAVR. This decision was made after multidisciplinary discussion, using a shared decision making strategy. CT surgery also saw patient to aide in discussion. We did also discuss what to do with his coronary lesion. This is in a small-medium sized OM2. I believe it would be reasonable to plan medical therapy for this (presuming symptoms improve after TAVR), or staged PCI. We could also consider enrolling in the COMPLETE TAVR trial of staged PCI vs medical management. It was a pleasure seeing your patient in the office today. Please do not hesitate to call me with any questions. Follow up for Recheck after TAVR. Subjective HPI Evelin Hernandez is a very pleasant 79 y.o. male who is here for evaluation of his aortic valve disease. his symptoms include progressive dyspnea on exertion. He has also had exertional lightheadedness, and actually several exertional syncopal events. his most recent echo shows severe aortic stenosis with mean gradient 57mmHg, normal EF. Cath showed an 80% lesion of OM2, appears chronic and stable. CT done today shows anatomy favorable for TAVR. Review of Systems Constitutional: Negative for activity change, chills, diaphoresis, fatigue and fever. HENT: Negative for nosebleeds and trouble swallowing. Eyes: Negative for discharge and visual disturbance. Respiratory: Negative for apnea, cough, chest tightness, shortness of breath and wheezing. Cardiovascular: Negative for chest pain, palpitations and leg swelling. Gastrointestinal: Negative for abdominal distention, abdominal pain, blood in stool, diarrhea, nausea and vomiting. Endocrine: Negative for cold intolerance and heat intolerance. Genitourinary: Negative for hematuria. Musculoskeletal: Negative for gait problem and myalgias. Skin: Negative for color change and rash. Neurological: Positive for syncope (on exertion). Negative for dizziness, seizures, facial asymmetry, speech difficulty, weakness, light-headedness, numbness and headaches. Hematological: Does not bruise/bleed easily. Psychiatric/Behaviora l: Negative for dysphoric mood. No Known Allergies Current Outpatient Medications: alpha tocopherol (Vitamin E) 1000 units capsule, Take 1,000 Units by mouth daily., Disp: , Rfl: cholecalciferol (Vitamin D-3) 25 MCG (1000 UT) capsule, Take 1,000 Units by mouth daily., Disp: , Rfl: Multiple Vitamin (multivitamin) tablet, Take 1 tablet by mouth daily., Disp: , Rfl: Multiple Vitamins-Minerals (OCUTABS PO), Take by mouth., Disp: , Rfl: No current facility-administered medications for this visit. Past Medical History: Diagnosis Date Diabetes mellitus (HCC) Severe aortic stenosis Social History Tobacco Use Smoking status: Never Smokeless tobacco: Never Substance Use Topics Alcohol use: Not on file No past surgical history on file. No family history on file. Objective Vitals: 01/31/25 1440 BP: 130/66 BP Location: Right arm Patient Position: Sitting BP Cuff Size: Adult Pulse: 78 SpO2: 94% Weight: 208 lb (94.3 kg) Height: 5' 10 (1.778 m) Physical Exam Constitutional: General: He is not in acute distress. Appearance: He is not diaphoretic. HENT: Head: Normocephalic. Nose: Nose normal. Mouth/Throat: Mouth: Mucous membranes are moist. Pharynx: No oropharyngeal exudate. Eyes: General: No scleral icterus. Right eye: No discharge. Left eye: No discharge. Neck: Thyroid: No thyromegaly. Vascular: No carotid bruit or JVD. Cardiovascular: Rate and Rhythm: Normal rate and regular rhythm. Pulses: Normal pulses. Heart sounds: Murmur heard. Systolic murmur is present with a grade of 3/6. Pulmonary: Effort: Pulmonary effort is normal. Breath sounds: Normal breath sounds. Abdominal: General: Bowel sounds are normal. There is no distension. Palpations: There is no hepatomegaly. Tenderness: There is no abdominal tenderness. Musculoskeletal: General: Normal range of motion. Cervical back: Normal range of motion. Right lower leg: No edema. Left lower leg: No edema. Skin: General: Skin is warm and dry. Neurological: Mental Status: He is oriented to person, place, and time. Psychiatric: Mood and Affect: Mood normal. Behavior: Behavior normal. Data Reviewed and Summarized No results found for: EFBP, PLVEF, LVEFPHYS, LVEF2D, EF Review of tests/labs done/ordered within my specialty: EKG in office: Review of tests/labs (more content not included)... [facility] 2901-30-2025 29 Addended by: JAKOB TINAJERO on: 01/30/2025 11:14 AM Modules accepted: Orders [facility] 01-30-2025 36 Patient returned benny l and agreed to schedule CTA TAVR for 01/30 at 1 pm. Reviewed prep instructions, BMP completed 01/16/25 in media. Verbalized understanding. [facility] 36 Left message for patient to consider scheduled CTA TAVR 01/31 at 1pm. Will await return call [facility] 36on 01-27-[address] Jackson's office and she is pushing the echo images to PACS [facility] Progress Noteon 01-27-2025 Progress Note Evelin Hernandez 79 [address] by [address] Jackson is being evaluated for aortic valve stenosis. Echocardiogram completed on 01/17/25 showed critical aortic valve stenosis with peak/mean gradients 102/57 mm Hg, ANNE MARIE 0.7 cm^2. Per note, patient began experiencing chest discomfort and syncopal episodes post exertion approximately 5 months ago. Patient presented to hospital after symptoms worsened, cardiac enzymes were negative, a stress test was performed which demonstrated no evidence of ischemia. An echocardiogram was performed on 01/17/25 which demonstrated normal LV size and function, LVEF 60%, severe aortic valve stenosis with mean gradient 57 mmHg. Patient followed up with cardiology who recommended heart cath, and on exam pt had harsh systolic murmur at left sternal border radiating to the carotids. Heart cath was performed on 01/20/25 and demonstrated severe aortic valve stenosis and single-vessel coronary disease involving the circumflex artery. No past medical history on file. Blood thinner - none Heart Catheterization 01/20/25 Transthoracic Echocardiogram 01/17/25 [facility] 2901-25-2025 29 Addended by: DANNA SYED on: 01/25/2025 04:55 PM Modules accepted: Orders Normal [facility] 36on 01-25-2025 36 Chart reviewed, patient coming to valve clinic 01/[address] Jackson for critical aortic stenosis. Echo and cath completed. Pended CTA order, COMPENSATION ADVISOR to sign. Will call patient to schedule same day if agreeable. BMP completed 01/17/25. Normal [facility] 36 ASSISTANT COMMUNITY DIRECTOR packet mailed and good directions given. Yellow chart made. Normal [facility] 36 Patient referred to Valve Clinic from Dr Jackson. Records scanned under Media. He is scheduled for 01/31/25 at 2:00p with PB/MC and I will mail ASSISTANT COMMUNITY DIRECTOR packet and make chart. Normal [facility] Cardiac Cath Diagnosticon Cardiac Cath Diagnostic [facility] Services [address] [place] [id number] Cardiac Cath Diagnostic MR#: [id number] Acct: [id number] Name: EVELIN HERNANDEZ Rep #: [id number] : 1945 79 From: Melo Jackson MD PCP: Dr. Dayron Macias MD Status:REG [facility] [place] Patient Name: EVELIN HERNANDEZ Study Date: 01/20/2025 Performing: Melo Jackson MD Ht: 60 inches 152.4 cm : 1945 Wt: 211 lbs 95.71 kg Age: 79 Gender: male BSA: 1.91 PROCEDURE(S) PERFORMED [id number])[facility] CLINICAL PROFILE AND INDICATIONS Indications: Suspected CAD, Valvular Disease Heart Failure: None Stress/Imaging Date: 01/18/25Stress Test with SPECT MPI: Negative CAD Presentations: Stable angina. CONCLUSIONS Severe aortic stenosis Single-vessel coronary disease involving the circumflex artery RECOMMENDATIONS TAVR and consider PCI to the circumflex artery. DESCRIPTION OF PROCEDURE The patient arrived to the procedure lab. The risks and benefits of the procedure as well as a full description of our services here and current unavailability of surgical backup were fully explained to the patient and/or their significant other prior to the catheterization. The Timeout was completed, verifying the correct patient and procedure. The patient's procedural site was prepped and draped in the usual fashion. Local anesthetic was given subcutaneously to right radial region with Lidocaine 2%. Using a modified Seldinger technique, arterial access was obtained via the right radial artery, a 6Fr sheath was inserted. Left Coronary Artery selective angiography was performed in multiple views using a 5 Fr. 4.0 [place] catheter. Right Coronary Artery selective angiography was then performed in multiple views using a 5 Fr. 4.0 [place] catheter. Right Coronary Artery selective angiography was then performed in multiple views using a 5 Fr. JR 5 catheter. Left Ventriculography was performed in RABAGO projection using a 5 Fr. Pigtail catheter. LV to AO pullback pressures were then recorded. CORONARY ANGIOGRAPHY DOMINANCE: Right Dominant LEFT HEART ASSESSMENT Left Ventricular Ejection Fraction: by LV Gram 60 % Normal LV wall motion Normal Left Ventricular systolic function LEFT MAIN: Mild calcification, Mild luminal irregularities LEFT ANTERIOR DESCENDING ARTERY: Mild luminal irregularities less than 30% CIRCUMFLEX ARTERY: Medium size vessel with first obtuse marginal branch with luminal irregularities and second obtuse marginal branch with 90% mid segment stenosis. RIGHT CORONARY ARTERY: MID RCA: 40 % Stenosis VALVE FINDINGS: Aortic Valve Calcification - severe COMPLICATIONS PROCEDURE MEDICATIONS Fentanyl 50 mcg IV Versed 1 mg IV Versed 1 mg IV Oxygen: 2 L/min via nasal cannula Aspirin (325mg) 1 Tabs PO 01/20/2025 08:20:56 Brilinta 180 mg PO @ 01/20/2025 09:01:24 Heparin given IA 01/20/2025 08:35:55 Verapamil 2.5mg,3000 units of Heparin given IA 01/20/2025 08:35:55 SUMMARY OF HEMODYNAMIC DATA Time AIR REST ECG 07:35:36 ECG 08:24:17 AO 130/61 (88) SA 08:43:01 LV 188/7, 19 08:58:21 LV 188/8, 20 08:58:35 LV 187/8, 21 08:58:38 LV 188/8, 21 08:59:23 LVp 184/9, 29 08:59:29 AOp 136/60 (91) 08:59:36 AO 143/57 (91) 09:02:02 Signed By Melo Jackson MD On 01/20/2025 09:16:38 Melo Jackson MD 01/20/2517 Date Melo Jackson MD Cosigner Signature: Date (if indicated) CC: Dr. Melo Jackson MD; Dr. Dayron Macias MD Date Dictated: 01/20/25835 Date Transcribed: 01/20/25915 Embedded Hardware Engineer: [place] Signed Normal [facility] Cardiac catheterization repo rtOrdered By: Melo Jackson on 01-20-2025 Cardiac catheterization study [facility] Imaging Services [address] [place] [id number] Cardiac Cath Diagnostic MR#: [id number] Acct: [id number] Name: EVELIN HERNANDEZ Rep #:[id number] : 1945 79 From: Melo Jackson MD PCP: Dr. Dayron Macias MD Status:REG S DC Patient Name: EVELIN HERNANDEZ Study Date: 01/20/2025 Performing: Melo Jackson MD Ht: 60 inches 152.4 cm : 1945 Wt: 211 lbs 95.71 kg Age: 79 Gender: male BSA: 1.91 PROCEDURE(S) PERFORMED DC02-(20793)[facility] CLINICAL PROFILE AND INDICATIONS Indications: Suspected CAD, Valvular Disease Heart Failure: None Stress/Imaging Date: 01/18/25Stress Test with SPECT MPI: Negative CAD Presentations: Stable angina. CONCLUSIONS Severe aortic stenosis Single-vessel coronary disease involving the circumflex artery RECOMMENDATIONS TAVR and consider PCI to the circumflex artery. DESCRIPTION OF PROCEDURE The patient arrived to the procedure lab. The risks and benefits of the procedure as well as a full description of our services here and current unavailability of surgical backup were fully explained to the patient and/or their significant other prior to the catheterization. The Timeout was completed, verifying the correct patient and procedure. The patient's procedural site was prepped and draped in the usual fashion. Local anesthetic was given subcutaneously to right radial region with Lidocaine 2%. Using a modified Seldinger technique, arterial access was obtained via the right radial artery, a 6Fr sheath was inserted. Left Coronary Artery selective angiography was performed in multiple views using a 5 Fr. 4.0 [place] catheter. Right Coronary Artery selective angiography was then performed in multiple views using a 5 Fr. 4.0 [place] catheter. Right Coronary Artery selective angiography was then performed in multiple views using a 5 Fr. JR 5 catheter. Left Ventriculography was performed in RABAGO projection using a 5 Fr. Pigtail catheter. LV to AO pullback pressures were then recorded. CORONARY ANGIOGRAPHY DOMINANCE: Right Dominant LEFT HEART ASSESSMENT Left Ventricular Ejection Fraction: by LV Gram 60 % Normal LV wall motion Normal Left Ventricular systolic function LEFT MAIN: Mild calcification, Mild luminal irregularities LEFT ANTERIOR DESCENDING ARTERY: Mild luminal irregularities less than 30% CIRCUMFLEX ARTERY: Medium size vessel with first obtuse marginal branch with luminal irregularities and second obtuse marginal branch with 90% mid segment stenosis. RIGHT CORONARY ARTERY: MID RCA: 40 % Stenosis VALVE FINDINGS: Aortic Valve Calcification - severe COMPLICATIONS PROCEDURE MEDICATIONS Fentanyl 50 mcg IV Versed 1 mg IV Versed 1 mg IV Oxygen: 2 L/min via nasal cannula Aspirin (325mg) 1 Tabs PO 01/20/2025 08:20:56 Brilinta 180 mg PO @ 01/20/2025 09:01:24 Heparin given IA 01/20/2025 08:35:55 Verapamil 2.5mg,3000 units of Heparin given IA 01/20/2025 08:35:55 SUMMARY OF HEMODYNAMIC DATA Time AIR REST ECG 07:35:36 ECG 08:24:17 AO 130/61 (88) SA 08:43:01 LV 188/7, 19 08:58:21 LV 188/8, 20 08:58:35 LV 187/8, 21 08:58:38 LV 188/8, 21 08:59:23 LVp 184/9, 29 08:59:29 AOp 136/60 (91) 08:59:36 AO 143/57 (91) 09:02:02 Signed By Melo Jackson MD On 01/20/2025 09:16:38 Melo Jackson MD 01/20/25916 Date _ Melo Jackson MD Cosigner Signature: Date (if indicated) CC: Dr. Melo Jackson MD; Dr. Dayron Macias MD ~ Date Dictated: 01/20/25835 Date Transcribed: 01/20/25915 Embedded Hardware Engineer: CO Signed [facility] Work Phone: Cardiology Visit Reporton Cardiology Visit Report [facility] [address] [place] [address] OFFICE VISIT Date of Service: 01/18/25 MR#: [id number] Acct: [id number] Name: EVELIN HERNANDEZ Rep #: [id number] : 1945 Provider: Dr. Melo Jackson MD Age/Sex: 79/M Location: [facility] Status: Signed HPI HPI History of Present Illness Details: 79-year-old man with a long history of an aortic valve murmur for which she says that he was checked out with no significant abnormalities. He says that a physician in [place] told him a few years ago that he had a loud murmur and he is being followed with the above. More recently he has started developing some chest discomfort when he exerts himself and approximately 5 months ago he passed out after he exerted himself and got to the top of the stairs. He has since had at least 3 syncopal episodes post exertion. He is convinced that the above because his blood sugar goes high. He was recently diagnosed with diabetes and he was told to start medication but he preferred to treat this with dietary and natural means. More recently he was getting more discomfort and so he presented to the hospital cardiac enzymes were negative he underwent a stress test which demonstrated no evidence of ischemia but premature ventricular complexes were noted. An echocardiogram demonstrated critical aortic stenosis with preserved ejection fraction. He has had no rest angina or rest syncope. He denies any shortness of breath and he is on hardly any medication. His physical exam is significant for his harsh systolic murmur noted left sternal border radiating to the carotids and his electrocardiogram demonstrates sinus bradycardia with a rate of 56 bpm and no acute changes. Intake Vital Signs 05/10/24 10:39 01/16/25 16:14 01/18/25 08:52 Height 5 ft 11 in 5 ft 10.87 in 5 ft 10.87 in Weight: 211 lb BMI 29.5 BP 123/67 H Blood Pressure Location Lt brachial Position Sitting Respiration 16 Pulse 58 L Pulse Source Monitor Intake Visit Reasons: Re-EST Syncope (Self) Drug Coordinator Required: No Is patient in pain?: No Allergies No Known Allergies Allergy (Verified 01/18/25 08:55) Medications ???Medication ???Instructions ???Recorded ???Confirmed ???Type multivitamin 1 tab PO DAILY vitamin 08/17/18 History vitamin E (dl, acetate) 450 mg 2,000 unit PO DAILY vitamin 01/18/25 History (1,000 unit) capsule triamcinolone acetonide 0.1 % 1 applic topical TID PRN rash 05/0 03/0801/18/25 History topical cream cholecalciferol (vitamin D3) 25 400 unit PO DAILY vitamin 12/07/24 01/18/25 History mcg (1,000 unit) tablet vitamin A-vitamin C-vit E-min 2 tab PO DAILY vitamin 01/16/25 History tablet (Ocutabs tablet) Have you fallen in the past year?: Yes [facility] Medical History Abnormal pituitary follicle stimulating hormone (FSH) Anemia Aortic stenosis Chest pain Syncope Dermatochalasis of right lower eyelid Dermatochalasis of left lower eyelid Non-rheumatic aortic stenosis Cardiac murmur Controlled type 2 diabetes mellitus Essential hypertension Testicular mass Hyperlipemia Surgical History History of open reduction and internal fixation (ORIF) procedure History of arthroscopic knee surgery Family History Father Myocardial infarction CAD (coronary artery disease) History of coronary artery bypass surgery Mother COPD (chronic obstructive pulmonary disease) Social History Smoking Status: Never smoker alcohol intake: never substance use type: does not use additional social history: pt denies smoking, denies vaping, denies edibles, denies alcohol, denies aspirin use, denies ibuprofen use. ROS Const Const: Negative for fatigue, weakness, headache(s), daytime sleepiness or difficulty sleeping ENT ENT: Negative for headache(s), dizziness or Nosebleed/epistaxis Cardio Chest Pain: No Palpitations: No Edema: None Resp Respiratory: Negative for SOB with activity, SOB at rest, SOB orthopnea SOB lying down or Cough GI GI: Negative nausea, vomiting or heartburn Neuro Neuro: Positive for lightheadedness, near syncope and syncope (notices when BG elevated ); Negative for dizziness, headache(s) or weakness Endo Endo: Negative for fatigue Cardiology Exam Const Appearance: cooperative, healthy appearing, no acute distress, well developed and well groomed Nutritional Appearance: average body habitus and well nourished Orientation: alert, awake and oriented x3 Head Head: normal to inspection, normocephalic and atraumatic Ears: hearing grossly bernabe (more content not included)... Normal [facility] Absolute neutrophil countOrd ered By: Lucia Matos on 01-17-2025 Neutrophils (Bld) [#/Vol] 3.9 10*3/uL 2.0-7.7 [facility] Anion gap in Serum or Plasma Ordered By: Lucia Matos on 01-17-2025 Anion gap [Moles/Vol] 12 mmol/L 5-15 [facility] BUN/creatinine ratioOrdered By: Lucia Matos on 01-17-2025 Urea nitrogen/Creatinine [Mass ratio] 27.7 mg/mg High 10-20 [facility] Basic Metabolic Profile (BMP )on 01-17-2025 BUN/CRE 27.7 RATIO High [facility] Comment on above: Performed By: #### L 501.9520, L500.2500, L500.4100, L501.5200, L501.9985, L300.3900, L100.0100 #### [facility] [address] [place], [address] Calcium [Mass/Vol] 9.0 mg/dL Normal 7.6-11.0 [facility] Comment on above: Performed By: #### L 501.9520, L500.2500, L500.4100, L501.5200, L501.9985, L300.3900, L100.0100 #### [facility] [address] [place], [address] Chloride [Moles/Vol] 105 mmol/L Normal 98-108 [facility] Comment on above: Performed By: #### L 501.9520, L500.2500, L500.4100, L501.5200, L501.9985, L300.3900, L100.0100 #### [facility] [address] [place], [address] CO2 [Moles/Vol] 22.4 mmol/L Normal 21.0-32.0 [facility] Comment on above: Performed By: #### L 501.9520, L500.2500, L500.4100, L501.5200, L501.9985, L300.3900, L100.0100 #### [facility] [address] [place], [address] Creatinine [Mass/Vol] 0.80 mg/dL Normal 0.70-1.20 [facility] Comment on above: Performed By: #### L 501.9520, L500.2500, L500.4100, L501.5200, L501.9985, L300.3900, L100.0100 #### [facility] [address] [place], [address] ECRCL 85.65 ml/min Normal 50-250 [facility] Comment on above: Performed By: #### L 501.9520, L500.2500, L500.4100, L501.5200, L501.9985, L300.3900, L100.0100 #### [facility] [address] [place], [address] GAP 12 Normal 5-15 [facility] Comment on above: Performed By: #### L 501.9520, L500.2500, L500.4100, L501.5200, L501.9985, L300.3900, L100.0100 #### [facility] [address] [place], [address] GFR/1.73 sq M.predicted among non-blacks MDRD (S/P/Bld) [Vol rate/Area] 90 mL/min/{1.73_m2} Normal >60 [facility] Comment on above: Result Comment: mL/m in/1.73m2 CKD-EPI Creatinine Equation (2020) Performed By: #### L 501.9520, L500.2500, L500.4100, L501.5200, L501.9985, L300.3900, L100.0100 #### [facility] [address] [place], [address] Glucose [Mass/Vol] 152 mg/dL High 70-99 [facility] Comment on above: Performed By: #### L 501.9520, L500.2500, L500.4100, L501.5200, L501.9985, L300.3900, L100.0100 #### [facility] [address] [place], [address] Potassium [Moles/Vol] 4.0 mmol/L Normal 3.3-5.1 [facility] Comment on above: Performed By: #### L 501.9520, L500.2500, L500.4100, L501.5200, L501.9985, L300.3900, L100.0100 #### [facility] [address] [place], [address] Sodium [Moles/Vol] 139 mmol/L Normal 133-145 [facility] Comment on above: Performed By: #### L 501.9520, L500.2500, L500.4100, L501.5200, L501.9985, L300.3900, L100.0100 #### [facility] [address] [place], [address] Urea nitrogen [Mass/Vol] 22 mg/dL High 4-19 [facility] Comment on above: Performed By: #### L 501.9520, L500.2500, L500.4100, L501.5200, L501.9985, L300.3900, L100.0100 #### [facility] [address] [place], [address] Basophil percentageOrdered B y: Lucia Carlo on 01-17-2025 Basophils/100 WBC (Bld) 0.5 % 0-1 [facility] Bedside Glucoseon 01-17-2025 FINGERSTICK GLU 171 mg/dL High 74-106 [facility] Comment on above: Result Comment: BRETT GEMENT OF PATIENT CARE PER NURSING PROTOCOL Performed By: #### L 500.2500, L100.0100 #### [facility] [address] [place], [address] FINGERSTICK GLU 157 mg/dL High 74-106 [facility] Comment on above: Result Comment: BRETT GEMENT OF PATIENT CARE PER NURSING PROTOCOL Performed By: #### L 500.2500, L100.0100 #### [facility] [address] [place], [address] CBC W/Diff, Automatedon Absolute Lymph 0.94 X10 3/uL Normal 0.83-4.51 [facility] Comment on above: Performed By: #### L 501.9520, L500.2500, L500.4100, L501.5200, L501.9985, L300.3900, L100.0100 #### [facility] [address] [place], [address] Absolute Neut 3.9 X10 3/uL Normal 2.0-7.7 [facility] Comment on above: Performed By: #### L 501.9520, L500.2500, L500.4100, L501.5200, L501.9985, L300.3900, L100.0100 #### [facility] [address] [place], [address] Basophils/100 WBC (Bld) 0.5 % Normal 0-1 [facility] Comment on above: Performed By: #### L 501.9520, L500.2500, L500.4100, L501.5200, L501.9985, L300.3900, L100.0100 #### [facility] [address] [place], [address] Eosinophils/100 WBC (Bld) 2.9 % Normal 0-5 [facility] Comment on above: Performed By: #### L 501.9520, L500.2500, L500.4100, L501.5200, L501.9985, L300.3900, L100.0100 #### [facility] [address] [place], [address] Erythrocyte distribution width (RBC) [Ratio] 12.2 % Normal 11.6-14.6 [facility] Comment on above: Performed By: #### L 501.9520, L500.2500, L500.4100, L501.5200, L501.9985, L300.3900, L100.0100 #### [facility] [address] [place], [address] Hematocrit (Bld) [Volume fraction] 35.4 % Low 40-54 [facility] Comment on above: Performed By: #### L 501.9520, L500.2500, L500.4100, L501.5200, L501.9985, L300.3900, L100.0100 #### [facility] [address] [place], [address] Hemoglobin (Bld) [Mass/Vol] 12.0 g/dL Low 13.0-16.5 [facility] Comment on above: Performed By: #### L 501.9520, L500.2500, L500.4100, L501.5200, L501.9985, L300.3900, L100.0100 #### [facility] [address] [place], [address] IG% 0.200 Normal 0.0-0.9 [facility] Comment on above: Result Comment: IG% - Immature Granulocytes (promyelocytes, myelocytes and metamyelocytes) > 1% indicates that a LEFT SHIFT is Present. Performed By: #### L 501.9520, L500.2500, L500.4100, L501.5200, L501.9985, L300.3900, L100.0100 #### [facility] [address] [place], [address] Lymphocytes/100 WBC (Bld) 17.1 % Low 19-41 [facility] Comment on above: Performed By: #### L 501.9520, L500.2500, L500.4100, L501.5200, L501.9985, L300.3900, L100.0100 #### [facility] [address] [place], [address] MCH (RBC) [Entitic mass] 29.3 pg Normal 27.0-32.0 [facility] Comment on above: Performed By: #### L 501.9520, L500.2500, L500.4100, L501.5200, L501.9985, L300.3900, L100.0100 #### [facility] [address] [place], [address] MCHC (RBC) [Mass/Vol] 33.9 g/dL Normal 32-36 [facility] Comment on above: Performed By: #### L 501.9520, L500.2500, L500.4100, L501.5200, L501.9985, L300.3900, L100.0100 #### [facility] [address] [place], [address] MCV (RBC) [Entitic vol] 86.3 fL Normal 80-94 [facility] Comment on above: Performed By: #### L 501.9520, L500.2500, L500.4100, L501.5200, L501.9985, L300.3900, L100.0100 #### [facility] [address] [place], [address] Monocytes/100 WBC (Bld) 9.1 % Normal 0-10 [facility] Comment on above: Performed By: #### L 501.9520, L500.2500, L500.4100, L501.5200, L501.9985, L300.3900, L100.0100 #### [facility] [address] [place], [address] Neutrophils/100 WBC (Bld) 70.2 % High 47-70 [facility] Comment on above: Performed By: #### L 501.9520, L500.2500, L500.4100, L501.5200, L501.9985, L300.3900, L100.0100 #### [facility] [address] [place], [address] Nucleated RBC (Bld) [#/Vol] 0 10*3/uL Normal 0-5 [facility] Comment on above: Performed By: #### L 501.9520, L500.2500, L500.4100, L501.5200, L501.9985, L300.3900, L100.0100 #### [facility] [address] [place], [address] Platelet mean volume (Bld) [Entitic vol] 10.3 fL Normal 6.2-12.0 [facility] Comment on above: Performed By: #### L 501.9520, L500.2500, L500.4100, L501.5200, L501.9985, L300.3900, L100.0100 #### [facility] [address] [place], [address] Platelets (Bld) [#/Vol] 188 10*3/uL Normal 150-450 [facility] Comment on above: Performed By: #### L 501.9520, L500.2500, L500.4100, L501.5200, L501.9985, L300.3900, L100.0100 #### [facility] [address] [place], [address] RBC (Bld) [#/Vol] 4.10 10*6/uL Low 4.6-6.2 [facility] Comment on above: Performed By: #### L 501.9520, L500.2500, L500.4100, L501.5200, L501.9985, L300.3900, L100.0100 #### [facility] [address] [place], [address] RDW SD 38.6 fl Normal 35.1-43.9 [facility] Comment on above: Performed By: #### L 501.9520, L500.2500, L500.4100, L501.5200, L501.9985, L300.3900, L100.0100 #### [facility] [address] [place], [address] WBC (Bld) [#/Vol] 5.5 10*3/uL Normal 4.4-11.0 [facility] Comment on above: Performed By: #### L 501.9520, L500.2500, L500.4100, L501.5200, L501.9985, L300.3900, L100.0100 #### [facility] [address] [place], [address] Calculated very low density lipoprotein (VLDL) cholesterol measurementOrdered By: Lucia Matos on 01-17-2025 VLDL Cholesterol 20 mg/dL 5-40 [facility] Carbon dioxide, total [Moles /volume] in Central venous bloodOrdered By: Lucia Matos on 01-17-2025 CO2 [Moles/Vol] 22.4 mmol/L 21.0-32.0 [facility] Cardiovascular stress test r eportOrdered By: Melo Jackson on 01-17-2025 Study report [facility] [address] [place] [address] MR#: [id number] Acct: [id number] Name: EVELIN HERNANDEZ Rep #: [id number] : 1945 79 From: Melo Jackson MD Primary Care: Dr. Dayron Macias MD Status : ADM IN Referring Dr: Blaine Chopra DO Sex: M C Stress Test Report Exercise myocardial perfusion stress test. 79-year-old man with a history of chest pain and presyncope Stress protocol: Resting EKG demonstrates normal sinus rhythm with a rate of 64 bpm resting bloodpressure is 146/78 mmHg. The patient exercised according to the regular Agusto protocol for a total duration of 4 minutes attaining a maximum heart rate of 136bpm which was 96% of maximum predicted heart rate; the maximum workload was 7 metabolic equivalents. At rest there were no ST or T wave changes noted to suggest ischemia and at peak exercise approximately 1.[address] depression were noted in lead II and aVF and 1.[address] depression in lead V6 suggestive of ischemia. During recovery the EKG changes returned to baseline with T wave inversions and premature ventricular complexes present. No clinical angina was noted the test was terminated due to the target heart rate being achieved/fatigue. The peak blood pressure was 160/72 mmHg. Rate-pressure product was 20,000. Myocardial perfusion protocol. 15 mCi of technetium 99m sestamibi was injected at rest. The patient exercised according to regular Agusto protocol for total duration of 4 minutes and at peak exercise 44.8 mCi of technetium 99m sestamibi was injected stress images were obtained stress and rest images were reconstructed in comparing the short axis vertical long and horizontal long axis. Gated images were also obtained. Perfusion SPECT analysis: Review of the stress images demonstrate normal uptake of tracer noted in all areas of the myocardium. The resting images similarly demonstrate normal uptakeof tracer noted in all areas of the myocardium. No areas of reversibility are noted to suggest ischemia no previous infarct was noted. Gated SPECT analysis: The gated ejection fraction is 60%. Conclusion: Normal exercise myocardial perfusion stress test at a moderate workload EKG changes noted suggestive of ischemia Preserved ejection fraction. 01/17/258 Date _ Melo Jackson MD CC: Dr. Dayron Macias MD; Dr. Blaine Chopra DO; Dr. Lele Anderson MD; Dr. Lucia Matos MD ~ Date Dictated: 01/17/251434 Date Transcribed: 01/17/251434 Embedded Hardware Engineer: [place] Signed [facility] Work Phone: Chloride assayOrdered By: Qamar Matos on 01-17-2025 Chloride [Moles/Vol] 105 mmol/L 98-108 [facility] Echocardiogram study reportO rdered By: Melo Jackson on 01-17-2025 Study report [facility] [address] [place] [address] Echo Complete 01/17/25 0952 MR#: [id number] Acct: [id number] Name: EVELIN HERNANDEZ Rep #:[id number] : 1945 79 From: Melo Mills Attending Dr: Dr. Lele Anderson MD Status: ADM IN Ordering Dr: Lucia Matos MD Date: Location: [facility] Sex: M Mark Admitted: 01/16/25 Reason For Study Reason For Study: SYNCOPE/NEAR SYNCOPE Procedure This was a 2D Doppler, Color Flow transthoracic echocardiogram. Exam performed portable in patient room. Left Ventricle Normal LV size. Left ventricular systolic function is normal. The left ventricular ejection fraction is 60 %. No regional wall motion abnormalities noted. Right Ventricle Normal RV size. Normal systolic function. Atria Normal left atrium. Normal right atrium. Mitral Valve Normal mitral valve. Tricuspid Valve Normal tricuspid valve. Mild (1+) tricuspid valve insufficiency. Pulmonary artery systolic pressure is 28 mmHg. Aortic Valve Trisinus/trileaflet aortic valve. Moderate focal aortic valve calcification. Peak aortic valve gradient 102 mmHg. Mean aortic valve gradient 57 mmHg. Severe aortic stenosis. Mild (1+) aortic valve insufficiency. Great Vessels Normal aortic root. The pulmonary artery is normal size. Normal inferior vena cava. Pericardium/Pleural No pericardial effusion. MMode/2D Measurements & Calculations LVIDd: 4.6 cm IVSd: 1.1 cm LVOT diam: 2.1 cm LVIDs: 3.1 cm LVPWd: 1.3 cm LVOT area: 3.5 cm2 RVDd: 3.6 cm FS: 32.7 % Ao root diam: 2.9 cm LAV(MOD-bp): 61.6 ml LVAd ap4: 30.2 cm2 LAV(MOD-bp) Indexed: 29.3 ml/m2 LVLd ap4: 8.9 cm LAV(MOD-sp2): 64.1 ml EDV(MOD-sp4): 86.4 ml LAV(MOD-sp4): 59.2 ml EDV(sp4-el): 86.7 ml LVAs ap4: 17.5 cm2 LVLs ap4: 7.7 cm ESV(MOD-sp4): 34.9 ml ESV(sp4-el): 33.4 ml EF(MOD-sp4): 59.6 % EF(sp4-el): 61.5 % SV(MOD-sp4): 51.4 ml SV(sp4-el): 53.3 ml LA A4 area: 20.5 cm2 SI(MOD-sp4): 24.4 ml/m2 LA dimension(2D): 3.8 cm RA A4 area: 17.3 cm2 TAPSE: 2.5 cm Time Measurements MV dec time: 0.30 sec Doppler Measurements & Calculations MV E max coy: 78.9 cm/sec Lat Peak E' Coy: 8.0 cm/sec Med Peak E' Coy: 9.0 cm/sec MV A max coy: 91.0 cm/sec E/E' lat: 9.8 E/E' med: 8.8 MV E/A: 0.87 ___ Ao V2 max: 506.2 cm/sec AI max coy: 379.9 cm/sec LV V1 max: 103.9 cm/sec Ao max P.5 mmHg AI max P.8 mmHg LV V1 max P.4 mmHg Ao V2 mean: 356.1 cm/sec LV V1 mean P.3 mmHg Ao mean P.7 mmHg AI dec slope: 235.5 cm/sec2 LV V1 mean: 70.8 cm/sec Ao V2 VTI: 124.0 cm AI P1/2t: 472.6 msec LV V1 VTI: 26.6 cm AV (velocity ratio): 0.21 ANNE MARIE(I,D): 0.75 cm2 ANNE MARIE(V,D): 0.72 cm2 SV(LVOT): 93.6 ml PA V2 max: 83.7 cm/sec TR max coy: 246.0 cm/sec TR max P.2 mmHg ECHO/Echo Complete Interpretation Summary Normal LV size. Left ventricular systolic function is normal. The left ventricular ejection fraction is 60 %. Moderate focal aortic valve calcification. Mean aortic valve gradient 57 mmHg. Severe aortic stenosis. Ordering Physician: Lucia Matos Referring Physician: DAYRON MACIAS Performed By: Jenise Soria RDCS 01/17/25 1504 Date _ Melo Jackson MD CC: Dr. Dayron Macias MD; Dr. Blaine Chopra DO; Dr. Lele Anderson MD; Dr. Lucia Matos MD ~ Date Dictated: 01/17/25951 Date Transcribed: 01/17/25 1504 Embedded Hardware Engineer: Signed [facility] Work Phone: Electrocardiogram reportOrde red By: Melo Jackson on 01-17-2025 EKG study [facility] Cardiovascular Services [address] [place] [address] 12 Lead EKG 01/16/25 1334 MR#: [id number] Acct: [id number] Name: EVELIN HERNANDEZ Rep #:[id number] : 1945 79 From: Melo Jackson MD Attending Dr: Dr. Lele Anderson MD Status: ADM IN Ordering Dr: Blaine Chopra DO Date: 01/16/25 Location: [facility] Sex: M C Admitted: 01/16/25 Test Reason : Blood Pressure : */* mmHG Vent. Rate : 56 BPM Atrial Rate : 56 BPM P-R Int : 180 ms QRS Dur : 100 ms QT Int : 418 ms P-R-T Axes : -18 -25 -44 degrees QTcB Int : 403 ms Sinus bradycardia Minimal voltage criteria for LVH, may be normal variant ( R in aVL ) Nonspecific ST and T wave abnormality Abnormal ECG Confirmed by MANUEL GILLESPIE, MELO ([id number]), editor book USMAN CORDOVA ([id number]) on 01/17/2025 8:36:50 AM Referred By: Blaine Chopra Confirmed By: MELO JACKSON MD 01/17/25 0836 Date _ Melo Jackson MD CC: Dr. Dayron Macias MD; Dr. Blaine Chopra DO; Dr. eLle Anderson MD ~ Signed [facility] Work Phone: Eosinophil percentageOrdered By: Lucia Matos on 01-17-2025 Eosinophils/100 WBC (Bld) 2.9 % 0-5 [facility] Erythrocyte distribution wid th ratioOrdered By: Lucia Matos on 01-17-2025 Erythrocyte distribution width (RBC) [Ratio] 12.2 % 11.6-14.6 [facility] Erythrocyte distribution wid th standard deviationOrdered By: Lucia Matos on 01-17-2025 Erythrocyte distribution width (RBC) [Entitic vol] 38.6 fL 35.1-43.9 [facility] Estimation of creatinine fabio aranceOrdered By: Lucia Matos on 01-17-2025 Estimated Creatinine Clearance Calc 85.65 ml/min 50-250 [facility] GFR/1.73 sq M.predicted mendy g non-blacks MDRD (S/P/Bld) [Vol rate/Area]Ordered By: Lucia Matos on 01-17-2025 Estimated GFR (MDRD) Non-Af Amer 90 >60 [facility] Comment on above: mL/min/1.73m2 CKD-EP I Creatinine Equation (2020) [facility] deOrdered By: Lele Anderson on 01-17-2025 Bedside Glucose (Misc Panel) 171 mg/dL High 74-106 [facility] Comment on above: MANAGEMENT OF PATIEN T CARE PER NURSING PROTOCOL Hematocrit Auto (Bld) [Volum e fraction]Ordered By: Lucia Matos on 01-17-2025 Hematocrit (Bld) [Volume fraction] 35.4 % Low 40-54 [facility] Hemoglobin A1con 01-17-2025 HbA1c (Bld) [Mass fraction] 7.6 % Normal <=5.6 [facility] Comment on above: Performed By: #### L 501.9520, L500.2500, L500.4100, L501.5200, L501.9985, L300.3900, L100.0100 #### [facility] [address] [place], [address] Hemoglobin A1c percentageOrd ered By: Lucia Matos on 01-17-2025 HbA1c (Bld) [Mass fraction] 7.6 % >5.7 [facility] Hemoglobin measurementOrdere d By: Lucia Matos on 01-17-2025 Hemoglobin (Bld) [Mass/Vol] 12.0 g/dL Low 13.0-16.5 [facility] Immature granulocytes/100 WB C Auto (Bld)Ordered By: Lucia Matos on 01-17-2025 Immature granulocytes/100 WBC (Bld) 0.200 % 0.0-0.9 [facility] Comment on above: IG% - Immature Granu locytes (promyelocytes, myelocytes and metamyelocytes) > 1% indicates that a LEFT SHIFT is Present. International normalized rat io (INR) calculationOrdered By: Lucia Matos on 01-17-2025 INR Coag (Bld) [Relative time] 1.0 {INR} [facility] L499.0043on 01-17-2025 Trop T High Sen 15 ng/L Normal <=22 [facility] Comment on above: Performed By: #### L 500.2500, L100.0100 #### [facility] [address] [place], [address] LDL calc ser/plasOrdered By: Lucia Matos on 01-17-2025 LDL Cholesterol, Calculated 107 mg/dL [facility] Comment on above: Fzitlapzjx=235-816 m g/dL & Higher Fwgv=588 mg/dL or greater Lipid Profileon 01-17-2025 CHOL:HDL 4.43 Normal [facility] Comment on above: Performed By: #### L 501.9520, L500.2500, L500.4100, L501.5200, L501.9985, L300.3900, L100.0100 #### [facility] [address] [place], [address] Cholesterol [Mass/Vol] 164 mg/dL Normal <=200 [facility] Comment on above: Result Comment: Chol esterol level, Desirable <200 mg/dL Borderline high cholesterol 200-239 mg/dL High cholesterol >=240 mg/dL Recommendations of the NCEP Adult Treatment Panel for the following risk-cutoff thresholds for the [place] population. Performed By: #### L 501.9520, L500.2500, L500.4100, L501.5200, L501.9985, L300.3900, L100.0100 #### [facility] [address] [place], [address] Cholesterol in HDL [Mass/Vol] 37 mg/dL Low [facility] Comment on above: Result Comment: Ifeoma onal Cholesterol Education Program (NCEP) guidelines: <40 mg/dL: Low HDL-cholesterol (major risk factor for CHD) >= 60 mg/dL: High HDL-cholesterol (negative risk factor for CHD) HDL-cholesterol is affected by a number of factors, e.g. smoking, exercise, hormones, sex and age. Performed By: #### L 501.9520, L500.2500, L500.4100, L501.5200, L501.9985, L300.3900, L100.0100 #### [facility] [address] [place], [address] Cholesterol in LDL [Mass/Vol] 107 mg/dL Normal [facility] Comment on above: Result Comment: Bord nzhmsu=652-933 mg/dL Higher Sdde=854 mg/dL or greater Performed By: #### L 501.9520, L500.2500, L500.4100, L501.5200, L501.9985, L300.3900, L100.0100 #### [facility] [address] [place], [address] Cholesterol in VLDL [Mass/Vol] 20 mg/dL Normal 5-40 [facility] Comment on above: Performed By: #### L 501.9520, L500.2500, L500.4100, L501.5200, L501.9985, L300.3900, L100.0100 #### [facility] [address] [place], [address] Triglyceride [Mass/Vol] 99 mg/dL Normal [facility] Comment on above: Result Comment: The drugs N-Acetylcysteine and Metamizole may falsely depress this assay. Normal range: <150 mg/dL Borderline High: 150-199 mg/dL High: 200-499 mg/dL Very High: >500 mg/dL Performed By: #### L 501.9520, L500.2500, L500.4100, L501.5200, L501.9985, L300.3900, L100.0100 #### [facility] [address] [place], [place], [id number] Lymphocytes Auto (Unsp spec) [#/Vol]Ordered By: Lucia Matos on 01-17-2025 Lymphocytes (Bld) [#/Vol] 0.94 10*3/uL 0.83-4.51 [facility] Lymphocytes/100 WBC Auto (Un sp spec)Ordered By: Lucia Matos on 01-17-2025 Lymphocytes/100 WBC (Bld) 17.1 % Low 19-41 [facility] MCV (mean corpuscular volume ) determinationOrdered By: Lucia Matos on 01-17-2025 MCV (RBC) [Entitic vol] 86.3 fL 80-94 [facility] Magnesiumon 01-17-2025 Magnesium [Mass/Vol] 1.9 mg/dL Normal 1.5-2.2 [facility] Comment on above: Performed By: #### L 501.9520, L500.2500, L500.4100, L501.5200, L501.9985, L300.3900, L100.0100 #### [facility] [address] [facility] [place], [place], [id number] (196) Magnesium (Unsp spec) [Mass/ Vol]Ordered By: Lucia Matos on 01-17-2025 Magnesium [Mass/Vol] 1.9 mg/dL 1.5-2.2 [facility] Mean corpuscular hemoglobin (MCH) determinationOrdered By: Lucia Matos on 01-17-2025 MCH (RBC) [Entitic mass] 29.3 pg 27.0-32.0 [facility] Mean corpuscular hemoglobin concentration (MCHC) determinationOrdered By: Lucia Matos on 01-17-2025 MCHC (RBC) [Mass/Vol] 33.9 g/dL 32-36 [facility] Mean platelet volume determi nationOrdered By: Lucia Matos on 01-17-2025 Platelet mean volume (Bld) [Entitic vol] 10.3 fL 6.2-12.0 [facility] Monocyte percentageOrdered B y: Lucia Matos on 01-17-2025 Monocytes/100 WBC (Bld) 9.1 % 0-10 [facility] Neutrophil percentageOrdered By: Lucia Matos on 01-17-2025 Neutrophils/100 WBC (Bld) 70.2 % High 47-70 [facility] Nucleated red blood cell per centageOrdered By: Lucia Matos on 01-17-2025 Nucleated RBC/100 WBC (Bld) [Ratio] 0 % 0-5 [facility] Platelet countOrdered By: Qamar Matos on 01-17-2025 Platelets (Bld) [#/Vol] 188 10*3/uL 150-450 [facility] Potassium (Unsp spec) [Mass/ Vol]Ordered By: Lucia Matos on 01-17-2025 Potassium [Moles/Vol] 4.0 mmol/L 3.3-5.1 [facility] Prothrombin Time w/INRon INR Coag (PPP) [Relative time] 1.0 {INR} Normal [facility] Comment on above: Performed By: #### L 501.9520, L500.2500, L500.4100, L501.5200, L501.9985, L300.3900, L100.0100 #### [facility] [address] [place], [place], [phone] (856) PT Coag (PPP) [Time] 13.7 s Normal 11.7-14.9 [facility] Comment on above: Performed By: #### L 501.9520, L500.2500, L500.4100, L501.5200, L501.9985, L300.3900, L100.0100 #### [facility] [address] [place], [address] Prothrombin timeOrdered By: Lucia Matos on 01-17-2025 PT Coag (PPP) [Time] 13.7 s 11.7-14.9 [facility] RBC Auto (Bld) [#/Vol]Ordere d By: Lucia Matos on 01-17-2025 RBC (Bld) [#/Vol] 4.10 10*6/uL Low 4.6-6.2 [facility] Screening total cholesterol/ high density lipoprotein (HDL) cholesterol ratioOrdered By: Lucia Matos on 01-17-2025 Cholesterol.total/Jaqueline sterol in HDL [Mass ratio] 4.43 {ratio} [facility] Serum creatinine measurement (mass/volume)Ordered By: Lucia Matos on 01-17-2025 Creatinine [Mass/Vol] 0.80 mg/dL 0.70-1.20 [facility] Serum glucose measurement (m ass/volume)Ordered By: Lucia Matos on 01-17-2025 Glucose [Mass/Vol] 152 mg/dL High 70-99 [facility] Serum or plasma calcium pablo urement (mass/volume)Ordered By: Lucia Matos on 01-17-2025 Calcium [Mass/Vol] 9.0 mg/dL 7.6-11.0 [facility] Serum or plasma cholesterol in HDL measurement (mass/volume)Ordered By: Lucia Matos on 01-17-2025 Cholesterol in HDL [Mass/Vol] 37 mg/dL Low >40 [facility] Comment on above: National Cholesterol Education Program (NCEP) guidelines:<40 mg/dL: Low HDL-cholesterol (major risk factor for CHD)>= 60 mg/dL: High HDL-cholesterol (negative risk factor for CHD)HDL-cholesterol is affected by a number of factors, e.g. smoking, exercise, hormones, sex and age. Serum or plasma cholesterol measurement (mass/volume)Ordered By: Lucia Matos on 01-17-2025 Cholesterol [Mass/Vol] 164 mg/dL <201 [facility] Comment on above: Cholesterol level, D esirable <200 mg/dLBorderline high cholesterol 200-239 mg/dLHigh cholesterol >=240 mg/dLRecommendations of the NCEP Adult Treatment Panel for the following risk-cutoff thresholds for the [place] population. Serum or plasma urea nitroge n measurement (mass/volume)Ordered By: Lucia Matos on 01-17-2025 Urea nitrogen [Mass/Vol] 22 mg/dL High 4-19 [facility] Sodium levelOrdered By: Tyler Matos on 01-17-2025 Sodium [Moles/Vol] 139 mmol/L 133-145 [facility] Stress Reporton 01-17-2025 Stress Report [facility] Cardiovascular Services [address] [place] [address] MR#: [id number] Acct: [id number] Name: EVELIN HERNANDEZ Rep #: [id number] : 1945 79 From: Melo Jackson MD Primary Care: Dr. Dayron Macias MD Status: ADM IN Referring Dr: Blaine Chopra DO Sex: M C Stress Test Report Exercise myocardial perfusion stress test. 79-year-old man with a history of chest pain and presyncope Stress protocol: Resting EKG demonstrates normal sinus rhythm with a rate of 64 bpm resting blood pressure is 146/78 mmHg. The patient exercised according to the regular Agusto protocol for a total duration of 4 minutes attaining a maximum heart rate of 136 bpm which was 96% of maximum predicted heart rate; the maximum workload was 7 metabolic equivalents. At rest there were no ST or T wave changes noted to suggest ischemia and at peak exercise approximately 1.[address] depression were noted in lead II and aVF and 1.[address] depression in lead V6 suggestive of ischemia. During recovery the EKG changes returned to baseline with T wave inversions and premature ventricular complexes present. No clinical angina was noted the test was terminated due to the target heart rate being achieved/fatigue. The peak blood pressure was 160/72 mmHg. Rate-pressure product was 20,000. Myocardial perfusion protocol. 15 mCi of technetium 99m sestamibi was injected at rest. The patient exercised according to regular Agusto protocol for total duration of 4 minutes and at peak exercise 44.8 mCi of technetium 99m s estamibi was injected stress images were obtained stress and rest images were reconstructed in comparing the short axis vertical long and horizontal long axis. Gated images were also obtained. Perfusion SPECT analysis: Review of the stress images demonstrate normal uptake of tracer noted in all areas of the myocardium. The resting images similarly demonstrate normal uptake of tracer noted in all areas of the myocardium. No areas of reversibility are noted to suggest ischemia no previous infarct was noted. Gated SPECT analysis: The gated ejection fraction is 60%. Conclusion: Normal exercise myocardial perfusion stress test at a moderate workload EKG changes noted suggestive of ischemia Preserved ejection fraction. 01/17/251437 Date Melo Jackson MD CC: Dr. Dayron Macias MD; Dr. Blaine Chopra DO; Dr. Lele Anderson MD; Dr. Lucia Matos MD Date Dictated: 01/17/251434 Date Transcribed: 01/17/251434 Embedded Hardware Engineer: [place] Signed Normal [facility] TSH DL <= 0.005 mIU/L QnOrde red By: Lucia Matos on 01-17-2025 Thyroid Stimulating Hormone (TSH) 2.020 uIU/mL 0.300-4.200 [facility] Thyroid Stim Hormone (TSH)on 01-17-2025 TSH 2.020 uIU/mL Normal 0.300-4.200 [facility] Comment on above: Performed By: #### L 501.9520, L500.2500, L500.4100, L501.5200, L501.9985, L300.3900, L100.0100 #### [facility] [address] [facility] [place], [address] Triglycerides measurementOrd ered By: Lucia Matos on 01-17-2025 Triglyceride [Mass/Vol] 99 mg/dL <199 [facility] Comment on above: The drugs N-Acetylcy steine and Metamizole may falsely depress this assay. Normal range: <150 mg/dLBorderline High: 150-199 mg/dLHigh: 200-499 mg/dLVery High: >500 mg/dL White blood cell (WBC) count Ordered By: Lucia Matos on 01-17-2025 WBC (Bld) [#/Vol] 5.5 10*3/uL 4.4-11.0 [facility] 12 Lead EKGon 01-16-2025 12 Lead EKG [facility] Cardiovascular Services [address] [place] [address] 12 Lead EKG 01/16/25 1334 MR#: [id number] Acct: [id number] Name: EVELIN HERNANDEZ Rep #: [id number] : 1945 79 From: Melo Jackson MD Attending Dr: Dr. Lele Anderson MD Status: ADM IN Ordering Dr: Blaine Chopra DO Date: 01/16/25 Location: [facility] Sex: M C Admitted: 01/16/25 Test Reason : Blood Pressure : */* mmHG Vent. Rate : 56 BPM Atrial Rate : 56 BPM P-R Int : 180 ms QRS Dur : 100 ms QT Int : 418 ms P-R-T Axes : -18 -25 -44 degrees QTcB Int : 403 ms Sinus bradycardia Minimal voltage criteria for LVH, may be normal variant ( R in aVL ) Nonspecific ST and T wave abnormality Abnormal ECG Confirmed by MANUEL GILLESPIE, MELO ([id number]), editor book USMAN CORDOVA ([id number]) on 01/17/2025 8:36:50 AM Referred By: Blaine Chopra Confirmed By: MELO JACKSON MD 01/17/25 0836 Date Melo Jackson MD CC: Dr. Dayron Macias MD; Dr. Blaine Chopra DO; Dr. Lele Anderson MD Signed Normal [facility] Absolute neutrophil countOrd ered By: Blaine Chopra on 01-16-2025 Neutrophils (Bld) [#/Vol] 4.0 10*3/uL 2.0-7.7 [facility] Anion gap in Serum or Plasma Ordered By: Blaine Chopra on 01-16-2025 Anion gap [Moles/Vol] 9 mmol/L - [facility] BUN/creatinine ratioOrdered By: Blaine Chopra on 01-16-2025 Urea nitrogen/Creatinine [Mass ratio] 21.8 mg/mg High 08-07 [facility] Basic Metabolic Profile (BMP )on 01-16-2025 BUN/CRE 21.8 RATIO High - [facility] Comment on above: Performed By: #### L 500.2500, L100.0100 #### [facility] [address] [place], [address] Calcium [Mass/Vol] 9.0 mg/dL Normal 7.6-11.0 [facility] Comment on above: Performed By: #### L 500.2500, L100.0100 #### [facility] [address] [place], [address] Chloride [Moles/Vol] 104 mmol/L Normal 98-108 [facility] Comment on above: Performed By: #### L 500.2500, L100.0100 #### [facility] [address] [place], [address] CO2 [Moles/Vol] 25.3 mmol/L Normal 21.0-32.0 [facility] Comment on above: Performed By: #### L 500.2500, L100.0100 #### [facility] [address] [place], [address] Creatinine [Mass/Vol] 0.92 mg/dL Normal 0.70-1.20 [facility] Comment on above: Performed By: #### L 500.2500, L100.0100 #### [facility] [address] [place], [address] ECRCL 73.75 ml/min Normal 50-250 [facility] Comment on above: Performed By: #### L 500.2500, L100.0100 #### [facility] [address] [place], [address] GAP 9 Normal 5-15 [facility] Comment on above: Performed By: #### L 500.2500, L100.0100 #### [facility] [address] [place], [address] GFR/1.73 sq M.predicted among non-blacks MDRD (S/P/Bld) [Vol rate/Area] 85 mL/min/{1.73_m2} Normal >60 [facility] Comment on above: Result Comment: mL/m in/1.73m2 CKD-EPI Creatinine Equation (2020) Performed By: #### L 500.2500, L100.0100 #### [facility] [address] [place], [address] Glucose [Mass/Vol] 136 mg/dL High 70-99 [facility] Comment on above: Performed By: #### L 500.2500, L100.0100 #### [facility] [address] [place], [address] Potassium [Moles/Vol] 4.0 mmol/L Normal 3.3-5.1 [facility] Comment on above: Performed By: #### L 500.2500, L100.0100 #### [facility] [address] [place], [address] Sodium [Moles/Vol] 138 mmol/L Normal 133-145 [facility] Comment on above: Performed By: #### L 500.2500, L100.0100 #### [facility] [address] [place], [address] Urea nitrogen [Mass/Vol] 20 mg/dL High 4-19 [facility] Comment on above: Performed By: #### L 500.2500, L100.0100 #### [facility] [address] [place], [address] Basophil percentageOrdered B y: Blaine Chopra on 01-16-2025 Basophils/100 WBC (Bld) 0.7 % 0-1 [facility] Bedside Glucoseon 01-16-2025 FINGERSTICK GLU 102 mg/dL Normal 74-106 [facility] Comment on above: Result Comment: BRETT PATTON OF PATIENT CARE PER NURSING PROTOCOL Performed By: #### L 500.2500, L100.0100 #### [facility] [address] [place], [address] CBC W/Diff, Automatedon 03-3 -2024 Absolute Lymph 1.00 X10 3/uL Normal 0.83-4.51 [facility] Comment on above: Performed By: #### L 500.2500, L100.0100 #### [facility] [address] [place], [address] Absolute Neut 4.0 X10 3/uL Normal 2.0-7.7 [facility] Comment on above: Performed By: #### L 500.2500, L100.0100 #### [facility] [address] [place], [address] Basophils/100 WBC (Bld) 0.7 % Normal 0-1 [facility] Comment on above: Performed By: #### L 500.2500, L100.0100 #### [facility] [address] [place], [address] Eosinophils/100 WBC (Bld) 1.6 % Normal 0-5 [facility] Comment on above: Performed By: #### L 500.2500, L100.0100 #### [facility] [address] [place], [address] Erythrocyte distribution width (RBC) [Ratio] 12.1 % Normal 11.6-14.6 [facility] Comment on above: Performed By: #### L 500.2500, L100.0100 #### [facility] [address] [place], [address] Hematocrit (Bld) [Volume fraction] 36.7 % Low 40-54 [facility] Comment on above: Performed By: #### L 500.2500, L100.0100 #### [facility] [address] [place], [address] Hemoglobin (Bld) [Mass/Vol] 12.6 g/dL Low 13.0-16.5 [facility] Comment on above: Performed By: #### L 500.2500, L100.0100 #### [facility] [address] [place], [address] IG% 0.400 Normal 0.0-0.9 [facility] Comment on above: Result Comment: IG% - Immature Granulocytes (promyelocytes, myelocytes and metamyelocytes) > 1% indicates that a LEFT SHIFT is Present. Performed By: #### L 500.2500, L100.0100 #### [facility] [address] [place], [address] Lymphocytes/100 WBC (Bld) 17.8 % Low 19-41 [facility] Comment on above: Performed By: #### L 500.2500, L100.0100 #### [facility] [address] [place], [address] MCH (RBC) [Entitic mass] 29.8 pg Normal 27.0-32.0 [facility] Comment on above: Performed By: #### L 500.2500, L100.0100 #### [facility] [address] [place], [address] MCHC (RBC) [Mass/Vol] 34.3 g/dL Normal 32-36 [facility] Comment on above: Performed By: #### L 500.2500, L100.0100 #### [facility] [address] [place], [address] MCV (RBC) [Entitic vol] 86.8 fL Normal 80-94 [facility] Comment on above: Performed By: #### L 500.2500, L100.0100 #### [facility] [address] [place], [address] Monocytes/100 WBC (Bld) 8.0 % Normal 0-10 [facility] Comment on above: Performed By: #### L 500.2500, L100.0100 #### [facility] [address] [place], [address] Neutrophils/100 WBC (Bld) 71.5 % High 47-70 [facility] Comment on above: Performed By: #### L 500.2500, L100.0100 #### [facility] [address] [place], [address] Nucleated RBC (Bld) [#/Vol] 0 10*3/uL Normal 0-5 [facility] Comment on above: Performed By: #### L 500.2500, L100.0100 #### [facility] [address] [place], [address] Platelet mean volume (Bld) [Entitic vol] 10.1 fL Normal 6.2-12.0 [facility] Comment on above: Performed By: #### L 500.2500, L100.0100 #### [facility] [address] [place], [address] Platelets (Bld) [#/Vol] 182 10*3/uL Normal 150-450 [facility] Comment on above: Performed By: #### L 500.2500, L100.0100 #### [facility] [address] [place], [address] RBC (Bld) [#/Vol] 4.23 10*6/uL Low 4.6-6.2 [facility] Comment on above: Performed By: #### L 500.2500, L100.0100 #### [facility] [address] [place], [address] RDW SD 38.4 fl Normal 35.1-43.9 [facility] Comment on above: Performed By: #### L 500.2500, L100.0100 #### [facility] [address] [place], [address] WBC (Bld) [#/Vol] 5.6 10*3/uL Normal 4.4-11.0 [facility] Comment on above: Performed By: #### L 500.2500, L100.0100 #### [facility] [address] [place], [address] Carbon dioxide, total [Moles /volume] in Central venous bloodOrdered By: Blaine Chopra on 01-16-2025 CO2 [Moles/Vol] 25.3 mmol/L 21.0-32.0 [facility] Chest 1 View (Portable)on Chest 1 View (Portable) [facility] Imaging Services [address] [place] [address] Chest 1 View (Portable) MR#: [id number] Acct: [id number] Name: EVELIN HERNANDEZ Rep #: [id number] : 1945 M 79 From: Nate mcmillan MD PCP: Dr. Dayron Macias MD Status: REG ER Study: Chest 1 View (Portable) Date of Exam: 01/16/25 Exam# [id number] Ordering Dr: Blaine Chopra DO PROCEDURE: CHEST 1 VIEW (PORTABLE) 01/16/2025 REASON FOR EXAM: Chest pain. Syncopal episodes. TECHNIQUE: Frontal view of the chest. COMPARISON: None FINDINGS: Hardware: EKG electrodes are seen. Heart: Heart size is mildly enlarged. Lungs: Vascular congestion mild CHF. Bones: Degenerative changes are identified within the thoracic spine. Other: Tortuosity of the descending thoracic aorta and calcification of the aortic arch. RAD/Chest 1 View (Portable) IMPRESSION: Vascular congestion and mild CHF. Reading Location: [place] [address] CC: Dr. Dayron Macias MD; Dr. Blaine Chopra DO Embedded Hardware Engineer: Signed Normal [facility] Chloride assayOrdered By: Jose R Chopra on 01-16-2025 Chloride [Moles/Vol] 104 mmol/L 98-108 [facility] Echo Completeon 01-16-2025 Echo Complete [facility] [place] [address] Echo Complete 01/17/25 0952 MR#: [id number] Acct: [id number] Name: EVELIN HERNANDEZ Rep #: [id number] : 1945 79 From: Melo Jackson MD Attending Dr: Dr. Lele Anderson MD Status: ADM IN Ordering Dr: Lucia Matos MD Date: 01/16/25 Location: [facility] Sex: M C Admitted: 01/16/25 Reason For Study Reason For Study: SYNCOPE/NEAR SYNCOPE Procedure This was a 2D Doppler, Color Flow transthoracic echocardiogram. Exam performed portable in patient room. Left Ventricle Normal LV size. Left ventricular systolic function is normal. The left ventricular ejection fraction is 60 %. No regional wall motion abnormalities noted. Right Ventricle Normal RV size. Normal systolic function. Atria Normal left atrium. Normal right atrium. Mitral Valve Normal mitral valve. Tricuspid Valve Normal tricuspid valve. Mild (1+) tricuspid valve insufficiency. Pulmonary artery systolic pressure is 28 mmHg. Aortic Valve Trisinus/trileaflet aortic valve. Moderate focal aortic valve calcification. Peak aortic valve gradient 102 mmHg. Mean aortic valve gradient 57 mmHg. Severe aortic stenosis. Mild (1+) aortic valve insufficiency. Great Vessels Normal aortic root. The pulmonary artery is normal size. Normal inferior vena cava. Pericardium/Pleural No pericardial effusion. MMode/2D Measurements Calculations LVIDd: 4.6 cm IVSd: 1.1 cm LVOT diam: 2.1 cm LVIDs: 3.1 cm LVPWd: 1.3 cm LVOT area: 3.5 cm2 RVDd: 3.6 cm FS: 32.7 % Ao root diam: 2.9 cm LAV(MOD-bp): 61.6 ml LVAd ap4: 30.2 cm2 LAV(MOD-bp) Indexed: 29.3 ml/m2 LVLd ap4: 8.9 cm LAV(MOD-sp2): 64.1 ml EDV(MOD-sp4): 86.4 ml LAV(MOD-sp4): 59.2 ml EDV(sp4-el): 86.7 ml LVAs ap4: 17.5 cm2 LVLs ap4: 7.7 cm ESV(MOD-sp4): 34.9 ml ESV(sp4-el): 33.4 ml EF(MOD-sp4): 59.6 % EF(sp4-el): 61.5 % SV(MOD-sp4): 51.4 ml SV(sp4-el): 53.3 ml LA A4 area: 20.5 cm2 SI(MOD-sp4): 24.4 ml/m2 LA dimension(2D): 3.8 cm RA A4 area: 17.3 cm2 TAPSE: 2.5 cm Time Measurements MV dec time: 0.30 sec Doppler Measurements Calculations MV E max coy: 78.9 cm/sec Lat Peak E' Coy: 8.0 cm/sec Med Peak E' Coy: 9.0 cm/sec MV A max coy: 91.0 cm/sec E/E' lat: 9.8 E/E' med: 8.8 MV E/A: 0.87 Ao V2 max: 506.2 cm/sec AI max coy: 379.9 cm/sec LV V1 max: 103.9 cm/sec Ao max P.5 mmHg AI max P.8 mmHg LV V1 max P.4 mmHg Ao V2 mean: 356.1 cm/sec LV V1 mean P.3 mmHg Ao mean P.7 mmHg AI dec slope: 235.5 cm/sec2 LV V1 mean: 70.8 cm/sec Ao V2 VTI: 124.0 cm AI P1/2t: 472.6 msec LV V1 VTI: 26.6 cm AV (velocity ratio): 0.21 ANNE MARIE(I,D): 0.75 cm2 ANNE MARIE(V,D): 0.72 cm2 SV(LVOT): 93.6 ml PA V2 max: 83.7 cm/sec TR max coy: 246.0 cm/sec TR max P.2 mmHg ECHO/Echo Complete Interpretation Summary Normal LV size. Left ventricular systolic function is normal. The left ventricular ejection fraction is 60 %. Moderate focal aortic valve calcification. Mean aortic valve gradient 57 mmHg. Severe aortic stenosis. Ordering Physician: Lucia Matos Referring Physician: DAYRON MACIAS Performed By: Jenise Soria RDCS 01/17/25 1504 Date Melo Jackson MD CC: Dr. Dayron Macias MD; Dr. Blaine Chopra DO; Dr. Lele Anderson MD; Dr. Lucia Matos MD Date Dictated: 01/17/25 0952 Date Transcribed: 01/17/25 1504 Embedded Hardware Engineer: Signed Normal [facility] Emergency Department Summary on 01-16-2025 Emergency Department Summary [facility] Medical Records Department [address] [place] [id number] Emergency Department Summary 01/16/25 MR#: [id number] Acct: [id number] Name: EVELIN HERNANDEZ Rep #: [id number] : 1945 79 From: Samantha FOOTE PCP: Dr. Dayron Macias MD Status:ADM IN Location: [place] [address] HPI History of Present Illness Chief Complaint: Syncope Narrative Narrative: Patient presenting today due to multiple syncopal episodes he has had over the past 2 months or so. 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 He reports that he has had about 4 or 5 episodes of syncope. His last episode was about 2 weeks ago. Each episode occurred after developing left-sided chest pain while he was exerting himself. He was able to come back to [place] today to see his PCP, she would like him to be admitted to the hospital for cardiac workup. He did have labs obtained at the end of November, he had a negative D-dimer. He denies any history of blood clots or recent surgery. He does have a history of a cardiac murmur that was evaluated several years ago by cardiology. He has had no recent stress test. He is currently asymptomatic. He has a PMH of HLD and T2DM. [facility] Medical History Abnormal pituitary follicle stimulating hormone (FSH) Anemia Aortic stenosis Chest pain Syncope Dermatochalasis of right lower eyelid Dermatochalasis of left lower eyelid Non-rheumatic aortic stenosis Cardiac murmur Controlled type 2 diabetes mellitus Essential hypertension Testicular mass Hyperlipemia Home Medications ???Medication ???Instructions ???Recorded ???Last Taken ???Type multivitamin 1 tab PO DAILY 08/17/18 01/15/25 H istory vitamin E (dl, acetate) 450 mg 2,000 unit PO DAILY 08/19/1801/15 History (1,000 unit) capsule triamcinolone acetonide 0.1 % 1 applic topical TID PRN rash 05/0 03/0801/15/25 History topical cream biotin 2,500 mcg capsule 5 mg PO DAILY 12/07/24 01/15/25 Hi story cholecalciferol (vitamin D3) 25 400 unit PO DAILY 12/07/24 5 History mcg (1,000 unit) tablet vitamin A-vitamin C-vit E-min 2 tab PO DAILY 01/16/25 01/15/25 H istory tablet (Ocutabs tablet) Allergy/AdvReac Type Severity Reaction Status Date / Time No Known Allergies Allergy Verified 05/10/24 10:44 Family History Father Myocardial infarction CAD (coronary artery disease) History of coronary artery bypass surgery Mother COPD (chronic obstructive pulmonary disease) Surgical History History of open reduction and internal fixation (ORIF) procedure History of arthroscopic knee surgery Social History Smoking Status: Never smoker alcohol intake: never substance use type: does not use additional social history: pt denies smoking, denies vaping, denies edibles, denies alcohol, denies aspirin use, denies ibuprofen use. ROS ROS ED Constitutional Constitutional ED: Denies chills or fever(s) Cardiovascular Cardiovascular: Reports chest pain and syncope; Denies palpitations Respiratory/Chest Respiratory/Chest: Denies cough or dyspnea Gastrointestinal Gastrointestinal: Denies abdominal pain, nausea or vomiting Genitourinary Genitourinary ED: Denies dysuria, hematuria or urinary urgency Musculoskeletal Musculoskeletal: Denies arthralgias or myalgias Integumentary Denies rash Neurologic Neurologic: Denies weakness EXAM Physical Exam Const Vital Signs: 01/16/25 13:03 01/16/25 13:45 01/16/25 13:45 Temperature 97.6 F L Temperature Source Temporal Pulse Rate 58 L 56 L Respiratory Rate 16 13 Respiratory Effort Normal Respiratory Pattern Normal Blood Pressure 130/72 H 124/63 H Blood Pressure Mean 91 83 Pulse Ox 99 99 Oxygen Delivery Method Room Air Room Air 01/16/25 15:06 Temperature 97 F L Temperature Source Pulse Rate 66 Respiratory Rate 20 H Respiratory Effort Respiratory Pattern Blood Pressure 142/82 H Blood Pressure Mean 102 Pulse Ox 97 Oxygen Delivery Method Positive well nourished, well developed and no apparent distress General Appearance ED: well developed HEENT Reports normocephalic and head/scalp atraumatic Mouth ED: Yes moist mucous membranes normal Eyes PERRL and EOMs intact bilaterally Neck full ROM and supple Chest Wall inspection of chest normal Resp normal respiratory effort and clear to auscultation bilaterally Cardio regular rate and regular rhythm Cardio Narrative: Systolic murmur GI soft to palpation, non-tender, non-distended and no masses Back/Spin (more content not included)... Normal [facility] Eosinophil percentageOrdered By: Blaine Chopra on 01-16-2025 Eosinophils/100 WBC (Bld) 1.6 % 0-5 [facility] Erythrocyte distribution wid th ratioOrdered By: Blaine Chopra on 01-16-2025 Erythrocyte distribution width (RBC) [Ratio] 12.1 % 11.6-14.6 [facility] Erythrocyte distribution wid th standard deviationOrdered By: Blaine Chopra on 01-16-2025 Erythrocyte distribution width (RBC) [Entitic vol] 38.4 fL 35.1-43.9 [facility] Estimation of creatinine fabio aranceOrdered By: Blaine Chopra on 01-16-2025 Estimated Creatinine Clearance Calc 73.75 ml/min 50-250 [facility] GFR/1.73 sq M.predicted mendy g non-blacks MDRD (S/P/Bld) [Vol rate/Area]Ordered By: Blaine Chopra on 01-16-2025 Estimated GFR (MDRD) Non-Af Amer 85 >60 [facility] Comment on above: mL/min/1.73m2 CKD-EP I Creatinine Equation (2020) H AND P Exam - [facility] 01-16-2025 H&P Exam - Hospitalist [facility] Medical Records Department [address] [place] [address] H P Exam - Hospitalist 01/16/25 1541 MR#: [id number] Acct: [id number] Name: EVELIN HERNANDEZ Rep #: [id number] : 1945 79 From: Lucia Matos MD PCP: Dr. Dayron Macias MD Status:ADM IN Location: [facility] [id number] HPI - General General Date of Admission: 01/16/25 Date of Service: 01/16/25 Chief Complaint: multiple syncopal episodes HPI Narrative EVELIN HERNANDEZ, is a 79-year-old male with a history of diet-controlled type 2 diabetes and mild aortic stenosis presented [facility] ED 01/16/2025 due to multiple syncopal episodes over the past couple of months. 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 Each episode occurred after developing left-sided chest pain while exerting himself. He came back to [place] today and saw his PCP and was very concerned and asked him to come to the ER to be admitted for cardiac workup. No history of blood clots or recent surgery. Has a history of a cardiac murmur that was evaluated several years ago by cardiology and an echo from 2018 showed mild aortic stenosis. Presently symptomatic, has no history of recent stress test or echocardiogram. In the ED vitals stable, troponin 15, hemoglobin 12.6 and glucose 136 but CBC and BMP otherwise unremarkable. Chest x-ray did show some vascular congestion suggestive of mild CHF and patient had a little bit of exertional dyspnea so BNP was added on. Given patient's multiple syncopal episodes hospitalist contacted for admission. Patient evaluated at bedside he does report for 5 minutes episodes which usually happen after a significant amount of exertion and would start with chest pressure when he did not sit to rest and subsequently go on to have syncopal episodes and then recover. Currently not having chest pain or lightheadedness, last syncopal episode about 2 weeks ago however patient's family physician very nervous about these multiple episodes and their frequency and associated symptoms, patient agreeable to admission and workup [facility] Medical History Abnormal pituitary follicle stimulating hormone (FSH) Anemia Aortic stenosis Chest pain Syncope Dermatochalasis of right lower eyelid Dermatochalasis of left lower eyelid Non-rheumatic aortic stenosis Cardiac murmur Controlled type 2 diabetes mellitus Essential hypertension Testicular mass Hyperlipemia Home Medications ???Medication ???Instructions ???Recorded ???Last Taken ???Type multivitamin 1 tab PO DAILY 08/17/18 01/15/25 H istory vitamin E (dl, acetate) 450 mg 2,000 unit PO DAILY 08/19/1801/15 History (1,000 unit) capsule triamcinolone acetonide 0.1 % 1 applic topical TID PRN rash 05/0 03/0801/15/25 History topical cream biotin 2,500 mcg capsule 5 mg PO DAILY 12/07/24 01/15/25 Hi story cholecalciferol (vitamin D3) 25 400 unit PO DAILY 12/07/24 5 History mcg (1,000 unit) tablet vitamin A-vitamin C-vit E-min 2 tab PO DAILY 01/16/25 01/15/25 H istory tablet (Ocutabs tablet) Allergy/AdvReac Type Severity Reaction Status Date / Time No Known Allergies Allergy Verified 05/10/24 10:44 Family History Father Myocardial infarction CAD (coronary artery disease) History of coronary artery bypass surgery Mother COPD (chronic obstructive pulmonary disease) Surgical History History of open reduction and internal fixation (ORIF) procedure History of arthroscopic knee surgery Social History Smoking Status: Never smoker alcohol intake: never substance use type: does not use additional social history: pt denies smoking, denies vaping, denies edibles, denies alcohol, denies aspirin use, denies ibuprofen use. ROS ROS Narrative ROS positive for episodes of chest pain on exertion with syncope, no shortness of breath, no cough, denies any current chest pain, patient reports he has lost weight due to trying to eat healthy and no weight gain, swelling in his lower extremities Vital Signs Vital Signs Vital Signs: 01/16/25 13:03 01/16/25 13:45 01/16/25 13:45 Temperature 97.6 F L Temperature Source Temporal Pulse Rate 58 L 56 L Respiratory Rate 16 13 Respiratory Effort Normal Respiratory Pattern Normal Blood Pressure 130/72 H 124/63 H Blood Pressure Mean 91 83 Pulse Ox 99 99 Oxygen Delivery Method Room Air Room Air 01/16/25 15:06 Temperature 97 F L Temperature Source Pulse Rate 66 Respiratory Rate 20 H Resp (more content not included)... Normal [facility] Hematocrit Auto (Bld) [Volum e fraction]Ordered By: Blaine Chopra on 01-16-2025 Hematocrit (Bld) [Volume fraction] 36.7 % Low 40-54 [facility] Hemoglobin measurementOrdere d By: Blaine Chopra on 01-16-2025 Hemoglobin (Bld) [Mass/Vol] 12.6 g/dL Low 13.0-16.5 [facility] Immature granulocytes/100 WB C Auto (Bld)Ordered By: Blaine Chopra on 01-16-2025 Immature granulocytes/100 WBC (Bld) 0.400 % 0.0-0.9 [facility] Comment on above: IG% - Immature Granu locytes (promyelocytes, myelocytes and metamyelocytes) > 1% indicates that a LEFT SHIFT is Present. L499.0042on 01-16-2025 Trop T High Sen 15 ng/L Normal <=22 [facility] Comment on above: Performed By: #### L 499.0042 #### [facility] [address] [place], [address] L501.4021on 01-16-2025 Trop T High Sen 15 ng/L Normal <=22 [facility] Comment on above: Performed By: #### L 500.2500, L100.0100 #### [facility] [address] [place], [address] L503.7505on 01-16-2025 Natriuretic peptide B (Bld) [Mass/Vol] 393 pg/mL Normal <=1800 [facility] Comment on above: Result Comment: Hear t Failure Unlikely: < 300 pg/mL Heart Failure Likely < 50 Years: > 450 pg/mL 50-75 Years: > 900 pg/mL >75 Years: > 1800 pg/mL Performed By: #### L 500.2500, L100.0100 #### [facility] [address] [place], [address] Laboratory - Chemistry and C hemistry - challengeOrdered By: Blaine Chopra on 01-16-2025 Natriuretic peptide B (Bld) [Mass/Vol] 393 pg/mL <1800 [facility] Comment on above: Heart Failure Unlike ly: < 300 pg/mLHeart Failure Likely< 50 Years: > 450 pg/mL50-75 Years: > 900 pg/mL>75 Years: > 1800 pg/mL Lymphocytes Auto (Unsp spec) [#/Vol]Ordered By: Blaine Chopra on 01-16-2025 Lymphocytes (Bld) [#/Vol] 1.00 10*3/uL 0.83-4.51 [facility] Lymphocytes/100 WBC Auto (Un sp spec)Ordered By: Blaine Chopra on 01-16-2025 Lymphocytes/100 WBC (Bld) 17.8 % Low 19-41 [facility] MCV (mean corpuscular volume ) determinationOrdered By: Blaine Chopra on 01-16-2025 MCV (RBC) [Entitic vol] 86.8 fL 80-94 [facility] Mean corpuscular hemoglobin (MCH) determinationOrdered By: Blaine Chopra on 01-16-2025 MCH (RBC) [Entitic mass] 29.8 pg 27.0-32.0 [facility] Mean corpuscular hemoglobin concentration (MCHC) determinationOrdered By: Blaine Chopra on 01-16-2025 MCHC (RBC) [Mass/Vol] 34.3 g/dL 32-36 [facility] Mean platelet volume determi nationOrdered By: Blaine Chopra on 01-16-2025 Platelet mean volume (Bld) [Entitic vol] 10.1 fL 6.2-12.0 [facility] Monocyte percentageOrdered B y: Blaine Chopra on 01-16-2025 Monocytes/100 WBC (Bld) 8.0 % 0-10 [facility] Neutrophil percentageOrdered By: Blaine Chopra on 01-16-2025 Neutrophils/100 WBC (Bld) 71.5 % High 47-70 [facility] No Panel InformationOrdered By: Blaine Chopra on 01-16-2025 Troponin T High Sensitivity 15 ng/L <22 [facility] Nucleated red blood cell per centageOrdered By: Blaine Chopra on 01-16-2025 Nucleated RBC/100 WBC (Bld) [Ratio] 0 % 0-5 [facility] Platelet countOrdered By: Jose R Chopra on 01-16-2025 Platelets (Bld) [#/Vol] 182 10*3/uL 150-450 [facility] Potassium (Unsp spec) [Mass/ Vol]Ordered By: Blaine Chopra on 01-16-2025 Potassium [Moles/Vol] 4.0 mmol/L 3.3-5.1 [facility] RBC Auto (Bld) [#/Vol]Ordere d By: Blaine Chopra on 01-16-2025 RBC (Bld) [#/Vol] 4.23 10*6/uL Low 4.6-6.2 [facility] Serum creatinine measurement (mass/volume)Ordered By: Blaine Chopra on 01-16-2025 Creatinine [Mass/Vol] 0.92 mg/dL 0.70-1.20 [facility] Serum glucose measurement (m ass/volume)Ordered By: Blaine Chopra on 01-16-2025 Glucose [Mass/Vol] 136 mg/dL High 70-99 [facility] Serum or plasma calcium pablo urement (mass/volume)Ordered By: Blaine Chopra on 01-16-2025 Calcium [Mass/Vol] 9.0 mg/dL 7.6-11.0 [facility] Serum or plasma urea nitroge n measurement (mass/volume)Ordered By: Blaine Chopra on 01-16-2025 Urea nitrogen [Mass/Vol] 20 mg/dL High 4-19 [facility] Sodium levelOrdered By: Skip Chopra on 01-16-2025 Sodium [Moles/Vol] 138 mmol/L 133-145 [facility] Troponin T.cardiac High sens itivity method [Mass/Vol]Ordered By: Blaine Chopra on 01-16-2025 Troponin T High Sensitivity 4 Hour 15 ng/L <22 [facility] Troponin T High Sensitivity 2 Hour 15 ng/L <22 [facility] White blood cell (WBC) count Ordered By: Blaine Chopra on 01-16-2025 WBC (Bld) [#/Vol] 5.6 10*3/uL 4.4-11.0 [facility] FSH AND LH ([id number])Ordered By : Flange Turner on 10-01-2022 Follitropin Qn 7.3 m[IU]/mL Normal 1.5-12.4 Comprehe nsive [facility]; [facility] Work Phone: Comment on above: PATIENT NOT FASTINGP ERFORMED BY: [email or web address] [facility] [id number] BY: [email or web address] [address] [id number] Lutropin Qn 6.2 m[IU]/mL Normal 1.7-8.6 Comprehensi ve Internal Medicine; [facility] Work Phone: Comment on above: PATIENT NOT FASTINGP ERFORMED BY: [email or web address] [facility] [id number] BY: [email or web address] [address] [id number] PROLACTIN ([id number])Ordered By: Flange Turner on 10-01-2022 Prolactin [Mass/Vol] 6.0 ng/mL Normal 4.0-15.2 Comp rehensive [facility]; [facility] Work Phone: Comment on above: PATIENT NOT FASTINGP ERFORMED BY: [email or web address] [facility] [id number] BY: [email or web address] [address] [id number] TESTOSTERONE FREE ([id number])Ord ered By: Flange Turner on 10-01-2022 Testosterone Free [Mass/Vol] 5.0 pg/mL Abnormal 6.6-18.1 [facility]; [facility] Work Phone: Comment on above: PATIENT NOT FASTINGP ERFORMED BY: [place] [id number] [facility] [id number] BY: [facility] CenterXhlrmkgeii0319 [facility] [id number] PSA (PROSTATE SPECIFIC ANTIG EN) ([id number])Ordered By: Flange Turner on 09-09-2022 Prostate specific Ag [Mass/Vol] 1.6 ng/mL Normal 0.0-4.0 [facility]; [facility] Work Phone: Comment on above: [employer] ECLIA methodol ogy. .According to the [place] [employer], Serum PSA shoulddecrease and remain at undetectable levels after radicalprostatectomy. The AUA defines biochemical recurrence as an initialPSA value 0.2 ng/mL or greater followed by a subsequent confirmatoryPSA value 0.2 ng/mL or greater.Values obtained with different assay methods or kits cannot be usedinterchangeably. Results cannot be interpreted as absolute evidenceof the presence or absence of malignant disease. PATIENT NOT FASTINGP ERFORMED BY: [employer] [email or web address] [facility] [id number] Blood Glucose , Office ([id number] [id number])Ordered By: Dayron Macias on 06-05-2022 Glucose Glucometer (BldC) [Moles/Vol] 8.9 1 Normal [facility]; [facility] Work Phone: HgA1C , Office ([id number])Ordere d By: Dayron Macias on 06-05-2022 HbA1c (Bld) [Mass fraction] 8.9 % Abnormal 4.6 - 7.1 [facility]; [facility] Work Phone: Vital Signs Date Time Vital Sign Value Performing Clinician Facility 03-23-2025 15:03-0400 Diastolic blood pressure 60 mm[Hg] Trish Meyer APRN - SIGN MAINTENANCE Work Phone: [facility] [employer] 03-23-2025 15:03-0400 Systolic blood pressure 136 mm[Hg] Trish Meyer APRN - SIGN MAINTENANCE Work Phone: [facility] [employer] 03-23-2025 14:49-0400 Body height 177.8 cm Trish Meyer APRN - SIGN MAINTENANCE Work Phone: [facility] [employer] 03-23-2025 14:49-0400 Body mass index (BMI) [Ratio] 30.1 kg/m2 Trish Meyer APRN - SIGN MAINTENANCE Work Phone: [facility] [employer] 03-23-2025 14:49-0400 Body weight 95.17 kg Trish Meyer APRN - SIGN MAINTENANCE Work Phone: [facility] [employer] 03-23-2025 14:49-0400 Heart rate 58 /min Trish Meyer APRN - SIGN MAINTENANCE Work Phone: [facility] [employer] 03-23-2025 14:49-0400 SaO2% (BldA) [Mass fraction] 98 % Trish Meyer APRN - SIGN MAINTENANCE Work Phone: [facility] [employer] 03-23-2025 12:49-0400 Body height 177.8 cm Trish Meyer APRN - SIGN MAINTENANCE Work Phone: [facility] [employer] 03-23-2025 12:49-0400 Body mass index (BMI) [Ratio] 29.41 kg/m2 Trish Meyer APRN - SIGN MAINTENANCE Work Phone: [facility] [employer] 03-23-2025 12:49-0400 Body weight 92.99 kg Trish Meyer APRN - SIGN MAINTENANCE Work Phone: [facility] [employer] 02-07-2025 11:00-0400 Heart rate 77 /min Michaela Siegel MD Work Phone: [facility] [employer] 02-07-2025 11:00-0400 Respiratory rate 22 /min Michaela Siegel MD Work Phone: [facility] [employer] 02-07-2025 10:08-0400 Body temperature 98.2 [degF] Michaela Siegel MD Work Phone: [facility] [employer] 02-07-2025 10:08-0400 Diastolic blood pressure 74 mm[Hg] Michaela Siegel MD Work Phone: [facility] 02-07-2025 10:08-0400 Systolic blood pressure 142 mm[Hg] Michaela Siegel MD Work Phone: [facility] [employer] 02-07-2025 09:40-0400 Body height 177.8 cm Michaela Siegel MD Work Phone: [facility] [employer] 02-07-2025 09:40-0400 Body mass index (BMI) [Ratio] 29.41 kg/m2 Michaela Siegel MD Work Phone: [facility] [employer] 02-07-2025 09:40-0400 Body weight 92.99 kg Michaela Siegel MD Work Phone: [facility] [employer] 02-07-2025 05:07-0400 SaO2% (BldA) [Mass fraction] 95 % Michaela Siegel MD Work Phone: [facility] [employer] 01-31-2025 15:01-0400 Body height 177.8 cm Santa Dionisio ONEIL Work Phone: [facility] [employer] 01-31-2025 15:01-0400 Body mass index (BMI) [Ratio] 29.84 kg/m2 Santa Nichole DO Work Phone: [facility] [employer] 01-31-2025 15:01-0400 Body weight 94.35 kg Santa Nichole DO Work Phone: [facility] [employer] 01-31-2025 15:01-0400 Diastolic blood pressure 66 mm[Hg] Santa Nichole DO Work Phone: [facility] [employer] 01-31-2025 15:01-0400 Heart rate 78 /min Santa Nichole DO Work Phone: [facility] [employer] 01-31-2025 15:01-0400 Systolic blood pressure 130 mm[Hg] Santa Nichole DO Work Phone: [facility] 01-31-2025 14:40-0400 Body height 177.8 cm Michaela Siegel MD Work Phone: [facility] 01-31-2025 14:40-0400 Body mass index (BMI) [Ratio] 29.84 kg/m2 Michaela Siegel MD Work Phone: [facility] 01-31-2025 14:40-0400 Body weight 94.35 kg Michaela Siegel MD Work Phone: [facility] 01-31-2025 14:40-0400 Diastolic blood pressure 66 mm[Hg] Michaela Siegel MD Work Phone: [facility] 01-31-2025 14:40-0400 Heart rate 78 /min Michaela Siegel MD Work Phone: [facility] 01-31-2025 14:40-0400 SaO2% (BldA) [Mass fraction] 94 % Michaela Siegel MD Work Phone: [facility] 01-31-2025 14:40-0400 Systolic blood pressure 130 mm[Hg] Michaela Siegel MD Work Phone: [facility] 01-20-2025 07:38-0400 Body height 152.[address] Dayron Macias MD Work Phone: [facility] 01-20-2025 07:38-0400 Body weight 95.[address] Dayron Macias MD Work Phone: [facility] 01-19-2025 07:35-0400 Body mass index (BMI) [Ratio] 41.2 kg/m2 Dr. Dayron Macias MD Work Phone: [facility] 01-18-2025 08:52-0400 Body mass index (BMI) [Ratio] 29.5 kg/m2 Dr. Dayron Macias MD Work Phone: [facility] 01-18-2025 08:52-0400 Body weight 95.[address] Dayron Macias MD Work Phone: [facility] 01-18-2025 08:52-0400 Diastolic blood pressure 67 mm[Hg] Dr. Dayron Macias MD Work Phone: [facility] 01-18-2025 08:52-0400 Heart rate 58 /min Dr. Dayron Macias MD Work Phone: [facility] 01-18-2025 08:52-0400 Respiratory rate 16 /min Dr. Dayron Macias MD Work Phone: [facility] 01-18-2025 08:52-0400 Systolic blood pressure 123 mm[Hg] Dr. Dayron Macias MD Work Phone: [facility] 01-17-2025 13:48-0400 Body temperature 97.7 [degF] Dr. Dayron Macias MD Work Phone: [facility] 01-17-2025 13:48-0400 Diastolic blood pressure 59 mm[Hg] Dr. Dayron Macias MD Work Phone: [facility] 01-17-2025 13:48-0400 Heart rate 62 /min Dr. Dayron Macias MD Work Phone: [facility] 01-17-2025 13:48-0400 Respiratory rate 16 /min Dr. Dayron Macias MD Work Phone: [facility] 01-17-2025 13:48-0400 SaO2% (BldA) [Mass fraction] 98 % Dr. Dayron Macias MD Work Phone: [facility] 01-17-2025 13:48-0400 Systolic blood pressure 132 mm[Hg] Dr. Dayron Macias MD Work Phone: [facility] 01-16-2025 16:14-0400 Body height 180.[address] Dayron Macias MD Work Phone: [facility] 01-16-2025 16:14-0400 Body mass index (BMI) [Ratio] 28.5 kg/m2 Dr. Dayron Macias MD Work Phone: [facility] 01-16-2025 16:14-0400 Body weight 92.[address] Dayron Macias MD Work Phone: [facility] 01-16-2025 15:06-0400 Body temperature 97 [degF] Dr. Dayron Macias MD Work Phone: [facility] 01-16-2025 15:06-0400 Diastolic blood pressure 82 mm[Hg] Dr. Dayron Macias MD Work Phone: [facility] 01-16-2025 15:06-0400 Heart rate 66 /min Dr. Dayron Macias MD Work Phone: [facility] 01-16-2025 15:06-0400 Respiratory rate 20 /min Dr. Dayron Macias MD Work Phone: [facility] 01-16-2025 15:06-0400 SaO2% (BldA) [Mass fraction] 97 % Dr. Dayron Macias MD Work Phone: [facility] 01-16-2025 15:06-0400 Systolic blood pressure 142 mm[Hg] Dr. Dayron Macias MD Work Phone: [facility] 01-16-2025 13:03-0400 Body height 180.[address] Dayron Macias MD Work Phone: [facility] 01-16-2025 13:03-0400 Body mass index (BMI) [Ratio] 28 kg/m2 Dr. Dayron Macias MD Work Phone: [facility] 01-16-2025 13:03-0400 Body weight 90.[address] Dayron Macias MD Work Phone: [facility] 02-12-2024 12:45-0400 Body temperature 97.6 [degF] Dr. Dayron Macias Work Phone: [facility] 02-12-2024 12:45-0400 Diastolic blood pressure 70 mm[Hg] Dr. Dayron Macias Work Phone: [facility] 02-12-2024 12:45-0400 Heart rate 61 /min Dr. Dayron Macias Work Phone: [facility] 02-12-2024 12:45-0400 Respiratory rate 17 /min Dr. Dayron Macias Work Phone: [facility] 02-12-2024 12:45-0400 SaO2% (BldA) [Mass fraction] 95 % Dr. Dayron Macias Work Phone: [facility] 02-12-2024 12:45-0400 Systolic blood pressure 138 mm[Hg] Dr. Daryon Macias Work Phone: [facility] 02-12-2024 10:29-0400 Body height 180.[address] Dayron Macias Work Phone: [facility] 02-12-2024 10:29-0400 Body mass index (BMI) [Ratio] 29.1 kg/m2 Dr. Dayron Macias Work Phone: [facility] 02-12-2024 10:29-0400 Body weight 94.[address] Dayron Macias Work Phone: [facility] 02-03-2024 11:22-0400 Body mass index (BMI) [Ratio] 30.2 kg/m2 Dr. Dayron Macias Work Phone: [facility] 02-03-2024 11:22-0400 Body temperature 98.1 [degF] Dr. Dayron Macias Work Phone: [facility] 02-03-2024 11:22-0400 Body weight 98.[address] Dayron Macias Work Phone: [facility] 02-03-2024 11:22-0400 Diastolic blood pressure 74 mm[Hg] Dr. Dayron Macias Work Phone: [facility] 02-03-2024 11:22-0400 Heart rate 65 /min Dr. Dayron Macias Work Phone: [facility] 02-03-2024 11:22-0400 Respiratory rate 16 /min Dr. Dayron Macias Work Phone: [facility] 02-03-2024 11:22-0400 SaO2% (BldA) [Mass fraction] 95 % Dr. Dayron Macias Work Phone: [facility] 02-03-2024 11:22-0400 Systolic blood pressure 144 mm[Hg] Dr. Dayron Macias Work Phone: [facility] 12-02-2023 09:17-0500 Body mass index (BMI) [Ratio] 30.2 kg/m2 Dr. Dayron Macias Work Phone: [facility] 12-02-2023 09:17-0500 Body temperature 97.3 [degF] Dr. Dayron Macias Work Phone: [facility] 12-02-2023 09:17-0500 Body weight 98.[address] Dayron Macias Work Phone: [facility] 12-02-2023 09:17-0500 Diastolic blood pressure 79 mm[Hg] Dr. Dayron Macias Work Phone: [facility] 12-02-2023 09:17-0500 Heart rate 69 /min Dr. Dayron Macias Work Phone: [facility] 12-02-2023 09:17-0500 Respiratory rate 16 /min Dr. Dayron Macias Work Phone: [facility] 12-02-2023 09:17-0500 SaO2% (BldA) [Mass fraction] 97 % Dr. Dayron Macias Work Phone: [facility] 12-02-2023 09:17-0500 Systolic blood pressure 160 mm[Hg] Dr. Dayron Macias Work Phone: [facility] 09-07-2023 14:07-0500 Body height 180.[address] Castro Lund Work Phone: [facility] 09-07-2023 14:07-0500 Body mass index (BMI) [Ratio] 30.2 kg/m2 Dr. Castro Lund Work Phone: [facility] 09-07-2023 14:07-0500 Body temperature 97.3 [degF] Dr. Castro Lund Work Phone: [facility] 09-07-2023 14:07-0500 Body weight 98.[address] Castro Lund Work Phone: [facility] 09-07-2023 14:07-0500 Heart rate 66 /min Dr. Castro Lund Work Phone: [facility] 09-07-2023 14:07-0500 Respiratory rate 16 /min Dr. Castro Lund Work Phone: [facility] 09-07-2023 14:07-0500 SaO2% (BldA) [Mass fraction] 99 % Dr. Castro Lund Work Phone: [facility] 08-25-2023 13:44-0500 Body mass index (BMI) [Ratio] 30.7 kg/m2 Dr. Castro Lund Work Phone: [facility] 08-25-2023 13:44-0500 Body temperature 97.7 [degF] Dr. Castro Lund Work Phone: [facility] 08-25-2023 13:44-0500 Body weight 99.[address] Castro Lund Work Phone: [facility] 08-25-2023 13:44-0500 Diastolic blood pressure 76 mm[Hg] Dr. Castro Lund Work Phone: [facility] 08-25-2023 13:44-0500 Heart rate 75 /min Dr. Castro Lund Work Phone: [facility] 08-25-2023 13:44-0500 Respiratory rate 16 /min Dr. Castro Lund Work Phone: [facility] 08-25-2023 13:44-0500 SaO2% (BldA) [Mass fraction] 99 % Dr. Castro Lund Work Phone: [facility] 08-25-2023 13:44-0500 Systolic blood pressure 160 mm[Hg] Dr. Castro Lund Work Phone: [facility] 05-18-2023 14:59-0400 Body height 180.34 cm Milka Izquierdo CMA [facility]; [facility] Work Phone: 05-18-2023 14:59-0400 Body mass index (BMI) [Ratio] 28.23 kg/m2 Milka Izquierdo CMA [facility]; [facility] Work Phone: 05-18-2023 14:59-0400 Body surface area Derived from formula 2.12 m2 Milka Izquierdo CMA [facility]; [facility] Work Phone: 05-18-2023 14:59-0400 Body temperature 98.5 [degF] Milka Mangeorgie KRISHNA [facility]; [facility] Work Phone: Comment on above: Method: Thermal Scan 05-18-2023 14:59-0400 Body weight 91.8 kg Milka Izquierdo CMA [facility]; [facility] Work Phone: 05-18-2023 14:59-0400 Diastolic blood pressure 70 mm[Hg] Milka Izquierdo CMA [facility]; [facility] Work Phone: Comment on above: Patient Position: Sitting; Cuff Location : Left Arm; Cuff Size: Standard 05-18-2023 14:59-0400 Heart rate 61 /min Milka Izquierdo CMA [facility]; [facility] Work Phone: Comment on above: Pattern: Regular 05-18-2023 14:59-0400 Respiratory rate 16 /min [facility]do [facility]; [facility] Work Phone: Comment on above: Pattern: Unlabored 05-18-2023 14:59-0400 Systolic blood pressure 118 mm[Hg] Milka Izquierdo BANANA RIPENING ROOM SUPERVISOR [facility]; [facility] Work Phone: Comment on above: Patient Position: Sitting; Cuff Location : Left Arm; Cuff Size: Standard 10-01-2022 12:11-0500 Body height 180.34 cm Kelly Mina LPN [facility]; [facility] Work Phone: 10-01-2022 12:11-0500 Body mass index (BMI) [Ratio] 28.23 kg/m2 Kelly Mina LPN [facility]; [facility] Work Phone: 10-01-2022 12:11-0500 Body surface area Derived from formula 2.12 m2 Kelly Mina LPN [facility]; [facility] Work Phone: 10-01-2022 12:11-0500 Body temperature 97.6 [degF] Kelly Mina LPN [facility]; [facility] Work Phone: 10-01-2022 12:11-0500 Body weight 91.8 kg Kelly Mina LPN [facility]; [facility] Work Phone: 10-01-2022 12:11-0500 Diastolic blood pressure 68 mm[Hg] Kelly Mina LPN [facility]; [facility] Work Phone: Comment on above: Patient Position: Sitting; Cuff Location : Left Arm; Cuff Size: Standard 10-01-2022 12:11-0500 Heart rate 59 /min Kelly Mina LPN [facility]; [facility] Work Phone: Comment on above: Pattern: Regular 10-01-2022 12:11-0500 Respiratory rate 16 /min Kelly Mina LPN [facility]; [facility] Work Phone: Comment on above: Pattern: Unlabored 10-01-2022 12:11-0500 SaO2% (BldA) [Mass fraction] 96 % Kelly Mina GROCERY DEPARTMENT MANAGER [facility]; [facility] Work Phone: Comment on above: Room air 10-01-2022 12:11-0500 Systolic blood pressure 118 mm[Hg] Kelly Mina LPN [facility]; [facility] Work Phone: Comment on above: Patient Position: Sitting; Cuff Location : Left Arm; Cuff Size: Standard 09-09-2022 08:37-0500 Body height 180.34 cm [facility]; [facility] Work Phone: 09-09-2022 08:37-0500 Body mass index (BMI) [Ratio] 28.23 kg/m2 [facility]; [facility] Work Phone: 09-09-2022 08:37-0500 Body surface area Derived from formula 2.12 m2 [facility]; [facility] Work Phone: 09-09-2022 08:37-0500 Body temperature 96.7 [degF] [facility]; [facility] Work Phone: 09-09-2022 08:37-0500 Body weight 91.8 kg [facility]; [facility] Work Phone: 09-09-2022 08:37-0500 Diastolic blood pressure 78 mm[Hg] [facility]; [facility] Work Phone: Comment on above: Patient Position: Sitting; Cuff Location : Left Arm; Cuff Size: Standard 09-09-2022 08:37-0500 Heart rate 69 /min [facility]; [facility] Work Phone: Comment on above: Pattern: Regular 09-09-2022 08:37-0500 Respiratory rate 16 /min [facility]; [facility] Work Phone: Comment on above: Pattern: Unlabored 09-09-2022 08:37-0500 SaO2% (BldA) [Mass fraction] 97 % [facility]; [facility] Work Phone: Comment on above: Room air 09-09-2022 08:37-0500 Systolic blood pressure 130 mm[Hg] [facility]; [facility] Work Phone: Comment on above: Patient Position: Sitting; Cuff Location : Left Arm; Cuff Size: Standard 06-05-2022 07:24-0400 Body height 180.34 cm [facility]; [facility] Work Phone: 06-05-2022 07:24-0400 Body mass index (BMI) [Ratio] 28.23 kg/m2 [facility]; [facility] Work Phone: 06-05-2022 07:24-0400 Body surface area Derived from formula 2.12 m2 [facility]; [facility] Work Phone: 06-05-2022 07:24-0400 Body temperature 96.9 [degF] [facility]; [facility] Work Phone: 06-05-2022 07:24-0400 Body weight 91.8 kg [facility]; [facility] Work Phone: 06-05-2022 07:24-0400 Diastolic blood pressure 70 mm[Hg] [facility]; [facility] Work Phone: Comment on above: Patient Position: Sitting; Cuff Location : Left Arm; Cuff Size: Standard 06-05-2022 07:24-0400 Heart rate 64 /min [facility]; [facility] Work Phone: Comment on above: Pattern: Regular 06-05-2022 07:24-0400 Respiratory rate 16 /min [facility]; [facility] Work Phone: Comment on above: Pattern: Unlabored 06-05-2022 07:24-0400 SaO2% (BldA) [Mass fraction] 95 % Keith Garcia [facility]; [facility] Work Phone: Comment on above: Room air 06-05-2022 07:24-0400 Systolic blood pressure 122 mm[Hg] Keith Garcia [facility]; [facility] Work Phone: Comment on above: Patient Position: Sitting; Cuff Location : Left Arm; Cuff Size: Standard 11-25-2006 11:21-0500 Body height 0 cm Dayron Macias MD Work Phone: [facility]; [facility] Work Phone: 11-25-2006 11:21-0500 Body weight 0 kg Dayron Macias MD Work Phone: [facility]; [facility] Work Phone: 11-25-2006 11:21-0500 Diastolic blood pressure 68 mm[Hg] Dayron Macias MD Work Phone: [facility]; [facility] Work Phone: Comment on above: Patient Position: Sitting; Cuff Location : Left Arm; Cuff Size: Standard 11-25-2006 11:21-0500 Head Occipital-frontal circumference 0 cm Dayron Macias MD Work Phone: [facility]; [facility] Work Phone: 11-25-2006 11:21-0500 Heart rate 60 /min Dayron Macias MD Work Phone: [facility]; [facility] Work Phone: Comment on above: Pattern: Regular 11-25-2006 11:21-0500 Respiratory rate 16 /min Dayron Macias MD Work Phone: [facility]; [facility] Work Phone: Comment on above: Pattern: Undefined 11-25-2006 11:21-0500 Systolic blood pressure 136 mm[Hg] Dayron Macias MD Work Phone: [facility]; [facility] Work Phone: Comment on above: Patient Position: Sitting; Cuff Location : Left Arm; Cuff Size: Standard 10-14-2006 14:37-0500 Body height 0 cm Dayron Macias MD Work Phone: [facility]; [facility] Work Phone: 10-14-2006 14:37-0500 Body temperature 98.2 [degF] Dayron Macias MD Work Phone: [facility]; [facility] Work Phone: Comment on above: Method: Undefined 10-14-2006 14:37-0500 Body weight 0 kg Dayron Macias MD Work Phone: [facility]; [facility] Work Phone: 10-14-2006 14:37-0500 Diastolic blood pressure 62 mm[Hg] Dayron Macias MD Work Phone: [facility]; [facility] Work Phone: Comment on above: Patient Position: Exercising; Cuff Locat ion: Left Arm; Cuff Size: Large 10-14-2006 14:37-0500 Head Occipital-frontal circumference 0 cm Dayron Macias MD Work Phone: [facility]; [facility] Work Phone: 10-14-2006 14:37-0500 Heart rate 76 /min Dayron Macias MD Work Phone: [facility]; [facility] Work Phone: Comment on above: Pattern: Regular 10-14-2006 14:37-0500 Respiratory rate 16 /min Dayron Macias MD Work Phone: [facility]; [facility] Work Phone: Comment on above: Pattern: Undefined 10-14-2006 14:37-0500 Systolic blood pressure 116 mm[Hg] Dayron Macias MD Work Phone: [facility]; [facility] Work Phone: Comment on above: Patient Position: Exercising; Cuff Locat ion: Left Arm; Cuff Size: Large 09-15-2006 10:53-0500 Body height 180.34 cm Dayron Macias MD Work Phone: [facility]; [facility] Work Phone: 09-15-2006 10:53-0500 Body mass index (BMI) [Ratio] 34.31 kg/m2 Dayron Macias MD Work Phone: [facility]; [facility] Work Phone: 09-15-2006 10:53-0500 Body surface area Derived from formula 2.3 m2 Dayron Macias MD Work Phone: [facility]; [facility] Work Phone: 09-15-2006 10:53-0500 Body temperature 98 [degF] Dayron Macias MD Work Phone: [facility]; [facility] Work Phone: Comment on above: Method: Oral 09-15-2006 10:53-0500 Body weight 111.59 kg Dayron Macias MD Work Phone: [facility]; [facility] Work Phone: 09-15-2006 10:53-0500 Diastolic blood pressure 74 mm[Hg] Dayron Macias MD Work Phone: [facility]; [facility] Work Phone: Comment on above: Patient Position: Sitting; Cuff Location : Left Arm; Cuff Size: Standard 09-15-2006 10:53-0500 Head Occipital-frontal circumference 0 cm Dayron Macias MD Work Phone: [facility]; [facility] Work Phone: 09-15-2006 10:53-0500 Heart rate 60 /min Dayron Macias MD Work Phone: [facility]; [facility] Work Phone: Comment on above: Pattern: Regular 09-15-2006 10:53-0500 Respiratory rate 14 /min Dayron Macias MD Work Phone: [facility]; [facility] Work Phone: Comment on above: Pattern: Undefined 09-15-2006 10:53-0500 Systolic blood pressure 132 mm[Hg] Dayron Macias MD Work Phone: [facility]; [facility] Work Phone: Comment on above: Patient Position: Sitting; Cuff Location : Left Arm; Cuff Size: Standard Encounters Encounter Date Encounter Type Care Provider Facility Start: 03-23-2025 End: 03-23-2025 Office outpatient visit 25 minutes Trish Meyer COMPENSATION ADVISOR [employer] [facility] Comment on above: Severe aortic stenos is (Primary Dx); Coronary artery disease involving [place] coronary artery of [place] heart without angina pectoris Start: 03-23-2025 End: 03-23-2025 ambulatory [employer] [facility] [employer] [facility] Start: 03-23-2025 End: 03-23-2025 Subsequent hospital visit by physician Trish Meyer COMPENSATION ADVISOR - SIGN MAINTENANCE Work Phone: [facility] [address] Non-Invasive Cardiology Comment on above: Severe aortic stenos is Start: 03-23-2025 End: 03-23-2025 ambulatory [employer] [facility] [employer] [facility] Start: 02-06-2025 End: 02-07-2025 Evaluation and management of inpatient Michaela Siegel MD Work Phone: [facility] Cardiac Thoracic Vascular Intensive Care Unit CTV ICU T1 Comment on above: Severe aortic stenos is (Primary Dx) Start: 02-03-2025 End: 02-03-2025 ambulatory [employer] SIGN MAINTENANCE [facility] Comment on above: Severe aortic stenos is (Primary Dx) Start: 01-31-2025 End: 01-31-2025 Office consultation new/estab patient 60 min Santa Nichole DO Work Phone: [employer] Comment on above: Severe aortic stenos is (Primary Dx); Type 2 diabetes mellitus without complication, without long-term current use of insulin (HCC) Start: 01-31-2025 End: 01-31-2025 Office outpatient new 60 minutes Michaela Siegel MD Work Phone: [facility] Comment on above: Severe aortic stenos is Start: 01-31-2025 End: 02-06-2025 Telephone encounter Michaela Siegel MD Work Phone: [facility] Comment on above: Procedure (TAVR) Start: 01-31-2025 End: 01-31-2025 Subsequent hospital visit by physician Jakob Tinajero APRN - SIGN MAINTENANCE Work Phone: [facility] [address] Comment on above: Nonrheumatic aortic valve stenosis Start: 01-31-2025 End: 01-31-2025 [facility] Start: 01-27-2025 End: 01-27-2025 Documentation procedure Violeta Martinez [facility] Cardiovascular Thoracic Surgery [facility] Comment on above: Other (Pre Valve Cli grabiel Documentation /) Start: 01-25-2025 End: 01-25-2025 Telephone encounter Michaela Siegel MD Work Phone: [facility] Comment on above: Orders Start: 01-20-2025 End: 01-20-2025 Admission to same day surgery center Dr. Melo Jackson MD -Human Resources Professional/Special Procedures Work Phone: Start: 01-20-2025 End: 01-20-[address] Dayron Macias MD Work Phone: [facility] Work Phone: Start: 01-20-2025 End: 01-20-2025 ambulatory Melo Jackson Facility:[facility] Start: 01-18-2025 End: 01-18-[address] Melo Jackson MD -[facility] Work Phone: Start: 01-18-2025 End: 01-18-2025 ambulatory Melo Jackson Facility:[facility] Start: 01-17-2025 Non-patient / Non-visit Dr. Jose Eduardo GILLESPIE -[facility] Start: 01-17-2025 Non-patient / Non-visit Dr. Lele styles MD -[facility] Work Phone: Start: 01-16-2025 Non-patient / Non-visit Dr. Lucia quintero MD -[facility] Work Phone: Start: 01-16-2025 End: 01-17-2025 Evaluation and management of inpatient Dr. Lucia Matos MD -Progressive Care Unit Work Phone: Start: 01-16-2025 ambulatory Melo Jackson Facility:[facility] Start: 02-12-2024 Non-patient / Non-visit Dr. Dawn Work Phone: [facility] Start: 02-12-2024 End: 02-12-2024 Admission to same day surgery center Dr. Dayron Macias Work Phone: [facility] Start: 02-12-2024 End: 02-12-[address] Dayron Macias Work Phone: [facility] Work Phone: Start: 02-03-2024 End: 02-03-[address] Dayron Macias Work Phone: [facility] Work Phone: Start: 12-02-2023 End: 12-02-[address] Dayron Macias Work Phone: [facility] Work Phone: Start: 09-07-2023 End: 09-07-[address] Castro Lund Work Phone: [facility] Work Phone: Start: 09-07-2023 End: 09-07-[address] Castro Lund Work Phone: [facility] Work Phone: Start: 09-07-2023 End: 09-07-[address] Castro Lund Work Phone: [facility] Work Phone: Start: 08-25-2023 End: 08-25-[address] Castro Lund Work Phone: [facility] Work Phone: Start: 05-18-2023 End: 05-18-2023 Office outpatient visit 10 minutes Dayron Macias MD Work Phone: [facility] Start: 05-18-2023 End: 05-18-2023 Patient encounter status Dayron Macias MD Work Phone: [facility]; [facility] Work Phone: Comment on above: 10-09 mdvip 05-10 AMP colonscopy not found after extensive checkign recommend at least cologuard psa 10-09 need check hep c Start: 02-06-2023 End: 02-06-2023 Patient encounter procedure Dayron Macias MD Work Phone: [facility] Start: 12-10-2022 ambulatory Dayron Macias MD [facility] Start: 10-21-2022 End: 10-22-2022 Office outpatient visit 10 minutes Dayron Macias MD Work Phone: [facility] Start: 10-02-2022 End: 10-02-2022 Prescription Refill Dayron Macias MD Work Phone: [facility] Start: 10-01-2022 End: 10-01-2022 Patient encounter procedure Dayron Macias MD Work Phone: [facility] Start: 10-01-2022 End: 10-01-2022 Patient encounter status Kelly Mina LPN [facility]; [facility] Work Phone: Start: 10-01-2022 Review Dayron Mills Work Phone: [facility] Start: 09-09-2022 End: 09-09-2022 Lab Order Dayron Macias MD Work Phone: [facility] Start: 09-09-2022 Review Dayron Mills Work Phone: [facility] Start: 09-09-2022 End: 09-09-2022 Office outpatient visit 40 minutes Dayron Macias MD Work Phone: [facility] Start: 08-04-2022 End: 08-11-2022 Office outpatient visit 5 minutes Dayron Macias MD Work Phone: [facility] Start: 06-05-2022 End: 06-05-2022 Office outpatient new 45 minutes Dayron Macias MD Work Phone: [facility] Start: 11-25-2006 End: 11-25-2006 Office outpatient visit 15 minutes Dayron Macias MD Work Phone: [facility] Start: 10-14-2006 End: 10-14-2006 Office outpatient visit 25 minutes Dayron Macias MD Work Phone: [facility] Start: 09-16-2006 End: 09-16-2006 Historical Summary Dayron Macias MD Work Phone: [facility] Start: 09-15-2006 End: 09-15-2006 Office outpatient new 45 minutes Dayron Macias MD Work Phone: [facility] Start: 09-15-2006 End: 09-15-2006 Patient encounter status Dayron Macias MD Work Phone: [facility] End: 03-13-2009 Patient encounter status Norma Nichols [facility] Work Phone: Patient encounter status Dayron Macias MD Work Phone: [facility]; [facility] Work Phone: Comment on above: 10-09 mdvip colonsco py psa 10-09 need check hep c Procedures Date Procedure Procedure Detail Performing Clinician Start: 03-23-2025 Ecg routine ecg w/le ast 12 lds trcg only w/o i&r Michaela Siegel MD Work Phone: Start: 03-23-2025 Echo tthrc r-t 2d w/wom-mode compl spec&colr d Trish Meyer COMPENSATION ADVISOR - SIGN MAINTENANCE Work Phone: Start: 02-07-2025 Echo tthrc r-t 2d w/wom-mode compl spec&colr d Jakob Tinajero COMPENSATION ADVISOR - SIGN MAINTENANCE Work Phone: Start: 02-07-2025 Ecg routine ecg w/le ast 12 lds trcg only w/o i&r Jakob Caputo Tanvi COMPENSATION ADVISOR - SIGN MAINTENANCE Work Phone: Start: 02-07-2025 Basic metabolic pane l calcium total Jakob Harshal Tanvi COMPENSATION ADVISOR - SIGN MAINTENANCE Work Phone: Start: 02-06-2025 Basic metabolic pane l calcium total Jakob Tinajero COMPENSATION ADVISOR - SIGN MAINTENANCE Work Phone: Start: 02-06-2025 Ecg routine ecg w/le ast 12 lds trcg only w/o i&r Jakob Caputo Tanvi COMPENSATION ADVISOR - SIGN MAINTENANCE Work Phone: Start: 02-06-2025 OXYGEN THERAPY Jakob Caputo Tanvi COMPENSATION ADVISOR - SIGN MAINTENANCE Work Phone: Start: 02-06-2025 Cardiac catheterizat ion study Michaela Siegel MD Work Phone: Start: 02-06-2025 Echo transthorc r-t 2d w/wo m-mode rec f-up/lmtd Michaela Siegel MD Work Phone: Start: 02-06-2025 POCT ACT Michaela brand MD Work Phone: Start: 02-06-2025 End: 02-06-2025 Replace aortic valve perq femoral artry approach Bienvenido Catalan MD Work Phone: Start: 02-06-2025 Ecg routine ecg w/le ast 12 lds trcg only w/o i&r Ludy Terrell [employer] Work Phone: Start: 02-06-2025 Antibody screen DAYRON LOVE Comment on above: Performed By: #### L [id number] ####Vocational Training Teacher: ANDRIA JOYA ([phone])[facility] ([facility])[address] [place] [address] Start: 02-06-2025 ABO and Rh group [Ty pe] in Blood by Confirmatory method Trish Meyer [employer] Work Phone: Start: 02-06-2025 Basic metabolic pane l calcium total Ludy Swainaurelia [employer] Work Phone: Start: 02-06-2025 Blood typing serologic abo Trish Meyer [employer] Work Phone: Start: 01-17-2025 Cardiovascular stres s test using pharmacologic stress agent Dr. Dayron Macias MD Work Phone: Start: 01-16-2025 Plain chest X-ray Dr. Gene Macias MD Work Phone: Start: 02-12-[address] Dayron del rosario Work Phone: Plan of Treatment Date Care Activity Detail Author Start: 03-23-2026 Echocardiography Echocardiogram [facility] Start: 02-07-2026 Creatinine measurement Creatinine Level [employer] Start: 02-07-2026 Diabetes: Estimated Glomerular Filtration Rate for Kidney Health Diabetes: Estimated Glomerular Filtration Rate for Kidney Health [employer] Start: 02-07-2026 Echocardiography Echocardiogram [employer] Start: 02-07-2026 Potassium measurement Potassium Level [employer] Start: 12-21-2025 End: 12-21-2025 [facility] Start: 03-23-2025 End: 03-23-2025 Patient encounter procedure [facility] Start: 03-08-2025 End: 03-08-2027 US Heart Transthoracic Transthoracic echocardiogram (TTE) complete with contrast, bubble, strain, and 3D PRN CV Echocardiography Routine Severe aortic stenosis Expected: 03/08/2025 (Approximate), Expires: 03/08/2027 [facility] Work Phone: Comment on above: Expected: 03/08/2025 (Approximate), Expi res: 03/08/2027 Start: 02-14-2025 End: 02-14-2025 Patient encounter procedure 02/14/2025 11:00 AM EDT Office Visit [facility] [address] [place] [id number] Jakob Tinajero, COMPENSATION ADVISOR - SIGN MAINTENANCE [address] [address] [facility] Start: 02-06-2025 End: 02-06-2025 Admission to same day surgery center 02/06/2025 2:30 PM EDT - 02/06/2025 4:15 PM EDT Surgery [facility] MAIN OR [address] [place] [address] Michaela Siegel MD [address] [address] TRANSCATHETER AORTIC VALVE REPLACEMENT, TRANSTHORACIC ECHOCARDIOGRAM [facility] Comment on above: TRANSCATHETER AORTIC VALVE REPLACEMENT, TRANSTHORACIC ECHOCARDIOGRAM Start: 02-06-2025 End: 02-06-2025 Anesthesia consultation 02/06/2025 2:30 PM EDT Anesthesia Event [facility] MA[facility] OR [address] [place] [address] Castro Sneed, DO [address] [place] [address] Ludy Terrell, COMPENSATION ADVISOR - SIGN MAINTENANCE [address] [place] [address] [facility] Start: 02-06-2025 End: 02-06-2025 Replace aortic valve perq femoral artry approach TRANSCATHETER AORTIC VALVE REPLACEMENT (TAVR) - OR Severe aortic stenosis 02/06/2025 2:30 PM EDT [facility] Operating [facility] Start: 02-06-2025 Subsequent hospital visit by physician 02/06/2025 2:30 PM EDT Hospital Encounter [facility] [address] [place] [id number] Michaela Siegel MD [address] [facility] [address] [place] [address] Severe aortic stenosis [facility] Comment on above: Severe aortic stenosis Start: 01-31-2025 End: 01-25-2026 CT Chest WO and CT angiogram Coronary arteries W contrast IV [employer] Work Phone: Comment on above: Expected: 01/31/2025, Expires: Once for 1 Occurrenc es starting 01/31/2025 until 01/31/2025 Start: 01-31-2025 End: 01-31-2025 Patient encounter procedure [facility] Start: 01-20-2025 Patient discharge [facility] Start: 01-17-2025 [facility] Start: 01-17-2025 Patient discharge [facility] Start: 01-17-2025 [facility] Start: 01-16-2025 Following clinical pathway protocol [facility] Start: 01-16-2025 Assessment of risk of venous thromboembolism [facility] Start: 01-16-2025 Care regimes management [facility] Start: 01-16-2025 Insertion of catheter into peripheral vein [facility] Start: 01-16-2025 Measuring intake and output [facility] Start: 01-16-2025 Notification of physician [facility] Start: 01-16-2025 Providing care according to standard [facility] Start: 01-16-2025 Provision of activity privileges [facility] Start: 01-16-2025 End: 01-16-2025 [facility] Start: 01-16-2025 Verification routine [facility] Start: 01-16-2025 Admission procedure [facility] Start: 01-16-2025 Hospital admission, emergency, from emergency room, medical nature [facility] Start: 01-16-2025 End: 01-16-2025 [facility] Start: 01-05-2025 COVID-19 Vaccine ( season) COVID-19 Vaccine ( season) [facility] Start: 02-12-2024 Patient discharge [facility] Start: 05-18-2023 Procedure Education Eprescribed prescriptions (G8553) [facility]; [facility] Work Phone: Start: 10-01-2022 Procedure Education Eprescribed prescriptions (G8553) [facility]; [facility] Work Phone: Start: 09-09-2022 Assay of prolactin PROLACTIN (56380) [facility]; [facility] Work Phone: Start: 09-09-2022 Gonadotropin follicle stimulating hormone FSH AND LH (61162) [facility]; [facility] Work Phone: Start: 09-09-2022 Assay of testosterone free TESTOSTERONE FREE (65063) [facility]; [facility] Work Phone: Start: 09-09-2022 Procedure Education Eprescribed prescriptions (G8553) [facility]; [facility] Work Phone: Start: 09-09-2022 Assay of prostate specific antigen total PSA (PROSTATE SPECIFIC ANTIGEN) (71538) [facility]; [facility] Work Phone: Start: 06-05-2022 Procedure Education Eprescribed prescriptions (G8553) [facility]; [facility] Work Phone: Start: 01-25-2022 DTaP/Tdap/Td Vaccines (2 - Td or Tdap) DTaP/Tdap/Td Vaccines (2 - Td or Tdap) [facility] Start: 02-23-2012 Hepatitis B Vaccines (2 of 3 - 19+ 3-dose series) Hepatitis B Vaccines (2 of 3 - 19+ 3-dose series) [facility] Start: 11-25-2006 Provider Instructions for Treatment [facility]; [facility] Work Phone: Start: 11-25-2006 Lipid panel LIPID PANEL (71892) [facility]; [facility] Work Phone: Comment on above: Recheck 4-6 months. Start: 11-25-2006 Blood count complete auto&auto difrntl wbc CBC, PLATELETS & AUT DIFF (85234) [facility]; [facility] Work Phone: Comment on above: Repeat 1-2 months Start: 10-14-2006 Cyanocobalamin vitamin b-12 VITAMIN B-12 (CYANOCOBALAMIN) (45824) [facility]; [facility] Work Phone: Start: 10-14-2006 Blood count reticulocyte automated RETICULOCYTE COUNT [facility] (34361) [facility]; [facility] Work Phone: Start: 10-14-2006 Lactate dehydrogenase ldh LDH (LD) (LACTATE DEHYDROGENASE) (02192) [facility]; [facility] Work Phone: Start: 10-14-2006 Assay of iron IRON (69775) [facility]; [facility] Work Phone: Start: 10-14-2006 Iron binding capacity IRON BINDING CAPACITY (TIBC) (61583) [facility]; [facility] Work Phone: Start: 10-14-2006 Assay of haptoglobin quantitative HAPTOGLOBIN (74538) [facility]; [facility] Work Phone: Start: 10-14-2006 Assay of folic acid serum FOLIC ACID SERUM (09991) [facility]; [facility] Work Phone: Start: 10-14-2006 Assay of ferritin FERRITIN (87954) [facility]; [facility] Work Phone: Start: 10-14-2006 Blood count complete auto&auto difrntl wbc CBC, PLATELETS & AUT DIFF (26049) [facility]; [facility] Work Phone: Start: 10-14-2006 Lipid panel LIPID PANEL (33724) [facility]; [facility] Work Phone: Comment on above: TO DO IN 6 MO Start: 10-14-2006 Provider Instructions for Treatment [facility]; [facility] Work Phone: Start: 09-15-2006 Provider Instructions for Treatment [facility]; [facility] Work Phone: Start: 09-15-2006 Assay of thyroid stimulating hormone tsh TSH (03128) [facility]; [facility] Work Phone: Start: 09-15-2006 Comprehensive metabolic panel METABOLIC PANEL, COMPREHENSIVE (11610) [facility]; [facility] Work Phone: Start: 09-15-2006 Blood count manual cell count each CBC WITH MANUAL DIFF (87487) [facility]; [facility] Work Phone: Start: 09-15-2006 Lipid panel LIPID PANEL (10036) [facility]; [facility] Work Phone: Start: 09-15-2006 Assay of prostate specific antigen total PSA (PROSTATE SPECIFIC ANTIGEN) (45706) [facility]; [facility] Work Phone: Start: 1964 DTaP/Tdap/Td Vaccines (1 - Tdap) DTaP/Tdap/Td Vaccines (1 - Tdap) [facility] Start: 1963 Diabetes: Estimated Glomerular Filtration Rate for Kidney Health Diabetes: Estimated Glomerular Filtration Rate for Kidney Health [facility] Start: 1963 Diabetes: Urine Albumin-Creatinine Ratio for Kidney Health Diabetes: Urine Albumin-Creatinine Ratio for Kidney Health [facility] Start: 1963 Hepatitis C screening Hepatitis C Screening [facility] Start: 1957 Depression Screening Depression Screening [facility] Start: 1945 Creatinine measurement Creatinine Level [facility] Start: 1945 Echocardiography Echocardiogram [facility] Start: 1945 Medicare Annual Wellness (AWV) Medicare Annual Wellness (AWV) [facility] Start: 1945 Potassium measurement Potassium Level [facility] Catheterization of l eft heart [facility] ECG 12 lead - CLINIC PERFORMED ECG 12 lead - CLINIC PERFORMED CV ECG Routine Severe aortic stenosis 03/23/2025 2:46 PM EDT [facility] [employer] [facility] Work Phone: Patient referral [facility] Work Phone: Troponin T.cardiac [Mass/volume] in Serum or Plasma by High sensitivity method [facility] Troponin T.cardiac [Mass/volume] in Serum or Plasma by High sensitivity method [facility] Work Phone: [facility] Work Phone: [facility] Work Phone: [facility] Work Phone: [facility] Work Phone: [facility]; [facility] Work Phone: [facility] Payers Date Payer Category Payer Self-pay [id number] 2023 Medicare supplementa l policy (as second payer) [id number] 2023 Unknown [id number] 2022 Unknown [id number] 2010 Medicare MEDICARE PART A AND B [id number] 2000 Medicare [id number] 1945 Unknown [id number] Private Health Insurance [id number] Unknown Unknown [id number] Unknown [id number] Unknown [id number] Unknown [id number] Unknown [id number] Unknown [id number] Unknown [id number] Social History Date Type Detail Facility Start: 01-31-2025 End: 03-23-2025 Alcohol Use Alcohol Use [employer] [facility]; [facility] Work Phone: Comment on above: Occasional alcohol u se 1-2 glasses/day has home [employer]. 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 Start: 09-08-2023 End: 02-03-2024 Tobacco smoking status WVIS Unknown if ever smoked [facility] Start: 1945 Sex Assigned At Male W [facility] Start: 01-16-2025 End: 01-31-2025 Tobacco smoking status NHIS Never smoked tobacco (finding) [facility] Start: 01-16-2025 End: 01-24-2025 Sex Male (finding) [facility] Start: 1945 Sex assigned at Not on file [facility] Start: 01-31-2025 End: 03-23-2025 Gender identity Not on file [facility] Start: 01-31-2025 Tobacco use and exposure Smokeless tobacco non-user [facility] Within the last year , have you been afraid of your partner or ex-partner? No [facility] How often to you hav e a drink containing alcohol? Never [facility] How many standard drinks containing alcohol do you have on a typical day? Patient does not drink [facility] Medical Equipment Procedure Code Equipment Code Equipment Origin al Text Equipment Identifier Dates Valve Aor Nissa 3 Ultra 26mm - [id number] - [id number] Start: 02-06-2025 Goals Date Patient Goal Desired Activity /State Functional Status Date Assessment Result Facility 01-17-2025 Functional status Ambulates [facility] Work Phone: [facility] Mental Status Date Assessment Result Facility 01-17-2025 Cognitive function Level Of Cons ciousness Awake;Alert;Appropriate [facility] Work Phone: 01-16-2025 Cognitive function Awake;Alert;A ppropriate;Follow s Commands [facility] Work Phone: 02-12-2024 Cognitive function Awake;Alert;Appropriat e [facility] Work Phone: Clinical Notes 01-22-2021 to 05-10-2025 Assessment & Plan Note - DONNY Alberts CNP - 03/23/2025 4:20 PM EDTAssessment & Plan Note - DONNY Alberts CNP - 03/23/2025 4:20 PM EDTPatricia Bharati Dunbar - 02/07/2025 1:09 PM EDT Note Date & Type Note Facility 05-10-2025 Note 05/10/25 1108 [facility] Outreach Assessment Selection Which outreach assessment are you completing? 90 Day [facility]PCI - 60 Day Outreach Did patient answer phone call? Yes (CHW spoke with patient doing well-04/04/25) Do you have any concerns with your medication(s)? No Any complications with post discharge services? No Any concerns with your DME equipment? N/A Any questions about your condition you are unsure about that I can help clarify? No [facility] - 90 Day Outreach Did patient answer phone call? No (Unable to LVM- mailbox full) EMR reviewed patient is a late drop on IP Post-Discharge Patients with Final Qualifying DRG for Program Cardiac Care and Cardiac Procedures [facility] report. Enrolled as bundle late drop in [facility] 90-day [facility] Cardiac Program. Patient discharged 02/07/25. Dx: Elective TAVR 02/06/[address] Siegel. 90 days [facility] outreach 2nd attempt (CHW made outreach 05/04) unable to LVM mailbox full. Avoided any readmissions during 90-day BPCI program. [facility] 04-04-2025 Note 04/04/25 1044 General Care Management Assessment completed with: Patient Enrolled in care management program: Yes Living arrangement: Spouse Support system: Spouse Type of residence: Private residence Home care services: No Communication device: Yes Bed or wheelchair confined: No Inadequate nutrition: No Medication adherence problem: No Difficulty keeping appointments: No [facility] 03-23-2025 Evaluation + Plan note Associated Problem(s): Coronary artery disease involving shoshone-bannock coronary artery of shoshone-bannock heart without angina pectoris Heart cath showed 80% OM2 and 40% mRCA stenosis -denies angina -has not started ASA or atorvastatin. Discussed importance of ASA and statin in setting of known CAD. He is agreeable to start [facility] 03-23-2025 Miscellaneous Notes Associated Problem(s): Coronary artery disease involving shoshone-bannock coronary artery of shoshone-bannock heart without angina pectoris Heart cath showed 80% OM2 and 40% mRCA stenosis -denies angina -has not started ASA or atorvastatin. Discussed importance of ASA and statin in setting of known CAD. He is agreeable to start Associated Problem(s): Severe aortic stenosis S/p TF TAVR with 26 mm Nissa S3 valve on 02/06/25. -stable, NYHA Class I -repeat echo in one month -reviewed lifelong SBE prophylaxis-amoxicillin prescription sent in to pharmacy -declines Cardiac Rehab-remains active at home -continue ASA documented in this encounter [facility] 03-23-2025 Evaluation + Plan note Associated Problem(s): Severe aortic stenosis S/p TF TAVR with 26 mm Nissa S3 valve on 02/06/25. -stable, NYHA Class I -repeat echo in one month -reviewed lifelong SBE prophylaxis-amoxicillin prescription sent in to pharmacy -declines Cardiac Rehab-remains active at home -continue ASA [facility] 03-23-2025 History of Presen t illness Narrative Images from the original note were not included. [facility] [place] [address] [facility] [address] Dept: [phone] Dept Loc: [phone] Reason for Visit: 1 Month Follow Up Assessment and Plan 1. Severe aortic stenosis Assessment & Plan: S/p TF TAVR with 26 mm Nissa S3 valve on 02/06/25. -stable, NYHA Class I -repeat echo in one month -reviewed lifelong SBE prophylaxis-amoxicillin prescription sent in to pharmacy -declines Cardiac Rehab-remains active at home -continue ASA Orders: - ECG 12 lead - CLINIC PERFORMED 2. Coronary artery disease involving shoshone-bannock coronary artery of shoshone-bannock heart without angina pectoris Assessment & Plan: Heart cath showed 80% OM2 and 40% mRCA stenosis -denies angina -has not started ASA or atorvastatin. Discussed importance of ASA and statin in setting of known CAD. He is agreeable to start Follow up for Dr. Jackson as scheduled. Subjective HPI Evelin Hernandez is a [address] Jackson with a history of severe aortic stenosis, HTN, HLD and T2DM that is diet controlled. He was referred to our Valve [facility] where he reported DE LEON and 4 episodes of syncope. Echo showed EF 60%, mean Ao gradient 57, ANNE MARIE 0.7, peak velocity 5.0. He underwent a heart cath which showed 80% OM2 stenosis. He underwent a femoral TAVR on 02/06/25 with a 26 mm Nissa S3 valve. He did well post procedure. Echo at discharge showed EF 65% with mean Ao gradient 15 mmHg. He presents today for a one month s/p TAVR follow up feeling well. Denies near syncope/syncope, SOB, orthopnea, angina, edema or bleeding. He has slight dizziness at times with changing position. He stays well hydrated. Review of Systems Constitutional: Negative for chills and fever. Respiratory: Negative for cough and shortness of breath. Cardiovascular: Negative for chest pain, palpitations and leg swelling. Gastrointestinal: Negative for abdominal pain, blood in stool and vomiting. Genitourinary: Negative for hematuria. Neurological: Positive for dizziness. Negative for syncope. Allergies[1] Current Medications[2] Medical History[3] Social History Tobacco Use Smoking status: Never Smokeless tobacco: Never Substance Use Topics Alcohol use: Not on file Surgical History[4] Family History[5] Objective Vitals: 03/23/25 1449 03/23/25 1503 BP: (!) 148/70 136/60 BP Location: Left arm Left arm Patient Position: Sitting Sitting BP Cuff Size: Large adult Adult Pulse: 58 SpO2: 98% Weight: 209 lb 12.8 oz (95.2 kg) Height: 5' 10 (1.778 m) Body mass index is 30.1 kg/m . Physical Exam Constitutional: Appearance: Normal appearance. HENT: Head: Normocephalic. Eyes: General: No scleral icterus. Right eye: No discharge. Left eye: No discharge. Cardiovascular: Rate and Rhythm: Normal rate and regular rhythm. Pulses: Normal pulses. Dorsalis pedis pulses are 2+ on the right side and 2+ on the left side. Posterior tibial pulses are 2+ on the right side and 2+ on the left side. Heart sounds: Normal heart sounds. No murmur heard. Pulmonary: Effort: Pulmonary effort is normal. Breath sounds: Normal breath sounds. Abdominal: General: Abdomen is flat. Palpations: Abdomen is soft. Musculoskeletal: General: Normal range of motion. Cervical back: Normal range of motion. Right lower leg: No edema. Left lower leg: No edema. Skin: General: Skin is warm and dry. Capillary Refill: Capillary refill takes less than 2 seconds. Neurological: Mental Status: He is alert and oriented to person, place, and time. Psychiatric: Mood and Affect: Mood normal. Data Reviewed and Summarized Lab Results Component Value Date WBC 8.1 02/07/2025 HGB 12.1 (L) 02/07/2025 HCT 35.6 (L) 02/07/2025 MCV 85.2 02/07/2025 PLT 155 02/07/2025 Lab Results Component Value Date GLUCOSE 156 (H) 02/07/2025 CALCIUM 8.3 (L) 02/07/2025 NA 138 02/07/2025 K 4.4 02/07/2025 CO2 23 02/07/2025 CL 106 02/07/2025 BUN 19 02/07/2025 CREATININE 0.93 02/07/2025 EF BP Date Value Ref Range Status 03/23/2025 60 55 - 100 % Final Echocardiogram 03/23/25: reviewed with patient in the office Left Ventricle: Left ventricle size is normal. Normal wall thickness. Normal left ventricular systolic function. EF by 2D Simpsons Biplane is 60%. Global longitudinal strain is -13.5%. Normal wall motion. Normal diastolic function. Right Ventricle: Right ventricle size is normal. Normal systolic function. Aortic Valve: Aleman Nissa 3 Ultra bioprosthetic aortic valve with a size of 26 mm. AV mean gradient is 14 mmHg. No regurgitation. No paravalvular regurgitation. Normal prosthetic gradient. AV mean gradient is 14 mmHg. AV peak gradient is 25 mmHg. AV peak velocity is 2.5 m/s. LVOT:AV VTI Index is 0.43. AV area by continuity VTI is 1.2 cm2. Tricuspid Valve: Valve structure is normal. Unable to assess RVSP due to insignificant tricuspid regurgitation. Left Atrium: Left atrium size is mildly increased (LA volume index 35-41 mL/m2). Aorta: Normal sized sinuses of Valsalva and ascending aorta. Pericardium: Evidence of prominent epicardial fat. No pericardial effusion. IVC/SVC: IVC appears small and collapsed, suggesting hypovolemia Trish Meyer, COMPENSATION ADVISOR - SIGN MAINTENANCE [1] No Known Allergies [2] Current Outpatient Medications: alpha tocopherol (Vitamin E) 1000 units capsule, Take 1,000 Units by mouth daily., Disp: , Rfl: aspirin 81 MG EC tablet, Take 1 tablet (81 mg) by mouth daily., Disp: , Rfl: atorvastatin (Lipitor) 40 MG tablet, Take 1 tablet (40 mg) by mouth daily., Disp: 30 tablet, Rfl: 11 cholecalciferol (Vitamin D-3) 25 MCG (1000 UT) capsule, Take 1,000 Units by mouth daily., Disp: , Rfl: Multiple Vitamin (multivitamin) tablet, Take 1 tablet by mouth daily., Disp: , Rfl: Multiple Vitamins-Minerals (OCUTABS PO), Take by mouth., Disp: , Rfl: amoxicillin (Amoxil) 500 MG capsule, Take 4 caps (2000 mg) 1 hour prior to dental work, Disp: 12 capsule, Rfl: 11 [3] Past Medical History: Diagnosis Date Diabetes mellitus (HCC) Severe aortic stenosis [4] Past Surgical History: Procedure Laterality Date CARDIAC CATHETERIZATION N/A 02/06/2025 Performed by Michaela Siegel MD at [facility] OR [5] No family history on file. documented in this encounter [facility] 03-08-2025 Telephone encounter Note Added on echo for 03/23/25 I called patient and left detailed message w/ appt dates/times [facility] 03-08-2025 Miscellaneous Notes Added on echo for 03/23/25 I called patient and left detailed message w/ appt dates/times I emailed María Elena to see if we can add on echo to 03/23/25 Addended by: TRISH MEYER on: 03/08/2025 12:25 PM Modules accepted: Orders Addended by: DANNA ENAMORADO on: 03/08/2025 10:15 AM Modules accepted: Orders Left message for patient to return call to office to discuss follow-up from valve procedure. Tried to contact amanda Cruz [phone] (number listed on referral from Dr. Jackson) no answer and voicemail full. Called Dr. Jackson's office, no follow-ups scheduled and patient/family have not contacted their office either. Will notify Dr. Jackson. Office requests copy of TAVR report faxed to [phone]. Marisa Reagan notified to do so. Left message for patient to follow-up since TAVR Tried to contact patient via primary number, no answer and voicemail full. Tried alternate phone number and it's an invalid number. Will try again at a later time to check in on patient since TAVR and establish follow-up plan. Spoke with patient and he states he currently has arrived at the airport to leave for 2 weeks to [place]. Explained the risks to patient of flying less than 1 week after TAVR procedure, COMPENSATION ADVISOR advised not to fly until a follow-up appointment occurred. Patient states he has felt great this week, talking walks and doing his normal ADLs. Explained risks of EKG changes and the need for follow-up appt prior to flying for clearance. Patient stated he understands the risks, but needs to fly out today due to a family emergency. Patient stated he plans to return in 2 weeks. Explained options of having follow up appt in [place] or here at [address] [place] [address] upon return. Patient states he can obtain EKG and cardiology appt in [facility] during his trip. Patient stated he will call our office back on Wednesday 02/14 on plan for follow-ups. Patient was advised that he should not fly until after his one week follow up visit. I called patient to confirm Tuesdays appt and he asked to cx the appt stating he feels great and he has to fly out tomorrow am due to a family emergency.I asked if I can r/s him and he declined stating again that he feels great. Patient called valve clinic line. Verified procedure date and time with patient and . Patient asked if he was cleared to fly after procedure. Educated patient on one week follow up and addressing clearance at that time, but not to fly until cleared. Patient and verbalized understanding. Left detailed message for patient reviewing upcoming procedure Abby Meyer APRN notified for prep for proc orders. Diagnosis: Aortic stenosis Procedure being done: TAVR Date/time of procedure: 02/06/25 2:30 pm Surgeon: Dr. Siegel 2nd surgeon: Dr. Catalan Admission type: To be admitted Anesthesia: MAC Completed: H&P/EKG/CTA/CXR/BMP/CBC Date completed: 01/31/25 Additional orders T&S morning of procedure TAVR procedure, instructions reviewed with pt and . Patient scheduled for TAVR on 02/06/25 at 2:30 pm Will report to [facility] by 12:30 pm Can park in the [facility] Parking Deck or use [facility] parking at the [facility] entrance Plan on overnight stay in the hospital Will not be able to drive for 1 week after procedure Will receive moderate sedation through the IV, will be relaxed but awake during the procedure Nothing to eat or drink after midnight Instructed to take morning medications as prescribed with small sip of water EXCEPT to HOLD vitamins/supplements morning of surgery Will call with any questions/concerns Pre-op testing done 01/31/25 Patient/family verbalized understanding. Dx: Procedure: TAVR Date/Time: 02/06/2025 at 2:30p Surgeon: PB/EE Location: [facility] Admission: TBD Anesthesia: MAC No auth req per Medicare. On both calendars and requested on Snapboard. documented in this encounter [facility] 03-08-2025 Telephone encounter Note I emailed María Elena to see if we can add on echo to 03/23/25 [facility] 03-08-2025 Note Addended by: Felicity MEYER on: 03/08/2025 12:25 PM Modules accepted: Orders [facility] 03-08-2025 Note Addended by: Felicity MEYER on: 03/08/2025 12:25 PM Modules accepted: Orders [facility] 03-08-2025 Note Addended by: Felicity MEYER on: 03/08/2025 12:25 PM Modules accepted: Orders [facility] 03-08-2025 Note Addended by: Felicity MEYER on: 03/08/2025 12:25 PM Modules accepted: Orders [facility] 03-08-2025 Note Addended by: Felicity MEYER on: 03/08/2025 12:25 PM Modules accepted: Orders [facility] 03-08-2025 Note Addended by: DANNA ENAMORADO on: 03/08/2025 10:15 AM Modules accepted: Orders [facility] 03-08-2025 Note Addended by: DANNA ENAMORADO on: 03/08/2025 10:15 AM Modules accepted: Orders [facility] 03-08-2025 Note Addended by: DANNA ENAMORADO on: 03/08/2025 10:15 AM Modules accepted: Orders [facility] 03-08-2025 Note Addended by: DANNA ENAMORADO on: 03/08/2025 10:15 AM Modules accepted: Orders [facility] 03-08-2025 Note Addended by: DANNA ENAMORADO on: 03/08/2025 10:15 AM Modules accepted: Orders [facility] 03-02-2025 Note Left message for pat ient to return call to office to discuss follow-up from valve procedure. Tried to contact amanda Anthony [phone] (number listed on referral from Dr. Jackson) no answer and voicemail full. Called Dr. Jackson's office, no follow-ups scheduled and patient/family have not contacted their office either. Will notify Dr. Jackson. Office requests copy of TAVR report faxed to [phone]. Marisa Reagan notified to do so. [facility] 03-02-2025 Telephone encounter Note Left message for patient to return call to office to discuss follow-up from valve procedure. Tried to contact amanda Anthony [phone] (number listed on referral from Dr. Jackson) no answer and voicemail full. Called Dr. Jackson's office, no follow-ups scheduled and patient/family have not contacted their office either. Will notify Dr. Jackson. Office requests copy of TAVR report faxed to [phone]. Marisa Reagan notified to do so. [facility] 03-02-2025 Miscellaneous Notes Left message for patient to return call to office to discuss follow-up from valve procedure. Tried to contact amanda Cruz [phone] (number listed on referral from Dr. Jackson) no answer and voicemail full. Called Dr. Jackson's office, no follow-ups scheduled and patient/family have not contacted their office either. Will notify Dr. Jackson. Office requests copy of TAVR report faxed to [phone]. Marisa Reagan notified to do so. Left message for patient to follow-up since TAVR Tried to contact patient via primary number, no answer and voicemail full. Tried alternate phone number and it's an invalid number. Will try again at a later time to check in on patient since TAVR and establish follow-up plan. Spoke with patient and he states he currently has arrived at the airport to leave for 2 weeks to [place]. Explained the risks to patient of flying less than 1 week after TAVR procedure, COMPENSATION ADVISOR advised not to fly until a follow-up appointment occurred. Patient states he has felt great this week, talking walks and doing his normal ADLs. Explained risks of EKG changes and the need for follow-up appt prior to flying for clearance. Patient stated he understands the risks, but needs to fly out today due to a family emergency. Patient stated he plans to return in 2 weeks. Explained options of having follow up appt in [place] or here at [address] [place] [address] upon return. Patient states he can obtain EKG and cardiology appt in [facility] during his trip. Patient stated he will call our office back on Wednesday 02/14 on plan for follow-ups. Patient was advised that he should not fly until after his one week follow up visit. I called patient to confirm Tuesdays appt and he asked to cx the appt stating he feels great and he has to fly out tomorrow am due to a family emergency.I asked if I can r/s him and he declined stating again that he feels great. Patient called valve clinic line. Verified procedure date and time with patient and . Patient asked if he was cleared to fly after procedure. Educated patient on one week follow up and addressing clearance at that time, but not to fly until cleared. Patient and verbalized understanding. Left detailed message for patient reviewing upcoming procedure Abby Meyer APRN notified for prep for proc orders. Diagnosis: Aortic stenosis Procedure being done: TAVR Date/time of procedure: 02/06/25 2:30 pm Surgeon: Dr. Siegel 2nd surgeon: Dr. Catalan Admission type: To be admitted Anesthesia: MAC Completed: H&P/EKG/CTA/CXR/BMP/CBC Date completed: 01/31/25 Additional orders T&S morning of procedure TAVR procedure, instructions reviewed with pt and . Patient scheduled for TAVR on 02/06/25 at 2:30 pm Will report to [facility] by 12:30 pm Can park in the [facility] Parking Deck or use [facility] parking at the [facility] entrance Plan on overnight stay in the hospital Will not be able to drive for 1 week after procedure Will receive moderate sedation through the IV, will be relaxed but awake during the procedure Nothing to eat or drink after midnight Instructed to take morning medications as prescribed with small sip of water EXCEPT to HOLD vitamins/supplements morning of surgery Will call with any questions/concerns Pre-op testing done 01/31/25 Patient/family verbalized understanding. Dx: Procedure: TAVR Date/Time: 02/06/2025 at 2:30p Surgeon: PB/SEBASTIEN Location: [facility] Admission: [facility] Anesthesia: MAC No auth req per Medicare. On both calendars and requested on [employer]. documented in this encounter [facility] 02-20-2025 Telephone encounter Note Left message for patient to follow-up since TAVR [facility] 02-20-2025 Miscellaneous Notes Left message for patient to follow-up since TAVR Tried to contact patient via primary number, no answer and voicemail full. Tried alternate phone number and it's an invalid number. Will try again at a later time to check in on patient since TAVR and establish follow-up plan. Spoke with patient and he states he currently has arrived at the airport to leave for 2 weeks to [place]. Explained the risks to patient of flying less than 1 week after TAVR procedure, COMPENSATION ADVISOR advised not to fly until a follow-up appointment occurred. Patient states he has felt great this week, talking walks and doing his normal ADLs. Explained risks of EKG changes and the need for follow-up appt prior to flying for clearance. Patient stated he understands the risks, but needs to fly out today due to a family emergency. Patient stated he plans to return in 2 weeks. Explained options of having follow up appt in [place] or here at [address] [place] [address] upon return. Patient states he can obtain EKG and cardiology appt in [facility] during his trip. Patient stated he will call our office back on Wednesday 02/14 on plan for follow-ups. Patient was advised that he should not fly until after his one week follow up visit. I called patient to confirm Tuesdays appt and he asked to cx the appt stating he feels great and he has to fly out tomorrow am due to a family emergency.I asked if I can r/s him and he declined stating again that he feels great. Patient called valve clinic line. Verified procedure date and time with patient and . Patient asked if he was cleared to fly after procedure. Educated patient on one week follow up and addressing clearance at that time, but not to fly until cleared. Patient and verbalized understanding. Left detailed message for patient reviewing upcoming procedure Abby Meyer APRN notified for prep for proc orders. Diagnosis: Aortic stenosis Procedure being done: TAVR Date/time of procedure: 02/06/25 2:30 pm Surgeon: Dr. Siegel 2nd surgeon: Dr. Catalan Admission type: To be admitted Anesthesia: MAC Completed: H&P/EKG/CTA/CXR/BMP/CBC Date completed: 01/31/25 Additional orders T&S morning of procedure TAVR procedure, instructions reviewed with pt and . Patient scheduled for TAVR on 02/06/25 at 2:30 pm Will report to [facility] by 12:30 pm Can park in the [facility] Parking Deck or use [facility] parking at the [facility] entrance Plan on overnight stay in the hospital Will not be able to drive for 1 week after procedure Will receive moderate sedation through the IV, will be relaxed but awake during the procedure Nothing to eat or drink after midnight Instructed to take morning medications as prescribed with small sip of water EXCEPT to HOLD vitamins/supplements morning of surgery Will call with any questions/concerns Pre-op testing done 01/31/25 Patient/family verbalized understanding. Dx: Procedure: TAVR Date/Time: 02/06/2025 at 2:30p Surgeon: PB/SEBASTIEN Location: [facility] Admission: [facility] Anesthesia: MAC No auth req per Medicare. On both calendars and requested on [employer]. documented in this encounter [facility] 02-16-2025 Telephone encounter Note Tried to contact patient via primary number, no answer and voicemail full. Tried alternate phone number and it's an invalid number. Will try again at a later time to check in on patient since TAVR and establish follow-up plan. [facility] 02-16-2025 Miscellaneous Notes Tried to contact patient via primary number, no answer and voicemail full. Tried alternate phone number and it's an invalid number. Will try again at a later time to check in on patient since TAVR and establish follow-up plan. Spoke with patient and he states he currently has arrived at the airport to leave for 2 weeks to [place]. Explained the risks to patient of flying less than 1 week after TAVR procedure, COMPENSATION ADVISOR advised not to fly until a follow-up appointment occurred. Patient states he has felt great this week, talking walks and doing his normal ADLs. Explained risks of EKG changes and the need for follow-up appt prior to flying for clearance. Patient stated he understands the risks, but needs to fly out today due to a family emergency. Patient stated he plans to return in 2 weeks. Explained options of having follow up appt in [place] or here at [address] [place] [address] upon return. Patient states he can obtain EKG and cardiology appt in [facility] during his trip. Patient stated he will call our office back on Wednesday 02/14 on plan for follow-ups. Patient was advised that he should not fly until after his one week follow up visit. I called patient to confirm Tuesdays appt and he asked to cx the appt stating he feels great and he has to fly out tomorrow am due to a family emergency.I asked if I can r/s him and he declined stating again that he feels great. Patient called valve clinic line. Verified procedure date and time with patient and . Patient asked if he was cleared to fly after procedure. Educated patient on one week follow up and addressing clearance at that time, but not to fly until cleared. Patient and verbalized understanding. Left detailed message for patient reviewing upcoming procedure Abby Meyer APRN notified for prep for proc orders. Diagnosis: Aortic stenosis Procedure being done: TAVR Date/time of procedure: 02/06/25 2:30 pm Surgeon: Dr. Siegel 2nd surgeon: Dr. Catalan Admission type: To be admitted Anesthesia: MAC Completed: H&P/EKG/CTA/CXR/BMP/CBC Date completed: 01/31/25 Additional orders T&S morning of procedure TAVR procedure, instructions reviewed with pt and . Patient scheduled for TAVR on 02/06/25 at 2:30 pm Will report to [facility] by 12:30 pm Can park in the [facility] Parking Deck or use [facility] parking at the [facility] entrance Plan on overnight stay in the hospital Will not be able to drive for 1 week after procedure Will receive moderate sedation through the IV, will be relaxed but awake during the procedure Nothing to eat or drink after midnight Instructed to take morning medications as prescribed with small sip of water EXCEPT to HOLD vitamins/supplements morning of surgery Will call with any questions/concerns Pre-op testing done 01/31/25 Patient/family verbalized understanding. Dx: Procedure: TAVR Date/Time: 02/06/2025 at 2:30p Surgeon: WILLI/SEBASTIEN Location: [facility] Admission: [facility] Anesthesia: MAC No auth req per Medicare. On both calendars and requested on [employer]. documented in this encounter [facility] 02-10-2025 Telephone encounter Note Spoke with patient and he states he currently has arrived at the airport to leave for 2 weeks to [place]. Explained the risks to patient of flying less than 1 week after TAVR procedure, COMPENSATION ADVISOR advised not to fly until a follow-up appointment occurred. Patient states he has felt great this week, talking walks and doing his normal ADLs. Explained risks of EKG changes and the need for follow-up appt prior to flying for clearance. Patient stated he understands the risks, but needs to fly out today due to a family emergency. Patient stated he plans to return in 2 weeks. Explained options of having follow up appt in [place] or here at [address] upon return. Patient states he can obtain EKG and cardiology appt in [facility] during his trip. Patient stated he will call our office back on Wednesday 02/14 on plan for follow-ups. [facility] 02-10-2025 Miscellaneous Notes Spoke with patient and he states he currently has arrived at the airport to leave for 2 weeks to [place]. Explained the risks to patient of flying less than 1 week after TAVR procedure, COMPENSATION ADVISOR advised not to fly until a follow-up appointment occurred. Patient states he has felt great this week, talking walks and doing his normal ADLs. Explained risks of EKG changes and the need for follow-up appt prior to flying for clearance. Patient stated he understands the risks, but needs to fly out today due to a family emergency. Patient stated he plans to return in 2 weeks. Explained options of having follow up appt in [place] or here at [address] upon return. Patient states he can obtain EKG and cardiology appt in [facility] during his trip. Patient stated he will call our office back on Wednesday 02/14 on plan for follow-ups. Patient was advised that he should not fly until after his one week follow up visit. I called patient to confirm Tuesdays appt and he asked to cx the appt stating he feels great and he has to fly out tomorrow am due to a family emergency.I asked if I can r/s him and he declined stating again that he feels great. Patient called valve clinic line. Verified procedure date and time with patient and . Patient asked if he was cleared to fly after procedure. Educated patient on one week follow up and addressing clearance at that time, but not to fly until cleared. Patient and verbalized understanding. Left detailed message for patient reviewing upcoming procedure Abby Meyer APRN notified for prep for proc orders. Diagnosis: Aortic stenosis Procedure being done: TAVR Date/time of procedure: 02/06/25 2:30 pm Surgeon: Dr. Siegel 2nd surgeon: Dr. Catalan Admission type: To be admitted Anesthesia: MAC Completed: H&P/EKG/CTA/CXR/BMP/CBC Date completed: 01/31/25 Additional orders T&S morning of procedure TAVR procedure, instructions reviewed with pt and . Patient scheduled for TAVR on 02/06/25 at 2:30 pm Will report to [facility] by 12:30 pm Can park in the [facility] Parking Deck or use [facility] parking at the [facility] entrance Plan on overnight stay in the hospital Will not be able to drive for 1 week after procedure Will receive moderate sedation through the IV, will be relaxed but awake during the procedure Nothing to eat or drink after midnight Instructed to take morning medications as prescribed with small sip of water EXCEPT to HOLD vitamins/supplements morning of surgery Will call with any questions/concerns Pre-op testing done 01/31/25 Patient/family verbalized understanding. Dx: Procedure: TAVR Date/Time: 02/06/2025 at 2:30p Surgeon: PB/SEBASTIEN Location: [facility] Admission: [facility] Anesthesia: MAC No auth req per Medicare. On both calendars and requested on Snapboard. documented in this encounter [facility] 02-09-2025 Telephone encounter Note Patient was advised that he should not fly until after his one week follow up visit. [facility] 02-09-2025 Miscellaneous Notes Patient was advised that he should not fly until after his one week follow up visit. I called patient to confirm Tuesdays appt and he asked to cx the appt stating he feels great and he has to fly out tomorrow am due to a family emergency.I asked if I can r/s him and he declined stating again that he feels great. Patient called valve clinic line. Verified procedure date and time with patient and . Patient asked if he was cleared to fly after procedure. Educated patient on one week follow up and addressing clearance at that time, but not to fly until cleared. Patient and verbalized understanding. Left detailed message for patient reviewing upcoming procedure Abby Meyer APRN notified for prep for proc orders. Diagnosis: Aortic stenosis Procedure being done: TAVR Date/time of procedure: 02/06/25 2:30 pm Surgeon: Dr. Siegel 2nd surgeon: Dr. Catalan Admission type: To be admitted Anesthesia: MAC Completed: H&P/EKG/CTA/CXR/BMP/CBC Date completed: 01/31/25 Additional orders T&S morning of procedure TAVR procedure, instructions reviewed with pt and . Patient scheduled for TAVR on 02/06/25 at 2:30 pm Will report to [facility] by 12:30 pm [facility] park in the [facility] or use [facility] parking at the [facility] entrance Plan on overnight stay in the hospital Will not be able to drive for 1 week after procedure Will receive moderate sedation through the IV, will be relaxed but awake during the procedure Nothing to eat or drink after midnight Instructed to take morning medications as prescribed with small sip of water EXCEPT to HOLD vitamins/supplements morning of surgery Will call with any questions/concerns Pre-op testing done 01/31/25 Patient/family verbalized understanding. Dx: Procedure: TAVR Date/Time: 02/06/2025 at 2:30p Surgeon: PB/SEBASTIEN Location: [facility] Admission: TBD Anesthesia: MAC No auth req per Medicare. On both calendars and requested on Snapboard. documented in this encounter [facility] 02-09-2025 Telephone encounter Note I called patient to confirm Tuesdays appt and he asked to cx the appt stating he feels great and he has to fly out tomorrow am due to a family emergency.I asked if I can r/s him and he declined stating again that he feels great. [facility] 02-07-2025 Consult note Associated Order (s): IP CONSULT TO CARDIAC REHAB Received Cardiopulmonary Rehab Referral and reviewed chart. Phase II Cardiopulmonary Rehab Referral discussed with Evelin Hernandez. Patient declined program at this time. Information left with patient. [facility] 02-07-2025 Note Received Cardiopulmo nary Rehab Referral and reviewed chart. Phase II Cardiopulmonary Rehab Referral discussed with Evelin Hernandez. Patient declined program at this time. Information left with patient. [facility] 02-07-2025 Consult note Associated Order (s): IP CONSULT TO CARDIAC REHAB Received Cardiopulmonary Rehab Referral and reviewed chart. Phase II Cardiopulmonary Rehab Referral discussed with Evelin Hernandez. Patient declined program at this time. Information left with patient. documented in this encounter [facility] 02-07-2025 Hospital course Narrative Name: Evelin Hernandez Date of : 1945 Date of Admission: 02/06/2025 Date of Discharge: 02/07/2025 Admitting physician: Michaela Siegel MD Discharge Attending: DONNY Dawson CNP, MD Primary Care Physician: DAYRON MACIAS MD Reason for Admission: Severe Symptomatic Aortic Stenosis Consultants: cardiac rehab HOSPITAL ADMISSION PROBLEM LIST: Patient Active Problem List Diagnosis Type 2 diabetes mellitus without complication, without long-term current use of insulin (HCC) Severe aortic stenosis Physical Exam Physical Exam Constitutional: Appearance: Normal appearance. HENT: Head: Normocephalic and atraumatic. Nose: Nose normal. Eyes: Conjunctiva/sclera: Conjunctivae normal. Pupils: Pupils are equal, round, and reactive to light. Cardiovascular: Rate and Rhythm: Normal rate and regular rhythm. Pulmonary: Effort: Pulmonary effort is normal. Breath sounds: Normal breath sounds. Abdominal: General: Bowel sounds are normal. Palpations: Abdomen is soft. Musculoskeletal: General: Normal range of motion. Cervical back: Normal range of motion and neck supple. Skin: General: Skin is warm and dry. Comments: Right wrist and groin soft without bleeding or hematoma Neurological: General: No focal deficit present. Mental Status: He is alert and oriented to person, place, and time. Psychiatric: Mood and Affect: Mood normal. Thought Content: Thought content normal. Procedures: Transfemoral transcatheter AVR with 26 mm Nissa S3 valve under moderate sedation Transthoracic echocardiogram HOSPITAL COURSE : The patient was admitted to the hospital for elective TAVR on 02/06/2025 . A 26 mm Nissa S3 valve was implanted. The patient returned to [facility] for recovery. Vital signs and labs were stable. There were no groin complications. The patient was ambulatory the evening of the procedure. Post procedure echocardiogram demonstrated : Left Ventricle: Left ventricle size is normal. Normal wall thickness. Normal left ventricular systolic function. EF by 2D Simpsons Biplane is 65%. Normal wall motion. Normal diastolic function. Right Ventricle: Right ventricle is mildly dilated. Normal systolic function. Aortic Valve: Aleamn Nissa 3 Ultra bioprosthetic aortic valve that is well-seated with a size of 26 mm. AV mean gradient is 15 mmHg. No regurgitation. No stenosis. Normal prosthetic gradient. Patient education including SBE prophylaxis, activity, access site care, follow up appointments, and medications was provided. The patient verbalized understanding, questions were answered. The patient was discharged home in good condition. Referral to cardiac rehabilitation has been recommended and discussed with the patient prior to discharge. Referral has been made to the [facility] Outpatient Cardiac Rehabilitation Program. Last Labs: Lab Results Component Value Date WBC 8.1 02/07/2025 HGB 12.1 (L) 02/07/2025 HCT 35.6 (L) 02/07/2025 MCV 85.2 02/07/2025 PLT 155 02/07/2025 Lab Results Component Value Date NA 138 02/07/2025 K 4.4 02/07/2025 CL 106 02/07/2025 CO2 23 02/07/2025 BUN 19 02/07/2025 CREATININE 0.93 02/07/2025 GLUCOSE 156 (H) 02/07/2025 CALCIUM 8.3 (L) 02/07/2025 No results found for: CHLPL, CHOL No results found for: TRIG No results found for: HDL No results found for: LDLCALC Discharge Medications: Medication List START taking these medications aspirin 81 MG EC tablet Take 1 tablet (81 mg) by mouth daily. Start taking on: February 08, 2025 atorvastatin 40 MG tablet Commonly known as: Lipitor Take 1 tablet (40 mg) by mouth daily. CONTINUE taking these medications alpha tocopherol 1000 units capsule Commonly known as: Vitamin E cholecalciferol 25 MCG (1000 UT) capsule Commonly known as: Vitamin D-3 multivitamin tablet OCUTABS PO Where to Get Your Medications These medications were sent to [facility] #[id number] - [place], [place] - [address] [address] [place] [id number] atorvastatin 40 MG tablet Information about where to get these medications is not yet available Ask your nurse or doctor about these medications aspirin 81 MG EC tablet DIET: A low fat, low cholesterol, 2 gramsodium diet was discussed with the patient. Discharge to home Condition at Discharge: Stable, improved Final Primary Dx: Severe Symptomatic Aortic Stenosis Transfemoral TAVR Secondary Dx: BMI Classification: Overweight (BMI 25.0-29.9) Coronary Artery Disease- declined COMPLETE TAVR trial, initiated on statin/ASA Diet controlled diabetes mellitus Hyperlipidemia (LDL cholesterol 107) Follow up with [facility] one week, appt arranged If any questionscall [facility] [phone] Greater than 35 minutes spent on patient discharge including assessment/plan, education, and coordination of care Electronically signed by DONNY Dawson CNP Date: 02/07/2025 Cosigned by Michaela Siegel MD at 02/07/2025 7:45 PM EDT Associated attestation - Michaela Siegel MD - 02/07/2025 7:45 PM EDT I, Dr. Siegel, saw and evaluated the patient. I personally obtained the joseph and critical portions of the history and physical exam. I reviewed the chart and discussed the patient with the Nurse Practitioner. I agree with the Nurse Practitioner's medical decision making. Hospital Summary: Patient was admitted for elective transcatheter aortic valve replacement. he did well with this procedure. he is now POD1 s/p TF TAVR. he is back to his baseline activity with no symptoms. he will be discharged today on his current medication list. he will follow up in valve clinic in 1-2 weeks. documented in this encounter [facility] 02-07-2025 Note Attestation signed by Michaela Siegel MD at 02/07/2025 7:45 PM I, Dr. Siegel, saw and evaluated the patient. I personally obtained the joseph and critical portions of the history and physical exam. I reviewed the chart and discussed the patient with the Nurse Practitioner. I agree with the Nurse Practitioner's medical decision making. Hospital Summary: Patient was admitted for elective transcatheter aortic valve replacement. he did well with this procedure. he is now POD1 s/p TF TAVR. he is back to his baseline activity with no symptoms. he will be discharged today on his current medication list. he will follow up in valve clinic in 1-2 weeks. Name: Evelin Hernandez Date of : 1945 Date of Admission: 02/06/2025 Date of Discharge: 02/07/2025 Admitting physician: Michaela Siegel MD Discharge Attending: DONNY Dawson CNP, MD Primary Care Physician: DAYRON MACIAS MD Reason for Admission: Severe Symptomatic Aortic Stenosis Consultants: cardiac rehab HOSPITAL ADMISSION PROBLEM LIST: Patient Active Problem List Diagnosis Type 2 diabetes mellitus without complication, without long-term current use of insulin (HCC) Severe aortic stenosis Physical Exam Physical Exam Constitutional: Appearance: Normal appearance. HENT: Head: Normocephalic and atraumatic. Nose: Nose normal. Eyes: Conjunctiva/sclera: Conjunctivae normal. Pupils: Pupils are equal, round, and reactive to light. Cardiovascular: Rate and Rhythm: Normal rate and regular rhythm. Pulmonary: Effort: Pulmonary effort is normal. Breath sounds: Normal breath sounds. Abdominal: General: Bowel sounds are normal. Palpations: Abdomen is soft. Musculoskeletal: General: Normal range of motion. Cervical back: Normal range of motion and neck supple. Skin: General: Skin is warm and dry. Comments: Right wrist and groin soft without bleeding or hematoma Neurological: General: No focal deficit present. Mental Status: He is alert and oriented to person, place, and time. Psychiatric: Mood and Affect: Mood normal. Thought Content: Thought content normal. Procedures: Transfemoral transcatheter AVR with 26 mm Nissa S3 valve under moderate sedation Transthoracic echocardiogram HOSPITAL COURSE : The patient was admitted to the hospital for elective TAVR on 02/06/2025 . A 26 mm Nissa S3 valve was implanted. The patient returned to [facility] for recovery. Vital signs and labs were stable. There were no groin complications. The patient was ambulatory the evening of the procedure. Post procedure echocardiogram demonstrated : Left Ventricle: Left ventricle size is normal. Normal wall thickness. Normal left ventricular systolic function. EF by 2D Simpsons Biplane is 65%. Normal wall motion. Normal diastolic function. Right Ventricle: Right ventricle is mildly dilated. Normal systolic function. Aortic Valve: Aleman Nissa 3 Ultra bioprosthetic aortic valve that is well-seated with a size of 26 mm. AV mean gradient is 15 mmHg. No regurgitation. No stenosis. Normal prosthetic gradient. Patient education including SBE prophylaxis, activity, access site care, follow up appointments, and medications was provided. The patient verbalized understanding, questions were answered. The patient was discharged home in good condition. Referral to cardiac rehabilitation has been recommended and discussed with the patient prior to discharge. Referral has been made to the [facility] Outpatient Cardiac Rehabilitation Program. Last Labs: Lab Results Component Value Date WBC 8.1 02/07/2025 HGB 12.1 (L) 02/07/2025 HCT 35.6 (L) 02/07/2025 MCV 85.2 02/07/2025 PLT 155 02/07/2025 Lab Results Component Value Date NA 138 02/07/2025 K 4.4 02/07/2025 CL 106 02/07/2025 CO2 23 02/07/2025 BUN 19 02/07/2025 CREATININE 0.93 02/07/2025 GLUCOSE 156 (H) 02/07/2025 CALCIUM 8.3 (L) 02/07/2025 No results found for: CHLPL, CHOL No results found for: TRIG No results found for: HDL No results found for: LDLCALC Discharge Medications: Medication List START taking these medications aspirin 81 MG EC tablet Take 1 tablet (81 mg) by mouth daily. Start taking on: February 08, 2025 atorvastatin 40 MG tablet Commonly known as: Lipitor Take 1 tablet (40 mg) by mouth daily. CONTINUE taking these medications alpha tocopherol 1000 units capsule Commonly known as: Vitamin E cholecalciferol 25 MCG (1000 UT) capsule Commonly known as: Vitamin D-3 multivitamin tablet OCUTABS PO Where to Get Your Medications These medications were sent to [facility] #[id number] [place] [id number] [address] atorvastatin 40 MG tablet Infor (more content not included)... [facility] 02-07-2025 Note Formatting of this n ote might be different from the original. Care Management Progress Note Patient admitted to [facility] s/p TAVR 02/06. Discharge plan home independently with Spouse. Length of Stay (Days): 1 GMLOS: No GMLOS Documented [facility] 02-07-2025 Note Formatting of this n ote might be different from the original. Care Management Progress Note Patient admitted to [facility] s/p TAVR 02/06. Discharge plan home independently with Spouse. Length of Stay (Days): 1 GMLOS: No GMLOS Documented [facility] 02-07-2025 Note Care Management Prog ress Note Patient admitted to [facility] s/p TAVR 02/06. Discharge plan home independently with Spouse. Length of Stay (Days): 1 GMLOS: No GMLOS Documented [facility] 02-07-2025 Miscellaneous Notes Care Management Progress Note Patient admitted to [facility] s/p TAVR 02/06. Discharge plan home independently with Spouse. Length of Stay (Days): 1 GMLOS: No GMLOS Documented documented in this encounter [facility] 02-06-2025 Hospital Discharg e instructions Jakob Tinajero, COMPENSATION ADVISOR - SIGN MAINTENANCE - 02/06/2025 4:46 PM EDT - Please call the Heart Valve Clinic with any questions: [phone] -You will have have the following follow up appointments in the Heart Valve Clinic: one week post procedure, one month post procedure with echocardiogram, one year post procedure with echocardiogram. -Wash groin/wrist incision with soap and water, pat dry. Apply bandage for 5 days. If you have a chest incision, you will receive specific instructions from your surgeon regarding care of the incision. -Check incision every day. If you see any changes in the way it looks, call the Heart Valve Clinic at . Look for any of these problems: redness and warmth that does not go away, yellow or green drainage from the wound, fever and chills, numbness in your legs, pain that is getting worse. -It is normal to have a bruise or soft lump in the groin. This will get smaller and go away with time -Do not drive until after your first Heart Valve Clinic Appointment. -Do not lift, push, or pull anything weighing more than 5 lbs or more for one week if you had the procedure through your groin and 4 weeks if you had the procedure through the chest -We strongly encourage a regular exercise program such as cardiac rehabilitation once you have been cleared to resume normal activity. -Eating well is important for your recovery. Eat nutritious foods every day. Please follow a cardiac, 2 gram sodium diet. Please continue to follow any other dietary recommendations provided by your health care provider prior to your valve surgery. -From now on, tell your doctors and health care providers about your heart valve implantation (prosthetic heart valve ). -If you go to the emergency room or are admitted to the hospital during the first year after your procedure, please call the Heart Valve Clinic at -If you have major dental work or other invasive medical procedures (like surgery) you may need to take antibiotics before the dental work or the procedure. Please discuss with your health care provider. - You will need to take blood thinning medications (antiplatelet) after your valve procedure. Generally, this includes aspirin alone, unless you take blood thinning medications for another indication (warfarin, apixaban, rivaroxaban). If you take blood thinning medications, these are generally sufficient and aspirin will not be required unless otherwise specified. documented in this encounter [facility] 02-06-2025 Note Patient: Evelin Hernandez Procedure Summary Date: 02/06/25 Room / Location: [facility] Operating Room Anesthesia Start: 1440 Anesthesia Stop: 1610 Procedures: TRANSCATHETER AORTIC VALVE REPLACEMENT, TRANSTHORACIC ECHOCARDIOGRAM TRANSCATHETER AORTIC VALVE REPLACEMENT, TRANSTHORACIC ECHOCARDIOGRAM (Chest) Diagnosis: Severe aortic stenosis (Severe aortic stenosis) Surgeons: Michaela Siegel MD; Bienvenido Catalan MD Responsible Provider: Javier Tomas MD Anesthesia Type: TIVA ASA Status: 4 Anesthesia Type: TIVA Vitals Value Taken Time BP 110/74 02/06/25 1629 Temp 36.6 ?C (97.8 ?F) 02/06/25 1629 Pulse 66 02/06/25 1629 Resp 20 02/06/25 1629 SpO2 93 % 02/06/25 1629 Vitals shown include unfiled device data. Anesthesia Post Evaluation Patient location during evaluation: ICU Patient participation: complete - patient participated Level of consciousness: awake and alert Pain management: satisfactory to patient Airway patency: patent Dental Injury: no Cardiovascular status: acceptable, blood pressure returned to baseline and hemodynamically stable Respiratory status: acceptable and spontaneous ventilation Hydration status: euvolemic Nausea/Vomiting: controlled There were no known notable events for this encounter. Patient can be discharged once all PACU criteria has been met. [facility] 02-06-2025 Note Patient: Evelin Hernandez Procedure Summary Date: 02/06/25 Room / Location: [facility] Operating Room Anesthesia Start: 1440 Anesthesia Stop: 1610 Procedures: TRANSCATHETER AORTIC VALVE REPLACEMENT, TRANSTHORACIC ECHOCARDIOGRAM TRANSCATHETER AORTIC VALVE REPLACEMENT, TRANSTHORACIC ECHOCARDIOGRAM (Chest) Diagnosis: Severe aortic stenosis (Severe aortic stenosis) Surgeons: Michaela Siegel MD; Bienvenido Catalan MD Responsible Provider: Javier Tomas MD Anesthesia Type: TIVA ASA Status: 4 Anesthesia Type: TIVA Vitals Value Taken Time BP 110/74 02/06/25 1629 Temp 36.6 ?C (97.8 ?F) 02/06/25 1629 Pulse 66 02/06/25 1629 Resp 20 02/06/25 1629 SpO2 93 % 02/06/25 1629 Vitals shown include unfiled device data. Anesthesia Post Evaluation Patient location during evaluation: ICU Patient participation: complete - patient participated Level of consciousness: awake and alert Pain management: satisfactory to patient Multimodal analgesia pain management approach Airway patency: patent Two or more strategies used to mitigate risk of obstructive sleep apnea Cardiovascular status: acceptable and hemodynamically stable Respiratory status: acceptable Hydration status: acceptable There were no known notable events for this encounter. MIPS #430 PONV Patient did not receive an inhalational anesthetic (XX430) MIPS # 424 Perioperative Temperature Management Anesthesia time was less than 60 minutes (4256F) MIPS #477 Multimodal Pain Management Not emergent case MIPS #404 Anesthesiology Smoking Abstinence The patient is not a current smoker (e.g. cigarette, cigar, pipe, e-cigarette/vaping/marijuana) If no stop here (XX404) I completed my handoff to the receiving clinician during which we: 1. Identified the patient 2. Identified the responsible provider 3. Reviewed the pertinent medical history 4. Discussed the surgical course 5. Reviewed intra-op anesthesia management and issues during anesthesia 6. Set expectations for post-procedure period 7. Allowed opportunity for questions and acknowledgement of understanding. [facility] 02-06-2025 Note Arterial Line: Date/Time: 02/06/2025 3:12 PM An arterial line was placed Procedure performed using ultrasound guidance - Image permanently retained with wire or catheter in vein.in the Procedural for the following indication(s): continuous blood pressure monitoring and blood sampling needed. A 20 gauge (size), 1 and 3/4 inch (length), Arrow (type) catheter was placed, into the Right radial artery, secured by Tegaderm and tape. Events: patient tolerated procedure well with no complications. Staffing Performed: Other Other staff: Michaela Siegel MD [facility] 02-06-2025 Attending History and physical note H&P reviewed. The patient was examined and there are no changes to the H&P. Source Note - Trish Meyer APRN - SIGN MAINTENANCE - 02/03/2025 1:34 PM EDT Images from the original note were not included. Michaela Siegel MD Cardiology Severe aortic stenosis Dx Cardiac Valve Problem New Patient Reason for Visit Progress Notes Michaela Siegel MD (Physician) Cardiology Expand All Collapse All [facility] [place] [address] [facility] [address] Dept: [phone] Dept Visit type: New : 1945 Reason for Visit: Cardiac Valve Problem and New Patient (Heart Valve Clinic) Assessment and Plan 1. Severe aortic stenosis - Case Request Human Resources Professional: Transcatheter aortic valve replacement (TAVR) This is a very pleasant 79 y.o. male with severe and symptomatic aortic stenosis. he is in need of aortic valve replacement. Anatomy favorable for TAVR, will proceed with TAVR. This decision was made after multidisciplinary discussion, using a shared decision making strategy. CT surgery also saw patient to aide in discussion. We did also discuss what to do with his coronary lesion. This is in a small-medium sized OM2. I believe it would be reasonable to plan medical therapy for this (presuming symptoms improve after TAVR), or staged PCI. We could also consider enrolling in the COMPLETE TAVR trial of staged PCI vs medical management. It was a pleasure seeing your patient in the office today. Please do not hesitate to call me with any questions. Follow up for Recheck after TAVR. Subjective HPI Evelin Hernandez is a very pleasant 79 y.o. male who is here for evaluation of his aortic valve disease. his symptoms include progressive dyspnea on exertion. He has also had exertional lightheadedness, and actually several exertional syncopal events. his most recent echo shows severe aortic stenosis with mean gradient 57mmHg, normal EF. Cath showed an 80% lesion of OM2, appears chronic and stable. CT done today shows anatomy favorable for TAVR. Review of Systems Constitutional: Negative for activity change, chills, diaphoresis, fatigue and fever. HENT: Negative for nosebleeds and trouble swallowing. Eyes: Negative for discharge and visual disturbance. Respiratory: Negative for apnea, cough, chest tightness, shortness of breath and wheezing. Cardiovascular: Negative for chest pain, palpitations and leg swelling. Gastrointestinal: Negative for abdominal distention, abdominal pain, blood in stool, diarrhea, nausea and vomiting. Endocrine: Negative for cold intolerance and heat intolerance. Genitourinary: Negative for hematuria. Musculoskeletal: Negative for gait problem and myalgias. Skin: Negative for color change and rash. Neurological: Positive for syncope (on exertion). Negative for dizziness, seizures, facial asymmetry, speech difficulty, weakness, light-headedness, numbness and headaches. Hematological: Does not bruise/bleed easily. Psychiatric/Behavioral: Negative for dysphoric mood. Allergies No Known Allergies Current Medications Current Outpatient Medications: alpha tocopherol (Vitamin E) 1000 units capsule, Take 1,000 Units by mouth daily., Disp: , Rfl: cholecalciferol (Vitamin D-3) 25 MCG (1000 UT) capsule, Take 1,000 Units by mouth daily., Disp: , Rfl: Multiple Vitamin (multivitamin) tablet, Take 1 tablet by mouth daily., Disp: , Rfl: Multiple Vitamins-Minerals (OCUTABS PO), Take by mouth., Disp: , Rfl: No current facility-administered medications for this visit. Medical History Past Medical History: Diagnosis Date Diabetes mellitus (HCC) Severe aortic stenosis Social History Tobacco Use Smoking status: Never Smokeless tobacco: Never Substance Use Topics Alcohol use: Not on file Surgical History No past surgical history on file. Family History No family history on file. Objective Vitals Vitals: 01/31/25 1440 BP: 130/66 BP Location: Right arm Patient Position: Sitting BP Cuff Size: Adult Pulse: 78 SpO2: 94% Weight: 208 lb (94.3 kg) Height: 5' 10 (1.778 m) Physical Exam Constitutional: General: He is not in acute distress. Appearance: He is not diaphoretic. HENT: Head: Normocephalic. Nose: Nose normal. Mouth/Throat: Mouth: Mucous membranes are moist. Pharynx: No oropharyngeal exudate. Eyes: General: No scleral icterus. Right eye: No discharge. Left eye: No discharge. Neck: Thyroid: No thyromegaly. Vascular: No carotid bruit or JVD. Cardiovascular: Rate and Rhythm: Normal rate and regular rhythm. Pulses: Normal pulses. Heart sounds: Murmur heard. Systolic murmur is present with a grade of 3/6. Pulmonary: Effort: Pulmonary effort is normal. Breath sounds: Normal breath sounds. Abdominal: General: Bowel sounds are normal. There is no distension. Palpations: There is no hepatomegaly. Tenderness: There is no abdominal tenderness. Musculoskeletal: General: Normal range of motion. Cervical back: Normal range of motion. Right lower leg: No edema. Left lower leg: No edema. Skin: General: Skin is warm and dry. Neurological: Mental Status: He is oriented to person, place, and time. Psychiatric: Mood and Affect: Mood normal. Behavior: Behavior normal. Data Reviewed and Summarized No results found for: EFBP, PLVEF, LVEFPHYS, LVEF2D, EF Review of tests/labs done/ordered within my specialty: EKG in office: Review of tests/labs done/ordered outside my specialty: Independent interpretation of tests: I personally reviewed the images from Evelin Hernandez's most recent TTE, Cath, and CTA in the office today, to help with medical decision making. My interpretation is noted in the HPI section of this note. Michaela Siegel MD NYHA Class (1-4): II STS score: 2.3% 5 meter gait speed in seconds: 5 seconds, 5 seconds, 5 seconds Ao valve disease etiology (degenerative, rheumatic, endocarditis, other): degenerative Cosigned by Michaela Siegel MD at 02/06/2025 7:28 PM EDT [facility] [employer] Work Phone: 02-06-2025 Note H&P reviewed. The pa karishma was examined and there are no changes to the H&P. [facility] 02-06-2025 History and physical note H&P reviewed. The patient was examined and there are no changes to the H&P. Source Note - DONNY Alberts CNP - 02/03/2025 1:34 PM EDT Images from the original note were not included. Michaela Siegel MD Cardiology Severe aortic stenosis Dx Cardiac Valve Problem New Patient Reason for Visit Progress Notes Michaela Siegel MD (Physician) Cardiology Expand All [facility] All [facility] [address] [facility] [address] Dept: [phone] Dept Visit type: New : 1945 Reason for Visit: Cardiac Valve Problem and New Patient (Heart Valve Clinic) Assessment and Plan 1. Severe aortic stenosis - Case Request Human Resources Professional: Transcatheter aortic valve replacement (TAVR) This is a very pleasant 79 y.o. male with severe and symptomatic aortic stenosis. he is in need of aortic valve replacement. Anatomy favorable for TAVR, will proceed with TAVR. This decision was made after multidisciplinary discussion, using a shared decision making strategy. CT surgery also saw patient to aide in discussion. We did also discuss what to do with his coronary lesion. This is in a small-medium sized OM2. I believe it would be reasonable to plan medical therapy for this (presuming symptoms improve after TAVR), or staged PCI. We could also consider enrolling in the COMPLETE TAVR trial of staged PCI vs medical management. It was a pleasure seeing your patient in the office today. Please do not hesitate to call me with any questions. Follow up for Recheck after TAVR. Subjective HPI Evelin Hernandez is a very pleasant 79 y.o. male who is here for evaluation of his aortic valve disease. his symptoms include progressive dyspnea on exertion. He has also had exertional lightheadedness, and actually several exertional syncopal events. his most recent echo shows severe aortic stenosis with mean gradient 57mmHg, normal EF. Cath showed an 80% lesion of OM2, appears chronic and stable. CT done today shows anatomy favorable for TAVR. Review of Systems Constitutional: Negative for activity change, chills, diaphoresis, fatigue and fever. HENT: Negative for nosebleeds and trouble swallowing. Eyes: Negative for discharge and visual disturbance. Respiratory: Negative for apnea, cough, chest tightness, shortness of breath and wheezing. Cardiovascular: Negative for chest pain, palpitations and leg swelling. Gastrointestinal: Negative for abdominal distention, abdominal pain, blood in stool, diarrhea, nausea and vomiting. Endocrine: Negative for cold intolerance and heat intolerance. Genitourinary: Negative for hematuria. Musculoskeletal: Negative for gait problem and myalgias. Skin: Negative for color change and rash. Neurological: Positive for syncope (on exertion). Negative for dizziness, seizures, facial asymmetry, speech difficulty, weakness, light-headedness, numbness and headaches. Hematological: Does not bruise/bleed easily. Psychiatric/Behavioral: Negative for dysphoric mood. Allergies No Known Allergies Current Medications Current Outpatient Medications: alpha tocopherol (Vitamin E) 1000 units capsule, Take 1,000 Units by mouth daily., Disp: , Rfl: cholecalciferol (Vitamin D-3) 25 MCG (1000 UT) capsule, Take 1,000 Units by mouth daily., Disp: , Rfl: Multiple Vitamin (multivitamin) tablet, Take 1 tablet by mouth daily., Disp: , Rfl: Multiple Vitamins-Minerals (OCUTABS PO), Take by mouth., Disp: , Rfl: No current facility-administered medications for this visit. Medical History Past Medical History: Diagnosis Date Diabetes mellitus (HCC) Severe aortic stenosis Social History Tobacco Use Smoking status: Never Smokeless tobacco: Never Substance Use Topics Alcohol use: Not on file Surgical History No past surgical history on file. Family History No family history on file. Objective Vitals Vitals: 01/31/25 1440 BP: 130/66 BP Location: Right arm Patient Position: Sitting BP Cuff Size: Adult Pulse: 78 SpO2: 94% Weight: 208 lb (94.3 kg) Height: 5' 10 (1.778 m) Physical Exam Constitutional: General: He is not in acute distress. Appearance: He is not diaphoretic. HENT: Head: Normocephalic. Nose: Nose normal. Mouth/Throat: Mouth: Mucous membranes are moist. Pharynx: No oropharyngeal exudate. Eyes: General: No scleral icterus. Right eye: No discharge. Left eye: No discharge. Neck: Thyroid: No thyromegaly. Vascular: No carotid bruit or JVD. Cardiovascular: Rate and Rhythm: Normal rate and regular rhythm. Pulses: Normal pulses. Heart sounds: Murmur heard. Systolic murmur is present with a grade of 3/6. Pulmonary: Effort: Pulmonary effort is normal. Breath sounds: Normal breath sounds. Abdominal: General: Bowel sounds are normal. There is no distension. Palpations: There is no hepatomegaly. Tenderness: There is no abdominal tenderness. Musculoskeletal: General: Normal range of motion. Cervical back: Normal range of motion. Right lower leg: No edema. Left lower leg: No edema. Skin: General: Skin is warm and dry. Neurological: Mental Status: He is oriented to person, place, and time. Psychiatric: Mood and Affect: Mood normal. Behavior: Behavior normal. Data Reviewed and Summarized No results found for: EFBP, PLVEF, LVEFPHYS, LVEF2D, EF Review of tests/labs done/ordered within my specialty: EKG in office: Review of tests/labs done/ordered outside my specialty: Independent interpretation of tests: I personally reviewed the images from Evelin Hernandez's most recent TTE, Cath, and CTA in the office today, to help with medical decision making. My interpretation is noted in the HPI section of this note. Michaela Siegel MD NYHA Class (1-4): II STS score: 2.3% 5 meter gait speed in seconds: 5 seconds, 5 seconds, 5 seconds Ao valve disease etiology (degenerative, rheumatic, endocarditis, other): degenerative Cosigned by Michaela Siegel MD at 02/06/2025 7:28 PM EDT documented in this encounter [facility] 02-03-2025 Note Attestation signed by Michaela Siegel MD at 02/06/2025 7:28 PM I, Dr. Siegel, saw and evaluated the patient. I personally obtained the joseph and critical portions of the history and physical exam. I reviewed the chart and discussed the patient with the Nurse Practitioner. I agree with the Nurse Practitioner's medical decision making. I spoke with Evelin Hernandez this morning. he tells me that nothing has changed clinically since our last office visit. We will proceed with the planned procedure. Michaela Siegel MD Cardiology Severe aortic stenosis Dx Cardiac Valve Problem New Patient Reason for Visit Progress Notes Michaela Siegel MD (Physician) Cardiology Expand All Collapse All [facility] - [place] [address] [facility] [address] Dept: [phone] Dept Visit type: New : 1945 Reason for Visit: Cardiac Valve Problem and New Patient (Heart Valve Clinic) Assessment and Plan 1. Severe aortic stenosis - Case Request Human Resources Professional: Transcatheter aortic valve replacement (TAVR) This is a very pleasant 79 y.o. male with severe and symptomatic aortic stenosis. he is in need of aortic valve replacement. Anatomy favorable for TAVR, will proceed with TAVR. This decision was made after multidisciplinary discussion, using a shared decision making strategy. CT surgery also saw patient to aide in discussion. We did also discuss what to do with his coronary lesion. This is in a small-medium sized OM2. I believe it would be reasonable to plan medical therapy for this (presuming symptoms improve after TAVR), or staged PCI. We could also consider enrolling in the COMPLETE TAVR trial of staged PCI vs medical management. It was a pleasure seeing your patient in the office today. Please do not hesitate to call me with any questions. Follow up for Recheck after TAVR. Subjective HPI Evelin Hernandez is a very pleasant 79 y.o. male who is here for evaluation of his aortic valve disease. his symptoms include progressive dyspnea on exertion. He has also had exertional lightheadedness, and actually several exertional syncopal events. his most recent echo shows severe aortic stenosis with mean gradient 57mmHg, normal EF. Cath showed an 80% lesion of OM2, appears chronic and stable. CT done today shows anatomy favorable for TAVR. Review of Systems Constitutional: Negative for activity change, chills, diaphoresis, fatigue and fever. HENT: Negative for nosebleeds and trouble swallowing. Eyes: Negative for discharge and visual disturbance. Respiratory: Negative for apnea, cough, chest tightness, shortness of breath and wheezing. Cardiovascular: Negative for chest pain, palpitations and leg swelling. Gastrointestinal: Negative for abdominal distention, abdominal pain, blood in stool, diarrhea, nausea and vomiting. Endocrine: Negative for cold intolerance and heat intolerance. Genitourinary: Negative for hematuria. Musculoskeletal: Negative for gait problem and myalgias. Skin: Negative for color change and rash. Neurological: Positive for syncope (on exertion). Negative for dizziness, seizures, facial asymmetry, speech difficulty, weakness, light-headedness, numbness and headaches. Hematological: Does not bruise/bleed easily. Psychiatric/Behavioral: Negative for dysphoric mood. Allergies No Known Allergies Current Medications Current Outpatient Medications: alpha tocopherol (Vitamin E) 1000 units capsule, Take 1,000 Units by mouth daily., Disp: , Rfl: cholecalciferol (Vitamin D-3) 25 MCG (1000 UT) capsule, Take 1,000 Units by mouth daily., Disp: , Rfl: Multiple Vitamin (multivitamin) tablet, Take 1 tablet by mouth daily., Disp: , Rfl: Multiple Vitamins-Minerals (OCUTABS PO), Take by mouth., Disp: , Rfl: No current facility-administered medications for this visit. Medical History Past Medical History: Diagnosis Date Diabetes mellitus (HCC) Severe aortic stenosis Social History Tobacco Use Smoking status: Never Smokeless tobacco: Never Substance Use Topics Alcohol use: Not on file Surgical History No past surgical history on file. Family History No family history on file. Objective Vitals Vitals: 01/31/25 1440 BP: 130/66 BP Location: Right arm Patient Position: Sitting BP Cuff Size: Adult Pulse: 78 SpO2: 94% Weight: 208 lb (94.3 kg) Height: 5' 10 (1.778 m) Physical Exam Constitutional: General: He is not in acute distress. Appearance: He is not diaphoretic. HENT: Head: Normocephalic. Nose: Nose normal. Mouth/Throat: Mouth: Mucous membranes are moist. Pharynx: No oropharyngeal exudate. Eyes: General: No scleral icterus. Right eye: No discharge. Left eye: No discharge. Neck: Thyroid: No thyromegaly. Vascular: (more content not included)... [facility] 02-03-2025 Note Attestation signed by Michaela Siegel MD at 02/06/2025 7:28 PM I, Dr. Siegel, saw and evaluated the patient. I personally obtained the joseph and critical portions of the history and physical exam. I reviewed the chart and discussed the patient with the Nurse Practitioner. I agree with the Nurse Practitioner's medical decision making. I spoke with Evelin Hernandez this morning. he tells me that nothing has changed clinically since our last office visit. We will proceed with the planned procedure. Michaela Siegel MD Cardiology Severe aortic stenosis Dx Cardiac Valve Problem New Patient Reason for Visit Progress Notes Michaela Siegel MD (Physician) Cardiology Expand All Collapse All [facility] - [place] [address] [facility] [address] Dept: [phone] Dept Visit type: New : 1945 Reason for Visit: Cardiac Valve Problem and New Patient (Heart Valve Clinic) Assessment and Plan 1. Severe aortic stenosis - Case Request Human Resources Professional: Transcatheter aortic valve replacement (TAVR) This is a very pleasant 79 y.o. male with severe and symptomatic aortic stenosis. he is in need of aortic valve replacement. Anatomy favorable for TAVR, will proceed with TAVR. This decision was made after multidisciplinary discussion, using a shared decision making strategy. CT surgery also saw patient to aide in discussion. We did also discuss what to do with his coronary lesion. This is in a small-medium sized OM2. I believe it would be reasonable to plan medical therapy for this (presuming symptoms improve after TAVR), or staged PCI. We could also consider enrolling in the COMPLETE TAVR trial of staged PCI vs medical management. It was a pleasure seeing your patient in the office today. Please do not hesitate to call me with any questions. Follow up for Recheck after TAVR. Subjective HPI Evelin Hernandez is a very pleasant 79 y.o. male who is here for evaluation of his aortic valve disease. his symptoms include progressive dyspnea on exertion. He has also had exertional lightheadedness, and actually several exertional syncopal events. his most recent echo shows severe aortic stenosis with mean gradient 57mmHg, normal EF. Cath showed an 80% lesion of OM2, appears chronic and stable. CT done today shows anatomy favorable for TAVR. Review of Systems Constitutional: Negative for activity change, chills, diaphoresis, fatigue and fever. HENT: Negative for nosebleeds and trouble swallowing. Eyes: Negative for discharge and visual disturbance. Respiratory: Negative for apnea, cough, chest tightness, shortness of breath and wheezing. Cardiovascular: Negative for chest pain, palpitations and leg swelling. Gastrointestinal: Negative for abdominal distention, abdominal pain, blood in stool, diarrhea, nausea and vomiting. Endocrine: Negative for cold intolerance and heat intolerance. Genitourinary: Negative for hematuria. Musculoskeletal: Negative for gait problem and myalgias. Skin: Negative for color change and rash. Neurological: Positive for syncope (on exertion). Negative for dizziness, seizures, facial asymmetry, speech difficulty, weakness, light-headedness, numbness and headaches. Hematological: Does not bruise/bleed easily. Psychiatric/Behavioral: Negative for dysphoric mood. Allergies No Known Allergies Current Medications Current Outpatient Medications: alpha tocopherol (Vitamin E) 1000 units capsule, Take 1,000 Units by mouth daily., Disp: , Rfl: cholecalciferol (Vitamin D-3) 25 MCG (1000 UT) capsule, Take 1,000 Units by mouth daily., Disp: , Rfl: Multiple Vitamin (multivitamin) tablet, Take 1 tablet by mouth daily., Disp: , Rfl: Multiple Vitamins-Minerals (OCUTABS PO), Take by mouth., Disp: , Rfl: No current facility-administered medications for this visit. Medical History Past Medical History: Diagnosis Date Diabetes mellitus (HCC) Severe aortic stenosis Social History Tobacco Use Smoking status: Never Smokeless tobacco: Never Substance Use Topics Alcohol use: Not on file Surgical History No past surgical history on file. Family History No family history on file. Objective Vitals Vitals: 01/31/25 1440 BP: 130/66 BP Location: Right arm Patient Position: Sitting BP Cuff Size: Adult Pulse: 78 SpO2: 94% Weight: 208 lb (94.3 kg) Height: 5' 10 (1.778 m) Physical Exam Constitutional: General: He is not in acute distress. Appearance: He is not diaphoretic. HENT: Head: Normocephalic. Nose: Nose normal. Mouth/Throat: Mouth: Mucous membranes are moist. Pharynx: No oropharyngeal exudate. Eyes: General: No scleral icterus. Right eye: No discharge. Left eye: No discharge. Neck: Thyroid: No thyromegaly. Vascular: (more content not included)... [facility] 02-02-2025 Note Patient: Evelin Hernandez Procedure Information Date/Time: 02/06/25 1430 Procedures: TRANSCATHETER AORTIC VALVE REPLACEMENT, TRANSTHORACIC ECHOCARDIOGRAM TRANSCATHETER AORTIC VALVE REPLACEMENT, TRANSTHORACIC ECHOCARDIOGRAM (Chest) Location: [facility] Operating Room Surgeons: Michaela Siegel MD; Bienvenido Catalan MD Relevant Problems Cardio (+) Severe aortic stenosis Endo (+) Type 2 diabetes mellitus without complication, without long-term current use of insulin (HCC) Past Medical History: Past Medical History: No date: Diabetes mellitus (HCC) No date: Severe aortic stenosis Past Surgical History: No past surgical history on file. Social History: TOBACCO: reports that he has never smoked. He has never used smokeless tobacco. ETOH: has no history on file for alcohol use. Social History Substance and Sexual Activity Drug Use Never Family History: No family history on file. Screening: unknown Clinical information reviewed: Physical Exam Airway Mallampati: II TM distance: >3 FB Neck ROM: full Cardiovascular Dental Pulmonary Abdominal Anesthesia Plan patient is NPO appropriate Any family history or previous problems with anesthesia no ASA 4 TIVA Any family history or previous problems with anesthesia no The patient is not a current smoker. Patient did not smoke on day of procedure. Anesthetic plan and risks discussed with patient. [place] Screening Labs: No results found for: WBC, HGB, HCT, MCV, PLT No results found for: SODIUM, NA, POTASSIUM, K, CHLORIDE, CL, CO2, BUN, CREATININE, GLUCOSE, CALCIUM, PROT, BILIRUBINFL, ALKPHOS, AST, ALT, EGFR, GLOB No echocardiogram results found for the past 14 days No results found for this or any previous visit. Equipment Requests: Additional Equipment Requests Blood Equipment: warmer Vascular Equipment: arterial line kit, syringe pumps and single transducer [facility] 02-02-2025 Note Patient called valve clinic line. Verified procedure date and time with patient and . Patient asked if he was cleared to fly after procedure. Educated patient on one week follow up and addressing clearance at that time, but not to fly until cleared. Patient and verbalized understanding. [facility] 02-02-2025 Telephone encounter Note Patient called valve clinic line. Verified procedure date and time with patient and . Patient asked if he was cleared to fly after procedure. Educated patient on one week follow up and addressing clearance at that time, but not to fly until cleared. Patient and verbalized understanding. [facility] 02-02-2025 Note Left detailed messag e for patient reviewing upcoming procedure Abby Meyer APRN notified for prep for proc orders. Diagnosis: Aortic stenosis Procedure being done: TAVR Date/time of procedure: 02/06/25 2:30 pm Surgeon: Dr. Siegel 2nd surgeon: Dr. Catalan Admission type: To be admitted Anesthesia: MAC Completed: H&P/EKG/CTA/CXR/BMP/CBC Date completed: 01/31/25 Additional orders T&S morning of procedure [facility] 02-02-2025 Telephone encounter Note Left detailed message for patient reviewing upcoming procedure Abby Meyer APRN notified for prep for proc orders. Diagnosis: Aortic stenosis Procedure being done: TAVR Date/time of procedure: 02/06/25 2:30 pm Surgeon: Dr. Siegel 2nd surgeon: Dr. Catalan Admission type: To be admitted Anesthesia: MAC Completed: H&P/EKG/CTA/CXR/BMP/CBC Date completed: 01/31/25 Additional orders T&S morning of procedure [place] [facility] 01-31-2025 Note TAVR procedure, inst ructions reviewed with pt and . Patient scheduled for TAVR on 02/06/25 at 2:30 pm Will report to [facility] by 12:30 pm Can park in the [facility] Parking Deck or use [facility] parking at the [facility] entrance Plan on overnight stay in the hospital Will not be able to drive for 1 week after procedure Will receive moderate sedation through the IV, will be relaxed but awake during the procedure Nothing to eat or drink after midnight Instructed to take morning medications as prescribed with small sip of water EXCEPT to HOLD vitamins/supplements morning of surgery Will call with any questions/concerns Pre-op testing done 01/31/25 Patient/family verbalized understanding. [facility] 01-31-2025 Telephone encounter Note TAVR procedure, instructions reviewed with pt and . Patient scheduled for TAVR on 02/06/25 at 2:30 pm Will report to [facility] by 12:30 pm Can park in the [facility] or use [facility] Sur[facility] parking at the [facility] entrance Plan on overnight stay in the hospital Will not be able to drive for 1 week after procedure Will receive moderate sedation through the IV, will be relaxed but awake during the procedure Nothing to eat or drink after midnight Instructed to take morning medications as prescribed with small sip of water EXCEPT to HOLD vitamins/supplements morning of surgery Will call with any questions/concerns Pre-op testing done 01/31/25 Patient/family verbalized understanding. [facility] 01-31-2025 Note Dx: Procedure: TAVR Date/Time: 02/06/2025 at 2:30p Surgeon: PB/EE Location: [facility] Admission: TBD Anesthesia: MAC No auth req per Medicare. On both calendars and requested on [employer]. [facility] 01-31-2025 Telephone encounter Note Dx: Procedure: TAVR Date/Time: 02/06/2025 at 2:30p Surgeon: PB/EE Location: [facility] Admission: TBD Anesthesia: MAC No auth req per Medicare. On both calendars and requested on [employer]. [facility] 01-31-2025 History of Presen t illness Narrative Images from the original note were not included. [facility] Medical Group: Cardiothoracic Surgery Multidisciplinary Heart Valve Clinic Date: 01/31/25 Patient:Evelin Hernandez 1945 79 y.o. male [id number] Subjective: HPI: Evelin Hernandez [address] Manuel is being evaluated for aortic valve stenosis. Echocardiogram completed on 01/17/25 showed critical aortic valve stenosis with peak/mean gradients 102/57 mm Hg, ANNE MARIE 0.7 cm^2. Per note, patient began experiencing chest discomfort and syncopal episodes post exertion approximately 5 months ago. Patient presented to hospital after symptoms worsened, cardiac enzymes were negative, a stress test was performed which demonstrated no evidence of ischemia. An echocardiogram was performed on 01/17/25 which demonstrated normal LV size and function, LVEF 60%, severe aortic valve stenosis with mean gradient 57 mmHg. Patient followed up with cardiology who recommended heart cath, and on exam pt had harsh systolic murmur at left sternal border radiating to the carotids. Heart cath was performed on 01/20/25 and demonstrated severe aortic valve stenosis and single-vessel coronary disease involving the circumflex artery. He has had at least 4 syncopal episodes over the past several months, all associated with exertion. He denies chest pain with it. He also denies leg edema, orthopnea, or PND. He was recently told he is diabetic and checks his sugar regularly. It is often above 200-300, especially when he passes out. 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 Medical History No past medical history on file. Blood thinner - none Heart Catheterization 01/20/25 Transthoracic Echocardiogram 01/17/25 Review of Systems Constitutional: Negative for activity change, chills, diaphoresis, fatigue and fever. HENT: Negative for nosebleeds and trouble swallowing. Eyes: Negative for discharge and visual disturbance. Respiratory: Negative for apnea, cough, chest tightness, shortness of breath and wheezing. Cardiovascular: Negative for chest pain, palpitations and leg swelling. Gastrointestinal: Negative for abdominal distention, abdominal pain, blood in stool, diarrhea, nausea and vomiting. Endocrine: Negative for cold intolerance and heat intolerance. Genitourinary: Negative for hematuria. Musculoskeletal: Negative for gait problem and myalgias. Skin: Negative for color change and rash. Neurological: Positive for syncope (on exertion). Negative for dizziness, seizures, facial asymmetry, speech difficulty, weakness, light-headedness, numbness and headaches. Hematological: Does not bruise/bleed easily. Psychiatric/Behavioral: Negative for dysphoric mood. Allergies: Patient has no known allergies. Past Medical History: has a past medical history of Diabetes mellitus (HCC) and Severe aortic stenosis. Past Surgical History: has no past surgical history on file. Social History: reports that he has never smoked. He has never used smokeless tobacco. He reports that he does not use drugs. Family History: family history is not on file. Medications: Prior to Admission medications Medication Sig Start Date End Date Taking? Authorizing Provider alpha tocopherol (Vitamin E) 1000 units capsule Take 1,000 Units by mouth daily. Historical Provider, cholecalciferol (Vitamin D-3) 25 MCG (1000 UT) capsule Take 1,000 Units by mouth daily. Historical Provider, Multiple Vitamin (multivitamin) tablet Take 1 tablet by mouth daily. Historical Provider, Multiple Vitamins-Minerals (OCUTABS PO) Take by mouth. Historical Provider, Objective: BP 130/66 (BP Location: Right arm, Patient Position: Sitting, BP Cuff Size: Adult) Pulse 78 Ht 5' 10 (1.778 m) Wt 208 lb (94.3 kg) BMI 29.84 kg/m @[id number]@ Physical Exam General--AAO x 3 CV--regular rhythm with 4/6 systolic murmur Resp--CTAB Abd--soft, ND Ext--no edema Neuro--no gross deficits. Labs: Reviewed in EMR No results found for: WBC, HGB, HCT, MCV, PLT No results found for: NA, K, CL, CO2, BUN, CREATININE, GLUCOSE, CALCIUM Diagnostics: Reviewed in EMR Assessment/Plan: Severe aortic stenosis--warrants intervention Single vessel CAD--intervention is debatable Chronic diastolic congestive heart failure Recommendations: He will require aortic valve replacement, and we have settled on TAVR as the preferred method for him, mainly due to his age. We have offered to enroll him in the Complete TAVR trial for his coronary disease, though he may not opt for this. His procedure will be scheduled in the coming weeks. We will still discuss him at our valve conference. Patient consents to surgical bailout: [x] Yes [] No If No why: Juan F Nichole DO FACS Cardiothoracic Surgery documented in this encounter [employer] 01-31-2025 History of Presen t illness Narrative Images from the original note were not included. [facility] [place] [address] [facility] [address] Dept: [phone] Dept Visit type: New : 1945 Reason for Visit: Cardiac Valve Problem and New Patient (Heart Valve Clinic) Assessment and Plan 1. Severe aortic stenosis - Case Request Human Resources Professional: Transcatheter aortic valve replacement (TAVR) This is a very pleasant 79 y.o. male with severe and symptomatic aortic stenosis. he is in need of aortic valve replacement. Anatomy favorable for TAVR, will proceed with TAVR. This decision was made after multidisciplinary discussion, using a shared decision making strategy. CT surgery also saw patient to aide in discussion. We did also discuss what to do with his coronary lesion. This is in a small-medium sized OM2. I believe it would be reasonable to plan medical therapy for this (presuming symptoms improve after TAVR), or staged PCI. We could also consider enrolling in the COMPLETE TAVR trial of staged PCI vs medical management. It was a pleasure seeing your patient in the office today. Please do not hesitate to call me with any questions. Follow up for Recheck after TAVR. Subjective HPI Evelin Hernandez is a very pleasant 79 y.o. male who is here for evaluation of his aortic valve disease. his symptoms include progressive dyspnea on exertion. He has also had exertional lightheadedness, and actually several exertional syncopal events. his most recent echo shows severe aortic stenosis with mean gradient 57mmHg, normal EF. Cath showed an 80% lesion of OM2, appears chronic and stable. CT done today shows anatomy favorable for TAVR. Review of Systems Constitutional: Negative for activity change, chills, diaphoresis, fatigue and fever. HENT: Negative for nosebleeds and trouble swallowing. Eyes: Negative for discharge and visual disturbance. Respiratory: Negative for apnea, cough, chest tightness, shortness of breath and wheezing. Cardiovascular: Negative for chest pain, palpitations and leg swelling. Gastrointestinal: Negative for abdominal distention, abdominal pain, blood in stool, diarrhea, nausea and vomiting. Endocrine: Negative for cold intolerance and heat intolerance. Genitourinary: Negative for hematuria. Musculoskeletal: Negative for gait problem and myalgias. Skin: Negative for color change and rash. Neurological: Positive for syncope (on exertion). Negative for dizziness, seizures, facial asymmetry, speech difficulty, weakness, light-headedness, numbness and headaches. Hematological: Does not bruise/bleed easily. Psychiatric/Behavioral: Negative for dysphoric mood. No Known Allergies Current Outpatient Medications: alpha tocopherol (Vitamin E) 1000 units capsule, Take 1,000 Units by mouth daily., Disp: , Rfl: cholecalciferol (Vitamin D-3) 25 MCG (1000 UT) capsule, Take 1,000 Units by mouth daily., Disp: , Rfl: Multiple Vitamin (multivitamin) tablet, Take 1 tablet by mouth daily., Disp: , Rfl: Multiple Vitamins-Minerals (OCUTABS PO), Take by mouth., Disp: , Rfl: No current facility-administered medications for this visit. Past Medical History: Diagnosis Date Diabetes mellitus (HCC) Severe aortic stenosis Social History Tobacco Use Smoking status: Never Smokeless tobacco: Never Substance Use Topics Alcohol use: Not on file No past surgical history on file. No family history on file. Objective Vitals: 01/31/25 1440 BP: 130/66 BP Location: Right arm Patient Position: Sitting BP Cuff Size: Adult Pulse: 78 SpO2: 94% Weight: 208 lb (94.3 kg) Height: 5' 10 (1.778 m) Physical Exam Constitutional: General: He is not in acute distress. Appearance: He is not diaphoretic. HENT: Head: Normocephalic. Nose: Nose normal. Mouth/Throat: Mouth: Mucous membranes are moist. Pharynx: No oropharyngeal exudate. Eyes: General: No scleral icterus. Right eye: No discharge. Left eye: No discharge. Neck: Thyroid: No thyromegaly. Vascular: No carotid bruit or JVD. Cardiovascular: Rate and Rhythm: Normal rate and regular rhythm. Pulses: Normal pulses. Heart sounds: Murmur heard. Systolic murmur is present with a grade of 3/6. Pulmonary: Effort: Pulmonary effort is normal. Breath sounds: Normal breath sounds. Abdominal: General: Bowel sounds are normal. There is no distension. Palpations: There is no hepatomegaly. Tenderness: There is no abdominal tenderness. Musculoskeletal: General: Normal range of motion. Cervical back: Normal range of motion. Right lower leg: No edema. Left lower leg: No edema. Skin: General: Skin is warm and dry. Neurological: Mental Status: He is oriented to person, place, and time. Psychiatric: Mood and Affect: Mood normal. Behavior: Behavior normal. Data Reviewed and Summarized No results found for: EFBP, PLVEF, LVEFPHYS, LVEF2D, EF Review of tests/labs done/ordered within my specialty: EKG in office: Review of tests/labs done/ordered outside my specialty: Independent interpretation of tests: I personally reviewed the images from Evelin Hernandez's most recent TTE, Cath, and CTA in the office today, to help with medical decision making. My interpretation is noted in the HPI section of this note. Michaela Siegel MD NYHA Class (1-4): II STS score: 2.3% 5 meter gait speed in seconds: 5 seconds, 5 seconds, 5 seconds Ao valve disease etiology (degenerative, rheumatic, endocarditis, other): degenerative documented in this encounter [facility] 01-30-2025 Telephone encounter Note Patient returned call and agreed to schedule CTA TAVR for 01/30 at 1 pm. Reviewed prep instructions, BMP completed 01/16/25 in media. Verbalized understanding. [facility] 01-30-2025 Miscellaneous Notes Patient returned call and agreed to schedule CTA TAVR for 01/30 at 1 pm. Reviewed prep instructions, BMP completed 01/16/25 in media. Verbalized understanding. Left message for patient to consider scheduled CTA TAVR 01/31 at 1pm. Will await return call Addended by: JAKOB TINAJERO on: 01/30/2025 11:14 AM Modules accepted: Orders I called Dr Jackson's office and she is pushing the echo images to PACS Addended by: DANNA SYED on: 01/25/2025 04:55 PM Modules accepted: Orders Chart reviewed, patient coming to valve clinic 01/[address] Jackson for critical aortic stenosis. Echo and cath completed. Pended CTA order, COMPENSATION ADVISOR to sign. Will call patient to schedule same day if agreeable. BMP completed 01/17/25. ASSISTANT COMMUNITY DIRECTOR packet mailed and good directions given. Yellow chart made. Patient referred to Valve Clinic from Dr Jackson. Records scanned under Media. He is scheduled for 01/31/25 at 2:00p with PB/MC and I will mail ASSISTANT COMMUNITY DIRECTOR packet and make chart. documented in this encounter [facility] [employer] 01-30-2025 Telephone encounter Note Left message for patient to consider scheduled CTA TAVR 01/31 at 1pm. Will await return call [facility] [employer] 01-30-2025 Note Addended by: JAKOB TINAJERO on: 01/30/2025 11:14 AM Modules accepted: Orders [facility] [employer] 01-30-2025 Note Addended by: JAKOB TINAJERO on: 01/30/2025 11:14 AM Modules accepted: Orders [facility] 01-30-2025 Note Addended by: JAKOB TINAJERO on: 01/30/2025 11:14 AM Modules accepted: Orders [facility] 01-27-2025 History of Presen t illness Narrative Images from the original note were not included. Evelin Hernandez 79 [address] Jackson is being evaluated for aortic valve stenosis. Echocardiogram completed on 01/17/25 showed critical aortic valve stenosis with peak/mean gradients 102/57 mm Hg, ANNE MARIE 0.7 cm^2. Per note, patient began experiencing chest discomfort and syncopal episodes post exertion approximately 5 months ago. Patient presented to hospital after symptoms worsened, cardiac enzymes were negative, a stress test was performed which demonstrated no evidence of ischemia. An echocardiogram was performed on 01/17/25 which demonstrated normal LV size and function, LVEF 60%, severe aortic valve stenosis with mean gradient 57 mmHg. Patient followed up with cardiology who recommended heart cath, and on exam pt had harsh systolic murmur at left sternal border radiating to the carotids. Heart cath was performed on 01/20/25 and demonstrated severe aortic valve stenosis and single-vessel coronary disease involving the circumflex artery. No past medical history on file. Blood thinner - none Heart Catheterization 01/20/25 Transthoracic Echocardiogram 01/17/25 documented in this encounter [facility] 01-27-2025 Telephone encounter Note I called Dr Jackson's office and she is pushing the echo images to PACS [facility] 01-27-2025 Miscellaneous Notes I called Dr Jackson's office and she is pushing the echo images to PACS Addended by: DANNA SYED on: 01/25/2025 04:55 PM Modules accepted: Orders Chart reviewed, patient coming to valve clinic 01/[address] Jackson for critical aortic stenosis. Echo and cath completed. Pended CTA order, COMPENSATION ADVISOR to sign. Will call patient to schedule same day if agreeable. BMP completed 01/17/25. ASSISTANT COMMUNITY DIRECTOR packet mailed and good directions given. Yellow chart made. Patient referred to Valve Clinic from Dr Jackson. Records scanned under Media. He is scheduled for 01/31/25 at 2:00p with PB/MC and I will mail ASSISTANT COMMUNITY DIRECTOR packet and make chart. documented in this encounter [facility] 01-25-2025 Note Addended by: DANNA SYED on: 01/25/2025 04:55 PM Modules accepted: Orders [facility] 01-25-2025 Note Addended by: DANNA SYED on: 01/25/2025 04:55 PM Modules accepted: Orders [facility] 01-25-2025 Note Addended by: DANNA SYED on: 01/25/2025 04:55 PM Modules accepted: Orders [facility] 01-25-2025 Note Addended by: DANNA SYED on: 01/25/2025 04:55 PM Modules accepted: Orders [facility] 01-25-2025 Note Addended by: DANNA SYED on: 01/25/2025 04:55 PM Modules accepted: Orders [facility] 01-25-2025 Miscellaneous Notes Addended by: DANNA SYED on: 01/25/2025 04:55 PM Modules accepted: Orders Chart reviewed, patient coming to valve clinic 01/[address] Jackson for critical aortic stenosis. Echo and cath completed. Pended CTA order, COMPENSATION ADVISOR to sign. Will call patient to schedule same day if agreeable. BMP completed 01/17/25. ASSISTANT COMMUNITY DIRECTOR packet mailed and good directions given. Yellow chart made. Patient referred to Valve Clinic from Dr Jackson. Records scanned under Media. He is scheduled for 01/31/25 at 2:00p with PB/MC and I will mail ASSISTANT COMMUNITY DIRECTOR packet and make chart. documented in this encounter [facility] 01-25-2025 Telephone encounter Note Chart reviewed, patient coming to valve clinic 01/[address] Jackson for critical aortic stenosis. Echo and cath completed. Pended CTA order, COMPENSATION ADVISOR to sign. Will call patient to schedule same day if agreeable. BMP completed 01/17/25. [facility] 01-25-2025 Telephone encounter Note ASSISTANT COMMUNITY DIRECTOR packet mailed and good directions given. Yellow chart made. [facility] 01-25-2025 Telephone encounter Note Patient referred to Valve Clinic from Dr Jackson. Records scanned under Media. He is scheduled for 01/31/25 at 2:00p with PB/MC and I will mail ASSISTANT COMMUNITY DIRECTOR packet and make chart. [facility] 01-17-2025 Consult note [facility] 01-17-2025 Discharge summary [facility] 01-17-2025 Note [facility] Medical Records Department [address] [place] [address] Discharge Summary 01/17/25 1511 MR#: [id number] Acct: [id number] Name: EVELIN HERNANDEZ Rep #: [id number] : 1945 79 From: Lele Anderson MD PCP: Dr. Dayron Macias MD Status:ADM IN Location: [place] [address] Providers Date of Admission: 01/16/25 Date of Discharge: 01/17/25 Primary Care Physician: Dr. Dayron Macias MD Reason For Visit: AORTIC STENOSIS Diagnosis Discharge Diagnosis (1) Recurrent syncope: Status: Acute Code(s): R55 - Syncope and collapse Plan Patient is a 79-year-old gentleman admitted with multiple syncopal episode with chest pain 1. Syncopal episode secondary to severe aortic stenosis ??? Patient has been admitted to a monitored bed for continuous telemetry. As part of his management 2D echo was ordered and every shift orthostatic vitals obtained ??? 2D echo obtained did show Normal LV size. Left ventricular systolic function is normal. The left ventricular ejection fraction is 60 %. Moderate focal aortic valve calcification. Mean aortic valve gradient 57 mmHg. Severe aortic stenosis. ???Plan is for patient to follow-up with cardiology on 01/18/2025 2. Chest pain ??? Initial cardiac enzymes came back unremarkable. Ordered nuclear stress test as part of patient's evaluation ??? Nuclear stress test did demonstrate Normal exercise myocardial perfusion stress test at a moderate workload EKG changes noted suggestive of ischemia Preserved ejection fraction. 3. Mild vascular congestion ??? Found on checks x-ray echo has been ordered patient being monitored with strict input and output Daily weight 4. Diabetes mellitus type II -patient's oral hypoglycemics held. Placed on long acting insulin, Accu-Cheks a.c. and at bedtime and covered with sliding scale insulin 5. DVT prophylaxis ??? On enoxaparin Time spent in the patient's overall evaluation,decision-making process, review of diagnostic data, adjustment of management, discussion with other providers, nursing nursing and ancillary staff involved in patient's care documentation, 38 Minutes Medications at Discharge Home Medications multivitamin 1 tab PO DAILY 08/17/18 vitamin E (dl, acetate) 450 mg (1,000 unit) capsule 2,000 unit PO DAILY 08/19/18 triamcinolone acetonide 0.1 % topical cream 1 applic topical TID PRN rash 02/20/21 biotin 2,500 mcg capsule 5 mg PO DAILY 12/07/24 cholecalciferol (vitamin D3) 25 mcg (1,000 unit) tablet 400 unit PO DAILY 12/07/24 vitamin A-vitamin C-vit E-min tablet (Ocutabs tablet) 2 tab PO DAILY 01/16/25 Physical Exam Narrative GENERAL: cooperative HEENT: Atraumatic; normocephalic EYES; Anicteric, Normal Conjunctiva NECK; supple, normal thyroid, RESPIRATORY: Diminished to auscultation CARDIOVASCULAR: Regular S1 S2, systolic murmur GI: soft, normoactive bowel sounds, : No Renal angle tenderness; EXTREMITIES: No edema, no clubbing, MUSCULOSKELETAL: no muscle wasting NEURO: Awake; no lateralizing signs. SKIN: No Rash PSYCH; Flat affect Weight / BMI Weight Weight: 92.7 kg Body Mass Index (BMI) 28.5 ABG / Lab / Microbiology Data 01/17/25 05:34 01/17/25 05:34 Laboratory: Laboratory Results - last 24 hr 01/16/25 13:25: NT pro BNP II 393 01/16/25 16:01: Troponin T Hi Sens 2 Hr 15 01/16/25 16:58: POC Glucose 102 01/16/25 22:55: Troponin T Hi Sens 4Hr 15 01/17/25 05:34: WBC 5.5, RBC 4.10 L, Hgb 12.0 L, Hct 35.4 L, MCV 86.3, MCH 29.3, MCHC 33.9, RDW Std Deviation 38.6, RDW Coeff of Sly 12.2, Plt Count 188, MPV 10.3, Immature Gran % (Auto) 0.200, Neut % (Auto) 70.2 H, Lymph % (Auto) 17.1 L, [place]berg % (Auto) 9.1, Eos % (Auto) 2.9, Baso % (Auto) 0.5, Absolute Neuts (auto) 3.9, Absolute Lymphs (auto) 0.94, Nucleated RBC % 0, PT 13.7, INR 1.0, Sodium 139, Potassium 4.0, Chloride 105, Carbon Dioxide 22.4, Anion Gap 12, BUN 22 H, Creatinine 0.80, Estim Creat Clear Calc 85.65, Est GFR (MDRD) Non-Af 90, BUN/Creatinine Ratio 27.7 H, Glucose 152 H, Hemoglobin A1c 7.6, Calcium 9.0, Magnesium 1.9, Triglycerides 99, Cholesterol 164, LDL Cholesterol, Calc 107, VLDL Cholesterol 20, HDL Cholesterol 37 L, Cholesterol/HDL Ratio 4.43, TSH 2.020 01/17/25 06:33: POC Glucose 157 H 01/17/25 12:23: POC Glucose 171 H Radiography Diagnostic Testing: Radiology Impression Echocardiogram 01/16/25 16:13 Interpretation Summary Normal LV size. Left ventricular systolic function is normal. The left ventricular ejection fraction is 60 %. Moderate focal aortic valve calcification. Mean aortic valve gradient 57 mmHg. Severe aortic stenosis. Ordering Physician: Lucia Matos Referring Physician: DAYRON MACIAS Performed By: Jenise Soria RDCS Electronically signed by: Felicity Martinez (more content not included)... [facility] 01-17-2025 Progress note Note Date/Time January 17, 2025 9:53 am [facility] Medical Records Department [address] [place] [address] Progress Note - Hospitalist 01/17/25 0756 MR#: [id number] Acct: [id number] Name: EVELIN HERNANDEZ Rep #:[id number] : 1945 79 From: Lele Anderson MD PCP: Dr. Dayron Macias MD Status:ADM I N Location: [place] [address] Reason for Visit Reason for Visit: Diagnoses Syncope and collapse (01/16/25) Subjective Subjective Patient is a 79-year-old gentleman admitted with multiple syncopal episode with chest pain Objective Data Objective Data Vital Signs: Vital Signs Temp Pulse Resp BP Pulse Ox O2 Del Method 97.4 F L 60 13 133/62 H 98 Room Air 01/17/25 07:52 01/17/25 07:52 01/17/25 07:52 01/17/25 07:52 01/17/25 07:52 01/17/25 07:52 Oxygen Delivery Method Room Air Weight: 92.7 kg Body Mass Index (BMI) 28.5 Lab / Micro Data 01/17/25 05:34 01/17/25 05:34 Labs: Laboratory Results - last 24 hr 01/16/25 13:25: NT pro BNP II 393 01/16/25 13:40: WBC 5.6, RBC 4.23 L, Hgb 12.6 L, Hct 36.7 L, MCV 86.8, MCH 29.8,MCHC 34.3, RDW Std Deviation 38.4, RDW Coeff of Sly 12.1, Plt Count 182, MPV 10.1, Immature Gran % (Auto) 0.400, Neut % (Auto) 71.5 H, Lymph % (Auto) 17.8 L,Bamberg % (Auto) 8.0, Eos % (Auto) 1.6, Baso % (Auto) 0.7, Absolute Neuts (auto) 4.0, Absolute Lymphs (auto) 1.00, Nucleated RBC % 0, Sodium 138, Potassium 4.0, Chloride 104, Carbon Dioxide 25.3, Anion Gap 9, BUN 20 H, Creatinine 0.92, EstimCreat Clear Calc 73.75, Est GFR (MDRD) Non-Af 85, BUN/Creatinine Ratio 21.8 H, Glucose 136 H, Calcium 9.0, Troponin T High Sens 15 01/16/25 16:01: Troponin T Hi Sens 2 Hr 15 01/16/25 16:58: POC Glucose 102 01/16/25 22:55: Troponin T Hi Sens 4Hr 15 01/17/25 05:34: WBC 5.5, RBC 4.10 L, Hgb 12.0 L, Hct 35.4 L, MCV 86.3, MCH 29.3,MCHC 33.9, RDW Std Deviation 38.6, RDW Coeff of Sly 12.2, Plt Count 188, MPV 10.3, Immature Gran % (Auto) 0.200, Neut % (Auto) 70.2 H, Lymph % (Auto) 17.1 L,Bamberg % (Auto) 9.1, Eos % (Auto) 2.9, Baso % (Auto) 0.5, Absolute Neuts (auto) 3.9, Absolute Lymphs (auto) 0.94, Nucleated RBC % 0, PT 13.7, INR 1.0, Sodium 139, Potassium 4.0, Chloride 105, Carbon Dioxide 22.4, Anion Gap 12, BUN 22 H, Creatinine 0.80, Estim Creat Clear Calc 85.65, Est GFR (MDRD) Non-Af 90, BUN/Creatinine Ratio 27.7 H, Glucose 152 H, Hemoglobin A1c 7.6, Calcium 9.0, Magnesium 1.9, Triglycerides 99, Cholesterol 164, LDL Cholesterol, Calc 107, VLDL Cholesterol 20, HDL Cholesterol 37 L, Cholesterol/HDL Ratio 4.43, TSH 2.020 01/17/25 06:33: POC Glucose 157 H Radiography Diagnostic Testing: Radiology Impression Chest X-Ray 01/16/25 13:40 IMPRESSION: Vascular congestion and mild CHF. Reading Location: [place] [address] Physical Exam Narrative GENERAL: cooperative HEENT: Atraumatic; normocephalic EYES; Anicteric, Normal Conjunctiva NECK; supple, normal thyroid, RESPIRATORY: Diminished to auscultation CARDIOVASCULAR: Regular S1 S2, GI: soft, normoactive bowel sounds, : No Renal angle tenderness; EXTREMITIES: No edema, no clubbing, MUSCULOSKELETAL: no muscle wasting NEURO: Awake; no lateralizing signs. SKIN: No Rash PSYCH; Flat affect Assessment & Plan Assessment/Plan (1) Recurrent syncope: PLAN: Plan Patient is a 79-year-old gentleman admitted with multiple syncopal episode with chest pain 1. Syncopal episode ? Patient has been admitted to a monitored bed for continuous telemetry. As part of his management 2D echo was ordered and every shift orthostatic vitals obtained 2. Chest pain ? Initial cardiac enzymes came back unremarkable. Ordered nuclear stress test as part of patient's evaluation 3. Mild vascular congestion ? Found on checks x-ray echo has been ordered patient being monitored with strict input and output Daily weight 4. Diabetes mellitus type II -patient's oral hypoglycemics held. Placed on long acting insulin, Accu-Cheks a.c. and at bedtime and covered with sliding scale insulin 5. DVT prophylaxis ? On enoxaparin Time spent in the patient's overall evaluation,decision-making process, review of diagnostic data, adjustment of management, discussion with other providers, nursing nursing and ancillary staff involved in patient's care documentation, 38Minutes Charges/Coding Visit Charges Inpatient E&M: 73749 Subs Hosp L2 01/17/25 0953 <Electronically signed by Lele Anderson MD> Cosigner Signature (if applicable): CC: ~ Signed [facility] Work Phone: 1(148) 705-706704-01-2025 Progress note [facility] Medical Records Department [address] [place] [address] Progress Note - Hospitalist 01/17/25 0756 MR#: [id number] Acct: [id number] Name: EVELIN HERNANDEZ Rep #:[id number] : 1945 79 From: Lele Anderson MD PCP: Dr. Dayron Macias MD Status:ADM I N Location: [place] [address] Reason for Visit Reason for Visit: Diagnoses Syncope and collapse (01/16/25) Subjective Subjective Patient is a 79-year-old gentleman admitted with multiple syncopal episode with chest pain Objective Data Objective Data Vital Signs: Vital Signs Temp Pulse Resp BP Pulse Ox O2 Del Method 97.4 F L 60 13 133/62 H 98 Room Air 01/17/25 07:52 01/17/25 07:52 01/17/25 07:52 01/17/25 07:52 01/17/25 07:52 01/17/25 07:52 Oxygen Delivery Method Room Air Weight: 92.7 kg Body Mass Index (BMI) 28.5 Lab / Micro Data 01/17/25 05:34 01/17/25 05:34 Labs: Laboratory Results - last 24 hr 01/16/25 13:25: NT pro BNP II 393 01/16/25 13:40: WBC 5.6, RBC 4.23 L, Hgb 12.6 L, Hct 36.7 L, MCV 86.8, MCH 29.8,MCHC 34.3, RDW Std Deviation 38.4, RDW Coeff of Sly 12.1, Plt Count 182, MPV 10.1, Immature Gran % (Auto) 0.400, Neut %(Auto) 71.5 H, Lymph % (Auto) 17.8 L,Bamberg % (Auto) 8.0, Eos % (Auto) 1.6, Baso % (Auto) 0.7, Absolute Neuts (auto) 4.0, Absolute Lymphs (auto) 1.00, Nucleated RBC % 0, Sodium 138, Potassium 4.0, Chloride 104, Carbon Dioxide 25.3, Anion Gap 9, BUN 20 H, Creatinine 0.92, EstimCreat Clear Calc 73.75, Est GFR (MDRD) Non-Af 85, BUN/Creatinine Ratio 21.8 H, Glucose 136 H, Calcium 9.0, Troponin T High Sens 15 01/16/25 16:01: Troponin T Hi Sens 2 Hr 15 01/16/25 16:58: POC Glucose 102 01/16/25 22:55: Troponin T Hi Sens 4Hr 15 01/17/25 05:34: WBC 5.5, RBC 4.10 L, Hgb 12.0 L, Hct 35.4 L, MCV 86.3, MCH 29.3,MCHC 33.9, RDW Std Deviation 38.6, RDW Coeff of Sly 12.2, Plt Count 188, MPV 10.3, Immature Gran % (Auto) 0.200, Neut %(Auto) 70.2 H, Lymph % (Auto) 17.1 L,Bamberg % (Auto) 9.1, Eos % (Auto) 2.9, Baso % (Auto) 0.5, Absolute Neuts (auto) 3.9, Absolute Lymphs (auto) 0.94, Nucleated RBC % 0, PT 13.7, INR 1.0, Sodium 139, Potassium 4.0, Chloride 105, Carbon Dioxide 22.4, Anion Gap 12, BUN 22 H, Creatinine 0.80, Estim Creat Clear Calc 85.65, Est GFR (MDRD) Non-Af 90, BUN/Creatinine Ratio 27.7 H, Glucose 152 H, [id number] 7.6, Calcium 9.0, Magnesium 1.9, Triglycerides 99, Cholesterol 164, LDL Cholesterol, Calc 107, V LDL Cholesterol 20, HDL Cholesterol 37 L, Cholesterol/HDL Ratio 4.43, TSH 2.020 01/17/25 06:33: POC Glucose 157 H Radiography Diagnostic Testing: Radiology Impression Chest X-Ray 01/16/25 13:40 IMPRESSION: Vascular congestion and mild CHF. Reading Location: [place] [address] Physical Exam Narrative GENERAL: cooperative HEENT: Atraumatic; normocephalic EYES; Anicteric, Normal Conjunctiva NECK; supple, normal thyroid, RESPIRATORY: Diminished to auscultation CARDIOVASCULAR: Regular S1 S2, GI: soft, normoactive bowel sounds, : No Renal angle tenderness; EXTREMITIES: No edema, no clubbing, MUSCULOSKELETAL: no muscle wasting NEURO: Awake; no lateralizing signs. SKIN: No Rash PSYCH; Flat affect Assessment & Plan Assessment/Plan (1) Recurrent syncope: PLAN: Plan Patient is a 79-year-old gentleman admitted with multiple syncopal episode with chest pain 1. Syncopal episode ? Patient has been admitted to a monitored bed for continuous telemetry. As part of his management 2D echo was ordered and every shift orthostatic vitals obtained 2. Chest pain ? Initial cardiac enzymes came back unremarkable. Ordered nuclear stress test as part of patient's evaluation 3. Mild vascular congestion ? Found on checks x-ray echo has been ordered patient being monitored with strict input and output Daily weight 4. Diabetes mellitus type II -patient's oral hypoglycemics held. Placed on long acting insulin, Accu-Cheks a.c. and at bedtime and covered with sliding scale insulin 5. DVT prophylaxis ? On enoxaparin Time spent in the patient's overall evaluation,decision-making process, review of diagnostic data, adjustment of management, discussion with other providers, nursing nursing and ancillary staff involved in patient's care documentation, 38Minutes Charges/Coding Visit Charges Inpatient E&M: 84864 Subs Hosp L2 01/17/25 0953 Cosigner Signature (if applicable): CC: ~ Signed [facility]03-31-2025 Discharge summary Author Samantha Ramos [facility] Note Date/Time January 16, 2025 4:3 3pm [facility] System Medical Records Department [address] [place] [address] Emergency Department Summary 01/16/25 MR#: [id number] Acct: [id number] Name: EVELIN HERNANDEZ Rep #:[id number] : 1945 79 From: Samantha FOOTE PCP: Dr. Dayron Macias MD Status:ADM I N Location: [place] [address] HPI <QAMAR Sy - Last Filed: 01/16/25 16:33> History of Present Illness Chief Complaint: Syncope Narrative Narrative: Patient presenting today due to multiple syncopal episodes he has had over the past 2 months or so. 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 He reports that he has had about 4 or 5 episodes of syncope. His last episode was about 2 weeks ago. Each episode occurred after developing left-sided chest pain while he was exerting himself. He was able to come back to [place] today to see his PCP, she would like him to be admitted to the hospital for cardiac workup. He did have labs obtained at the end of November, he had a negative D-dimer. He denies any history of blood clots or recent surgery. He does have a history of a cardiac murmur that was evaluated several years ago by cardiology. He has had no recent stress test. He is currently asymptomatic. He has a PMH of HLD and T2DM. [facility] <QAMAR Sy - Last Filed: 01/16/25 16:33> [facility] Medical History Abnormal pituitary follicle stimulating hormone (FSH) Anemia Aortic stenosis Chest pain Syncope Dermatochalasis of right lower eyelid Dermatochalasis of left lower eyelid Non-rheumatic aortic stenosis Cardiac murmur Controlled type 2 diabetes mellitus Essential hypertension Testicular mass Hyperlipemia Home Medications ?Medication ?Instructions ?Recorded ?Last Taken ?Type multivitamin 1 tab PO DAILY 08/17/18/ History vitamin E (dl, acetate) 450 mg 2,000 unit PO DAILY 11/0501/15/25 History (1,000 unit) capsule triamcinolone acetonide 0.1 % 1 applic topical TID PRN rash 02/20/21 01/15/25 History topical cream biotin 2,500 mcg capsule 5 mg PO DAILY 12/07/2401/15 History cholecalciferol (vitamin D3) 25 400 unit PO DAILY 11/1901/15/25 History mcg (1,000 unit) tablet vitamin A-vitamin C-vit E-min 2 tab PO DAILY 01/16/25 01/15/25 History tablet (Ocutabs tablet) Allergy/AdvReac Type Severity Reaction Status Date / Time No Known Allergies Allergy Verified 05/10/24 10:44 Family History Father Myocardial infarction CAD (coronary artery disease) History of coronary artery bypass surgery Mother COPD (chronic obstructive pulmonary disease) Surgical History History of open reduction and internal fixation (ORIF) procedure History of arthroscopic knee surgery Social History Smoking Status: Never smoker alcohol intake: never substance use type: does not use additional social history: pt denies smoking, denies vaping, denies edibles, denies alcohol, denies aspirin use, denies ibuprofen use. ROS <QAMAR Sy - Last Filed: 01/16/25 16:33> ROS ED Constitutional Constitutional ED: Denies chills or fever(s) Cardiovascular Cardiovascular: Reports chest pain and syncope; Denies palpitations Respiratory/Chest Respiratory/Chest: Denies cough or dyspnea Gastrointestinal Gastrointestinal: Denies abdominal pain, nausea or vomiting Genitourinary Genitourinary ED: Denies dysuria, hematuria or urinary urgency Musculoskeletal Musculoskeletal: Denies arthralgias or myalgias Integumentary Denies rash Neurologic Neurologic: Denies weakness EXAM <QAMAR Sy - Last Filed: 01/16/25 16:33> Physical Exam Const Vital Signs: 01/16/25 13:03 01/16/25 13:45 01/16/25 13:45 Temperature 97.6 F L Temperature Source Temporal Pulse Rate 58 L 56 L Respiratory Rate 16 13 Respiratory Effort Normal Respiratory Pattern Normal Blood Pressure 130/72 H 124/63 H Blood Pressure Mean 91 83 Pulse Ox 99 99 Oxygen Delivery Method Room Air Room Air 01/16/25 15:06 Temperature 97 F L Temperature Source Pulse Rate 66 Respiratory Rate 20 H Respiratory Effort Respiratory Pattern Blood Pressure 142/82 H Blood Pressure Mean 102 Pulse Ox 97 Oxygen Delivery Method Positive well nourished, well developed and no apparent distress General Appearance ED: well developed HEENT Reports normocephalic and head/scalp atraumatic Mouth ED: Yes moist mucous membranes normal Eyes PERRL and EOMs intact bilaterally Neck full ROM and supple Chest Wall inspection of chest normal Resp normal respiratory effort and clear to auscultation bilaterally Cardio regular rate and regular rhythm Cardio Narrative: Systolic murmur GI soft to palpation, non-tender, non-distended and no masses Back/Spine normal ROM and normal to inspection Extremity normal to inspection and full ROM Neuro oriented x3, CN's II-XII intact bilaterally, moves all extremities, no focal motor deficits and no sensory deficits noted Sensorium / Orientation: awake and alert Psych mental status grossly normal and thought process normal Skin no rashes or lesions noted and no wounds <Dr. Blaine Chopra DO - Last Filed: 01/16/25 15:27> Physical Exam Const Vital Signs: 01/16/25 13:03 01/16/25 13:45 01/16/25 13:45 Temperature 97.6 F L Temperature Source Temporal Pulse Rate 58 L 56 L Respiratory Rate 16 13 Respiratory Effort Normal Respiratory Pattern Normal Blood Pressure 130/72 H 124/63 H Blood Pressure Mean 91 83 Pulse Ox 99 99 Oxygen Delivery Method Room Air Room Air 01/16/25 15:06 Temperature 97 F L Temperature Source Pulse Rate 66 Respiratory Rate 20 H Respiratory Effort Respiratory Pattern Blood Pressure 142/82 H Blood Pressure Mean 102 Pulse Ox 97 Oxygen Delivery Method MDM <QAMAR Sy - Last Filed: 01/16/25 16:33> [facility] Narrative Medical decision making narrative: Patient presenting today due to multiple syncopal episodes he has had over the past 2 months that have occurred with exertion. He also developed left-sided chest pain prior to each episode of syncope. He does have a history of aortic stenosis, he does have a murmur on exam. He did see his PCP this morning who referred him here to be admitted for cardiac workup. He has had no recent echo or stress test. He is currently asymptomatic. Labs were obtained, mild anemia noted on CBC, BMP unremarkable, initial troponin negative. BNP is pending. I do feel he would benefit from admission to the hospital for further cardiac workup, he is comfortable with this plan. We spoke with the hospitalist and patient admitted in stable condition Lab Data Attestation: I reviewed the patient's lab results. Lab results narrative: H&H 12.6 and 36.7, BUN 20 Labs: Laboratory Results - last 24 hr 01/16/25 13:40 WBC 5.6 RBC 4.23 L Hgb 12.6 L Hct 36.7 L MCV 86.8 MCH 29.8 MCHC 34.3 RDW Std Deviation 38.4 RDW Coeff of Sly 12.1 Plt Count 182 MPV 10.1 Immature Gran % (Auto) 0.400 Neut % (Auto) 71.5 H Lymph % (Auto) 17.8 L Bamberg % (Auto) 8.0 Eos % (Auto) 1.6 Baso % (Auto) 0.7 Absolute Neuts (auto) 4.0 Absolute Lymphs (auto) 1.00 Nucleated RBC % 0 Sodium 138 Potassium 4.0 Chloride 104 Carbon Dioxide 25.3 Anion Gap 9 BUN 20 H Creatinine 0.92 Estim Creat Clear Calc 73.75 Est GFR (MDRD) Non-Af 85 BUN/Creatinine Ratio 21.8 H Glucose 136 H Calcium 9.0 Troponin T High Sens 15 Radiography X-Ray: Read by ED Physician Diagnostic Testing: Clinical Impression(s) from Imaging Studies Chest X-Ray 01/16/25 13:40 IMPRESSION: Vascular congestion and mild CHF. Reading Location: [place] [address] EKG Initial EKG: Comments: 56 bpm, sinus bradycardia, no ST elevation, interpreted by attending ED physician <Dr. Blaine Chopra DO - Last Filed: 01/16/25 15:27> [facility] History & Record Review Discussion w/independent historian: Patient Lab Data Labs: Laboratory Results - last 24 hr 01/16/25 13:40 WBC 5.6 RBC 4.23 L Hgb 12.6 L Hct 36.7 L MCV 86.8 MCH 29.8 MCHC 34.3 RDW Std Deviation 38.4 RDW Coeff of Sly 12.1 Plt Count 182 MPV 10.1 Immature Gran % (Auto) 0.400 Neut % (Auto) 71.5 H Lymph % (Auto) 17.8 L Bamberg % (Auto) 8.0 Eos % (Auto) 1.6 Baso % (Auto) 0.7 Absolute Neuts (auto) 4.0 Absolute Lymphs (auto) 1.00 Nucleated RBC % 0 Sodium 138 Potassium 4.0 Chloride 104 Carbon Dioxide 25.3 Anion Gap 9 BUN 20 H Creatinine 0.92 Estim Creat Clear Calc 73.75 Est GFR (MDRD) Non-Af 85 BUN/Creatinine Ratio 21.8 H Glucose 136 H Calcium 9.0 Troponin T High Sens 15 Radiography Diagnostic Testing: Clinical Impression(s) from Imaging Studies Chest X-Ray 01/16/25 13:40 IMPRESSION: Vascular congestion and mild CHF. Reading Location: [facility]- Management Discussion w/another healthcare provider: Hospitalist (Dr Matos) Treatment and Re-Evaluation :: I have personally performed a face to face assessment of the patient and have reviewed the EDGAR Note. I performed a substantive portion of the visit including all aspects of the following. My joseph findings include: History is 79-year-old male presenting to the emergency room with the chief complaint of chest pressure and syncope. Patient has a history of aortic stenosis. He has had recurrent syncope over the past several months last episode was 2 weeks ago. He also notes chest pressure associated with exertion. He was seen by primary care as an outpatient had EKG and troponin. He has beentrying to control his blood sugar and cholesterol through nonpharmaceutical means. Patient has not had a recent echocardiogram. Last one I can see was 2018. Exam is alert and oriented lung sounds are clear and equal. He does seem to have a conversational dyspnea. There is a holosystolic murmur heard best at theaortic listening post I do not appreciate any lower extremity edema. Medical Decison Making EKG shows a sinus rhythm with no ischemic changes. Troponin is negative. My independent interpretation of the chest x-ray is vascular congestion. I added on a BNP. Given his recurrent syncope and chest discomfort with the findings on the chest x-ray and the aortic stenosis with no recent echocardiogram I think it is reasonable that we bring him in obtain echocardiogram and explore the symptomatology further. Discharge Plan Dx/Rx/DC Orders Clinical Impression: Recurrent syncope, Chest pain, Aortic stenosis Disposition Disposition: Acute Care Hospital [facility] Discharge Date/Time: 01/16/25 16:11 What to do if you have Problems For any increased pain, shortness of breath, bleeding, nausea or vomiting, chestpain, or any unexpected problems, contact your Primary Care Provider. Call [facility] ([phone]) or report to the closest Emergency Room. Call 911 if necessary. 01/16/25 1633 <Electronically signed by Samantha FOOTE> Cosigner Signature (if applicable): 01/16/25 1620 <Electronically signed by Blaine Chopra DO> CC: Dr. Dayron Macias MD ~ Signed [facility] Work Phone: 1(128) 311-128703-31-2025 History and physical note Author Lucia Matos [facility] Note Date/Time January 16, 2025 3:4 9pm [facility] System Medical Records Department [address] [place] [address] H&P Exam - Hospitalist 01/16/25 1541 MR#: [id number] Acct: [id number] Name: EVELIN HERNANDEZ Rep #:[id number] : 1945 79 From: Lucia Matos MD PCP: Dr. Dayron Macias MD Status:ADM I N Location: [facility] [id number] HPI - General General Date of Admission: 01/16/25 Date of Service: 01/16/25 Chief Complaint: multiple syncopal episodes HPI Narrative EVELIN HERNANDEZ, is a 79-year-old male with a history of diet-controlled type 2 diabetes and mild aortic stenosis presented [facility] ED 01/16/2025 due to multiple syncopal episodes over the past couple of months. 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 Each episode occurred after developing left-sided chest pain whileexerting himself. He came back to [place] today and saw his PCP and was very concerned and asked him to come to the ER to be admitted for cardiac workup. Nohistory of blood clots or recent surgery. Has a history of a cardiac murmur that was evaluated several years ago by cardiology and an echo from 2018 showed mild aortic stenosis. Presently symptomatic, has no history of recent stress test or echocardiogram. In the ED vitals stable, troponin 15, hemoglobin 12.6 and glucose 136 but CBC and BMP otherwise unremarkable. Chest x- ray did show some vascular congestion suggestive of mild CHF and patient had a little bit of exertional dyspnea so BNP was added on. Given patient's multiple syncopal episodes hospitalist contacted for admission. Patient evaluated at bedside he does report for 5 minutes episodes which usually happen after a significant amount of exertion and would start with chest pressure when he did not sit to rest and subsequently go on to have syncopal episodes and then recover. Currently not having chest pain or lightheadedness, last syncopal episode about 2 weeks ago however patient's family physician very nervous about these multipleepisodes and their frequency and associated symptoms, patient agreeable to admission and workup [facility] Medical History Abnormal pituitary follicle stimulating hormone (FSH) Anemia Aortic stenosis Chest pain Syncope Dermatochalasis of right lower eyelid Dermatochalasis of left lower eyelid Non-rheumatic aortic stenosis Cardiac murmur Controlled type 2 diabetes mellitus Essential hypertension Testicular mass Hyperlipemia Home Medications ?Medication ?Instructions ?Recorded ?Last Taken ?Type multivitamin 1 tab PO DAILY 08/17/1812/19 History vitamin E (dl, acetate) 450 mg 2,000 unit PO DAILY 11/0501/15/25 History (1,000 unit) capsule triamcinolone acetonide 0.1 % 1 applic topical TID PRN rash 02/20/21 01/15/25 History topical cream biotin 2,500 mcg capsule 5 mg PO DAILY 12/07/2401/15 History cholecalciferol (vitamin D3) 25 400 unit PO DAILY 11/1901/15/25 History mcg (1,000 unit) tablet vitamin A-vitamin C-vit E-min 2 tab PO DAILY 03/31/25 03/30/25 History tablet (Ocutabs tablet) Allergy/AdvReac Type Severity Reaction Status Date / Time No Known Allergies Allergy Verified 05/10/24 10:44 Family History Father Myocardial infarction CAD (coronary artery disease) History of coronary artery bypass surgery Mother COPD (chronic obstructive pulmonary disease) Surgical History History of open reduction and internal fixation (ORIF) procedure History of arthroscopic knee surgery Social History Smoking Status: Never smoker alcohol intake: never substance use type: does not use additional social history: pt denies smoking, denies vaping, denies edibles, denies alcohol, denies aspirin use, denies ibuprofen use. ROS ROS Narrative ROS positive for episodes of chest pain on exertion with syncope, no shortness of breath, no cough, denies any current chest pain, patient reports he has lost weight due to trying to eat healthy and no weight gain, swelling in his lower extremities Vital Signs Vital Signs Vital Signs: 01/16/25 13:03 01/16/25 13:45 01/16/25 13:45 Temperature 97.6 F L Temperature Source Temporal Pulse Rate 58 L 56 L Respiratory Rate 16 13 Respiratory Effort Normal Respiratory Pattern Normal Blood Pressure 130/72 H 124/63 H Blood Pressure Mean 91 83 Pulse Ox 99 99 Oxygen Delivery Method Room Air Room Air 01/16/25 15:06 Temperature 97 F L Temperature Source Pulse Rate 66 Respiratory Rate 20 H Respiratory Effort Respiratory Pattern Blood Pressure 142/82 H Blood Pressure Mean 102 Pulse Ox 97 Oxygen Delivery Method Weight Weight: 90.718 kg Body Mass Index (BMI) 28.0 Physical Exam Narrative General: Alert, oriented, no apparent distress HEENT: Atraumatic, normocephalic Eyes: Anicteric, normal conjunctiva, extraocular movements grossly intact Neck: Supple Respiratory: Fairly normal respiratory effort, no overt crackles, wheezes, rhonchi Cardiovascular: Regular rate and rhythm but does have harsh systolic murmur throughout precordium GI: Soft, nontender, nondistended Extremities: Trace lower extremity edema Musculoskeletal: Moving all extremities Neuro: No overt focal neurological deficits Skin: No rashes appreciated Psych: Cooperative Results Lab / Micro Data 01/16/25 13:40 01/16/25 13:40 Labs: Laboratory Results - last 24 hr 01/16/25 13:40: WBC 5.6, RBC 4.23 L, Hgb 12.6 L, Hct 36.7 L, MCV 86.8, MCH 29.8,MCHC 34.3, RDW Std Deviation 38.4, RDW Coeff of Sly 12.1, Plt Count 182, MPV 10.1, Immature Gran % (Auto) 0.400, Neut % (Auto) 71.5 H, Lymph % (Auto) 17.8 L,Bamberg % (Auto) 8.0, Eos % (Auto) 1.6, Baso % (Auto) 0.7, Absolute Neuts (auto) 4.0, Absolute Lymphs (auto) 1.00, Nucleated RBC % 0, Sodium 138, Potassium 4.0, Chloride 104, Carbon Dioxide 25.3, Anion Gap 9, BUN 20 H, Creatinine 0.92, EstimCreat Clear Calc 73.75, Est GFR (MDRD) Non-Af 85, BUN/Creatinine Ratio 21.8 H, Glucose 136 H, Calcium 9.0, Troponin T High Sens 15 Imaging Radiology Impression Chest X-Ray 01/16/25 13:40 IMPRESSION: Vascular congestion and mild CHF. Reading Location: [facility] Assessment & Plan Assessment/Plan (1) Recurrent syncope: PLAN: Plan # Multiple syncopal episodes and associated chest pain -Patient reports with moderate to significant exertion he will develop chest discomfort and subsequent syncope if he does not sit down to rest, cannot rule out that this is valvular in nature so would want to obtain echo prior to considering a stress test -admit to telemetry -Depending on echo results may need to consider stress test or further cardiac workup/cardiology consult -EGK sinus rhythm 56 bpm, no overt ST elevation or depression -Troponin 15, patient not currently having any symptoms, last episode 2 weeks ago -orthostatic vital signs -will obtain echo -Check lipid panel # Mild vascular congestion -Patient noted to have a little bit of increased work of breathing during conversation and chest x-ray revealed mild congestion concerning for mild CHF -Daily weights, I's and O's -Echocardiogram ordered -proBNP ordered #Type 2 diabetes mellitus -Glucose checks and sliding scale insulin -Presently diet controlled on outpatient basis -Will check A1c #DVT ppx: Lovenox subcu Lucia Matos MD Time spent in the patient's overall evaluation, decision-making process, review of diagnostic data, adjustment of management, discussion with other providers, nursing and ancillary staff involved in patient's care documentation, 57 Minutes Charges/Coding Visit Charges Inpatient E&M: 89226 Init Hosp L2 01/16/25 1549 <Electronically signed by Lucia Matos MD> Cosigner Signature (if applicable): CC: Dr. Dayron Macias MD; Dr. Lucia Matos MD~ Signed [facility] Work Phone: [phone]) 454-222203-31-2025 Evaluation note* Diagnosis Onset Date Resolution Status Admit Date Aortic stenosis acute December 3:41pm Chest pain acute January 16 3:41pm Recurrent syncope acute December 192024 3:41pm [facility] Work Phone: [phone]) [phone] Evaluation note* Diagnosis Onset Date Resolution Status Admit Date Aortic stenosis acute December 3:41pm Chest pain acute January 16 3:41pm Recurrent syncope acute December 192024 3:41pm Aortic stenosis acute January 8:51am Recurrent syncope acute January 182024 8:51am [facility] Work Phone: [phone] Discharge summary [facility] Medical Records Department [address] [place] [address] Emergency Department Summary 01/16/25 MR#: [id number] Acct: [id number] Name: EVELIN HERNANDEZ Rep #:[id number] : 1945 79 From: Samantha FOOTE PCP: Dr. Dayron Macias MD Status:ADM I N Location: [address] History of Present Illness Chief Complaint: Syncope Narrative Narrative: Patient presenting today due to multiple syncopal episodes he has had over the past 2 months or so.He was living in [place] because he has rental properties there. He reports that he has had about 4 or 5 episodes of syncope. His last episode was about 2 weeks ago. Each episode occurred after developing left-sided chest pain while he was exerting himself. He was able to come back to [place] todayto see his PCP, she would like him to be admitted to the hospital for cardiac workup. He did have labs obtained at the end of November, he had a negative D-dimer. He denies any history of blood clotsor recent surgery. He does have a history of a cardiac murmur that was evaluated several years ago by cardiology. He has had no recent stress test. He is currently asymptomatic. He has a PMH of HLD and T2DM. [facility] Medical History Abnormal pituitary follicle stimulating hormone (FSH) Anemia Aortic stenosis Chest pain Syncope Dermatochalasis of right lower eyelid Dermatochalasis of left lower eyelid Non-rheumatic aortic stenosis Cardiac murmur Controlled type 2 diabetes mellitus Essential hypertension Testicular mass Hyperlipemia Home Medications ?Medication ?Instructions ?Recorded ?Last Taken ?Type multivitamin 1 tab PO DAILY 08/17/1812/19 History vitamin E (dl, acetate) 450 mg 2,000 unit PO DAILY 11/0501/15/25 History (1,000 unit) capsule triamcinolone acetonide 0.1 % 1 applic topical TID PRN rash 02/20/21 01/15/25 History topical cream biotin 2,500 mcg capsule 5 mg PO DAILY 12/07/2401/15 History cholecalciferol (vitamin D3) 25 400 unit PO DAILY 11/1901/15/25 History mcg (1,000 unit) tablet vitamin A-vitamin C-vit E-min 2 tab PO DAILY 01/16/25 01/15/25 History tablet (Ocutabs tablet) Allergy/AdvReac Type Severity Reaction Status Date / Time No Known Allergies Allergy Verified 05/10/24 10:44 Family History Father Myocardial infarction CAD (coronary artery disease) History of coronary artery bypass surgery Mother COPD (chronic obstructive pulmonary disease) Surgical History History of open reduction and internal fixation (ORIF) procedure History of arthroscopic knee surgery Social History Smoking Status: Never smoker alcohol intake: never substance use type: does not use additional social history: pt denies smoking, denies vaping, denies edibles, denies alcohol, deniesaspirin use, denies ibuprofen use. ROS ROS ED Constitutional Constitutional ED: Denies chills or fever(s) Cardiovascular Cardiovascular: Reports chest pain and syncope; Denies palpitations Respiratory/Chest Respiratory/Chest: Denies cough or dyspnea Gastrointestinal Gastrointestinal: Denies abdominal pain, nausea or vomiting Genitourinary Genitourinary ED: Denies dysuria, hematuria or urinary urgency Musculoskeletal Musculoskeletal: Denies arthralgias or myalgias Integumentary Denies rash Neurologic Neurologic: Denies weakness EXAM Physical Exam Const Vital Signs: 01/16/25 13:03 01/16/25 13:45 01/16/25 13:45 Temperature 97.6 F L Temperature Source Temporal Pulse Rate 58 L 56 L Respiratory Rate 16 13 Respiratory Effort Normal Respiratory Pattern Normal Blood Pressure 130/72 H 124/63 H Blood Pressure Mean 91 83 Pulse Ox 99 99 Oxygen Delivery Method Room Air Room Air 01/16/25 15:06 Temperature 97 F L Temperature Source Pulse Rate 66 Respiratory Rate 20 H Respiratory Effort Respiratory Pattern Blood Pressure 142/82 H Blood Pressure Mean 102 Pulse Ox 97 Oxygen Delivery Method Positive well nourished, well developed and no apparent distress General Appearance ED: well developed HEENT Reports normocephalic and head/scalp atraumatic Mouth ED: Yes moist mucous membranes normal Eyes PERRL and EOMs intact bilaterally Neck full ROM and supple Chest Wall inspection of chest normal Resp normal respiratory effort and clear to auscultation bilaterally Cardio regular rate and regular rhythm Cardio Narrative: Systolic murmur GI soft to palpation, non-tender, non-distended and no masses Back/Spine normal ROM and normal to inspection Extremity normal to inspection and full ROM Neuro oriented x3, CN's II-XII intact bilaterally, moves all extremities, no focal motor deficits and no sensory deficits noted Sensorium / Orientation: awake and alert Psych mental status grossly normal and thought process normal Skin no rashes or lesions noted and no wounds Physical Exam Const Vital Signs: 01/16/25 13:03 01/16/25 13:45 01/16/25 13:45 Temperature 97.6 F L Temperature Source Temporal Pulse Rate 58 L 56 L Respiratory Rate 16 13 Respiratory Effort Normal Respiratory Pattern Normal Blood Pressure 130/72 H 124/63 H Blood Pressure Mean 91 83 Pulse Ox 99 99 Oxygen Delivery Method Room Air Room Air 01/16/25 15:06 Temperature 97 F L Temperature Source Pulse Rate 66 Respiratory Rate 20 H Respiratory Effort Respiratory Pattern Blood Pressure 142/82 H Blood Pressure Mean 102 Pulse Ox 97 Oxygen Delivery Method MDM MDM MDM Narrative Medical decision making narrative: Patient presenting today due to multiple syncopal episodes he has had over the past 2 months that have occurred with exertion. He also developed left-sided chest pain prior to each episode of syncope. He does have a history of aortic stenosis, he does have a murmur on exam. He did see his PCP this morning who referred him here to be admitted for cardiac workup. He has had no recent echo or stresstest. He is currently asymptomatic. Labs were obtained, mild anemia noted on CBC, BMP unremarkable,initial troponin negative. BNP is pending. I do feel he would benefit from admission to the hospital for further cardiac workup, he is comfortable with this plan. We spoke with the hospitalist and patient admitted in stable condition Lab Data Attestation: I reviewed the patient's lab results. Lab results narrative: H&H 12.6 and 36.7, BUN 20 Labs: Laboratory Results - last 24 hr 01/16/25 13:40 WBC 5.6 RBC 4.23 L Hgb 12.6 L Hct 36.7 L MCV 86.8 MCH 29.8 MCHC 34.3 RDW Std Deviation 38.4 RDW Coeff of Sly 12.1 Plt Count 182 MPV 10.1 Immature Gran % (Auto) 0.400 Neut % (Auto) 71.5 H Lymph % (Auto) 17.8 L Bamberg % (Auto) 8.0 Eos % (Auto) 1.6 Baso % (Auto) 0.7 Absolute Neuts (auto) 4.0 Absolute Lymphs (auto) 1.00 Nucleated RBC % 0 Sodium 138 Potassium 4.0 Chloride 104 Carbon Dioxide 25.3 Anion Gap 9 BUN 20 H Creatinine 0.92 Estim Creat Clear Calc 73.75 Est GFR (MDRD) Non-Af 85 BUN/Creatinine Ratio 21.8 H Glucose 136 H Calcium 9.0 Troponin T High Sens 15 Radiography X-Ray: Read by ED Physician Diagnostic Testing: Clinical Impression(s) from Imaging Studies Chest X-Ray 01/16/25 13:40 IMPRESSION: Vascular congestion and mild CHF. Reading Location: [place] [address] EKG Initial EKG: Comments: 56 bpm, sinus bradycardia, no ST elevation, interpreted by attending ED physician MDM History & Record Review Discussion w/independent historian: Patient Lab Data Labs: Laboratory Results - last 24 hr 01/16/25 13:40 WBC 5.6 RBC 4.23 L Hgb 12.6 L Hct 36.7 L MCV 86.8 MCH 29.8 MCHC 34.3 RDW Std Deviation 38.4 RDW Coeff of Sly 12.1 Plt Count 182 MPV 10.1 Immature Gran % (Auto) 0.400 Neut % (Auto) 71.5 H Lymph % (Auto) 17.8 L Bamberg % (Auto) 8.0 Eos % (Auto) 1.6 Baso % (Auto) 0.7 Absolute Neuts (auto) 4.0 Absolute Lymphs (auto) 1.00 Nucleated RBC % 0 Sodium 138 Potassium 4.0 Chloride 104 Carbon Dioxide 25.3 Anion Gap 9 BUN 20 H Creatinine 0.92 Estim Creat Clear Calc 73.75 Est GFR (MDRD) Non-Af 85 BUN/Creatinine Ratio 21.8 H Glucose 136 H Calcium 9.0 Troponin T High Sens 15 Radiography Diagnostic Testing: Clinical Impression(s) from Imaging Studies Chest X-Ray 01/16/25 13:40 IMPRESSION: Vascular congestion and mild CHF. Reading Location: [place] [address] Management Discussion w/another healthcare provider: Hospitalist (Dr Matos) Treatment and Re-Evaluation :: I have personally performed a face to face assessment of the patient and have reviewed the EDGAR Note. I performed a substantive portion of the visit including all aspects of the following. My joseph findings include: History is 79-year-old male presenting to the emergency room with the chief complaint of chest pressure and syncope. Patient has a history of aortic stenosis. He has had recurrent syncope over the past several months last episode was 2 weeks ago. He also notes chest pressure associated with exertion. He was seen by primary care as an outpatient had EKG and troponin. He has beentrying to control his blood sugar and cholesterol through nonpharmaceutical means. Patient has not had a recent echocardiogram. Last one I can see was 2018. Exam is alert and oriented lung sounds are clear and equal. He does seem to have a conversational dyspnea. There is a holosystolic murmur heard best at theaortic listening post I do not appreciate any lower extremity edema. Medical Decison Making EKG shows a sinus rhythm with no ischemic changes. Troponin is negative. My independent interpretation of the chest x-ray is vascular congestion. I added on a BNP. Given his recurrent syncope and chest discomfort with the findings on the chest x-ray and the aortic stenosis with no recent echocardiogram I think it is reasonable that we bring him in obtain echocardiogram and explore the symptomatology further. Discharge Plan Dx/Rx/DC Orders Clinical Impression: Recurrent syncope, Chest pain, Aortic stenosis Disposition Disposition: Acute Care Hospital [facility] Discharge Date/Time: 01/16/25 16:11 What to do if you have Problems For any increased pain, shortness of breath, bleeding, nausea or vomiting, chestpain, or any unexpected problems, contact your Primary Care Provider. Call [facility] ([phone]) or report tothe closest Emergency Room. Call 911 if necessary. 01/16/25 1633 Cosigner Signature (if applicable): 01/16/25 1620 CC: Dr. Dayron Macias MD ~ Signed [facility]03-31-2025 History and physical note [facility] Medical Records Department [address] [place] [address] H&P Exam - Hospitalist 01/16/25 1541 MR#: [id number] Acct: [id number] Name: EVELIN HERNANDEZ Rep #:[id number] : 1945 79 From: Lucia Matos MD PCP: Dr. Dayron Macias MD Status:ADM I N Location: [place] [id number] 1 HPI - General General Date of Admission: 01/16/25 Date of Service: 01/16/25 Chief Complaint: multiple syncopal episodes HPI Narrative EVELIN HERNANDEZ, is a 79-year-old male with a history of diet-controlled type 2 diabetes and mild aortic stenosis presented [facility] ED 01/16/2025 due to multiple syncopal episodes over the past couple of months. 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 Each episode occurred after developing left-sided chest pain whileexerting himself. He came back to [place] today and saw his PCP and was very concerned and asked him to come to the ER to be admitted for cardiac workup. Nohistory of blood clots or recent surgery. Has a history of a cardiac murmur that was evaluated several years ago by cardiology and an echo from 2018 showed mild aortic stenosis. Presently symptomatic, has no history of recent stress test or echocardiogram. In the ED vitals stable, troponin 15, hemoglobin 12.6 and glucose 136 but CBC and BMP otherwise unremarkable. Chest x-ray did show some vascular congestion suggestive of mild CHF and patient had a little bit of exertional dyspneaso BNP was added on. Given patient's multiple syncopal episodes hospitalist contacted for admission. Patient evaluated at bedside he does report for 5 minutes episodes which usually happen after a significant amount of exertion and would start with chest pressure when he did not sit to rest and subsequently go on to have syncopal episodes and then recover. Currently not having chest pain or lightheadedness, last syncopal episode about 2 weeks ago however patient's family physician very nervous about these multipleepisodes and their frequency and associated symptoms, patient agreeable to admission and workup [facility] Medical History Abnormal pituitary follicle stimulating hormone (FSH) Anemia Aortic stenosis Chest pain Syncope Dermatochalasis of right lower eyelid Dermatochalasis of left lower eyelid Non-rheumatic aortic stenosis Cardiac murmur Controlled type 2 diabetes mellitus Essential hypertension Testicular mass Hyperlipemia Home Medications ?Medication ?Instructions ?Recorded ?Last Taken ?Type multivitamin 1 tab PO DAILY 08/17/1812/19 History vitamin E (dl, acetate) 450 mg 2,000 unit PO DAILY 11/0501/15/25 History (1,000 unit) capsule triamcinolone acetonide 0.1 % 1 applic topical TID PRN rash 02/20/21 01/15/25 History topical cream biotin 2,500 mcg capsule 5 mg PO DAILY 12/07/2401/15 History cholecalciferol (vitamin D3) 25 400 unit PO DAILY 11/1901/15/25 History mcg (1,000 unit) tablet vitamin A-vitamin C-vit E-min 2 tab PO DAILY 01/16/25 01/15/25 History tablet (Ocutabs tablet) Allergy/AdvReac Type Severity Reaction Status Date / Time No Known Allergies Allergy Verified 05/10/24 10:44 Family History Father Myocardial infarction CAD (coronary artery disease) History of coronary artery bypass surgery Mother COPD (chronic obstructive pulmonary disease) Surgical History History of open reduction and internal fixation (ORIF) procedure History of arthroscopic knee surgery Social History Smoking Status: Never smoker alcohol intake: never substance use type: does not use additional social history: pt denies smoking, denies vaping, denies edibles, denies alcohol, deniesaspirin use, denies ibuprofen use. ROS ROS Narrative ROS positive for episodes of chest pain on exertion with syncope, no shortness of breath, no cough,denies any current chest pain, patient reports he has lost weight due to trying to eat healthy and no weight gain, swelling in his lower extremities Vital Signs Vital Signs Vital Signs: 01/16/25 13:03 01/16/25 13:45 01/16/25 13:45 Temperature 97.6 F L Temperature Source Temporal Pulse Rate 58 L 56 L Respiratory Rate 16 13 Respiratory Effort Normal Respiratory Pattern Normal Blood Pressure 130/72 H 124/63 H Blood Pressure Mean 91 83 Pulse Ox 99 99 Oxygen Delivery Method Room Air Room Air 01/16/25 15:06 Temperature 97 F L Temperature Source Pulse Rate 66 Respiratory Rate 20 H Respiratory Effort Respiratory Pattern Blood Pressure 142/82 H Blood Pressure Mean 102 Pulse Ox 97 Oxygen Delivery Method Weight Weight: 90.718 kg Body Mass Index (BMI) 28.0 Physical Exam Narrative General: Alert, oriented, no apparent distress HEENT: Atraumatic, normocephalic Eyes: Anicteric, normal conjunctiva, extraocular movements grossly intact Neck: Supple Respiratory: Fairly normal respiratory effort, no overt crackles, wheezes, rhonchi Cardiovascular: Regular rate and rhythm but does have harsh systolic murmur throughout precordium GI: Soft, nontender, nondistended Extremities: Trace lower extremity edema Musculoskeletal: Moving all extremities Neuro: No overt focal neurological deficits Skin: No rashes appreciated Psych: Cooperative Results Lab / Micro Data 01/16/25 13:40 01/16/25 13:40 Labs: Laboratory Results - last 24 hr 01/16/25 13:40: WBC 5.6, RBC 4.23 L, Hgb 12.6 L, Hct 36.7 L, MCV 86.8, MCH 29.8,MCHC 34.3, RDW Std Deviation 38.4, RDW Coeff of Sly 12.1, Plt Count 182, MPV 10.1, Immature Gran % (Auto) 0.400, Neut %(Auto) 71.5 H, Lymph % (Auto) 17.8 L,Bamberg % (Auto) 8.0, Eos % (Auto) 1.6, Baso % (Auto) 0.7, Absolute Neuts (auto) 4.0, Absolute Lymphs (auto) 1.00, Nucleated RBC % 0, Sodium 138, Potassium 4.0, Chloride 104, Carbon Dioxide 25.3, Anion Gap 9, BUN 20 H, Creatinine 0.92, EstimCreat Clear Calc 73.75, Est GFR (MDRD) Non-Af 85, BUN/Creatinine Ratio 21.8 H, Glucose 136 H, Calcium 9.0, Troponin T High Sens 15 Imaging Radiology Impression Chest X-Ray 01/16/25 13:40 IMPRESSION: Vascular congestion and mild CHF. [facility] Assessment & Plan Assessment/Plan (1) Recurrent syncope: PLAN: Plan # Multiple syncopal episodes and associated chest pain -Patient reports with moderate to significant exertion he will develop chest discomfort and subsequent syncope if he does not sit down to rest, cannot rule out that this is valvular in nature so would want to obtain echo prior to considering a stress test -admit to telemetry -Depending on echo results may need to consider stress test or further cardiac workup/cardiology consult -EGK sinus rhythm 56 bpm, no overt ST elevation or depression -Troponin 15, patient not currently having any symptoms, last episode 2 weeks ago -orthostatic vital signs -will obtain echo -Check lipid panel # Mild vascular congestion -Patient noted to have a little bit of increased work of breathing during conversation and chest x-ray revealed mild congestion concerning for mild CHF -Daily weights, I's and O's -Echocardiogram ordered -proBNP ordered #Type 2 diabetes mellitus -Glucose checks and sliding scale insulin -Presently diet controlled on outpatient basis -Will check A1c #DVT ppx: Lovenox subcu Lucia Matos MD Time spent in the patient's overall evaluation, decision-making process, review of diagnostic data,adjustment of management, discussion with other providers, nursing and ancillary staff involved in patient's care documentation, 57 Minutes Charges/Coding Visit Charges Inpatient E&M: 36752 Init Hosp L2 01/16/25 1549 Cosigner Signature (if applicable): CC: Dr. Dayron Macias MD; Dr. Lucia Matos MD~ Signed [facility]03-31-2025 Radiology Diagnostic study note [facility] Imaging Services [address] [place], [place] [id number] Chest 1 View (Portable) MR#: [id number] Acct: [id number] Name: EVELIN HERNANDEZ Rep #: [id number] : 1945 M 79 From: Russel Nails MD PCP: Dr. Dayron Macias MD Status: REG E R Study:Chest 1 View (Portable) Date of Exam: 01/16/25 Exam# [id number] Ordering Dr: Gene Chopra DO PROCEDURE: CHEST 1 VIEW (PORTABLE) 01/16/2025 REASON FOR EXAM: Chest pain. Syncopal episodes. TECHNIQUE: Frontal view of the chest. COMPARISON: None FINDINGS: Hardware: EKG electrodes are seen. Heart: Heart size is mildly enlarged. Lungs: Vascular congestion mild CHF. Bones: Degenerative changes are identified within the thoracic spine. Other: Tortuosity of the descending thoracic aorta and calcification of the aortic arch. RAD/Chest 1 View (Portable) IMPRESSION: Vascular congestion and mild CHF. Reading Location: [place] [address] CC: Dr. Dayron Macias MD; Dr. Blaine [place], DO ~ Embedded Hardware Engineer: Signed [facility]10-15-2024 Consult note Author Rebekah Campuzano [facility] Note Date/Time January 17, 2025 3:50 pm [facility] Medical Records Department [address] [place] [address] Counseling Note - Pharmacy 01/17/25 1550 MR#: [id number] Acct: [id number] Name: EVELIN HERNANDEZ Rep #:[id number] : 1945 79 From: Rebekah Campuzano PCP: Dr. Dayron Macias MD Status:ADM I N Y Location: [place] [address] Pharmacy [place] Med Reconciliation Pharmacy Service has performed discharge medication reconciliation for this patient. The patient's discharge medication list was reviewed for discrepancies and discrepancies were resolved. Medications at Discharge Home Medications multivitamin 1 tab PO DAILY vitamin 08/17/18 vitamin E (dl, acetate) 450 mg (1,000 unit) capsule 2,000 unit PO DAILY vitamin 08/19/18 triamcinolone acetonide 0.1 % topical cream 1 applic topical TID PRN rash 02/20/21 biotin 2,500 mcg capsule 5 mg PO DAILY supplement 12/07/24 cholecalciferol (vitamin D3) 25 mcg (1,000 unit) tablet 400 unit PO DAILY vitamin 12/07/24 vitamin A-vitamin C-vit E-min tablet (Ocutabs tablet) 2 tab PO DAILY vitamin 01/16/25 01/17/25 5740 <Electronically signed by Rebekah Campuzano> Date _ Rebekah Campuzano Cosigner Signature (if applicable): Date CC: ~ Signed [facility] Work Phone: 1(932) 110-489404-26-2024 History and physical note Author Sayra Vincent [facility] February 12, 2024 11:20am Note Date/Time February 12, 2024 11: 20am [facility] Medical Records Department [address] [place] [address] History & Physical Exam 02/12/24 1119 MR#: [id number] Acct: [id number] Name: EVELIN HERNANDEZ Rep #:[id number] : 1945 78 From: Sayra Vincent MD PCP: Dr. Dayron Macias MD Status:REG S DC Location: [place] [address] History and Physical Date of Admission: 02/12/24 The patient is examined and there are no changes from the previous H&P dated 02/03/2024. 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 Informed consent was obtained. Assessment & Plan Assessment/Plan (1) SCC (squamous cell carcinoma), face: PLAN: Plan For excision SCC left face with FS 02/12/24 1120 <Electronically signed by Sayra Vincent MD> Cosigner Signature (if applicable): CC: Dr. Dayron Macias MD; Dr. Sayra Vincent MD~ Signed [facility] Work Phone: 1(516) 927-820504-26-2024 Procedure [facility] 10-15-2021 NoteHNO ID: [id number] Author: Antoine Rick Population Health Navigator Service: ? Author Type: ? Type: Progress Notes Filed: 10/16/2021 4:39 PM Note Text: POPULATION HEALTH NAVIGATION OUTREACH Action/FYI I couldn't leave a voice message sending a letter No care everywhere Letter Mailed Lisa Carl MA October 16, 2021 4:39 PM Contact made with patient or family member? NO Pt identified by name and : NO Outreach Outcome/Action Unable to reach patient: Phone number not valid / voicemail full Letter mailed Reason for Outreach Attribution: Provider Off-boarding Payer: Payor: MEDICARE / Plan: MEDICARE A AND B / Product Type: Medicare / Care Gap Reviewed:: Reminder: Reminder note to check Health Maintenance for items below Health Maintenance items due: COVID-19 VACCINE(1) Never done DILATED RETINAL EXAM Never done DEPRESSION SCREENING Never done ADVANCE DIRECTIVE DISCUSSION Never done HBA1C due on 11/24/2018 LDL CHOLESTEROL due on 05/24/2019 URINE ALBUMIN:CREATININE RATIO due on 05/27/2019 DIABETIC FOOT EXAM due on 05/27/2019 SHINGRIX VACCINE(2 of 2) due on 12/10/2020 INFLUENZA(1) due on 06/19/2021 Advanced Directives Completed: Have you ever planned for future healthcare decisions with a power of banking attorney, living will, or advance directives? Referrals: Message Sent to Practice: Navigation Signature: Antoine Rick Population Health Navigator October 15, 2021 3:15 [facility]12-28-2021 NotePatient Outreach (NETNAV) EVELIN HERNANDEZ ([id number]) 1945 M Date Time Provider Department 10/15/21 ANTOINE RICK During your visit today, we recorded the following information about you: Antoine Rick Population Health Navigator 10/15/2021 3:17 PM Addendum POPULATION HEALTH NAVIGATION OUTREACH Action/ I couldn't leave a voice message sending a letter No care everywhere Letter Mailed Lisa Carl MA October 16, 2021 4:39 PM Contact made with patient or family member? NO Pt identified by name and : NO Outreach Outcome/Action Unable to reach patient: Phone number not valid / voicemail full Letter mailed Reason for Outreach Attribution: Provider Off-boarding Payer: Payor: MEDICARE / Plan: MEDICARE A AND B / Product Type: Medicare / Care Gap Reviewed:: Reminder: Reminder note to check Health Maintenance for items below Health Maintenance items due: COVID-19 VACCINE(1) Never done DILATED RETINAL EXAM Never done DEPRESSION SCREENING Never done ADVANCE DIRECTIVE DISCUSSION Never done HBA1C due on 11/24/2018 LDL CHOLESTEROL due on 05/24/2019 URINE ALBUMIN:CREATININE RATIO due on 05/27/2019 DIABETIC FOOT EXAM due on 05/27/2019 SHINGRIX VACCINE(2 of 2) due on 12/10/2020 INFLUENZA(1) due on 06/19/2021 Advanced Directives Completed: Have you ever planned for future healthcare decisions with a power of banking attorney, living will, or advance directives? Referrals: Message Sent to Practice: Navigation Signature: Antoine Rick Population Health Navigator October 15, 2021 3:15 PM Allergies As of Date: 10/15/2021 (No Known Allergies) Date Reviewed: 06/04/2018 Reviewed by: Samantha Gandara [employer] - Fully Assessed Reason for Visit: Population Health Navigation Outreach [[id number]] Cmt: offboarding Prescriptions as of 10/16/2021 - atorvastatin (LIPITOR) 20 mg tablet Take 1 tablet by mouth daily at bedtime. For cholesterol. - blood sugar diagnostic (BLOOD GLUCOSE TEST) test strip Test blood sugar(s) 1 times daily. Dx: Type 2 DM - Controlled E11.9 Insulin: No - Lancets lancets Test blood sugar(s) 1 times daily. Dx: Type 2 DM - Controlled E11.9 Insulin: Yes - triamcinolone acetonide (KENALOG) 0.1 % cream Apply 1 application to affected area three times daily. Apply sparingly to area for rash/itching. - Blood-Glucose Meter monitoring kit Glucose Meter of Choice - Kit - Dx: Type 2 DM - Controlled E11.9 - vit C/vit E/lutein/min/omega-3 (OCUVITE ORAL) Take by mouth once daily. - COMPOUNDED PRESCRIPTION Patient taking vitamin E, A and D. - multivitamin (MULTIPLE VITAMIN) ORAL Tab Take one(1) tablet daily. Problem List As Of Date 10/15/2021 Noted Resolved Hepatitis C carrier (HCC) [B18.2] 08/12/2007 05/24/2018 Hyperlipidemia with target LDL less than 100 [E*04/23/2015 Testicular mass [N50.89] 04/23/2015 Family history of pulmonary fibrosis [Z83.6] 05/24/2018 Controlled type 2 diabetes mellitus without com*05/27/2018 Hypertension, essential [I10] 06/04/2018 Mild aortic stenosis [I35.0] 06/04/2018 Letter Text Encounter Status:Closed by ZEYAD HINOJOSA [facility] NAVIGATORANTOINE on 10/15/21[facility]04-06-2021 NoteHNO ID: [id number] Author: Brooke Meza MA Service: ? Author Type: Finance Director Type: Progress Notes Filed: 01/22/2021 3:49 PM Note Text: Care Gap Reviewed: Follow-up appointment Phone call placed to patient. Pt identified by name and : NO Outreach Outcome/Action: Unable to reach patient: Left message If patient deferred or declined to schedule appointment, please indicate the reason(s): [facility] NotePatient Outreach (FAMPWS) EVELIN HERNANDEZ ([id number]) 1945 M Date Time Provider Department 01/22/21 BROOKE MEZAWS During your visit today, we recorded the following information about you: Brooke Meza MA 01/22/2021 3:49 PM Signed Care Gap Reviewed: Follow-up appointment Phone call placed to patient. Pt identified by name and : NO Outreach Outcome/Action: Unable to reach patient: Left message If patient deferred or declined to schedule appointment, please indicate the reason(s): Emily Meza Allergies As of Date: 01/22/2021 (No Known Allergies) Date Reviewed: 06/04/2018 Reviewed by: Samantha Gandara Cma - Fully Assessed Reason for Visit: Appointment [186] Cmt: A1C Prescriptions as of 01/22/2021 Sig: ATORVASTATIN 20 MG TABLET Take 1 tablet by mouth daily * BLOOD SUGAR DIAGNOSTIC STRIPS Test blood sugar(s) 1 times d* LANCETS Test blood sugar(s) 1 times d* TRIAMCINOLONE ACETONIDE 0.1 %* Apply 1 application to affect* BLOOD-GLUCOSE METER KIT Glucose Meter of Choice - Kit* OCUVITE ORAL Take by mouth once daily. COMPOUNDED PRESCRIPTION Patient taking vitamin E, A a* MULTIPLE VITAMIN TABLET Take one(1) tablet daily. Problem List As Of Date 01/22/2021 Noted Resolved Hepatitis C carrier (HCC) [B18.2] 08/12/2007 05/24/2018 Hyperlipidemia with target LDL less than 100 [E*04/23/2015 Testicular mass [N50.89] 04/23/2015 Family history of pulmonary fibrosis [Z83.6] 05/24/2018 Controlled type 2 diabetes mellitus without com*05/27/2018 Hypertension, essential [I10] 06/04/2018 Mild aortic stenosis [I35.0] 06/04/2018 Encounter Status:Closed by BROOKE MEZA MA on 01/22/21[facility] Discharge summary Author Sayra Vincent [facility] February 12, 2024 12:37pm Note Date/Time February 12, 2024 12: 36pm [facility] Medical Records Department [address] [place] [address] Instructions for Home/Discharge Instructions 02/12/24 1234 MR#: [id number] Acct: [id number] Name: EVELIN HERNANDEZ Rep #:[id number] : 1945 78 From: Sayra Vincent MD PCP: Dr. Dayron Macias MD Status:REG S DC Discharge Instructions Dressing / Incision Additional Dressing/Incision Instructions:: Keep your head elevated (recliner position) for the next 3-4 nights to prevent swelling and bleeding. Take the oral antibiotic (Keflex) 2 times a day until finished. Keep the Steri-Strips dry??do not remove until seen in the office. Follow Up Care Please Follow Up With: Sayra Vincent MD When: In 2 weeks Test Results: Test results from this visit will be discussed in further detail at your follow- up appointment, if applicable. Discharge Plan Admission Attending Provider: Sayra Vincent Primary Care Provider: Dayron Macias Discharge Orders/Prescriptions Prescriptions: New cephalexin 500 mg capsule 500 mg PO BID 5 Days Qty: 10 0RF No Action vitamin E (dl, acetate) 1,000 unit capsule 2,000 unit PO DAILY multivitamin tablet 1 tab PO DAILY vit C 150 mg-vit E 30 unit-lutein 5 zg-xzvnzmat-hfuzy 3 150 mg capsule [id number] mq-rsnm-tx-mg capsule 1 cap PO DAILY triamcinolone acetonide 0.1 % cream 1 applic TOPICAL TID PRN (Reason: rash) cholecalciferol (vitamin D3) 25 mcg (1,000 unit) tablet 1,000 unit PO DAILY zinc 50 mg tablet 50 mg PO DAILY biotin 2,500 mcg capsule 2,500 mcg PO DAILY Referrals / Follow Up: Dayron Macias MD [Primary Care Provider] - Disposition Disposition (needs filled in before D/C Order can be placed): Home, Self Care 02/12/24 1237<Electronically signed by Sayra Vincent MD>Sayra Vincent MD CC: Dr. Dayron Macias MD ~ Signed [facility] Work Phone: Discharge summary Author Lele Anderson [facility] Note Date/Time January 17, 2025 3:15 pm [facility] Medical Records Department [address] [facility] [place] [address] Discharge Summary 01/17/25 1511 MR#: [id number] Acct: [id number] Name: EVELIN HERNANDEZ Rep #:[id number] : 1945 79 From: Lele Anderson MD PCP: Dr. Dayron Macias MD Status:ADM I N Location: [place] [address] Providers Date of Admission: 01/16/25 Date of Discharge: 01/17/25 Primary Care Physician: Dr. Dayron Macias MD Reason For Visit: AORTIC STENOSIS Diagnosis Discharge Diagnosis (1) Recurrent syncope: Status: Acute Code(s): R55 - Syncope and collapse Plan Patient is a 79-year-old gentleman admitted with multiple syncopal episode with chest pain 1. Syncopal episode secondary to severe aortic stenosis ? Patient has been admitted to a monitored bed for continuous telemetry. As part of his management 2D echo was ordered and every shift orthostatic vitals obtained ? 2D echo obtained did show Normal LV size. Left ventricular systolic function is normal. The left ventricular ejection fraction is 60 %. Moderate focal aortic valve calcification. Mean aortic valve gradient 57 mmHg. Severe aortic stenosis. ?Plan is for patient to follow-up with cardiology on 01/18/2025 2. Chest pain ? Initial cardiac enzymes came back unremarkable. Ordered nuclear stress test as part of patient's evaluation ? Nuclear stress test did demonstrate Normal exercise myocardial perfusion stress test at a moderate workload EKG changes noted suggestive of ischemia Preserved ejection fraction. 3. Mild vascular congestion ? Found on checks x-ray echo has been ordered patient being monitored with strict input and output Daily weight 4. Diabetes mellitus type II -patient's oral hypoglycemics held. Placed on long acting insulin, Accu-Cheks a.c. and at bedtime and covered with sliding scale insulin 5. DVT prophylaxis ? On enoxaparin Time spent in the patient's overall evaluation,decision-making process, review of diagnostic data, adjustment of management, discussion with other providers, nursing nursing and ancillary staff involved in patient's care documentation, 38Minutes Medications at Discharge Home Medications multivitamin 1 tab PO DAILY 08/17/18 vitamin E (dl, acetate) 450 mg (1,000 unit) capsule 2,000 unit PO DAILY 08/19/18 triamcinolone acetonide 0.1 % topical cream 1 applic topical TID PRN rash 02/20/21 biotin 2,500 mcg capsule 5 mg PO DAILY 12/07/24 cholecalciferol (vitamin D3) 25 mcg (1,000 unit) tablet 400 unit PO DAILY 12/07/24 vitamin A-vitamin C-vit E-min tablet (Ocutabs tablet) 2 tab PO DAILY 01/16/25 Physical Exam Narrative GENERAL: cooperative HEENT: Atraumatic; normocephalic EYES; Anicteric, Normal Conjunctiva NECK; supple, normal thyroid, RESPIRATORY: Diminished to auscultation CARDIOVASCULAR: Regular S1 S2, systolic murmur GI: soft, normoactive bowel sounds, : No Renal angle tenderness; EXTREMITIES: No edema, no clubbing, MUSCULOSKELETAL: no muscle wasting NEURO: Awake; no lateralizing signs. SKIN: No Rash PSYCH; Flat affect Weight / BMI Weight Weight: 92.7 kg Body Mass Index (BMI) 28.5 ABG / Lab / Microbiology Data 01/17/25 05:34 01/17/25 05:34 Laboratory: Laboratory Results - last 24 hr 01/16/25 13:25: NT pro BNP II 393 01/16/25 16:01: Troponin T Hi Sens 2 Hr 15 01/16/25 16:58: POC Glucose 102 01/16/25 22:55: Troponin T Hi Sens 4Hr 15 01/17/25 05:34: WBC 5.5, RBC 4.10 L, Hgb 12.0 L, Hct 35.4 L, MCV 86.3, MCH 29.3,MCHC 33.9, RDW Std Deviation 38.6, RDW Coeff of Sly 12.2, Plt Count 188, MPV 10.3, Immature Gran % (Auto) 0.200, Neut % (Auto) 70.2 H, Lymph % (Auto) 17.1 L,Bamberg % (Auto) 9.1, Eos % (Auto) 2.9, Baso % (Auto) 0.5, Absolute Neuts (auto) 3.9, Absolute Lymphs (auto) 0.94, Nucleated RBC % 0, PT 13.7, INR 1.0, Sodium 139, Potassium 4.0, Chloride 105, Carbon Dioxide 22.4, Anion Gap 12, BUN 22 H, Creatinine 0.80, Estim Creat Clear Calc 85.65, Est GFR (MDRD) Non-Af 90, BUN/Creatinine Ratio 27.7 H, Glucose 152 H, Hemoglobin A1c 7.6, Calcium 9.0, Magnesium 1.9, Triglycerides 99, Cholesterol 164, LDL Cholesterol, Calc 107, VLDL Cholesterol 20, HDL Cholesterol 37 L, Cholesterol/HDL Ratio 4.43, TSH 2.020 01/17/25 06:33: POC Glucose 157 H 01/17/25 12:23: POC Glucose 171 H Radiography Diagnostic Testing: Radiology Impression Echocardiogram 01/16/25 16:13 Interpretation Summary Normal LV size. Left ventricular systolic function is normal. The left ventricular ejection fraction is 60 %. Moderate focal aortic valve calcification. Mean aortic valve gradient 57 mmHg. Severe aortic stenosis. Ordering Physician: Lucia Matos Referring Physician: DAYRON MACIAS Performed By: Jenise Soria, JOAQUIN D/C Instructions Discharge Diet: Low fat / Low cholesterol and 1800 Calorie Control Diet Discharge Activity: Return to Normal Activity Call your doctor if you observe: Fever of 101 or Higher, Shortness of breath, Fainting spells and Chest pain DC O2, CPAP, BIPAP Needs Home O2 Discharge instructions: No Meaningful Use Info Meaningful Use Meaningful Use Diagnoses (Choose all that apply): None applicable Ischemic Stroke Statin Dosing Therapy Reference: STATIN DOSE THERAPY REFERENCE: * Patients > 75 years receive moderate or high dose statin therapy. * Patients 75 years or YOUNGER should receive HIGH intensity statin dose unless contraindicated. You will be required to document reason for non-treatment if statin daily dose does not meet guidelines. HIGH DOSE STATIN THERAPY DAILY Atorvastatin > than or = to 40 mg Rosuvastatin > than or = to 20 mg Amlodipine + Atorvastatin > than or = to 2.5/40 mg Ezetimibe + Simvastatin 10/80 mg Simvastatin 80mg Discharge Plan Admission Admit Date/Time: 01/16/25 15:41 Attending Provider: Lele Anderson Primary Care Provider: Dayron Macias Consulting Providers: Lucia Matos Discharge Orders/Prescriptions Prescriptions: Continued vitamin E (dl, acetate) 1,000 unit capsule 2,000 unit PO DAILY multivitamin tablet 1 tab PO DAILY triamcinolone acetonide 0.1 % cream 1 applic TOPICAL TID PRN (Reason: rash) cholecalciferol (vitamin D3) 25 mcg (1,000 unit) tablet 400 unit PO DAILY biotin 2,500 mcg capsule 5 mg PO DAILY Ocutabs Tablet 2 tab PO DAILY Referrals / Follow Up: Melo Jackson MD [Med Staff - Active Staff] - 01/18/25 9:00 am Dayron Macias MD [Primary Care Provider] - Within 2 Weeks Disposition Disposition (needs filled in before D/C Order can be placed): Home, Self Care Charges/Coding Visit Charges Inpatient E&M: 89738 Disch Hosp >30min 01/17/25 1515 <Electronically signed by Lele Anderson MD> Cosigner Signature (if applicable): CC: Dr. Dayron Macias MD; Dr. 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), face acute SCC (squamous cell carcinoma), face acute [facility] Work Phone: evaluation note* Diagnosis Onset Date Resolution Status Admit Date Aortic stenosis acute December 3:32pm Chest pain acute January 16 3:32pm Recurrent syncope acute December 192024 3:32pm [facility] Work Phone: Evaluation note* Diagnosis Nonrheumatic aortic valve stenosis [facility]* Diagnosis Nonrheumatic aortic valve stenosis documented in this [facility]* Diagnosis Nonrheumatic aortic valve stenosis documented in this encounter [facility]* Diagnosis Severe aortic stenosis- Primary Aortic valve disorders Type 2 diabetes mellitus without complication, without long-term current use of insulin (HCC) Severe aortic stenosis- Primary Aortic valve disorders Severe aortic stenosis Aortic valve disorders [facility] Diagnosis Nonrheumatic aortic valve stenosis Severe aortic stenosis- Primary Aortic valve disorders Severe aortic stenosis Aortic valve disorders [facility]* Diagnosis Severe aortic stenosis Aortic valve disorders Severe aortic stenosis- Primary Aortic valve disorders Severe aortic stenosis Aortic valve disorders [facility]* Diagnosis Severe aortic stenosis- Primary Aortic valve disorders Severe aortic stenosis- Primary Aortic valve disorders Severe aortic stenosis Aortic valve disorders [facility]* Diagnosis Severe aortic stenosis- Primary Aortic valve disorders Severe aortic stenosis Aortic valve disorders [facility]* Diagnosis Severe aortic stenosis- Primary Aortic valve disorders documented in [facility]* Diagnosis Severe aortic stenosis- Primary Aortic valve disorders Coronary artery disease involving [place] coronary artery of shosh[place]ann[place] heart without angina pectoris [facility]* Diagnosis Severe aortic stenosis- Primary Aortic valve disorders Coronary artery disease involving [place] coronary artery of sh[place] heart without angina pectoris Severe aortic stenosis Aortic valve disorders [facility] Author Lucia Matos [facility] Note Date/Time January 16, 2025 3:4 9pm [facility] Medical Records Department [facility] [place] [address] H&P Exam - Hospitalist 01/16/25 1541 MR#: [id number] Acct: [id number] Name: EVELIN HERNANDEZ Rep #:[id number] : 1945 79 From: Lucia Matos MD PCP: Dr. Dayron Macias MD Status:ADM I N Location: [place] [address] HPI - General General Date of Admission: 01/16/25 Date of Service: 01/16/25 Chief Complaint: multiple syncopal episodes HPI Narrative EVELIN HERNANDEZ, is a 79-year-old male with a history of diet-controlled type 2 diabetes and mild aortic stenosis presented [facility] ED 01/16/2025 due to multiple syncopal episodes over the past couple of months. 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 Each episode occurred after developing left-sided chest pain whileexerting himself. He came back to [place] today and saw his PCP and was very concerned and asked him to come to the ER to be admitted for cardiac workup. Nohistory of blood clots or recent surgery. Has a history of a cardiac murmur that was evaluated several years ago by cardiology and an echo from 2018 showed mild aortic stenosis. Presently symptomatic, has no history of recent stress test or echocardiogram. In the ED vitals stable, troponin 15, hemoglobin 12.6 and glucose 136 but CBC and BMP otherwise unremarkable. Chest x- ray did show some vascular congestion suggestive of mild CHF and patient had a little bit of exertional dyspnea so BNP was added on. Given patient's multiple syncopal episodes hospitalist contacted for admission. Patient evaluated at bedside he does report for 5 minutes episodes which usually happen after a significant amount of exertion and would start with chest pressure when he did not sit to rest and subsequently go on to have syncopal episodes and then recover. Currently not having chest pain or lightheadedness, last syncopal episode about 2 weeks ago however patient's family physician very nervous about these multipleepisodes and their frequency and associated symptoms, patient agreeable to admission and workup [facility] Medical History Abnormal pituitary follicle stimulating hormone (FSH) Anemia Aortic stenosis Chest pain Syncope Dermatochalasis of right lower eyelid Dermatochalasis of left lower eyelid Non-rheumatic aortic stenosis Cardiac murmur Controlled type 2 diabetes mellitus Essential hypertension Testicular mass Hyperlipemia Home Medications ?Medication ?Instructions ?Recorded ?Last Taken ?Type multivitamin 1 tab PO DAILY 08/17/1812/19 History vitamin E (dl, acetate) 450 mg 2,000 unit PO DAILY 11/0501/15/25 History (1,000 unit) capsule triamcinolone acetonide 0.1 % 1 applic topical TID PRN rash 02/20/21 01/15/25 History topical cream biotin 2,500 mcg capsule 5 mg PO DAILY 12/07/2401/15 History cholecalciferol (vitamin D3) 25 400 unit PO DAILY 11/1901/15/25 History mcg (1,000 unit) tablet vitamin A-vitamin C-vit E-min 2 tab PO DAILY 01/16/25 01/15/25 History tablet (Ocutabs tablet) Allergy/AdvReac Type Severity Reaction Status Date / Time No Known Allergies Allergy Verified 05/10/24 10:44 Family History Father Myocardial infarction CAD (coronary artery disease) History of coronary artery bypass surgery Mother COPD (chronic obstructive pulmonary disease) Surgical History History of open reduction and internal fixation (ORIF) procedure History of arthroscopic knee surgery Social History Smoking Status: Never smoker alcohol intake: never substance use type: does not use additional social history: pt denies smoking, denies vaping, denies edibles, denies alcohol, denies aspirin use, denies ibuprofen use. ROS ROS Narrative ROS positive for episodes of chest pain on exertion with syncope, no shortness of breath, no cough, denies any current chest pain, patient reports he has lost weight due to trying to eat healthy and no weight gain, swelling in his lower extremities Vital Signs Vital Signs Vital Signs: 01/16/25 13:03 01/16/25 13:45 01/16/25 13:45 Temperature 97.6 F L Temperature Source Temporal Pulse Rate 58 L 56 L Respiratory Rate 16 13 Respiratory Effort Normal Respiratory Pattern Normal Blood Pressure 130/72 H 124/63 H Blood Pressure Mean 91 83 Pulse Ox 99 99 Oxygen Delivery Method Room Air Room Air 01/16/25 15:06 Temperature 97 F L Temperature Source Pulse Rate 66 Respiratory Rate 20 H Respiratory Effort Respiratory Pattern Blood Pressure 142/82 H Blood Pressure Mean 102 Pulse Ox 97 Oxygen Delivery Method Weight Weight: 90.718 kg Body Mass Index (BMI) 28.0 Physical Exam Narrative General: Alert, oriented, no apparent distress HEENT: Atraumatic, normocephalic Eyes: Anicteric, normal conjunctiva, extraocular movements grossly intact Neck: Supple Respiratory: Fairly normal respiratory effort, no overt crackles, wheezes, rhonchi Cardiovascular: Regular rate and rhythm but does have harsh systolic murmur throughout precordium GI: Soft, nontender, nondistended Extremities: Trace lower extremity edema Musculoskeletal: Moving all extremities Neuro: No overt focal neurological deficits Skin: No rashes appreciated Psych: Cooperative Results Lab / Micro Data 01/16/25 13:40 01/16/25 13:40 Labs: Laboratory Results - last 24 hr 01/16/25 13:40: WBC 5.6, RBC 4.23 L, Hgb 12.6 L, Hct 36.7 L, MCV 86.8, MCH 29.8,MCHC 34.3, RDW Std Deviation 38.4, RDW Coeff of Sly 12.1, Plt Count 182, MPV 10.1, Immature Gran % (Auto) 0.400, Neut % (Auto) 71.5 H, Lymph % (Auto) 17.8 L,Bamberg % (Auto) 8.0, Eos % (Auto) 1.6, Baso % (Auto) 0.7, Absolute Neuts (auto) 4.0, Absolute Lymphs (auto) 1.00, Nucleated RBC % 0, Sodium 138, Potassium 4.0, Chloride 104, Carbon Dioxide 25.3, Anion Gap 9, BUN 20 H, Creatinine 0.92, EstimCreat Clear Calc 73.75, Est GFR (MDRD) Non-Af 85, BUN/Creatinine Ratio 21.8 H, Glucose 136 H, Calcium 9.0, Troponin T High Sens 15 Imaging Radiology Impression Chest X-Ray 01/16/25 13:40 IMPRESSION: Vascular congestion and mild CHF. Reading Location: [place] [id number] Assessment & Plan Assessment/Plan (1) Recurrent syncope: PLAN: Plan # Multiple syncopal episodes and associated chest pain -Patient reports with moderate to significant exertion he will develop chest discomfort and subsequent syncope if he does not sit down to rest, cannot rule out that this is valvular in nature so would want to obtain echo prior to considering a stress test -admit to telemetry -Depending on echo results may need to consider stress test or further cardiac workup/cardiology consult -EGK sinus rhythm 56 bpm, no overt ST elevation or depression -Troponin 15, patient not currently having any symptoms, last episode 2 weeks ago -orthostatic vital signs -will obtain echo -Check lipid panel # Mild vascular congestion -Patient noted to have a little bit of increased work of breathing during conversation and chest x-ray revealed mild congestion concerning for mild CHF -Daily weights, I's and O's -Echocardiogram ordered -proBNP ordered #Type 2 diabetes mellitus -Glucose checks and sliding scale insulin -Presently diet controlled on outpatient basis -Will check A1c #DVT ppx: Lovenox subcu Lucia Matos MD Time spent in the patient's overall evaluation, decision-making process, review of diagnostic data, adjustment of management, discussion with other providers, nursing and ancillary staff involved in patient's care documentation, 57 Minutes Charges/Coding Visit Charges Inpatient E&M: 51987 Init Hosp L2 01/16/25 1543 <Electronically signed by Lucia Matos MD> Cosigner Signature (if applicable): CC: Dr. Dayron Macias MD; Dr. Lucia Matos MD~ Signed [facility] Work Phone: Instructions* Name Dates Details Patient Instructions Indication:BMI 28.0-28.9,adult Start:05-Jun-2022 Instruction Type:Provider Instructions for Treatment How to Access Health Informa tion Online using Patient Portal and 3rd [employer] Apps Indication:BMI 28.0-28.9,adult Start:05-Jun-2022 Instruction Type:Patient Education [facility]; [facility] Work Phone: Instructions* Name Dates Details Patient Instructions Indication:BMI 28.0-28.9,adult Start:09-Sep-2022 Instruction Type:Provider Instructions for Treatment How to Access Health Informa tion Online using Patient Portal and 3rd [employer] Apps Indication:BMI 28.0-28.9,adult Start:09-Sep-2022 Instruction Type:Patient Education Patient Instructions Indication:BMI 28.0-28.9,adult Start:05-Jun-2022 Instruction Type:Provider Instructions for Treatment How to Access Health Informa tion Online using Patient Portal and 3rd [employer] Apps Indication:BMI 28.0-28.9,adult Start:05-Jun-2022 Instruction Type:Patient Education [facility]; [facility] Work Phone: instructions* Name Dates Details Patient Instructions Indication:BMI 28.0-28.9,adult Start:09-Sep-2022 Instruction Type:Provider Instructions for Treatment How to Access Health Informa tion Online using Patient Portal and 3rd [employer] Apps Indication:BMI 28.0-28.9,adult Start:09-Sep-2022 Instruction Type:Patient Education Patient Instructions Indication:BMI 28.0-28.9,adult Start:05-Jun-2022 Instruction Type:Provider Instructions for Treatment How to Access Health Informa tion Online using Patient Portal and 3rd [employer] Apps Indication:BMI 28.0-28.9,adult Start:05-Jun-2022 Instruction Type:Patient Education [facility]; [facility] Work Phone: instructions* Name Dates Details Patient Instructions Indication:BMI 28.0-28.9,adult Start:09-Sep-2022 Instruction Type:Provider Instructions for Treatment How to Access Health Informa tion Online using Patient Portal and 3rd [employer] Apps Indication:BMI 28.0-28.9,adult Start:09-Sep-2022 Instruction Type:Patient Education Patient Instructions Indication:BMI 28.0-28.9,adult Start:05-Jun-2022 Instruction Type:Provider Instructions for Treatment How to Access Health Informa tion Online using Patient Portal and 3rd [employer] Apps Indication:BMI 28.0-28.9,adult Start:05-Jun-2022 Instruction Type:Patient Education [facility]; [facility] Work Phone: instructions* Name Dates Details Patient Instructions Indication:BMI 28.0-28.9,adult Start:01-Oct-2022 Instruction Type:Provider Instructions for Treatment How to Access Health Informa tion Online using Patient Portal and 3rd [employer] Apps Indication:BMI 28.0-28.9,adult Start:01-Oct-2022 Instruction Type:Patient Education Patient Instructions Indication:BMI 28.0-28.9,adult Start:09-Sep-2022 Instruction Type:Provider Instructions for Treatment How to Access Health Informa tion Online using Patient Portal and 3rd [employer] Apps Indication:BMI 28.0-28.9,adult Start:09-Sep-2022 Instruction Type:Patient Education Patient Instructions Indication:BMI 28.0-28.9,adult Start:05-Jun-2022 Instruction Type:Provider Instructions for Treatment How to Access Health Informa tion Online using Patient Portal and 3rd [employer] Apps Indication:BMI 28.0-28.9,adult Start:05-Jun-2022 Instruction Type:Patient Education [facility]; [facility] Work Phone: instructions* Name Dates Details Patient Instructions Indication:BMI 28.0-28.9,adult Start:01-Oct-2022 Instruction Type:Provider Instructions for Treatment How to Access Health Informa tion Online using Patient Portal and 3rd [employer] Apps Indication:BMI 28.0-28.9,adult Start:01-Oct-2022 Instruction Type:Patient Education Patient Instructions Indication:BMI 28.0-28.9,adult Start:09-Sep-2022 Instruction Type:Provider Instructions for Treatment How to Access Health Informa tion Online using Patient Portal and 3rd [employer] Apps Indication:BMI 28.0-28.9,adult Start:09-Sep-2022 Instruction Type:Patient Education Patient Instructions Indication:BMI 28.0-28.9,adult Start:05-Jun-2022 Instruction Type:Provider Instructions for Treatment How to Access Health Informa tion Online using Patient Portal and 3rd [employer] Apps Indication:BMI 28.0-28.9,adult Start:05-Jun-2022 Instruction Type:Patient Education [facility]; [facility] Work Phone: Instructions* Name Dates Details Patient Instructions Indication:BMI 28.0-28.9,adult Start:01-Oct-2022 Instruction Type:Provider Instructions for Treatment How to Access Health Informa tion Online using Patient Portal and 3rd [employer] Apps Indication:BMI 28.0-28.9,adult Start:01-Oct-2022 Instruction Type:Patient Education Patient Instructions Indication:BMI 28.0-28.9,adult Start:09-Sep-2022 Instruction Type:Provider Instructions for Treatment How to Access Health Informa tion Online using Patient Portal and 3rd [employer] Apps Indication:BMI 28.0-28.9,adult Start:09-Sep-2022 Instruction Type:Patient Education Patient Instructions Indication:BMI 28.0-28.9,adult Start:05-Jun-2022 Instruction Type:Provider Instructions for Treatment How to Access Health Informa tion Online using Patient Portal and 3rd [employer] Apps Indication:BMI 28.0-28.9,adult Start:05-Jun-2022 Instruction Type:Patient Education [facility]; [facility] Work Phone: [employer]* Name Dates Details Patient Instructions Indication:BMI 28.0-28.9,adult Start:01-Oct-2022 Instruction Type:Provider Instructions for Treatment How to Access Health Informa tion Online using Patient Portal and 3rd [employer] Apps Indication:BMI 28.0-28.9,adult Start:01-Oct-2022 Instruction Type:Patient Education Patient Instructions Indication:BMI 28.0-28.9,adult Start:09-Sep-2022 Instruction Type:Provider Instructions for Treatment How to Access Health Informa tion Online using Patient Portal and 3rd [employer] Apps Indication:BMI 28.0-28.9,adult Start:09-Sep-2022 Instruction Type:Patient Education Patient Instructions Indication:BMI 28.0-28.9,adult Start:05-Jun-2022 Instruction Type:Provider Instructions for Treatment How to Access Health Informa tion Online using Patient Portal and 3rd [employer] Apps Indication:BMI 28.0-28.9,adult Start:05-Jun-2022 Instruction Type:Patient Education [facility]; [facility] Work Phone: instructions* Name Dates Details Patient Instructions Indication:BMI 28.0-28.9,adult Start:01-Oct-2022 Instruction Type:Provider Instructions for Treatment How to Access Health Informa tion Online using Patient Portal and 3rd [employer] Apps Indication:BMI 28.0-28.9,adult Start:01-Oct-2022 Instruction Type:Patient Education Patient Instructions Indication:BMI 28.0-28.9,adult Start:09-Sep-2022 Instruction Type:Provider Instructions for Treatment How to Access Health Informa tion Online using Patient Portal and 3rd [employer] Apps Indication:BMI 28.0-28.9,adult Start:09-Sep-2022 Instruction Type:Patient Education Patient Instructions Indication:BMI 28.0-28.9,adult Start:05-Jun-2022 Instruction Type:Provider Instructions for Treatment How to Access Health Informa tion Online using Patient Portal and 3rd [employer] Apps Indication:BMI 28.0-28.9,adult Start:05-Jun-2022 Instruction Type:Patient Education [facility]; [facility] Work Phone: [employer]* Name Dates Details Patient Instructions Indication:BMI 28.0-28.9,adult Start:01-Oct-2022 Instruction Type:Provider Instructions for Treatment How to Access Health Informa tion Online using Patient Portal and 3rd [employer] Apps Indication:BMI 28.0-28.9,adult Start:01-Oct-2022 Instruction Type:Patient Education Patient Instructions Indication:BMI 28.0-28.9,adult Start:09-Sep-2022 Instruction Type:Provider Instructions for Treatment How to Access Health Informa tion Online using Patient Portal and 3rd [employer] Apps Indication:BMI 28.0-28.9,adult Start:09-Sep-2022 Instruction Type:Patient Education Patient Instructions Indication:BMI 28.0-28.9,adult Start:05-Jun-2022 Instruction Type:Provider Instructions for Treatment How to Access Health Informa tion Online using Patient Portal and 3rd [employer] Apps Indication:BMI 28.0-28.9,adult Start:05-Jun-2022 Instruction Type:Patient Education [facility]; [facility] Work Phone: [employer]* Name Dates Details Patient Instructions Indication:Neck pain Start:18-May-2023 Instruction Type:Provider Instructions for Treatment How to Access Health Informa tion Online using Patient Portal and 3rd [employer] Apps Indication:Neck pain Start:18-May-2023 Instruction Type:Patient Education Patient Instructions Indication:BMI 28.0-28.9,adult Start:01-Oct-2022 Instruction Type:Provider Instructions for Treatment How to Access Health Informa tion Online using Patient Portal and 3rd [employer] Apps Indication:BMI 28.0-28.9,adult Start:01-Oct-2022 Instruction Type:Patient Education Patient Instructions Indication:BMI 28.0-28.9,adult Start:09-Sep-2022 Instruction Type:Provider Instructions for Treatment How to Access Health Informa tion Online using Patient Portal and 3rd [employer] Apps Indication:BMI 28.0-28.9,adult Start:09-Sep-2022 Instruction Type:Patient Education Patient Instructions Indication:BMI 28.0-28.9,adult Start:05-Jun-2022 Instruction Type:Provider Instructions for Treatment How to Access Health Informa tion Online using Patient Portal and 3rd [employer] Apps Indication:BMI 28.0-28.9,adult Start:05-Jun-2022 Instruction Type:Patient Education [facility]; [facility] Work Phone: reason for referral (narrative)No reason for referral [facility] Work Phone: Reason for visit Narrative* Imaging (Routine) - Closed Specialty Diagnoses / Procedures Referred By Contac t Referred To Contact Radiology Diagnoses Nonrheumatic aortic valve stenosis Procedures CTA Angiogram TAVR Jakob Tinajero, DONNY - SIGN MAINTENANCE [address] [place] [address] Phone: tel: fax: Referral ID Status Reason Start Date Expiration Date Visits Re quested Visits Authorized [id number] Closed 01/30/2025 01/30/2026 1 1 [facility] for visit Narrative* Auth/Cert (Routine) Specialty Diagnoses / Procedures Referred By Contac t Referred To Contact Diagnoses Severe aortic stenosis Procedures MD REPLACE AORTIC VALVE PERQ FEMORAL ARTRY APPROACH TRANSCATHETER AORTIC VALVE REPLACEMENT, TRANSTHORACIC ECHOCARDIOGRAM TRANSCATHETER AORTIC VALVE REPLACEMENT, TRANSTHORACIC ECHOCARDIOGRAM Michaela Siegel MD [address] [place] [address] Phone: tel: fax: Referral ID Status Reason Start Date Expiration Date Visits Re quested Visits Authorized [id number] 01/31/2025 1 1 [facility] for visit Narrative* Imaging (Routine) - Closed Specialty Diagnoses / Procedures Referred By Contac t Referred To Contact Cardiology Diagnoses Severe aortic stenosis Procedures Transthoracic echocardiogram (TTE) complete with contrast, bubble, strain, and 3D PRN MD ECHO TTHRC R-T 2D W/WOM-MODE COMPL SPEC&COLR D MD TTE W OR WO FOL WCON,DOPPLER Trish Meyer, COMPENSATION ADVISOR - SIGN MAINTENANCE [address] [place] [address] Phone: tel: fax: Referral ID Status Reason Start Date Expiration Date Visits Re quested Visits Authorized [id number] Closed 03/08/2025 03/08/2026 1 [facility] Purpose Family History No Family History Records FoundUnknown Family Member Name Dates Details Brother 1 Comments:, Lung Canc er with metastasis to other areas. Status:Active Father Comments: at 87, Gerardo g and Heart issues, MIs, Stroke, HTN, DM Status:Active Mother Comments:Emphysema Of Lung Status:Active Sister 1 Comments:, Ovarian w ith metastasis Status:Active Unknown Family Member Name Dates Details Brother 1 Comments:, Lung Canc er with metastasis to other areas. Status:Active Father Comments: at 87, Gerardo g and Heart issues, MIs, Stroke, HTN, DM Status:Active Mother Comments:Emphysema Of Lung Status:Active Sister 1 Comments:, Ovarian w ith metastasis Status:Active Unknown Family Member Name Dates Details Brother 1 Comments:, Lung Canc er with metastasis to other areas. Status:Active Father Comments: at 87, Gerardo g and Heart issues, MIs, Stroke, HTN, DM Status:Active Mother Comments:Emphysema Of Lung Status:Active Sister 1 Comments:, Ovarian w ith metastasis Status:Active Unknown Family Member Name Dates Details Brother 1 Comments:, Lung Canc er with metastasis to other areas. Status:Active Father Comments: at 87, Gerardo g and Heart issues, MIs, Stroke, HTN, DM Status:Active Mother Comments:Emphysema Of Lung Status:Active Sister 1 Comments:, Ovarian w ith metastasis Status:Active Unknown Family Member Name Dates Details Brother 1 Comments:? Cancer wi th metastasis to other areas. Status:Active Brother 2 Comments:genetic lung diseas e (pt does not have was tested), plastic surgeon Status:Active Brother 3 Comments:genetic lung diseas e. prostate cancer. was osteopath Status:Active Brother 4 Comments: of head injury at 40's Status:Active Father Comments: at 87, Gerardo g and Heart issues, MIs, Stroke, HTN, DM Status:Active Mother Comments:genetic Emphysema O f Lung of 72, Status:Active Sister 1 Comments:, Ovarian w ith metastasis Status:Active Unknown Family Member Name Dates Details Brother 1 Comments:? Cancer wi th metastasis to other areas. Status:Active Brother 2 Comments:genetic lung diseas e (pt does not have was tested), plastic surgeon Status:Active Brother 3 Comments:genetic lung diseas e. prostate cancer. was osteopath Status:Active Brother 4 Comments: of head injury at 40's Status:Active Father Comments: at 87, Gerardo g and Heart issues 65 yo, MIs, Stroke, HTN, DM Status:Active Mother Comments:genetic Emphysema O f Lung of 72, Status:Active Sister 1 Comments:, Ovarian w ith metastasis Status:Active Unknown Family Member Name Dates Details Brother 1 Comments:? Cancer wi th metastasis to other areas. Status:Active Brother 2 Comments:genetic lung diseas e (pt does not have was tested), plastic surgeon Status:Active Brother 3 Comments:genetic lung diseas e. prostate cancer. was osteopath Status:Active Brother 4 Comments: of head injury at 40's Status:Active Father Comments: at 87, Gerardo g and Heart issues 65 yo, MIs, Stroke, HTN, DM Status:Active Mother Comments:genetic Emphysema O f Lung of 72, Status:Active Sister 1 Comments:, Ovarian w ith metastasis Status:Active Unknown Family Member Name Dates Details Brother 1 Comments:? Cancer wi th metastasis to other areas. Status:Active Brother 2 Comments:genetic lung diseas e (pt does not have was tested), plastic surgeon Status:Active Brother 3 Comments:genetic lung diseas e. prostate cancer. was osteopath Status:Active Brother 4 Comments: of head injury at 40's Status:Active Father Comments: at 87, Gerardo g and Heart issues 65 yo, MIs, Stroke, HTN, DM Status:Active Mother Comments:genetic Emphysema O f Lung of 72, Status:Active Sister 1 Comments:, Ovarian w ith metastasis Status:Active Unknown Family Member Name Dates Details Brother 1 Comments:? Cancer wi th metastasis to other areas. Status:Active Brother 2 Comments:genetic lung diseas e (pt does not have was tested), plastic surgeon Status:Active Brother 3 Comments:genetic lung diseas e. prostate cancer. was osteopath Status:Active Brother 4 Comments: of head injury at 40's Status:Active Father Comments: at 87, Gerardo g and Heart issues 65 yo, MIs, Stroke, HTN, DM Status:Active Mother Comments:genetic Emphysema O f Lung of 72, Status:Active Sister 1 Comments:, Ovarian w ith metastasis Status:Active Unknown Family Member Name Dates Details Brother 1 Comments:? Cancer wi th metastasis to other areas. Status:Active Brother 2 Comments:genetic lung diseas e (pt does not have was tested), plastic surgeon Status:Active Brother 3 Comments:genetic lung diseas e. prostate cancer. was osteopath Status:Active Brother 4 Comments: of head injury at 40's Status:Active Father Comments: at 87, Gerardo g and Heart issues 65 yo, MIs, Stroke, HTN, DM Status:Active Mother Comments:genetic Emphysema O f Lung of 72, Status:Active Sister 1 Comments:, Ovarian w ith metastasis Status:Active Unknown Family Member Name Dates Details Brother 1 Comments:? Cancer wi th metastasis to other areas. Status:Active Brother 2 Comments:genetic lung diseas e (pt does not have was tested), plastic surgeon Status:Active Brother 3 Comments:genetic lung diseas e. prostate cancer. was osteopath Status:Active Brother 4 Comments: of head injury at 40's Status:Active Father Comments: at 87, Greardo g and Heart issues 65 yo, MIs, Stroke, HTN, DM Status:Active Mother Comments:genetic Emphysema O f Lung of 72, Status:Active Sister 1 Comments:, Ovarian w ith metastasis Status:Active Relationship Condition Age at Onset Recorded Date/T chidi father Myocardial infarction Unknown Coronary artery disease Unknown History of coronary artery bypass surgery Unknown Relationship Condition Age at Onset Recorded Date/T chidi father Myocardial infarction Unknown Coronary artery disease Unknown History of coronary artery bypass surgery Unknown mother Chronic obstructive pulmonary disease Unk nown Advance Directives No Advanced Directives Records Found Advance Directive Response Recorded Date/ Time Living Will No September 08 023 8:37am Power of Livestock Handler No September 08, 2023 8:37am Advance Directive Response Recorded Date/ Time Living Will No September 08 023 9:37am Power of Livestock Handler No September 08, 2023 9:37am Advance Directive Response Recorded Date/ Time Living Will Yes January 16, 2025 1:45pm Do you have a Healthcare Power of Livestock Handler? Yes January 16, 2025 1:45pm Name of Medical Power of Livestock Handler January 16, 2025 1:45pm Advance Directive Response Recorded Date/ Time Living Will Yes January 16, 2025 4:14pm Do you have a Healthcare Power of Livestock Handler? Yes January 16, 2025 4:14pm Name of Medical Power of Livestock Handler January 16, 2025 4:14pm Advance Directive Response Recorded Date/ Time Living Will Yes January 16, 2025 4:14pm Do you have a Healthcare Power of Livestock Handler? Yes January 16, 2025 4:14pm Name of Medical Power of Livestock Handler January 16, 2025 4:14pm Advance Directives on File Yes January 20, 2025 7:38am Living Will Yes January 20, 2025 7:38am Do you have a Healthcare Power of Livestock Handler? 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), face SCC (squamous cell carcinoma), face Chief Complaint Admit Date AORTIC STENOSIS January 16, 2025 3:3 2pm AORTIC STENOSIS January 16, 2025 3:4 1pm Reason for Visit Admit Date Aortic stenosis January 16, 2025 3:3 2pm Chest pain January 16, 2025 3:3 2pm Recurrent syncope January 16, 2025 3:3 2pm Chief Complaint Admit Date AORTIC STENOSIS January 16, 2025 3:4 1pm AORTIC STENOSIS January 17, 2025 7:56 am AORTIC STENOSIS January 17, 2025 2:35 pm Reason for Visit Admit Date Aortic stenosis January 16, 2025 3:4 1pm Chest pain January 16, 2025 3:4 1pm Recurrent syncope January 16, 2025 3:4 1pm Chief Complaint Admit Date AORTIC STENOSIS January 16, 2025 3:4 1pm AORTIC STENOSIS January 17, 2025 7:56 am AORTIC STENOSIS January 17, 2025 2:35 pm Re-EST Syncope (Self) January 18, 2025 8: 51am Nonrheumatic aortic (valve) stenosis Jan 7:17am Reason for Visit Admit Date Aortic stenosis January 16, 2025 3:4 1pm Chest pain January 16, 2025 3:4 1pm Recurrent syncope January 16, 2025 3:4 1pm Aortic stenosis January 18, 2025 8:51 am Recurrent syncope January 18, 2025 8:51 am Additional Source Comments (unrecognized sect ion and content) No Status Records FoundNo Status Records FoundNo Status Records FoundNo Status Records Found INFORMATION SOURCE (unrecogn ized section and content) DATE CREATED AUTHOR 12/09/2021 [facility] DATE CREATED AUTHOR AUTHOR'S ORGANIZ ATION 12/11/2022 [facility] DATE CREATED AUTHOR AUTHOR'S ORGANIZ ATION 05/12/2025 [facility] DATE CREATED AUTHOR AUTHOR'S ORGANIZ ATION 08/01/2025 [facility] Care Teams (unrecognized sec tion and content) Team Status: Active Member Role Status Dates Dr. Dayron Macias MD Primary Care Provider Active Team Status: Inactive Member Role Status Dates Dr. Dayron Macias MD Primary Care Provider Active Start: January 16, 2025 End: January 17, 2025 Dr. Blaine Chopra DO Referring Provider Active Start: January 16, 2025 End: January 17, 2025 Dr. Blaine Chopra DO Emergency Provider Active Start: January 16, 2025 End: January 17, 2025 Dr. Lucia Matos MD Admit Provider Active Star t: January 16, 2025 End: January 17, 2025 Dr. Lucia Matos MD Other Provider Active Star t: January 16, 2025 End: January 17, 2025 Dr. Lele Anderson MD Attending Provider Active Start: January 16, 2025 End: January 17, 2025 Team Status: Active Member Role Status Dates Dr. Dayron Macias MD Primary Care Provider Active Start: January 17, 2025 Dr. Blaine Chopra DO Referring Provider Active Start: January 17, 2025 Dr. Blaine Chopra DO Emergency Provider Active Start: January 17, 2025 Dr. Lucia Matos MD Admit Provider Active Star t: January 17, 2025 Dr. Lucia Matos MD Other Provider Active Star t: January 17, 2025 Dr. Lele Anderson MD Attending Provider Active Start: January 17, 2025 Dr. Lele Anderson MD Other Provider Active Star t: January 17, 2025 Team Status: Active Member Role Status Dates Dr. Dayron Macias MD Primary Care Provider Active Start: January 17, 2025 Dr. Blaine Chopra DO Referring Provider Active Start: January 17, 2025 Dr. Blaine Chopra DO Emergency Provider Active Start: January 17, 2025 Dr. Lucia Matos MD Admit Provider Active Star t: January 17, 2025 Dr. Lucia Matos MD Other Provider Active Star t: January 17, 2025 Dr. Lele Anderson MD Other Provider Active Star t: January 17, 2025 Dr. Melo Jackson MD Attending Provider Active S tart: January 17, 2025 Team Status: Active Member Role Status Dates Dr. Radu Guaman III, MD Family Provider Active Team Status: Inactive Member Role Status Dates Dr. Castro Lund MD Attending Provider Active Team Status: Active Member Role Status Dates Dr. Radu Guaman III, MD Family Provider Active Dr. Dayron Macias MD Primary Care Provider Active Team Status: Inactive Member Role Status Dates Dr. Sayra Vincent MD Attending Provider Active Team Status: Inactive Member Role Status Dates Dr. Sayra Vincent MD Attending Provider Active Dr. Dayron Macias MD Primary Care Provider, Referring Provider Active Team Status: Active Member Role Status Dates Dr. Dayron Macias MD Primary Care Provider Active Dr. Sayra Vincent MD Attending Provid er, Referring Provider, Other Provider Active Team Status: Inactive Member Role Status Dates Dr. Dayron Macias MD Primary Care Provider Active Dr. Sayra Vincent MD Attending Provider, Referring Provider Active Team Status: Active Member Role Status Dates Dr. Dayron Macias MD Primary Care Provider Active Start: January 16, 2025 Dr. Blaine Chopra DO Referring Provider Active Start: January 16, 2025 Dr. Blaine Chopra DO Emergency Provider Active Start: January 16, 2025 Dr. Lucia Matos MD Admit Provider Active Star t: January 16, 2025 Dr. Lucia Matos MD Attending Provider Active Start: January 16, 2025 Team Status: Active Member Role Status Dates Dr. Dayron Macias MD Primary Care Provider Active Start: January 16, 2025 Dr. Blaine Chopra DO Referring Provider Active Start: January 16, 2025 Dr. Blaine Chopra DO Emergency Provider Active Start: January 16, 2025 Dr. Lucia Matos MD Admit Provider Active Star t: January 16, 2025 Dr. Lucia Matos MD Attending Provider Active Start: January 16, 2025 Dr. Lucia Matos MD Other Provider Active Star t: January 16, 2025 Team Status: Active Member Role Status Dates Dr. Dayron Macias MD Primary Care Provider Active Start: January 17, 2025 Dr. Blaine Chopra DO Emergency Provider Active Start: January 17, 2025 Dr. Lucia Maots MD Admit Provider Active Star t: January 17, 2025 Dr. Lucia Matos MD Other Provider Active Star t: January 17, 2025 Dr. Lele Anderson MD Attending Provider Active Start: January 17, 2025 Dr. Lele Anderson MD Other Provider Active Star t: January 17, 2025 Team Status: Inactive Member Role Status Dates Dr. Dayron Macias MD Primary Care Provider Active Start: January 18, 2025 End: January 18, 2025 Dr. Dayron Macias MD Referring Provider Active Start: January 18, 2025 End: January 18, 2025 Dr. Melo Jackson MD Attending Provider Active S tart: January 18, 2025 End: January 18, 2025 Team Status: Inactive Member Role Status Dates Dr. Dayron Macias MD Primary Care Provider Active Start: January 20, 2025 End: January 20, 2025 Dr. Melo Jackson MD Attending Provider Active S tart: January 20, 2025 End: January 20, 2025 Dr. Melo Jackson MD Referring Provider Active S tart: January 20, 2025 End: January 20, 2025 [employer] Mill Set Up Operator Relationship Specialty Start Date End Date Dayron Macias MD [address] [place] [phone] PCP - General Internal Medicine 01/24/25 [employer] Mill Set Up Operator Relationship Specialty Start Date End Date Dayron Macias MD [address] [place] [address] [address] [place] [address] PCP - General Internal Medicine 01/24/25 [employer] Set Up Operator Relationship Specialty Start Date End Date Dayron Macias MD [address] [place] [address] [address] [place] [address] PCP - General Internal Medicine 01/24/25 [employer] Mill Set Up Operator Relationship Specialty Start Date End Date Dayron Macias MD [address] [place] [address] [address] [place] [phone] PCP - General Internal Medicine 01/24/25 [employer] Mill Set Up Operator Relationship Specialty [place] [address] [place] [address] [address] [place] [address] PCP - General Internal Medicine 01/24/25 [employer] Set Up Operator Relationship Specialty Start [place] [address] [place] [address] [address] [place] [address] PCP - General Internal Medicine 01/24/25 [employer] Mill Set Up Operator Relationship Specialty Start Date End Date Dayron Macias MD [address] [place] [address] PCP - General Internal Medicine 01/24/25 C[employer] Mill Set Up Operator Relationship Specialty Start Date End Date Dayron Macias MD [facility] [address] [place] [address] PCP - General Internal Medicine 01/24/25 Maggie Tafoya, administrative support associateEyeglass Inspector Manager 02/09/25 [employer] Mill Set Up Operator Relationship Specialty Start Date End Date Dayron Macias MD [address] [place] [address] [address] [place] [address] PCP - General Internal Medicine 01/24/25 Maggie Tafoya, RN Registered Nurse Eyeglass Inspector Manager 02/09/25 [employer] Mill Set Up Operator Relationship Specialty Start Date End Date Dayron Macias MD [address] [place] [address] [address] [place] [phone] PCP - General Internal Medicine 01/24/25 Maggie Tafoya, RN Registered Nurse Eyeglass Inspector Manager 02/09/25 C[employer] Mill Set Up Operator Relationship Specialty Start Date End Date Dayron Macias MD [address] [place] [address] [address] [place] [phone] PCP - General Internal Medicine 01/24/25 Maggie Tafoya, RN Registered Nurse Eyeglass Inspector Manager 02/09/25 Cnc Mill Set Up Operator Relationship Specialty Start Date End Date Dayron Macias MD [address] [place] [address] [address] [place] [phone] PCP - General Internal Medicine 01/24/25 Maggie Tafoya, RN Registered Nurse Eyeglass Inspector Manager 02/09/25 Cnc Mill Set Up Operator Relationship Specialty Start Date End Date Dayron Macias MD [address] [place] [address] [address] [place] [phone] PCP - General Internal Medicine 01/24/25 Maggie Tafoya, CHOLO Registered Nurse Eyeglass Inspector Manager 02/09/25 C[employer] Mill Set Up Operator Relationship Specialty Start Date End Date Dayron Macias MD [address] [place] [address] PCP - General Internal Medicine 01/24/25 Maggie Tafoya RN Registered Nurse Eyeglass Inspector Manager 02/09/25 Cnc Mill Set Up Operator Relationship Specialty Start Date End Date Dayron Macias MD [address] [facility] [address] [place] [address] PCP - General Internal Medicine 01/24/25 Maggie Tafoya, CHOLO Registered Nurse Eyeglass Inspector Manager 02/09/25 Goals (unrecognized section and content) Goals may be documented in a n alternate sectionGoals may be documented in an alternate section Reason for Visit (unrecogniz ed section and content) Reason Onset Date Comments Orders 01/25/2025 Reason Comments Other Pre Valve Clinic Doc umentation Reason Onset Date Comments Orders 01/25/2025 Reason Comments Cardiac Valve Problem New Patient Heart Valve Clinic Reason Onset Date Comments Procedure 01/31/2025 TAVR Reason Onset Date Comments Procedure 01/31/2025 TAVR Reason Comments 1 Month Follow Up Scheduled Active and Recently Administ ered Medications (unrecognized section and content) Medication Order 02/05/2025 02/06/2025 02/07/2025 aspirin EC tablet 81 mg 81 mg, Oral, Daily, First dose on Thu02/06/25 at 1700, Do not crush, chew, or split. 1758 (Given - Provider: Alexi Montoya, CHOLO) 0999 (Given - Provider: Winnie Kwok RN) ceFAZolin (Ancef) 2,000 mg in sodium chloride 0.9 % 100 mL IVPB (COMPLETED) 2,000 mg, IntraVENous, at 200 mL/hr, Administer over 30 Minutes, Once, On Thu02/06/25 at 1315, For 1 dose, Preprocedure, Administer within 1 hour prior to incision. Recommend to repeat in 3-4 hours after initial dose if still intra-op. Mini-Bag Plus bag, Suspected Indication (Select all that apply): Surgical Prophylaxis 1444 (New Bag - Provider: DONNY Reyna CRNA) 0738 (Stopped - Provider: Ivory Ballesteros, RN - Comment: Not present on assessment) mupirocin (Bactroban) 2 % ointment 1 Application 1 Application, Nasal, 2 times daily, First dose on Thu02/06/25 at 2100, For 5 days, Recovery & On Unit, Indications: MRSA Nasal Decolonization 2133 (Given - Provider: Kamila Cee, RN) 0944 (Given - Provider: Winnie Kwok RN) Continuous Medication Order 02/05/2025 02/06/2025 02/07/2025 sodium chloride 0.9 % infusion (CANCELED) 50 mL/hr, IntraVENous, Continuous, Starting on Thu02/06/25 at 1315, Preprocedure, Upon admission to sameday - please start iv if patient does not have iv access. 1327 (New Bag - Provider: Christine Yan, CHOLO)1440 (Continued by Anesthesia - Provider: DONNY Reyna CRNA) 0738 (Stopped - Provider: Ivory Ballesteros, CHOLO - Comment: Not present on assessment) PRN Medication Order 02/05/2025 02/06/2025 02/07/2025 acetaminophen (Tylenol) tablet 650 mg 650 mg, Oral, Every 4 hours PRN, mild pain (1-3), Fever > 100.5 F (38 C), Starting on Thu02/06/25 at 1636, Recovery & On Unit, Maximum dose of acetaminophen is 4000 mg from all sources in 24 hours. heparin 4,000 Units in sodium chloride 0.9 % 2,000 mL OR irrigation (CANCELED) As needed, Starting on Thu02/06/25 at 1452, Intraprocedure 1452 (Given - Provider: Michaela Siegel MD) iodixanol (VISIPaque) 320 MG/ML injection (COMPLETED) Continuous PRN, Starting on Thu02/06/25 at 1603, Intraprocedure 1603 (New Bag - Provider: Michaela Siegel MD) 0738 (Stopped - Provider: Ivory Ballesteros RN - Comment: Not present on assessment) lidocaine (Xylocaine) 1 % injection (CANCELED) As needed, Starting on Thu02/06/25 at 1603, Intraprocedure 1603 (Given - Provider: Michaela Siegel MD) FOR RECORDS PERTAINING TO PATIENTS WHO ARE OR HAVE BEEN ENROLLED IN A CHEMICAL DEPENDENCY/SUBSTANCEABUSE PROGRAM, SOME INFORMATION MAY BE OMITTED. This clinical summary was aggregated from multiple sources. Caution should be exercised in using it in the provision of clinical care. This summary normalizes information from multiple sources, and as a consequence, information in this document may materially change the coding, format and clinical context of patient data. In addition, data may be omitted in some cases. CLINICAL DECISIONS SHOULD BE BASED ON THE PRIMARY CLINICAL RECORDS. [facility]. provides no warranty or guarantee of the accuracy or completeness of information in this document.
[2025-10-11 12:22] LABS: Hematocrit 39.7 % (40-54); Hemoglobin 13.5 g/dL (13.0-16.5); Immature Granulocytes Count 0.010 X10^3/uL (0.0-0.0); Mean Corp Hgb Conc 34.0 g/dL (32-36); Mean Corpuscular Volume 86.3 fL (80-94); Mean Platelet Vol. 10.1 fl (6.2-12.0); NRBC Flagged by Analyzer 0 % (0-5); Platelet Count 170 K/mm3 (150-450); RBC Distribution Width CV 11.4 % (11.6-14.6); RBC Distribution Width SD 35.8 fl (35.1-43.9); Red Blood Count 4.60 M/mm3 (4.6-6.2); White Blood Count 6.4 K/mm3 (4.4-11.0)
--- NOTE | 2025-10-11 12:29 | RAD_ITS ---
PROCEDURE: CHEST PA AND LATERAL 10/11/2025 REASON FOR EXAM: AMS TECHNIQUE: Procedure Code: RADCXR Modality: DX Procedure: CHEST PA AND LATERAL COMPARISON: 01/16/2025 FINDINGS: Hardware: None. Heart: The heart size is normal. A vascular stent is present. Mediastinum: The mediastinal contour is unremarkable. Lungs: The lungs are clear. No pneumothorax or pleural effusion. Bones: The bones are unremarkable. RAD/Chest PA and Lateral IMPRESSION: NO ACUTE FINDINGS. Reading [facility]
[2025-10-11] MEDS: 0.9% Normal Saline (1000mL) 1,000 ML 1000 ML IV (12:35)
[2025-10-11 13:00] LABS: Anion Gap 12 (7-18); BUN 20 mg/dL (4-19); BUN/Creat Ratio 18.9 RATIO (10-20); Calcium,Total 9.6 mg/dL (7.6-11.0); Carbon Dioxide 25.8 mmol/L (20.0-29.0); Chloride 101 mmol/L (96-106); Estimated Creatinine Clearance 63.87 ml/min (50-250); Glucose 305 mg/dL (70-99); Potassium 4.6 mmol/L (3.5-5.1)
[2025-10-11 13:38] VITALS: PULSE 63; RESP 18; O2SAT 97
[2025-10-11 14:04] LABS: Mucous, Urine 0 SEEN /hpf (<or=2+); Red Blood Cells-Urine 0 SEEN /hpf (0-5); Squamous Epithelial Cells - UA 0 SEEN /hpf (0-5)
[2025-10-11 14:06] LABS: Color, Urine Yellow (Yellow); Glucose, Dipstick 1000 mg/dl (Normal); Ketone-Dipstick Negative (Negative); Leukocyte Esterase-Dipstick Negative /ul (Negative); Nitrite-Dipstick Negative (Negative); Occult Blood-Urine Negative /ul (Negative); Protein-Dipstick Negative (Negative); Specific Gravity, Urine 1.015 (1.002-1.030); Urine Bilirubin Dipstick Negative (Negative)
[2025-10-11 14:46] VITALS: BP 138/62; PULSE 63; RESP 18; TEMP 36.6; O2SAT 97
--- NOTE | 2025-10-11 15:40 | EDS_ITS ---
HPI History of Present Illness Chief Complaint: Neuro S/Sx Narrative Narrative: Patient is a 80-year-old male presenting to the emergency department for an episode of lightheadedness and leg and arm weakness 3 days ago. Patient has a past medical history of syncope, anemia, aortic stenosis, status post TAVR, HTN, HLD. Patient states that he lives in multiple different houses and when he was in his house at [place] he was fixing some pipes when he was on the ground and could not stand back up due to bilateral leg and arm weakness and lightheadedness. Family states that since then he has been slightly more confused than baseline not remembering that his cousin is going to live in one of the houses that he has. He denies any visual changes, headache, slurred speech, current numbness or weakness in his arms or legs. Denies chest pain, shortness of breath, abdominal pain, nausea, vomiting, diarrhea, dysuria or hematuria. [facility] Medical History Abnormal pituitary follicle stimulating hormone (FSH) Anemia Aortic stenosis Chest pain Syncope Dermatochalasis of right lower eyelid Dermatochalasis of left lower eyelid Non-rheumatic aortic stenosis Cardiac murmur Controlled type 2 diabetes mellitus Essential hypertension Testicular mass Hyperlipemia Home Medications ?Medication ?Instructions ?Recorded ?Last Taken ?Type multivitamin 1 tab PO DAILY vitamin 08/1701/15/25 History vitamin E (dl, acetate) 450 mg 2,000 unit PO DAILY vit duncan 08/19/18 01/15/25 History (1,000 unit) capsule triamcinolone acetonide 0.1 % 1 applic topical TID PRN rash 02/20/21 01/15/25 History topical cream cholecalciferol (vitamin D3) 25 400 unit PO DAILY poly min 12/07/24 01/15/25 History mcg (1,000 unit) tablet vitamin A-vitamin C-vit E-min 2 tab PO DAILY vitamin 0 01/16/25 01/15/25 History tablet (Ocutabs tablet) metformin 500 mg tablet 500 mg PO BID #30 tabs 10/11 Unknown Rx Allergy/AdvReac Type Severity Reaction Status Date / Time No Known Allergies Allergy Verified 10/11/25 11:41 Family History Father Myocardial infarction CAD (coronary artery disease) History of coronary artery bypass surgery Mother COPD (chronic obstructive pulmonary disease) Surgical History S/P TAVR (transcatheter aortic valve replacement) (02/06/25) History of open reduction and internal fixation (ORIF) procedure History of arthroscopic knee surgery Social History Smoking Status: Never smoker alcohol intake: never substance use type: does not use additional social history: pt denies smoking, denies vaping, denies edibles, denies alcohol, denies aspirin use, denies ibuprofen use. ROS ROS ED ROS Narrative See HPI EXAM Physical Exam Narrative Exam Narrative: Vital signs: Reviewed General: Alert and oriented x 2. Disoriented to year, does know current season. No acute distress. Nontoxic-appearing HEENT: Head is normocephalic and atraumatic, sinuses nontender, pupils 2 mm equal round and reactive. Nares are patent. Oropharynx and throat exams normal. Neck: Supple without lymphadenopathy nontender Cardiovascular: Regular rate and rhythm. Holosystolic murmur heard. No rubs or gallops. Normal S1 and S2 Respiratory: Clear to auscultation bilaterally. No wheezes, rales, rhonchi Abdominal: Soft and nontender. Normal bowel sounds. No guarding or rebound. Nonsurgical abdomen Extremities: No lower extremity edema. No tenderness. No bruising. Normal range of motion. Normal sensation. Skin: No rash or redness. Neurological: Cranial nerves II through XII are grossly intact. Normal strength and sensation. Normal cerebellar function The rest of the physical exam is unremarkable Const Vital Signs: 10/11/25 11:39 10/11/25 13:38 10/11/25 14:46 Temperature 98.2 F 97.8 F Temperature Source Oral Pulse Rate 67 63 63 Respiratory Rate 16 18 18 Blood Pressure 144/74 H 138/62 H Blood Pressure Mean 97 87 Pulse Ox 99 97 97 Oxygen Delivery Method Room Air NIHSS NIHSS Initial: 1a Level of Consciousness: 0 1b LOC Questions (Score 2 if aphasic/stupor): 0 1c LOC Commands (Only score 1st attempt): 0 2 Best Gaze (If aphasic, use reflexive mvmts.): 0 3 Visual: 0 4 Facial Palsy: 0 5 Motor Arm Right (UN = amputation/fusion): 0 5 Motor Arm Left: 0 6 Motor Leg Right: 0 6 Motor Leg Left: 0 7 Limb ataxia (Only + if out of proportion): 0 8 Sensory (Aphasia/stupor=0 or 1, coma=2): 0 9 Best Language: 0 10 Dysarthria (mute, coma=2, intubated=UN): 0 11 Extinction and Inattention (only scored if +): 0 Total Score: 0 MDM MDM MDM Narrative Medical decision making narrative: Patient is an 80-year-old male presenting to the emergency department for an episode of lightheadedness, bilateral upper extremity and lower extremity weakness 3 days ago with now mild confusion. Patient was seen and examined. Vitals are stable. Patient resting bed comfortably no acute distress. Differential includes but is not limited to: TIA, anemia, electrolyte imbalance, UTI, pneumonia, URI, cardiac dysrhythmia EKG shows sinus bradycardia at a rate of 54 with first-degree AV block with a GA interval of 222. Poor baseline however no ST elevation or depression noted. Patient has no typical or atypical ACS symptoms with nonischemic EKG do not think he needs troponins. CBC with no leukocytosis and a normal hemoglobin. BMP with no significant abnormalities other than hyperglycemia of 305. No anion gap or abnormal bicarb to suggest DKA. Hemoglobin A1c was added on and is elevated at 10.4. Is on no current diabetic medication and states that has never been diagnosed with diabetes. He will be started on metformin. I do not think this is causing his symptoms. Urinalysis with glucose consistent with his hyperglycemia, no ketones or evidence of urinary tract infection. CT of the brain shows no intracranial hemorrhage. No mass effect or midline shift. Chronic involutional and ischemic gliotic white matter changes. Chest x-ray reviewed myself, no opacities, pneumothorax or widened mediastinum. Radiology read in agreement. Viral swab negative. I updated patient and son at bedside on the negative workup and the findings of diabetes. Explained that I will start him on metformin and he needs to follow-up with primary care for further medication adjustments. In terms of the patient's mild confusion, this may have been a TIA vs new onset dementia/memory loss from his age. Unsure of the cause, I did offer admission for MRI and further workup. Family and patient would like to go home. They plan on calling PCP, they do have follow up on 10/16 and will have outpatient MRI ordered. I think this is appropriate with his normal neurologic exam other than some mild confusion. Family including two sons, and patient all feel comfortable with the plan. I recommended returning immediately if they change their mind about admission or have any new or worsening symptoms. Patient discharged from the Emergency Department. I do not feel that the patient's evaluation reveals any acute reason for admission at this time. I instructed them to either follow-up with their primary care physician or promptly return to the Emergency Department for reevaluation should symptoms worsen or new symptoms develop. I explained what symptoms would indicate the need to return to the emergency department. Shared decision making was used. The patient voiced understanding of the treatment plan and is agreeable with it. Clinical impression Episodic lightheadedness Diabetes Confusion History & Record Review Discussion w/independent historian: Patient and Family Lab Data Attestation: I reviewed the patient's lab results. Labs: Laboratory Results - last 24 hr 10/11/25 10/11/25 10/11/25 11:51 11:54 14:00 WBC 6.4 RBC 4.60 Hgb 13.5 Hct 39.7 L MCV 86.3 MCH 29.3 MCHC 34.0 RDW Std Deviation 35.8 RDW Coeff of Sly 11.4 L Plt Count 170 MPV 10.1 Immature Gran % (Auto) 0.200 Neut % (Auto) 68.7 Lymph % (Auto) 21.1 [place] % (Auto) 7.5 Eos % (Auto) 2.0 Baso % (Auto) 0.5 Absolute Neuts (auto) 4.4 Absolute Lymphs (auto) 1.34 Nucleated RBC % 0 Sodium 139 Potassium 4.6 Chloride 101 Carbon Dioxide 25.8 Anion Gap 12 BUN 20 H Creatinine 1.06 Estim Creat Clear Calc 63.87 Est GFR (MDRD) Non-Af 71 BUN/Creatinine Ratio 18.9 Glucose 305 H Hemoglobin A1c 10.4 H Calcium 9.6 Urine Color Yellow Urine Clarity Clear Urine pH 6.0 Ur Specific [place] 1.015 Urine Protein Negative Urine Glucose (UA) 1000 H Urine Ketones Negative Urine Occult Blood Negative Urine Nitrite Negative Urine Bilirubin Negative Urine Urobilinogen Normal Ur Leukocyte Esterase Negative Urine RBC 0 SEEN Urine WBC 0 SEEN Ur Squamous Epith Cells 0 SEEN Urine Bacteria 0 SEEN Urine Mucus 0 SEEN Radiography Chest X-Ray - ED: 2 View, Read by ED Physician, Normal, No Acute Disease and No Infiltrates Diagnostic Testing: Clinical Impression(s) from Imaging Studies Brain CT 10/11/25 12:10 IMPRESSION: 1. No intracranial hemorrhage. No mass effect or midline shift. 2. Chronic involutional and ischemic gliotic white matter changes. Mild degenerate changes right the visualized clear acromioclavicular joints characterized by joint mild degenerate changes of the right shoulder. No acute fractures or dislocations. CT is insensitive for early evaluation of acute stroke. If there is clinical concern for acute ischemia, an MRI may be considered. Reading Location: [facility] Chest X-Ray 10/11/25 12:29 IMPRESSION: NO ACUTE FINDINGS. Reading Location: [facility] Discharge Plan Triage Chief Complaint: Neuro S/Sx ED Provider: Darcie Flores Dx/Rx/DC Orders Clinical Impression: Episodic lightheadedness, Diabetes Instructions: Diabetes: Newly Diagnosed, Diabetes Carbs Fats Protein, ED Near- Fainting, Uncertain Cause Prescriptions: New metformin 500 mg tablet 500 mg PO BID Qty: 30 0RF No Action vitamin E (dl, acetate) 1,000 unit capsule 2,000 unit PO DAILY multivitamin tablet 1 tab PO DAILY triamcinolone acetonide 0.1 % cream 1 applic TOPICAL TID PRN (Reason: rash) cholecalciferol (vitamin D3) 25 mcg (1,000 unit) tablet 400 unit PO DAILY Ocutabs Tablet 2 tab PO DAILY Primary Care Provider: Verenice Hernandez Referrals: Verenice Hernandez MD [Primary Care Provider, Internal Medicine] - As soon as possible Activity Restrictions/Additional Instructions: You were offered admission for MRI imaging of your brain and further workup. You declined, felt comfortable going home and having these test done outpatient ordered by your primary care doctor. If your symptoms return or worsen you need to return to the emergency department immediately. Print Language: Vietnamese Disposition Disposition: Home, Self Care Discharge Date/Time: 10/11/25 14:48
== END 2025-10-11 14:48 | disposition home or self-care (01) ==
PROVIDERS: Emergency Provider Student in an Organized Health Care Education/Training Program; PCP Internal Medicine; Visit Provider Student in an Organized Health Care Education/Training Program
DX: R42 Dizziness and giddiness (principal); E11.65 Type 2 diabetes mellitus with hyperglycemia; R41.0 Disorientation, unspecified; Z79.84 Long term (current) use of oral hypoglycemic drugs
CPT/HCPCS: 70450; 71046; 80048; 81001; 83036; 85025; 87631; 93005; 99284; A4216

== ENCOUNTER → 2025-10-16 | Outpatient (CLI) | payer MEDICARE, BC, OTHER, SELFPAY ==
[2025-10-16 18:19] LABS: CPK Total, Creatine Kinase 84 U/L (24-195); Syphilis Antibodies Nonreactive (Nonreactive); Vitamin B12 984 pg/mL (180-914)
[2025-10-16 18:49] LABS: FOLATES,SERUM (FOLIC ACID) 25.40 ng/mL (4.60-34.80)
[2025-10-21 11:08] LABS: Methylmalonic Acid Bld 121 nmol/L (0-378)
== END | disposition home or self-care (01) ==
LOC: CIMLAB 16:38
PROVIDERS: PCP Internal Medicine; Referring Provider Internal Medicine; Visit Provider Internal Medicine
DX: R53.1 Weakness (principal); R41.3 Other amnesia
CPT/HCPCS: 36415; 82550; 82607; 82746; 83921; 84439; 84443; 86780